=== PATIENT | male | born 1960 | race Caucasian/White ===

== ENCOUNTER → 2017-08-14 14:37 | Outpatient (CLI) | payer BC, SELFPAY ==
--- NOTE | 2017-08-14 14:42 | RAD_ITS ---
STUDY: X-RAY - LEFT SHOULDER REASON FOR EXAM: Male, 57 years old. Left shoulder pain TECHNIQUE: 4 view(s) of the shoulder. COMPARISON: None. FINDINGS: The glenohumeral joint is in normal alignment. There is mild nonuniform joint space narrowing and spur formation of the glenohumeral joint. The acromioclavicular joint is in normal alignment demonstrates moderate nonuniform joint space narrowing and spur formation. Normal acromion. Visualized clavicle and scapula are unremarkable. No humeral fracture. No lytic or blastic lesion. The soft tissue structures are unremarkable. Normal visualized left upper ribs and pulmonary apex. 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 Electronically Signed: Santana Asher MD at 3:57 EST Tel , Service support ,
== END ==
PROVIDERS: Family Provider Family Medicine; PCP Family Medicine; Visit Provider Family Medicine
DX: S46.012A Strain of muscle(s) and tendon(s) of the rotator cuff of left shoulder, initial encounter (principal); X58.XXXA Exposure to other specified factors, initial encounter; M19.012 Primary osteoarthritis, left shoulder
CPT/HCPCS: 73030

== ENCOUNTER → 2017-11-18 12:34 | Outpatient (CLI) | payer BC, SELFPAY ==
--- NOTE | 2017-11-18 12:34 | DT_ITS ---
This patient was seen during an EMR downtime November 11, 2017 - November 18, 2017. This patient may have a combination of paper and electronic documentation or all paper documentation. All documentation is viewable within the e-chart portion of [facility] for each patient visit.
[2017-11-18 14:23] LABS: ALB/GLOB Ratio 1.1 RATIO (0.9-2.4); AST(SGOT) 21 U/L (15-37); Alanine Aminotransfer ALT/SGPT 24 U/L (16-61); Albumin, Serum 3.8 g/dL (3.2-5.0); Alkaline Phosphatase 88 U/L (45-117); Anion Gap 9 (5-15); BUN 21 mg/dL (7-18); BUN/Creat Ratio 23.5 RATIO (10-20); Chloride 108 mmol/L (98-107); Cholesterol 132 mg/dL (200); Creatinine, Serum 0.89 mg/dL (0.70-1.30); EST Glomerular Filtration Rate 93 mL/min (>60); Est Glom Filt Rate - Afr Amer 112 mL/min (>60); Globulin 3.6 g/dL (2.2-4.2); Glucose 102 mg/dL (74-106); High Density Lipoprotein 52 mg/dL; Potassium 3.9 mmol/L (3.5-5.1); Protein, Total 7.4 g/dL (6.4-8.2); Sodium Level 142 mmol/L (136-145); Triglycerides 123 mg/dL; Very Low Density Lipoprotein 25 mg/dL (5-40)
== END ==
PROVIDERS: Family Provider Family Medicine; PCP Family Medicine; Visit Provider Family Medicine
DX: E11.65 Type 2 diabetes mellitus with hyperglycemia (principal)
CPT/HCPCS: 36415; 80053; 80061

== ENCOUNTER → 2017-11-21 12:05 | Outpatient (CLI) | payer BC, SELFPAY ==
--- NOTE | 2017-11-21 12:11 | RAD_ITS ---
STUDY: X-RAY - CERVICAL SPINE REASON FOR EXAM: Male, 57 years old. Muscle weakness of extremity. TECHNIQUE: 5 view(s) of the cervical spine were obtained. COMPARISON: None FINDINGS: There are degenerative changes of the anterior atlantoaxial articulation. Normal odontoid process. Normal lower cervical lordosis, there is a mild upper cervical kyphosis. There is multi-level endplate spondylosis. There is multi-level degenerative disc disease with multilevel disc space narrowing. There are multilevel degenerative arthroses of the facet articulations. There is borderline retrolisthesis of C4 on C5. There is multi-level mild to moderate osseous foraminal stenoses. The soft tissue structures are unremarkable. There is no demonstrated osseous destructive process or fracture of the cervical spine. RAD/Cerv Spine 4 or 5 Views IMPRESSION: Multilevel degenerative changes of the cervical spine, as described. Electronically Signed: Gerry Macdonald MD at 14:07 EDT , Service support ,
[2017-11-21 14:30] LABS: Erythrocyte Sedimentation Rate 34 mm/hr (0-20)
[2017-11-21 14:39] LABS: Absolute Lymphocyte Count 1.62 X10^3/ul (0.83-4.51); Basophil# 0.02 X10^3/uL; Basophil% 0.2 % (0-1); Eosinophil# 0.17 X10^3/uL; Hematocrit 46.8 % (40-54); Hemoglobin 14.9 g/dl (13.0-16.5); Lymphocyte # 1.62 X10^3/ul (4.0); Lymphocyte % 18.6 % (19-41); Mean Corp Hgb Conc 31.8 g/gl (32-36); Mean Corpuscular Hgb 30.3 pg (27.0-32.0); Mean Corpuscular Volume 95.3 fL (80-94); Mean Platelet Vol. 9.7 fl (6.2-12.0); Monocyte# 0.87 X10^3/uL; Neutrophil % 69.1 % (47-70); Platelet Count 211 K/mm3 (150-450); RBC Distribution Width CV 14.3 % (11.6-14.6); RBC Distribution Width SD 50.1 fl (35.1-43.9); Red Blood Count 4.91 M/mm3 (4.6-6.2); White Blood Count 8.7 K/mm3 (4.4-11.0)
[2017-11-21 14:42] LABS: POSITIVE COUNT NO; POSITIVE DIFFERENTIAL NO; POSITIVE MORPHOLOGY NO
[2017-11-21 14:57] LABS: CRP < 2.90 mg/L (0.0-3.0); Ferritin 88 ng/mL (26-388); Iron 78 ug/dL (65-175); Magnesium 2.1 mg/dL (1.6-2.6); Thyroid Stim Hormone (TSH) 0.83 uIU/mL (0.358-3.74)
[2017-11-22 08:19] LABS: Vitamin B12 296 pg/mL (211-911); Vitamin D,25 Hydroxy 16.4 ng/mL (29.95-100.01)
[2017-11-22 17:54] LABS: ANTINUCLEAR ANTIBODIES DIRECT Negative (Negative)
== END ==
PROVIDERS: Family Provider Family Medicine; PCP Family Medicine; Visit Provider Family Medicine
DX: M62.81 Muscle weakness (generalized) (principal); G62.9 Polyneuropathy, unspecified
CPT/HCPCS: 36415; 72050; 82306; 82607; 82728; 83540; 83735; 84403; 84443; 85025; 85652; 86038; 86140

== ENCOUNTER → 2017-12-20 07:03 | Outpatient (CLI) | payer BC, SELFPAY ==
--- NOTE | 2017-12-20 07:45 | MRI_ITS ---
STUDY: MRI CERVICAL SPINE WITHOUT CONTRAST REASON FOR EXAM: Male, 57 years old. Right hand weakness and neck and shoulder pain TECHNIQUE: Standardized fat and water weighted pulse sequences were obtained in the sagittal and axial planes. COMPARISON: November 21, 2017 FINDINGS: The effusion C1-2 joint on the right. Normal foramen magnum and brainstem-cervical cord junction. Normal craniovertebral junction. Normal anterior atlantoaxial articulation. Normal odontoid process. There is reversal of the normal cervical lordosis. Normal vertebral bodies and posterior osseous elements. C2-3: Normal endplates. Normal disc height, signal and morphology. Normal central canal and intervertebral neural foramina. C3-4: Normal endplates. Normal disc height, signal and morphology. Normal central canal and severe narrowing left intervertebral neural foramina. C4-5: Normal endplates. Normal disc height, signal and morphology. Normal central canal and moderately severe bilateral intervertebral neural foramina. C5-6: Normal endplates. Normal disc height, signal and morphology. Normal central canal and severe narrowing right intervertebral neural foramina. C6-7: Normal endplates. Normal disc height, signal and morphology. Normal central canal and moderate bilateral narrowing intervertebral neural foramina. C7-T1: Normal endplates. Normal disc height, signal and morphology. Normal central canal and intervertebral neural foramina. Normal cervical cord. Normal visualized soft tissue structures. MRI/Spine Cervical (Routine) IMPRESSION: Bilateral neural foraminal narrowing as noted above at multiple levels Electronically Signed: Oli Eduardo MD at 23:49 EDT , Service support ,
== END ==
PROVIDERS: Family Provider Family Medicine; PCP Family Medicine; Visit Provider Family Medicine
DX: M48.02 Spinal stenosis, cervical region (principal); M62.81 Muscle weakness (generalized)
CPT/HCPCS: 72141

== ENCOUNTER 2018-06-27 10:00 | Outpatient (RCR) | payer BC, SELFPAY ==
--- NOTE | 2018-05-28 14:47 | HP.PTEVAL_ITS ---
Patient's Visit Information THAO MOLINA is a 57 year old M referred to Physical Therapy by Andrew Teran MD with a diagnosis of cervical stenosis. Date of Evaluation: 05/28/18 Physical Therapist: Yair Quinn, GRACIET, OCS, CSCS - Visit Plan Frequency: 2-3x /Week Duration: 4-6 Weeks Plan: 2-3x/week for 4-6 weeks for : 1. c/s rotation ROM. 2. UE ROM into air without making R shoulder pain worse...posture and body mechanics. 3. Strength of posture and shoulders and grippers adn isometric strength c/s. 4. sTM to c/s and upper thoracic paraspinals and scar as needed. 5. Mh/ice if needed. - Subjective Findings: Neck pain and arm weakness and been going on for several years. Sent to Dr. Teran for surgery on May 13 2018. Fusion performed. Doing OK with pain pills. tolerable pain. Doctor not happy with healing so he is starting an antibiotic. Feels like weakness is better. Tingling in B upper legs since surgery laterally. 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 He is off for twelve weeks until Mid July. Sleep is interrupted possibly due to pain. Basic ADLs are getting done but very slow, sometimes increase pain if he does too much.. Sitting down to take break helps. Hobbies: work in garden and yard work. Uses snowblower in winter. Watches tV. No regular exercises. - Pain Neck pain Pain Intensity (Out of 10): 5 Pain Intensity Range: 5, 8 Comment: feels tight - Objective Walks normally and safely. Trasnfers I. Posture is forward head and shoulders. Incisions is large and posterior from about c2 to the upper thoracic spine. No excessive redness heat or swelling but two dry scabbed areas amid otherwise healed incision. c/s AROM B rot 25 degrees, ext 12, minor discomfort with retraction. 45 # L jig and fixture maker and 50# R. UE ROMK shoulder flexion is 13 and then stiff and crepitus L. shoulder rotation WNL EXt but IR limited to belt line and stiff. reeflexes 0/3 B biceps adn triceps. sensation UE WNL to gross light touch. Strength UE 4+ elbow flexion 4/5 ext B, wrist flex adn ext 4+ shoudler flex abd 4 and pain L with crepitus. - Goals Goal 1:: c/s rotation ROM 50 to see when driving better. Goal Time Frame: 4-6 Weeks Goal 2:: 4+/5 UE srength adn 75 jig and fixture maker to facilitate RTW Goal Time Frame: 4-6 Weeks Goal 3:: Pain 0-2/10 at worst and 90% better overall. Goal Time Frame: 4-6 Weeks Goal 4:: Plan to return to work. Goal Time Frame: 4-6 Weeks - Rehabilitation Potential Physical Therapy Diagnosis: c/s stenosis s/p fusion. Rehabilitation Potential: Fair - Anticipated Interventions Patient/Client Instruction: Educate patient on: Condition, Plan of Care For the Purpose of:: To decrease pain, To increase ROM, To improve muscle performance and motor function, To improve ability of physical actions for home/community/work/leisure Therapeutic Exercise to Include: Strength training, Flexibilty training, Passive ROM, Active ROM For the Purpose of:: To decrease pain, To increase ROM, To improve muscle performance and motor function, To improve ability of physical actions for home/community/work/leisure Manual Therapy Techniques to Include: Soft tissue mobilization For the Purpose of:: To decrease pain, To improve nutrient delivery to tissue, To improve ability of physical actions for home/community/work/leisure Cryotherapy (ice pack, ice massage): Yes Thermo therapy (hot pack): Yes For the Purpose of:: To decrease pain, To decrease swelling/inflammation, To improve nutrient delivery to tissue Thank you for the opportunity to evaluate your patient. For Medicare and Medicare HMO plans, please review the plan of care and approve it. It will need to be FAXED BACK to us at [phone] for Medicare purposes. For Medicare only, by signing this I certify the plan of care. Please let me know if there are questions or concerns regarding this plan of care. Physician Signature: Date:
--- NOTE | 2018-06-27 10:55 | HP.PTEVAL_ITS ---
Patient's Visit Information THAO MOLINA is a 57 year old M referred to Physical Therapy by Andrew Teran MD with a diagnosis of cervical stenosis. 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 Pt may benefit form further work simulation strength for eventual RTW. - Subjective Findings: Neck pain and arm weakness and been going on for several years. Sent to Dr. Teran for surgery on May 13 2018. Fusion performed. Doing OK with pain pills. tolerable pain. Doctor not happy with healing so he is starting an antibiotic. Feels like weakness is better. Tingling in B upper legs since surgery laterally. 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 He is off for twelve weeks until Mid July. Sleep is interrupted possibly due to pain. Basic ADLs are getting done but very slow, sometimes increase pain if he does too much.. Sitting down to take break helps. Hobbies: work in garden and yard work. Uses snowblower in winter. Watches tV. No regular exercises. - Pain Neck pain Pain Intensity (Out of 10): 1 Pain Intensity Range: 5, 8 Comment: nothing major - Objective Walks normally and safely. Trasnfers I. Posture is forward head and shoulders. Incisions is large and posterior from about c2 to the upper thoracic spine. No excessive redness heat or swelling but two dry scabbed areas amid otherwise healed incision. c/s AROM B rot 25 degrees, ext 12, minor discomfort with retraction. 45 # L inspector heating and refrigeration and 50# R. UE ROMK shoulder flexion is 13 and then stiff and crepitus L. shoulder rotation WNL EXt but IR limited to belt line and stiff. reeflexes 0/3 B biceps adn triceps. sensation UE WNL to gross light touch. Strength UE 4+ elbow flexion 4/5 ext B, wrist flex adn ext 4+ shoudler flex abd 4 and pain L with crepitus. - Goals Goal 1:: c/s rotation ROM 50 to see when driving better. Goal Time Frame: 4-6 Weeks Goal 2:: 4+/5 UE srength adn 75 inspector heating and refrigeration to facilitate RTW Goal Time Frame: 4-6 Weeks Goal 3:: Pain 0-2/10 at worst and 90% better overall. Goal Time Frame: 4-6 Weeks Goal 4:: Plan to return to work. Goal Time Frame: 4-6 Weeks - Rehabilitation Potential Physical Therapy Diagnosis: c/s stenosis s/p fusion. Rehabilitation Potential: Fair - Anticipated Interventions Patient/Client Instruction: Educate patient on: Condition, Plan of Care For the Purpose of:: To decrease pain, To increase ROM, To improve muscle performance and motor function, To improve ability of physical actions for home/community/work/leisure Therapeutic Exercise to Include: Strength training, Flexibilty training, Passive ROM, Active ROM For the Purpose of:: To decrease pain, To increase ROM, To improve muscle performance and motor function, To improve ability of physical actions for home/community/work/leisure Manual Therapy Techniques to Include: Soft tissue mobilization For the Purpose of:: To decrease pain, To improve nutrient delivery to tissue, To improve ability of physical actions for home/community/work/leisure Cryotherapy (ice pack, ice massage): Yes Thermo therapy (hot pack): Yes For the Purpose of:: To decrease pain, To decrease swelling/inflammation, To improve nutrient delivery to tissue Thank you for the opportunity to evaluate your patient. For Medicare and Medicare HMO plans, please review the plan of care and approve it. It will need to be FAXED BACK to us at [phone] for Medicare purposes. For Medicare only, by signing this I certify the plan of care. Please let me know if there are questions or concerns regarding this plan of care. Physician Signature: Date:
--- NOTE | 2018-06-27 10:55 | HP.PTREVAL ---
Andrew Teran MD, It has been my pleasure to treat THAO Peña KIDNEY over the last 12 visits for cervical stenosis. Please see the progress note below for an update on the physical therapy plan of care! Subjective: Overall feeling better but still tightness in neck. Crying pain is gone. Mostly now tight in base of neck. Sleeping and waking next morning and muscles feel tight but he can move around and loosen them tolerably. Sleep like a baby, up every 2-3 hours but has to pee. Activities avoiding shovelling snow whcih is fine with him. otherwise doing everything. No Doctor visit until 07/10/18. HEP: strengthening isometric necka nd postural pulls, started using free weights for LE. Has to pull alot at work and crawl on ground adn reach, moves alot of weight. No return to wrok date given. Overall expected about 12 weeks off. Objective/Function: R 55 L rot 40 adn extension is 40 in c/s Not painful, just wont go any further. 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 Walks well. 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 I would be concerned if he does not get considerably stronger before return to work as he has lots of travelling and a heavy workload. Recommend that work simulation might be helpful over the next month. 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 Pt may benefit form further work simulation strength for eventual RTW. Goals Goal 1:: c/s rotation ROM 50 to see when driving better. 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 Goal Time Frame: 4-6 Weeks Goal Progress: Progressing Goal 4:: Plan to return to work. Goal Time Frame: 4-6 Weeks Goal Progress: Progressing Anticipated Interventions Patient/Client Instruction: Educate patient on: Condition, Plan of Care For the Purpose of:: To decrease pain, To increase ROM, To improve muscle performance and motor function, To improve ability of physical actions for home/community/work/leisure Therapeutic Exercise to Include: Strength training, Flexibilty training, Passive ROM, Active ROM For the Purpose of:: To decrease pain, To increase ROM, To improve muscle performance and motor function, To improve ability of physical actions for home/community/work/leisure Manual Therapy Techniques to Include: Soft tissue mobilization For the Purpose of:: To decrease pain, To improve nutrient delivery to tissue, To improve ability of physical actions for home/community/work/leisure Cryotherapy (ice pack, ice massage): Yes Thermo therapy (hot pack): Yes For the Purpose of:: To decrease pain, To decrease swelling/inflammation, To improve nutrient delivery to tissue Please do not hesitate to contact me at [phone] by phone or if you have questions or concerns regarding this new plan of care! Sincerely, Yair Quinn, DPT, OCS, CSCS
--- NOTE | 2018-07-11 08:47 | HP.PTDCSUM ---
HP - PT D/C Summary It has been my pleasure to treat THAO Peña KIDNEY under orders from Andrew Teran MD, for the diagnosis of cervical stenosis for a total of 12 visit(s). Discharge Date: 07/11/18 Please see the following information for a summary of their discharge status. - Subjective Subjective: Overall feeling better but still tightness in neck. Crying pain is gone. Mostly now tight in base of neck. Sleeping and waking next morning and muscles feel tight but he can move around and loosen them tolerably. Sleep like a baby, up every 2-3 hours but has to pee. Activities avoiding shovelling snow whcih is fine with him. otherwise doing everything. No Doctor visit until 07/10/18. HEP: strengthening isometric necka nd postural pulls, started using free weights for LE. Has to pull alot at work and crawl on ground adn reach, moves alot of weight. No return to wrok date given. Overall expected about 12 weeks off. - Pain Neck pain Pain Intensity (Out of 10): 1 - Overall Improvement % Improvement: 75 - Objective Objective/Function: Pt called and saw doctor ronny is cancelling last recheck as doctor told him he did not need more therapy. - Goals Goal 1:: c/s rotation ROM 50 to see when driving better. 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 Goal Progress: Progressing Goal 4:: Plan to return to work. Goal Progress: Progressing - Plan Plan: D/C at patient's request. - D/C Information Discharge Comments: D/C as patient cancelled last visit and stating he is doing well. If there are questions or concerns regarding this patient's physical therapy, please feel free to call me at [phone]. Thank you for the referral of this patient. Sincerely, Yair Quinn, DPT, OCS, CSCS
--- OUTSIDE RECORDS SUMMARY | 2018-08-29 19:24 | XMS RPT_ITS ---
:1960 Author Organization OHIP Care Team Providers Name Role Phone Teodora Jacobsen Attending Unavailable Teodora Jacobsen Referring Unavailable Torsten Sawyer Primary Care Unavailable Torsten Sawyer Attending Unavailable Torsten Sawyer Primary Care Unavailable Torsten Sawyer Attending Unavailable Torsten Sawyer Referring Unavailable Torsten Sawyer Primary Care Unavailable Torsten Sawyer Attending Unavailable Torsten Sawyer Referring Unavailable Torsten Sawyer Primary Care Unavailable Ranney, Christopher Attending Unavailable Ranjen, Christopher Referring Unavailable Ranney, Christopher Primary Care Unavailable VALERIO, TEODORA ZOHRAB Referring Unavailable VALERIO, TEODORA ZOHRAB Referring Unavailable VALERIO, TEODORA ZOHRAB Referring Unavailable VALERIO, TEODORA ZOHRAB Admitting Unavailable VALERIO, TEODORA ZOHRAB Attending Unavailable VALERIO, TEODORA ZOHRAB Referring Unavailable LOIS CRAVEN Consulting Unavailable VALERIO, TEODORA Z Referring Unavailable VALERIO, TEODORA Z Referring Unavailable RANJEN, CHRISTOPHER B Primary Care Unavailable VALERIO, TEODORA Z Admitting Unavailable VALERIO, TEODORA Z Attending Unavailable VALERIO, TEODORA Z Referring Unavailable Sunny KATZ Consulting Unavailable UNKNOWN, PROVIDER Consulting Unavailable VALERIO, TEODORA Z Referring Unavailable LUCIEN, CHRISTOPHER B Primary Care Unavailable VALERIO, TEODORA Z Referring Unavailable LUCIEN CHRISTOPHER B Primary Care Unavailable PROBLEMS PROBLEMS DATE TYPE CONDITION / CODE ATTENDING STATUS SOURCE 04/28/2018 Active Encounter for NA Active [facility] Other preprocedural [place] examination / Repository Z01.818(ICD-10) 04/02/2018 Active Spinal stenosis, NA Active [facility] cervical region / Clinic Other M48.02(ICD-10) [place] Repository 04/02/2018 Admitting Unknown / NA Active [facility] General diagnosis [facility](Unknown) [facility] System Repository 12/20/2017 Unknown M62.81 - Muscle Ranney, Active [place] weakness [facility] (generalized) / Hospital M62.81(ICD-10) Repository 11/21/2017 Unknown G62.9 - Ranney, Active [place] Polyneuropathy, [facility] unspecified / Hospital G62.9(ICD-10) Repository 12/05/2017 Unknown E11.65 - Type 2 Ranney, Active [place] diabetes mellitus [facility] with hyperglycemia Hospital / E11.65(ICD-10) Repository PROCEDURES PROCEDURES No Procedure Records FoundRESULTS RESULTS RE-EVALUATION - PT (1) Observed: 06/30/2018 Status: F Source: [place] 6:47 AM [facility] [place] REPOSITORY [facility] Physical Therapy Health[address] [place] [address] / REEVALUATION / MEDICARE RECERTIFICATION PHYSICAL THERAPY MR#: [id number] Acct: [id number] Name: MARTIN MOLINA Rep #: [id number] : 1960 57 From: Yair Quinn DPT, OCS, CSCS Referring Dr.: Teodora Jacobsen MD Status: REG RCR Insurance: [employer] SELF PAY INSURANCE Teodora Jacobsen MD, It has been my pleasure to treat MARTIN Peña KIDNEY over the last 12 visits for cervical stenosis. Please see the progress note below for an update on the physical therapy plan of care! Subjective: Overall feeling better but still tightness in neck. Crying pain is gone. Mostly now tight in base of neck. Sleeping and waking next morning and muscles feel tight but he can move around and loosen them tolerably. Sleep like a baby, up every 2-3 hours but has to pee. Activities avoiding shovelling snow whcih is fine with him. otherwise doing everything. No Doctor visit until 07/10/18. HEP: strengthening isometric necka nd postural pulls, started using free weights for LE. Has to pull alot at work and crawl on ground adn reach, moves alot of weight. No return to wrok date given. Overall expected about 12 weeks off. Objective/Function: R 55 L rot 40 adn extension is 40 in c/s Not painful, just wont go any further. 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 Walks well. 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 I would be concerned if he does not get considerably stronger before return to work as he has lots of travelling and a heavy workload. Recommend that work simulation might be helpful over the next month. 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 Pt may benefit form further work simulation strength for eventual RTW. Goals Goal 1:: c/s rotation ROM 50 to see when driving better. 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 Goal Time Frame: 4-6 Weeks Goal Progress: Progressing Goal 4:: Plan to return to work. Goal Time Frame: 4-6 Weeks Goal Progress: Progressing Anticipated Interventions Patient/Client Instruction: Educate patient on: Condition, Plan of Care For the Purpose of:: To decrease pain, To increase ROM, To improve muscle performance and motor function, To improve ability of physical actions for home/community/work/leisure Therapeutic Exercise to Include: Strength training, Flexibilty training, Passive ROM, Active ROM For the Purpose of:: To decrease pain, To increase ROM, To improve muscle performance and motor function, To improve ability of physical actions for home/community/work/leisure Manual Therapy Techniques to Include: Soft tissue mobilization For the Purpose of:: To decrease pain, To improve nutrient delivery to tissue, To improve ability of physical actions for home/community/work/leisure Cryotherapy (ice pack, ice massage): Yes Thermo therapy (hot pack): Yes For the Purpose of:: To decrease pain, To decrease swelling/inflammation, To improve nutrient delivery to tissue Please do not hesitate to contact me at [phone] by phone or if you have questions or concerns regarding this new plan of care! Sincerely, Yair Quinn, DPT, OCS, CSCS <Electronically signed by Yair BOWMANT, OCS, CSCS> 06/30/18 0647 CC: Torsten Sawyer MD; Teodora Jacobsen MD EBG Signed For Medicare only, by signing this I certify the plan of care. Physicians Signature Date INITAL EVALUATION (1) Observed: 05/30/2018 Status: F Source: [place] Garcia PT 6:45 AM [facility] REPOSITORY [facility] Physical Therapy Health[address] [place] [address] Fax REHABILITATION SERVICES INITIAL EVALUATION MR#: [id number] Acct: [id number] Name: MARTIN MOLINA Rep #: [id number] : 1960 57 From: Yair Quinn DPT, OCS, CSCS Referring Dr.: Teodora Jacobsen MD Status: REG RCR Insurance: [facility] SELF PAY INSURANCE Patient's Visit Information MARTIN MOLINA is a 57 year old M referred to Physical Therapy by Teodora Jacobsen MD with a diagnosis of cervical stenosis. Date of Evaluation: 05/28/18 Physical Therapist: Yair Quinn DPT, OCS, CSCS - Visit Plan Frequency: 2-3x /Week Duration: 4-6 Weeks Plan: 2-3x/week for 4-6 weeks for : 1. c/s rotation ROM. 2. UE ROM into air without making R shoulder pain worse...posture and body mechanics. 3. Strength of posture and shoulders and grippers adn isometric strength c/s. 4. sTM to c/s and upper thoracic paraspinals and scar as needed. 5. Mh/ice if needed. - Subjective Findings: Neck pain and arm weakness and been going on for several years. Sent to Dr. Jacobsen for surgery on May 13 2018. Fusion performed. Doing OK with pain pills. tolerable pain. Doctor not happy with healing so he is starting an antibiotic. Feels like weakness is better. Tingling in B upper legs since surgery laterally. 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 Using big wrenches was a problem. He is off for twelve weeks until Mid July. Sleep is interrupted possibly due to pain. Basic ADLs are getting done but very slow, sometimes increase pain if he does too much.. Sitting down to take break helps. Hobbies: work in garden and yard work. Uses snowblower in winter. Watches tV. No regular exercises. - Pain Neck pain Pain Intensity (Out of 10): 5 Pain Intensity Range: 5, 8 Comment: feels tight - Objective Walks normally and safely. Trasnfers I. Posture is forward head and shoulders. Incisions is large and posterior from about c2 to the upper thoracic spine. No excessive redness heat or swelling but two dry scabbed areas amid otherwise healed incision. c/s AROM B rot 25 degrees, ext 12, minor discomfort with retraction. 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 UE ROMK shoulder flexion is 13 and then stiff and crepitus L. shoulder rotation WNL EXt but IR limited to belt line and stiff. reeflexes 0/3 B biceps adn triceps. sensation UE WNL to gross light touch. Strength UE 4+ elbow flexion 4/5 ext B, wrist flex adn ext 4+ shoudler flex abd 4 and pain L with crepitus. - Goals Goal 1:: c/s rotation ROM 50 to see when driving better. 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 Goal Time Frame: 4-6 Weeks Goal 4:: Plan to return to work. Goal Time Frame: 4-6 Weeks - Rehabilitation Potential Physical Therapy Diagnosis: c/s stenosis s/p fusion. Rehabilitation Potential: Fair - Anticipated Interventions Patient/Client Instruction: Educate patient on: Condition, Plan of Care For the Purpose of:: To decrease pain, To increase ROM, To improve muscle performance and motor function, To improve ability of physical actions for home/community/work/leisure Therapeutic Exercise to Include: Strength training, Flexibilty training, Passive ROM, Active ROM For the Purpose of:: To decrease pain, To increase ROM, To improve muscle performance and motor function, To improve ability of physical actions for home/community/work/leisure Manual Therapy Techniques to Include: Soft tissue mobilization For the Purpose of:: To decrease pain, To improve nutrient delivery to tissue, To improve ability of physical actions for home/community/work/leisure Cryotherapy (ice pack, ice massage): Yes Thermo therapy (hot pack): Yes For the Purpose of:: To decrease pain, To decrease swelling/inflammation, To improve nutrient delivery to tissue Thank you for the opportunity to evaluate your patient. For Medicare and Medicare HMO plans, please review the plan of care and approve it. It will need to be FAXED BACK to us at [phone] for Medicare purposes. For Medicare only, by signing this I certify the plan of care. Please let me know if there are questions or concerns regarding this plan of care. Physician Signature: Date: <Electronically signed by Yair Quinn DPT, OCS, CSCS> 05/30/18 0645 CC: Torsten Sawyer MD; Teodora Jacobsen MD EBG Signed GLUCOSE METER Collected: 05/16/2018 Status: F Source: [facility] 5:02 PM HEALTH SYSTEM REPOSITORY TYPE CODE TESTS RESULT OUT OF REFERENCE UNITS RANGE LAB GLUBL(LOINC 70-99 mg/dL ) High Glucose Meter 151 Result Comment: RN NOTIFIED Performed By: #### GLMET #### [place] [address] ALLIED HEALTH Observed: 05/16/2018 Status: COMPLETED Source: [place] 2:23 PM CLINIC OTHER CAMPUS REPOSITORY HNO ID: [id number] Author: Gustabo Nicholas (Chaplain) Service: Spiritual Care Author Type: Senior Java J2Ee Developer Type: Allied Health Filed: 05/16/2018 2:23 PM Note Text: SPIRITUALCARE Spiritual Care Visit- Brief Note Name: Martin Peña Kidney Date: May 16, 2018 Notes: I stopped into visit with Pt and there were doctor's in with Pt at the time. Senior Java J2Ee Developer Signature: Chaplain Yu Scholastic Aptitude Test Grader To contact the Spiritual Care Department: Please call [phone] or Page the On-Call Senior Java J2Ee Developer at pager [phone] Thank you for the opportunity to be of service. This is an electronically created document. IF PRINTED, PLEASE DO NOT REMOVE FROM THE CHART OR MODIFY PRINTED COPY. PROGRESS Observed: 05/16/2018 Status: COMPLETED Source: [place] 1:58 PM CLINIC OTHER CAMPUS REPOSITORY HNO ID: [id number] Author: Dada Mata Service: Hospital Medicine Author Type: Physician Type: Progress Notes Filed: 05/16/2018 2:07 PM Note Text: DEPARTMENT OF HOSPITAL MEDICINE PROGRESS NOTE SERVICE DATE: 05/16/2018 SERVICE TIME: 1:58 PM Hospital Medicine/Primary Attending: Dada Mata MD NIGHT AND WEEKEND COVERAGE: After 7pm please page [phone] CHIEF COMPLAINT: chest pain. CAD SUBJECTIVE: No chest pain. No dyspnea. OBJECTIVE: PHYSICAL EXAM: BP 112/60 Pulse 79 Temp (Src) 98.2 (Oral) Resp 18 Ht 5' 7 (1.70m) Wt 280 lb (127.0kg) SpO2 100% BMI 43.84 kg/(m2). GENERAL: Alert, no distress, cooperative, SKIN: Skin color, texture, turgor normal. No rashes or lesions. NECK: dressing present. Drain present OROPHARYNX: Lips, mucosa, and tongue normal. Teeth and gums normal. Oropharynx normal. LUNGS: Lungs clear to auscultation, Air entry good, Unlabored breathing. CARDIAC: Normal S1 and S2; no rubs, murmurs, or gallops ABDOMEN: Abdomen soft, non-tender, non-distended, BS normal EXTREMITIES: Normal, no deformities, edema, clubbing or skin discoloration. NEURO: Grossly normal cognition, motor function, and cranial nerves III-XII MEDICATIONS: Current hospital medications: [MAR Hold due to Transfer] albuterol 2.5 mg /3 mL (0.083 %) 2.5 mg (PROVENTIL) 2.5 mg INHALATION q 4 H PRN metFORMIN 1,000 mg tab(s) (GLUCOPHAGE) 1,000 mg ORAL DAILY WITH BREAKFAST atorvastatin 80 mg tab(s) (LIPITOR) 80 mg ORAL DAILY lisinopril 10 mg tab(s) (ZESTRIL, PRINIVIL) 10 mg ORAL DAILY metoprolol tartrate (short acting) 25 mg tab(s) (LOPRESSOR) 25 mg ORAL DAILY pioglitazone 45 mg tab(s) (ACTOS) 45 mg ORAL DAILY NaCl 0.45% iv infusion 100 mL/hr INTRAVENOUS CONTINUOUS HYDROmorphone HCl 0.5-1 mg injection (DILAUDID) 0.5-1 mg INTRAVENOUS q 2 H PRN oxyCODONE-acetaminophen 5-325 mg 1-2 tablet (PERCOCET) 1-2 tablet ORAL q 4 H PRN ondansetron 4 mg tab(s) (ZOFRAN) 4 mg ORAL q 6 H PRN ondansetron (PF) 4 mg injection (ZOFRAN) 4 mg INTRAVENOUS q 6 H PRN docusate sodium 100 mg cap(s) (COLACE) 100 mg ORAL BID polyethylene glycol 3350 17 g packet (MIRALAX, GLYCOLAX) 17 g ORAL DAILY PRN bisacodyl 10 mg suppository (DULCOLAX) 10 mg RECTAL DAILY PRN tiZANidine 4 mg tab(s) (ZANAFLEX) 4 mg ORAL TID [MAR Hold due to Transfer] empagliflozin 25 mg tab(s) (JARDIANCE) 25 mg ORAL DAILY WITH BREAKFAST [MAR Hold due to Transfer] sitaGLIPtin 100 mg tab(s) (JANUVIA) 100 mg ORAL DAILY DATA: Diagnostic tests reviewed for today's visit: CBC, Coags, BMP, Mg, Phos Recent Labs 05/14/18 1000 WBC 13.51* HB 13.0* HCT 41.6 PLT 204 NA 135* K 4.0 CHLOR 104 CO2 24 BUN 21* CREAT 1.06 GLUC 181* CA 8.3* Liver Function, Amylase, AND Lipase Cardiac Enzymes Recent Labs 05/14/18 1000 CK 513* CKMB 4.8 Heme: No results for input(s): RETICP, ABSRETIC, LD, ARNALDO, FE, TIBC, TRANSFERSAT in the last 24 hours. No results found for: UALBCR Assessment/Plan Patient Active Hospital Problem List: Obesity, Class III, BMI >= 40 (05/13/2018) Cervical stenosis of spine (05/13/2018) HTN (hypertension) () Dyslipidemia () Diabetes (HCC) () CAD (coronary artery disease) () ASSESSMENT: 1. S/p cervical surgery C3-T1 posterior decompression, fixation, and fusion: POd #2. ? 2. Chest pain: described as 'heartburn, not pressure like'. resolved. EKG st elevation in lead II and ? I. But troponin three times negative. Discussed with seed laboratory assistant- reviewed EKG from past and from 10/2017 and 11/2017. New Accounts Banking Representative recommended outpatient stress test once better from neck surgery standpoint. Recommended to continue BB, statin and Imdur. D/w patient, he was not interested in adding and wanted to defer it at this time. Before surgery, he has been fairly active and does not chest pain or dyspnea with activities. ? 3. Hx CAD s/p stent: last one was 15 years ago. on statin, metoprolol. ASA on hold for surgery. Nuclear stress test early this year at [place] early this year, reports negative. ? 4. HTN: BP okay ? 5. HPL ? 6. DM2: BG in 100s. On Metformin, januvia, Jardiance, actos. ? PLAN: Continue BB,statin. Restart AsA as soon as okay from surgical standpoint. Follow up with seed laboratory assistant for outpatient stress test. Should consider imdur if chest pain recurs. This was discussed with patient in detail and he seems to understand. VTE Prophylaxis: Pneumatic Compression Device Disposition: per primary Plan of care discussed with: Patient SIGNATURE: Dada Mata MD PATIENT NAME: Martin Molina DATE: May 16, 2018 TIME: 1:58 PM PAGER/CONTACT #: [phone] CASE MGT INIT Observed: 05/16/2018 Status: COMPLETED Source: [facility] 12:52 PM CLINIC OTHER CAMPUS REPOSITORY HNO ID: [id number] Author: DENISHA Morrell (Lisw) Service: Social Work Author Type: Commercial Sales Representative Type: Care Mgt Initial Assessment Filed: 05/16/2018 1:00 PM Note Text: CARE MANAGEMENT: ASSESSMENT AND DISCHARGE PLAN SERVICE DATE: 05/16/2018 SERVICE TIME: 12:53 PM PRIMARY CARE PHYSICIAN: Torsten Sawyer MD ADMISSION STATUS: Inpatient Needs Prior to Discharge: To Be Determined;Patient/Family MEDICAL: Patient/[place] Opener Stated Goals: To return home to life as it was Health Insurance: [employer] CARD PPO [place] Health Issues Impacting Discharge Plan: Chronic obesity,DM II,HTN Last Admission Date: none Is this Within the Past 30 days? No Advance Directive: Current Advance Directive: Health Care Power of Mortgage Loan Specialist In Chart: Yes Up To Date and Valid: Yes Health Literacy: 1. How often do you need to have someone help you when you read instructions, pamphlets, or other written material from your doctor or pharmacy? Never - 1 2. How confident are you filling out medical forms by yourself? Extremely - 1 If Patient scores > 3 on either question, the following interventions were put into place: Patient did not score > 3 FUNCTIONAL AND COGNITIVE/BEHAVIORAL PRIOR TO ADMISSION: Baseline Mental Status: Alert AND Oriented, Person, Place , Time and Situation Functional Status: Independent Does Patient Currently Receive Any Community Services or Home Care? None Equipment Prior to Admission: None Has the Patient Been in a Detention Facility in the Past 30 days? No SOCIAL: Living Arrangement: Home Lives With: Spouse Financial Resources: Employed: at [employer] Primary Contact: Extended Emergency Contact Information Primary Emergency Contact: Zhane Molina Address: [address] [place] [address] [facility] Mobile Relation: Spouse Supportive: Yes Other Important Patient Contacts: none Caregiver Assessment: Caregiver is ready, willing and able to meet the patient's needs as recommended by the inter-professional team? No Caregiver Needed Patient's transition needs and plan for meeting these needs: Plan is to go home and have some assistance from with cooking laundry etc.No other needs Does the patient have an acute stroke diagnosis, or has the patient had a stroke during this admission? No Medication Adherence: I am convinced of the importance of my prescription medication: Agree completely - 0 I worry that my prescription medication will do more harm than good to me Disagree completely - 0 I feel financially burdened by my [id number] expenses for my prescription medication: Disagree completely - 0 Patient is categorized as low risk < 2 Are you interested in bedside delivery of your medications? No Food Concerns: In the Last Month, Have You had Trouble Getting Food? No trouble getting food During the Last Month, Have You Worried Whether Your Food Would Run Out Before You Had Enough Money to Buy More? No Is the Patient Psychosocially Complex? No ASSESSMENT AND PLAN: Medical Needs: 2 or more chronic diseases Psychosocial Needs: None FREEDOM OF CHOICE EXPLAINED: N/A POTENTIAL TRANSITION PLANS Home Patient was seen by P.T. With reccs. For home with assist.. on her way here now. The couple live in [place] with stairs to the entrance. Patient pharmacis at [facility] in [place]. He last saw his PCP Dr. Sawyer in May 03.Patient Independent and driving. SIGNATURE: DENISHA Morrell PATIENT NAME: Martin Molina DATE: May 16, 2018 TIME: 12:52 PM PAGER/CONTACT #: [phone] CNDS Observed: 05/16/2018 Status: COMPLETED Source: [place] 11:26 AM CLINIC OTHER CAMPUS REPOSITORY HNO ID: [id number] Author: LAMINE Napoles (Pa) Service: Neurosurgery Author Type: Physician Armhole Baster Hand Type: Discharge Summaries Filed: 05/16/2018 11:31 AM Note Text: Attestation signed by Teodora Jacobsen at 05/16/2018 12:07 PM Teodora Jacobsen MD DISCHARGE SUMMARY PATIENT NAME: Martin Molina ADMISSION DATE: 05/13/2018 DISCHARGE DATE: 05/16/2018 ATTENDING PHYSICIAN: Teodora Jacobsen Code Status: Not on file Highest Readmission Risk Score: 10 The 30 day readmissions risk score is derived from an internally validated risk model which evaluates patient level characteristics, utilization history, medication orders and lab results up until the day of discharge. Patients with a score of 40 or above are considered highest risk for readmission. Specific patient level drivers will be listed at the bottom of the summary. REASON FOR HOSPITALIZATION: elective spine surgery DIAGNOSIS: Active Problems: Obesity, Class III, BMI >= 40 Cervical stenosis of spine HTN (hypertension) Dyslipidemia Diabetes (HCC) CAD (coronary artery disease) Resolved Problems: * No resolved hospital problems. * Ruled Out OPERATIONS DURING HOSPITALIZATION: C3-T1 posterior fixation and fusion PROCEDURES DURING HOSPITALIZATION: No procedures performed HOSPITAL COURSE: No notes on file Transitions of Care Critical Issues: NEW BASELINE FOR PATIENT: surgical pain temporarily LABS AND PROCEDURES PENDING AT DISCHARGE: No pending results. CONSULTING TEAMS DURING HOSPITALIZATION: [facility] Medicine: izaiah PATIENT CONDITION AT DISCHARGE: Stable DISCHARGE DISPOSITION: Home/Self Care Discharge Physical Exam: VITAL SIGNS: BP 139/60 Pulse 81 Temp 36.7 ?C (98.1 ?F) (Oral) Resp 18 Ht 170.2 cm (5' 7) Wt 127 kg (280 lb) SpO2 100% BMI 43.85 kg/m? GENERAL: Alert, no distress, cooperative, Obese NECK: No jugulovenous distention, Supple, stiff but acceptable rom, spasms bilaterally BACK: Back symmetric, Normal curvature, ROM normal, No CVAT. NEURO: Gait normal. Reflexes normal and symmetric. Strength and sensation grossly intact, Cranial nerves II-XII intact INFORMATION PROVIDED TO PATIENT: (To pull info documented from the DC Instruct Orderset Complete O/S First): none DIET: Resume pre-hospital diet ACTIVITY: see d/c instructions WOUND/SURGICAL SITE CARE: ALLERGIES No Known Allergies DISCHARGE MEDICATION: Current Discharge Medication List START taking these medications oxyCODONE-acetaminophen (PERCOCET) 1-2 tablets Take 1-2 tablets by mouth every 6 hours as needed. Earliest Fill Date: 05/16/18 Qty: 56 tablet Refills: 0 Associated Diagnoses:Cervical stenosis of spine tiZANidine (ZANAFLEX) 4 mg Take 4 mg by mouth three times daily. Qty: 60 tablet Refills: 0 Associated Diagnoses:Cervical stenosis of spine CONTINUE these medications which have NOT CHANGED atorvastatin (LIPITOR) 80 mg Take 80 mg by mouth once daily. linagliptin (TRADJENTA) 5 mg tab Take by mouth once daily. LISINOPRIL ORAL 10 mg Take 10 mg by mouth once daily. metFORMIN (GLUCOPHAGE) 1,000 mg Take 1,000 mg by mouth daily with breakfast. dapagliflozin 10 mg Take 10 mg by mouth daily with breakfast. METOPROLOL TARTRATE ORAL 25 mg Take 25 mg by mouth once daily. pioglitazone HCl (PIOGLITAZONE ORAL) 45 mg Take 45 mg by mouth once daily. STOP taking these medications meloxicam (MOBIC) 15 mg Comments: Reason for Stopping: aspirin, enteric coated (ASPIRIN, ENTERIC COATED) 81 mg Comments: Reason for Stopping: FUTURE APPOINTMENTS: Follow Up with valerio as scheduled The patient's risk for 30-day readmission is determined using the following contributing factors: Pt variables contributing to increased readmission risk: 21 Most Recent BUN Result 17 Active Medication Orders 8.3 First Resulted Calcium During Admission 1 Insurance - Private Coverage TIME OF CARE: Discharge Management: I personally spent greater than 30 minutes involved in the discharge management of this patient. SIGNATURE: LAMINE Napoles PAGER/CONTACT #: [phone] DATE: May 16, 2018 TIME: 11:28 AM PROGRESS Observed: 05/16/2018 Status: COMPLETED Source: [place] 11:19 AM [facility]IN[facility] OTHER CAMPUS REPOSITORY HNO ID: [id number] Author: Temo Puente (Lamine) LAMINE Jin Service: Neurosurgery Author Type: Physician Armhole Baster Hand Type: Progress Notes Filed: 05/16/2018 11:23 AM Note Text: Neurosurgery Progress Note SERVICE DATE: 05/16/2018 SUBJECTIVE: naeon - pt states pain essentially controlled with oral narc. C/o muscle spasms to shoulders and irritation from the collar. Eating, voiding and ambulating. Denies any recurrence of cp/sob. OBJECTIVE: Vitals: Temp (24hrs), Av.7 ?C (98.1 ?F), Min:36.5 ?C (97.7 ?F), Max:36.9 ?C (98.4 ?F) BP 139/60 Pulse 81 Temp 36.7 ?C (98.1 ?F) (Oral) Resp 18 Ht 170.2 cm (5' 7) Wt 127 kg (280 lb) SpO2 100% BMI 43.85 kg/m? O2 Therapy: Room Air IANDO: Date 05/15/18699 - 05/16/18 0659 05/16/18 07 - 05/17/18 0659 Shift 8931-3908 2318-2744 7587-3568 24 Hour Total 8135-5832 4749-0803 2976-3934 24 Hour Total I N T A K E PO 200 200 PO 200 200 IV 800 800 NS .45% 800 800 Shift Total 1000 1000 O U T P U T Urine 1350 1350 Void (ml) 1350 1350 Tubes 90 20 110 Drain/Tube Output (Drain/Tube 05/13/18 1553 Hemovac Midline Posterior Neck Drain #1) 90 20 110 Shift Total 1440 20 1460 Weight (kg) 127 127 127 127 127 127 127 127 MEDICATIONS Current Facility-Administered Medications: [MAR Hold due to Transfer] albuterol 2.5 mg /3 mL (0.083 %) 2.5 mg (PROVENTIL) 2.5 mg INHALATION q 4 H PRN metFORMIN 1,000 mg tab(s) (GLUCOPHAGE) 1,000 mg ORAL DAILY WITH BREAKFAST atorvastatin 80 mg tab(s) (LIPITOR) 80 mg ORAL DAILY lisinopril 10 mg tab(s) (ZESTRIL, PRINIVIL) 10 mg ORAL DAILY metoprolol tartrate (short acting) 25 mg tab(s) (LOPRESSOR) 25 mg ORAL DAILY pioglitazone 45 mg tab(s) (ACTOS) 45 mg ORAL DAILY NaCl 0.45% iv infusion 100 mL/hr INTRAVENOUS CONTINUOUS HYDROmorphone HCl 0.5-1 mg injection (DILAUDID) 0.5-1 mg INTRAVENOUS q 2 H PRN oxyCODONE-acetaminophen 5-325 mg 1-2 tablet (PERCOCET) 1-2 tablet ORAL q 4 H PRN ondansetron 4 mg tab(s) (ZOFRAN) 4 mg ORAL q 6 H PRN Or ondansetron (PF) 4 mg injection (ZOFRAN) 4 mg INTRAVENOUS q 6 H PRN docusate sodium 100 mg cap(s) (COLACE) 100 mg ORAL BID polyethylene glycol 3350 17 g packet (MIRALAX, GLYCOLAX) 17 g ORAL DAILY PRN bisacodyl 10 mg suppository (DULCOLAX) 10 mg RECTAL DAILY PRN tiZANidine 4 mg tab(s) (ZANAFLEX) 4 mg ORAL TID [MAR Hold due to Transfer] empagliflozin 25 mg tab(s) (JARDIANCE) 25 mg ORAL DAILY WITH BREAKFAST [MAR Hold due to Transfer] sitaGLIPtin 100 mg tab(s) (JANUVIA) 100 mg ORAL DAILY Labs: Recent Labs 05/14/18 1000 NA 135* K 4.0 CHLOR 104 CO2 24 BUN 21* CREAT 1.06 GLUC 181* ANION 11 CA 8.3* WBC 13.51* HB 13.0* HCT 41.6 PLT 204 Exam: GENERAL: No distress, Alert, up in a chair NEURO: orientedx3, msp grossly intact and equal HEENT: normocephalic, incision c/d/i - hemovac d/c'd gush of serous fluid after drain pulled, now nearly stopped LUNGS: Unlabored breathing CARDIAC: Regular rate and rhythm as above ASSESSMENT AND PLAN: Active Hospital Problems Diagnosis Date Noted - HTN (hypertension) - Dyslipidemia - Diabetes (HCC) - CAD (coronary artery disease) Overview Note: No seed laboratory assistant. follows up with PCP - Obesity, Class III, BMI >= 40 05/13/2018 - Cervical stenosis of spine 05/13/2018 57 year old male s/p C3-T1 posterior cervical fusion and fixation POD#3 - neuro stable - pain controlled - ok to d/c home. Instructions reviewed SIGNATURE: LAMINE Napoles PATIENT NAME: Martin Molina DATE: May 16, 2018 TIME: 11:19 AM Pager: [phone] THERAPY NT Observed: 05/16/2018 Status: COMPLETED Source: [place] 10:38 AM CLINIC OTHER CAMPUS REPOSITORY HNO ID: [id number] Author: Umm Glez Service: Physical Therapy Author Type: Sticker Operator Type: Therapy (PT/OT/Speech/Resp) Filed: 05/16/2018 10:43 AM Note Text: Attestation signed by Mari Mascorro at 05/16/2018 11:39 AM I reviewed and agree with the documentation corresponding to this therapy visit. SIGNATURE: Mari Mascorro, PT DATE: May 16, 2018 TIME: 11:39 AM Physical Therapy Treatment SERVICE DATE: 05/16/2018 SERVICE TIME: 1003 to 1027 ROOM: [id number] Recommended Discharge Disposition: Home Anticipated Discharge Needs: Physical Assist at Home Physical Assist at Home for: Cleaning;Laundry;Shopping;Transportation PT Recommendations to Nursing: Ambulate with device;To bathroom;In halls;With assist of 1 person Device: (IV pole) PT 6 Clicks Score: 23 Precautions/Activity Restrictions: Spine Precaution/Activity Restriction Comments: c-collar when OOB ASSESSMENT : Patient Disposition at Start of Session: OOB in Chair;Call Cash in Reach Patient Disposition at End of Session: OOB in Chair;Call Cash in Reach Tolerated Full Session Physical Therapy Problem List: Education Deficit;Pain;Decreased Range Of Motion;Decreased Strength;Functional Mobility Impairment Patient /Caregiver Goals: Walk;Go Home Goals for Plan of Care: Transfer supine to/from sit with: Contact Guard Assistance Transfer sit to/from stand with: Contact Guard Assistance Ambulate with: Contact Guard Assistance Distance: 100 Device: No Device (c-collar on) Ambulate up and down steps with: Contact Guard Assistance Number of steps: 4 Device: Rail Progress Toward Goals: Progressing as expected Rehab Potential: Good PLAN: Treatment Frequency (times per week): 7 Current admission Treatment Interventions: Education;Strengthening;Functional Mobility Training Plan of Care developed with: Patient TREATMENT INTERVENTIONS: Therapy Diagnosis: Reduced mobility-other;Abnormalities of gait and mobility-other;General symptoms and signs-other Interventions Provided: Therapeutic Exercise (11748);Therapeutic Activity (62429);Gait Training (80866) Therapeutic Exercise (61758) Treatment Minutes: 10 1 unit Skilled Intervention(s): Instruction in therapeutic exercise for ROM and strengthening Patient completed general strengthening exercises in supine, at edge of bed or chair (ankle pump, gluteal set, long arc quad, x 12 reps B lower extremity, with Min assist. 3 Therapeutic Activity (48015) Treatment Minutes: 5 0 units Skilled Intervention(s): Instruction in sit to and from stand technique with proper hand placement and body positioning at edge of bed/chair with verbal cues for safety. Gait Training (03880) Treatment Minutes: 9 1 unit Skilled Intervention(s): Instruction in stair negotiation Up/down 4 steps with bilat rails , SB assist with vebral cues for sequence , and Instruction in use of equipment, cues for sequence and pattern with ambulation without AD With SB assist. Educated patient on home safety and removing all loose rugs . Patient educated in spine precautions NO BLT (No bending, lifting (more than 10 lbs or gallon of milk), or twisting--able to recall 3/3 Instruct in log roll technique Educate on kimberly/doff C-collar and when to wear Encouraged ambulation every hour when awake Instruct in safe functional mobility including stair negotiation Total Timed Code Treatment Minutes: 24 Total Treatment Time (minutes): 24 SUBJECTIVE: Current Hospital Course: Chart reviewed and no significant medical updates relevant to therapy were noted Reason for Physical Therapy Consult : eval Patient Report: Pt was up in chair and agreeable to PT session. C/o pain 10/17 . Home Environment Patient Lives With: Spouse Assistance Available: 24 Hour Entry To Home: Stairs;With Rail Number Of Stairs Into Home: 3 Number Of Stairs To Bed/Bath: 0 Tub/Shower Type: Tub shower Laundry: Pt's can do Prior Functional Level: Within Functional Limits OBJECTIVE: CURRENT FUNCTIONAL STATUS: Current Functional Mobility Assist Level Additional Information Rolling Supine to Sit Sit to Supine Scooting Sit to Stand Stand By Assistance Stand to Sit Stand By Assistance Bed to Chair Toilet/Commode Gait Stand By Assistance Gait Device: None Gait Distance (feet): 75 x 2 Stairs Stand By Assistance Stairs Device: Rail (2) Number of Stairs: 4 Curb Step Car Transfer General Gait Deviations: Diane decreased;Lateral sway increased;Step length decreased;Difficulty changing direction/turning -M: 7: Walk 25 feet or more Please see discipline specific clinical documentation flowsheet for complete details for this therapy evaluation/treatment. SIGNATURE: Umm Glez PTA PATIENT NAME: Martin Molina DATE: May 16, 2018 TIME: 10:38 AM EKG Observed: 05/15/2018 Status: F Source: [place] 7:21 PM [facility]IN[facility] OTHER CAMPUS REPOSITORY NAME : MARTIN MOLINA PID : [id number] : 1960 Gender : Male Race : ORD : Procedure Date : May 15 2018 19:21 Edit Date : May 16 2018 15:59 Diagnosis:NORMAL SINUS RHYTHM INFERIOR INFARCT (CITED ON OR BEFORE 28-APR-2018) ABNORMAL ECG WHEN COMPARED WITH ECG OF 14-MAY-2018 16:57, NO SIGNIFICANT CHANGE WAS FOUND Confirmed by Arias Gutiérrez M.D. (74) on 05/16/2018 3:59:15 PM Ventricular Rate : 72 BPM Atrial Rate : 72 BPM P-R Interval : 200 ms QRS Duration : 90 ms Q-T Interval : 376 ms QTC Calculation(Bezet) : 411 ms P Converse : 46 degrees R Converse : 3 degrees T Converse : 6 degrees Test Reason : Location : 91 : 9100 9119 Overread By : Arias Gutiérrez M.D. Editted By : Arias Gutiérrez M.D. Referred By : , Acquired by : Marcy Ross PROGRESS Observed: 05/15/2018 Status: COMPLETED Source: [place] 2:58 PM CLIN[facility] OTHER CAMPUS REPOSITORY HNO ID: [id number] Author: Dada Mata Service: Hospital Medicine Author Type: Physician Type: Progress Notes Filed: 05/15/2018 3:04 PM Note Text: DEPARTMENT OF HOSPITAL MEDICINE PROGRESS NOTE SERVICE DATE: 05/15/2018 SERVICE TIME: 2:58 PM Hospital Medicine/Primary Attending: Dada aMta MD NIGHT AND WEEKEND COVERAGE: After 7pm please page [phone] CHIEF COMPLAINT: chest pain SUBJECTIVE: Chest pain resolved. No dyspnea. No fever or cough OBJECTIVE: PHYSICAL EXAM: BP 114/95 Pulse 66 Temp (Src) 98.4 (Oral) Resp 18 Ht 5' 7 (1.70m) Wt 280 lb (127.0kg) SpO2 98% BMI 43.84 kg/(m2). GENERAL: Alert, no distress, cooperative, SKIN: Skin color, texture, turgor normal. No rashes or lesions. NECK: drain in place OROPHARYNX: Lips, mucosa, and tongue normal. Teeth and gums normal. Oropharynx normal. LUNGS: Lungs clear to auscultation, Air entry good, Unlabored breathing. CARDIAC: Normal S1 and S2; no rubs, murmurs, or gallops ABDOMEN: Abdomen soft, non-tender, non-distended, BS normal EXTREMITIES: Normal, no deformities, edema, clubbing or skin discoloration. NEURO: Grossly normal cognition, motor function, and cranial nerves III-XII MEDICATIONS: Current hospital medications: [MAR Hold due to Transfer] albuterol 2.5 mg /3 mL (0.083 %) 2.5 mg (PROVENTIL) 2.5 mg INHALATION q 4 H PRN metFORMIN 1,000 mg tab(s) (GLUCOPHAGE) 1,000 mg ORAL DAILY WITH BREAKFAST atorvastatin 80 mg tab(s) (LIPITOR) 80 mg ORAL DAILY lisinopril 10 mg tab(s) (ZESTRIL, PRINIVIL) 10 mg ORAL DAILY metoprolol tartrate (short acting) 25 mg tab(s) (LOPRESSOR) 25 mg ORAL DAILY pioglitazone 45 mg tab(s) (ACTOS) 45 mg ORAL DAILY NaCl 0.45% iv infusion 100 mL/hr INTRAVENOUS CONTINUOUS HYDROmorphone HCl 0.5-1 mg injection (DILAUDID) 0.5-1 mg INTRAVENOUS q 2 H PRN oxyCODONE-acetaminophen 5-325 mg 1-2 tablet (PERCOCET) 1-2 tablet ORAL q 4 H PRN ondansetron 4 mg tab(s) (ZOFRAN) 4 mg ORAL q 6 H PRN ondansetron (PF) 4 mg injection (ZOFRAN) 4 mg INTRAVENOUS q 6 H PRN docusate sodium 100 mg cap(s) (COLACE) 100 mg ORAL BID polyethylene glycol 3350 17 g packet (MIRALAX, GLYCOLAX) 17 g ORAL DAILY PRN bisacodyl 10 mg suppository (DULCOLAX) 10 mg RECTAL DAILY PRN tiZANidine 4 mg tab(s) (ZANAFLEX) 4 mg ORAL TID [MAR Hold due to Transfer] empagliflozin 25 mg tab(s) (JARDIANCE) 25 mg ORAL DAILY WITH BREAKFAST [MAR Hold due to Transfer] sitaGLIPtin 100 mg tab(s) (JANUVIA) 100 mg ORAL DAILY DATA: Diagnostic tests reviewed for today's visit: CBC, Coags, BMP, Mg, Phos Recent Labs 05/14/18 1000 WBC 13.51* HB 13.0* HCT 41.6 PLT 204 NA 135* K 4.0 CHLOR 104 CO2 24 BUN 21* CREAT 1.06 GLUC 181* CA 8.3* Liver Function, Amylase, AND Lipase Cardiac Enzymes Recent Labs 05/14/18 1000 CK 513* CKMB 4.8 Heme: No results for input(s): RETICP, ABSRETIC, LD, ARNALDO, FE, TIBC, TRANSFERSAT in the last 24 hours. No results found for: UALBCR Assessment/Plan Patient Active Hospital Problem List: Obesity, Class III, BMI >= 40 (05/13/2018) Cervical stenosis of spine (05/13/2018) HTN (hypertension) () Dyslipidemia () Diabetes (HCC) () CAD (coronary artery disease) () ASSESSMENT: 1. S/p cervical surgery C3-T1 posterior decompression, fixation, and fusion: POd #2. 2. Chest pain: resolved. EKG st elevation in lead II and ? I. But troponin three times negative. 3. Hx CAD s/p stent: on statin, metoprolol. ASA on hold for surgery. 4. HTN: BP okay 5. HPL 6. DM2: BG in 100s. On Metformin, januvia, Jardiance, actos. PLAN: Repeat EKG. Continue other meds. Resume ASA when okay from surgical standpoint. VTE Prophylaxis: Pneumatic Compression Device Disposition: per primary Plan of care discussed with: Patient SIGNATURE: Dada Mata MD PATIENT NAME: Martin Molina DATE: May 15, 2018 TIME: 2:58 PM PAGER/CONTACT #: [phone] THERAPY NT Observed: 05/15/2018 Status: COMPLETED Source: [place] 11:24 AM [facility]IN[facility] OTHER CAMPUS REPOSITORY HNO ID: [id number] Author: Umm Glez Service: Physical Therapy Author Type: Sticker Operator Type: Therapy (PT/OT/Speech/Resp) Filed: 05/15/2018 11:32 AM Note Text: Attestation signed by Mari Mascorro at 05/15/2018 1:06 PM I reviewed and agree with the documentation corresponding to this therapy visit. SIGNATURE: Mari Mascorro PT DATE: May 15, 2018 TIME: 1:06 PM Physical Therapy Treatment SERVICE DATE: 05/15/2018 SERVICE TIME: 1044 to 1112 ROOM: [id number] Recommended Discharge Disposition: Home Anticipated Discharge Needs: Physical Assist at Home Physical Assist at Home for: Cleaning;Laundry;Shopping;Transportation PT Recommendations to Nursing: Ambulate with device;To bathroom;In halls;With assist of 1 person Device: (IV pole) PT 6 Clicks Score: 19 Precautions/Activity Restrictions: Spine Precaution/Activity Restriction Comments: c-collar when OOB ASSESSMENT : Pt progressing towards goals for home going , min A to recall and verbal cues to maintain spine precautions. Stair trg. Next session . Patient Disposition at Start of Session: Supine in Bed;Call Cash in Reach Patient Disposition at End of Session: OOB in Chair;Call Cash in Reach Tolerated Full Session Physical Therapy Problem List: Education Deficit;Pain;Decreased Range Of Motion;Decreased Strength;Functional Mobility Impairment Patient /Caregiver Goals: Walk;Go Home Goals for Plan of Care: Transfer supine to/from sit with: Contact Guard Assistance Transfer sit to/from stand with: Contact Guard Assistance Ambulate with: Contact Guard Assistance Distance: 100 Device: No Device (c-collar on) Ambulate up and down steps with: Contact Guard Assistance Number of steps: 4 Device: Rail Progress Toward Goals: Progressing as expected Rehab Potential: Good PLAN: Treatment Frequency (times per week): 7 Current admission Treatment Interventions: Education;Strengthening;Functional Mobility Training Plan of Care developed with: Patient TREATMENT INTERVENTIONS: Therapy Diagnosis: Reduced mobility-other;Abnormalities of gait and mobility-other;General symptoms and signs-other Interventions Provided: Therapeutic Exercise (67153);Therapeutic Activity (82516);Gait Training (01408) Therapeutic Exercise (55250) Treatment Minutes: 10 1 unit Skilled Intervention(s): Instruction in therapeutic exercise for ROM and strenghtening Patient completed general strengthening exercises in supine, at edge of bed or chair (ankle pump, quad set, gluteal set, short arc quad, hip adductor squeeze) x 12 reps B lower extremity, with min assist. Patient educated in spine precautions NO BLT (No bending, lifting (more than 10 lbs or gallon of milk), or twisting--able to recall 2/3 Instruct in log roll technique Educate on kimberly/doff C-collarwhen to wear , with max A to kimberly . Therapeutic Activity (87725) Treatment Minutes: 5 0 units Skilled Intervention(s): Instructed patient in log roll technique Instructed patient in supine to sit pushing with upper extremities to sit up with min A bed flat via log roll , verbal cues to maintain spine precautions. Instruction in sit to and from stand technique with proper hand placement and body positioning at edge of bed/chair with verbal cue For safety. Gait Training (08739) Treatment Minutes: 10 1 unit Skilled Intervention(s): Instruction in use of equipment, cues for sequence and pattern With ambulation with pushing IV pole , tolerated increased ambulation distance without difficulty, without LOB. Total Timed Code Treatment Minutes: 25 Total Treatment Time (minutes): 25 SUBJECTIVE: Current Hospital Course: Chart reviewed and no significant medical updates relevant to therapy were noted Reason for Physical Therapy Consult : eval Patient Report: Pt In bed and agreeable to PT session. C/o pain 3-09/17 . Home Environment Patient Lives With: Spouse Assistance Available: 24 Hour Entry To Home: Stairs;With Rail Number Of Stairs Into Home: 3 Number Of Stairs To Bed/Bath: 0 Tub/Shower Type: Tub shower Laundry: Pt's can do Prior Functional Level: Within Functional Limits OBJECTIVE: CURRENT FUNCTIONAL STATUS: Current Functional Mobility Assist Level Additional Information Rolling Stand By Assistance Supine to Sit Stand By Assistance Sit to Supine Scooting Sit to Stand Contact Guard Assistance Stand to Sit Contact Guard Assistance Bed to Chair Toilet/Commode Gait Contact Guard Assistance Gait Device: IV Pole Gait Distance (feet): 45 x 2 Stairs Curb Step Car Transfer General Gait Deviations: Diane decreased;Step length decreased;Non-functional gait speed Please see discipline specific clinical documentation flowsheet for complete details for this therapy evaluation/treatment. SIGNATURE: Umm Glez PTA PATIENT NAME: Martin Molina DATE: May 15, 2018 TIME: 11:24 AM PROGRESS Observed: 05/15/2018 Status: COMPLETED Source: [place] 7:38 AM CLIN[facility] OTHER CAMPUS REPOSITORY HNO ID: [id number] Author: Teodora Jacobsen Service: Neurosurgery Author Type: Physician Type: Progress Notes Filed: 05/15/2018 7:40 AM Note Text: Neurosurgery Progress Note SERVICE DATE: 05/15/2018 SUBJECTIVE: Stable overnight. States his neck is sore. OBJECTIVE: Vitals: Temp (24hrs), Av.1 ?C (98.7 ?F), Min:36.7 ?C (98.1 ?F), Max:37.8 ?C (100 ?F) BP (!) 96/35 Pulse 89 Temp 36.9 ?C (98.4 ?F) (Oral) Resp 19 Ht 170.2 cm (5' 7) Wt 127 kg (280 lb) SpO2 96% BMI 43.85 kg/m? O2 Therapy: Room Air IANDO: Date 05/14/18699 - 05/15/18 0659 05/15/18699 - 05/16/18 0659 Shift 8959-3884 6532-4929 3145-9870 24 Hour Total 9368-3012 6085-5762 5394-9195 24 Hour Total I N T A K E PO 340 340 PO 340 340 IV 700 700 NS .45% 700 700 Shift Total 1040 1040 O U T P U T Urine 400 207 669 1103 Void (ml) 400 808 398 7693 Tubes 90 30 120 Drain/Tube Output (Drain/Tube 05/13/18 1553 Hemovac Midline Posterior Neck Drain #1) 90 30 120 Shift Total 490 279 445 7248 Weight (kg) 127 127 127 127 127 127 127 127 MEDICATIONS Current Facility-Administered Medications: [MAR Hold due to Transfer] albuterol 2.5 mg /3 mL (0.083 %) 2.5 mg (PROVENTIL) 2.5 mg INHALATION q 4 H PRN metFORMIN 1,000 mg tab(s) (GLUCOPHAGE) 1,000 mg ORAL DAILY WITH BREAKFAST atorvastatin 80 mg tab(s) (LIPITOR) 80 mg ORAL DAILY lisinopril 10 mg tab(s) (ZESTRIL, PRINIVIL) 10 mg ORAL DAILY metoprolol tartrate (short acting) 25 mg tab(s) (LOPRESSOR) 25 mg ORAL DAILY pioglitazone 45 mg tab(s) (ACTOS) 45 mg ORAL DAILY NaCl 0.45% iv infusion 100 mL/hr INTRAVENOUS CONTINUOUS HYDROmorphone HCl 0.5-1 mg injection (DILAUDID) 0.5-1 mg INTRAVENOUS q 2 H PRN oxyCODONE-acetaminophen 5-325 mg 1-2 tablet (PERCOCET) 1-2 tablet ORAL q 4 H PRN ondansetron 4 mg tab(s) (ZOFRAN) 4 mg ORAL q 6 H PRN Or ondansetron (PF) 4 mg injection (ZOFRAN) 4 mg INTRAVENOUS q 6 H PRN docusate sodium 100 mg cap(s) (COLACE) 100 mg ORAL BID polyethylene glycol 3350 17 g packet (MIRALAX, GLYCOLAX) 17 g ORAL DAILY PRN bisacodyl 10 mg suppository (DULCOLAX) 10 mg RECTAL DAILY PRN tiZANidine 4 mg tab(s) (ZANAFLEX) 4 mg ORAL TID [MAR Hold due to Transfer] empagliflozin 25 mg tab(s) (JARDIANCE) 25 mg ORAL DAILY WITH BREAKFAST [MAR Hold due to Transfer] sitaGLIPtin 100 mg tab(s) (JANUVIA) 100 mg ORAL DAILY Labs: Recent Labs 05/14/18 1000 NA 135* K 4.0 CHLOR 104 CO2 24 BUN 21* CREAT 1.06 GLUC 181* ANION 11 CA 8.3* WBC 13.51* HB 13.0* HCT 41.6 PLT 204 Exam: GENERAL: No distress, Alert NEURO: Alert, oriented, Lisa strongly HEENT: normocephalic, atraumatic LUNGS: Unlabored breathing CARDIAC: Regular rate and rhythm as above ABDOMEN: Soft, non-tender, non-distended EXTREMITIES: [place], No deformities, No edema SKIN: Skin color, texture, turgor normal, No rashes or lesions ASSESSMENT AND PLAN: Active Hospital Problems Diagnosis Date Noted - HTN (hypertension) - Dyslipidemia - Diabetes (HCC) - CAD (coronary artery disease) Overview Note: No seed laboratory assistant. follows up with PCP - Obesity, Class III, BMI >= 40 05/13/2018 - Cervical stenosis of spine 05/13/2018 57 year old male s/p posterior cervical decompression, fixation and fusion. Will d/c drain when output slows down and anticipate discharge once he is ready in next 24-48 hours. SIGNATURE: Teodora Jacobsen MD PATIENT NAME: Martin Peña Kidney DATE: May 15, 2018 TIME: 7:39 AM Pager: [phone] TROPONIN I Collected: 05/14/2018 Status: F Source: [facility] 5:00 PM [facility]ALTH SYSTEM REPOSITORY TYPE CODE TESTS RESULT OUT OF REFERENCE UNITS RANGE LAB TROP(LOINC) 0.015-0.045 ng/ml Troponin I 0.015 Performed By: #### TROP #### [place] [address] EKG (AK,AV,EU,FV,HL,ARAM,MM,SP) Observed: Status: F Source: [place] 05/14/2018 4:57 PM [facility] [place] REPOSITORY NAME : MARTIN MOLINA PID : [id number] : 1960 Gender : Male Race : ORD : [id number] Procedure Date : May 14 2018 16:57 Edit Date : May 15 2018 16:13 Diagnosis:NORMAL SINUS RHYTHM LOW VOLTAGE QRS INFERIOR INFARCT (CITED ON OR BEFORE 28-APR-2018) ST ELEVATION CONSIDER INFERIOR INJURY OR ACUTE INFARCT ABNORMAL ECG WHEN COMPARED WITH ECG OF 14-MAY-2018 10:01, NO SIGNIFICANT CHANGE WAS FOUND Confirmed by Arias Gutiérrez M.D. (74) on 05/15/2018 4:13:18 PM Ventricular Rate : 82 BPM Atrial Rate : 82 BPM P-R Interval : 192 ms QRS Duration : 80 ms Q-T Interval : 358 ms QTC Calculation(Bezet) : 418 ms P Converse : 40 degrees R Converse : 4 degrees T Converse : 17 degrees Test Reason : Chest Pain Location : 91 : 9100 9119 Overread By : Arias Gutiérrez M.D. Editted By : Arias Gutiérrez M.D. Referred By : TEMO JIN Acquired by : [facility] Observed: 05/14/2018 Status: COMPLETED Source: [place] 2:19 PM [facility] REPOSITORY HNO ID: [id number] Author: Ana (Rn) MARK Miller Service: (none) Author Type: Registered Nurse Type: Nursing Progress Note Filed: 05/14/2018 2:21 PM Note Text: Report to 9100 RN. Patient transported via wheelchair, nurse tech in attendance NURSING PROG Observed: 05/14/2018 Status: COMPLETED Source: [place] 2:10 PM [facility] REPOSITORY HNO ID: [id number] Author: nAa GarrisonRn) MARK Miller Service: (none) Author Type: Registered Nurse Type: Nursing Progress Note Filed: 05/14/2018 2:28 PM Note Text: Blood drawn and sent to lab as ordered TROPONIN I Collected: 05/14/2018 Status: F Source: [facility] 2:10 PM HEALTH SYSTEM REPOSITORY TYPE CODE TESTS RESULT OUT OF REFERENCE UNITS RANGE LAB TROP(LOINC) 0.015-0.045 ng/ml Troponin I < 0.015 Performed By: #### TROP #### [address] [address] CONSULT Observed: 05/14/2018 Status: COMPLETED Source: [place] 1:40 PM [facility]IN[facility] OTHER CAMPUS REPOSITORY HNO ID: [id number] Author: Lois Craven Service: Hospital Medicine Author Type: Physician Type: Consults Filed: 05/14/2018 1:46 PM Note Text: DEPARTMENT OF HOSPITAL MEDICINE INITIAL CONSULT SERVICE DATE: 05/14/2018 SERVICE TIME: 1:40 PM Primary Care Physician: Torsten Sawyer MD NIGHT AND WEEKEND COVERAGE: From 7am - 7pm, please call [phone] After 7pm, please call cross cover pager #[phone] REASON FOR CONSULT: post op med management. REQUESTING PHYSICIAN: Teodora Jacobsen MD Subjective CHIEF COMPLAINT: Neck and chest pain HPI: This is a 57 year old male who presents with neck pain and underwent a C3-T1 posterior decompression, fixation, and fusion yesterday. This am he developed sternal chest pain that he likens to heart burn. States that it lasted 20 minutes and was resolved with a breathing treatment. Worse with deep inspiration. Hasn't returned. No radiation, sob, nausea or diaphoresis. Never had before. Is the Patient Experiencing Pain: Yes: PAIN CHARACTER: aching and sharp PAST MEDICAL HISTORY Diagnosis Date - CAD (coronary artery disease) No seed laboratory assistant. follows up with PCP - Cervical spinal stenosis - Diabetes (HCC) - Dyslipidemia - HTN (hypertension) - Hx of heart artery stent PAST SURGICAL HISTORY Procedure Laterality Date - CARDIAC CATH 2007 8 STENTS - CATARACT EXTRACTION HX Bilateral 20 YEARS - TONSILLECTOMY HX A CHILD FAMILY HISTORY Problem Relation Age of Onset - Dementia Mother - Kidney Disease Father - other (smoke inhalation from fire) Brother - Cancer Maternal Grandfather skin - other (hepatitis c) Brother Social History Substance Use Topics - Smoking status: Former Smoker Packs/day: 1.00 Years: 40.00 Types: Cigarettes - Smokeless tobacco: Never Used Comment: stopped 2 months ago. - Alcohol use Yes Comment: social MEDICATIONS: Reviewed Prescriptions Prior to Admission: atorvastatin (LIPITOR) 80 mg tablet Take 80 mg by mouth once daily. Disp: Rfl: 05/12/2018 at Unknown time linagliptin (TRADJENTA) 5 mg tab Take by mouth once daily. Disp: Rfl: 05/12/2018 at Unknown time LISINOPRIL ORAL Take 10 mg by mouth once daily. Disp: Rfl: 05/12/2018 at Unknown time metFORMIN (GLUCOPHAGE) 500 mg tablet Take 1,000 mg by mouth daily with breakfast. Disp: Rfl: 05/12/2018 at Unknown time meloxicam (MOBIC) 15 mg tablet Take 15 mg by mouth once daily. Disp: Rfl: 05/12/2018 at Unknown time dapagliflozin 10 mg tab Take 10 mg by mouth daily with breakfast. Disp: Rfl: 05/12/2018 at Unknown time METOPROLOL TARTRATE ORAL Take 25 mg by mouth once daily. Disp: Rfl: 05/12/2018 at Unknown time pioglitazone HCl (PIOGLITAZONE ORAL) Take 45 mg by mouth once daily. Disp: Rfl: 05/12/2018 at Unknown time aspirin, enteric coated (ASPIRIN, ENTERIC COATED) 81 mg EC tablet Take 81 mg by mouth once daily. Disp: Rfl: Past Week at Unknown time Current hospital medications: albuterol 2.5 mg /3 mL (0.083 %) 2.5 mg (PROVENTIL) 2.5 mg INHALATION q 4 H PRN metFORMIN 1,000 mg tab(s) (GLUCOPHAGE) 1,000 mg ORAL DAILY WITH BREAKFAST atorvastatin 80 mg tab(s) (LIPITOR) 80 mg ORAL DAILY lisinopril 10 mg tab(s) (ZESTRIL, PRINIVIL) 10 mg ORAL DAILY metoprolol tartrate (short acting) 25 mg tab(s) (LOPRESSOR) 25 mg ORAL DAILY pioglitazone 45 mg tab(s) (ACTOS) 45 mg ORAL DAILY NaCl 0.45% iv infusion 100 mL/hr INTRAVENOUS CONTINUOUS HYDROmorphone HCl 0.5-1 mg injection (DILAUDID) 0.5-1 mg INTRAVENOUS q 2 H PRN oxyCODONE-acetaminophen 5-325 mg 1-2 tablet (PERCOCET) 1-2 tablet ORAL q 4 H PRN ondansetron 4 mg tab(s) (ZOFRAN) 4 mg ORAL q 6 H PRN ondansetron (PF) 4 mg injection (ZOFRAN) 4 mg INTRAVENOUS q 6 H PRN docusate sodium 100 mg cap(s) (COLACE) 100 mg ORAL BID polyethylene glycol 3350 17 g packet (MIRALAX, GLYCOLAX) 17 g ORAL DAILY PRN bisacodyl 10 mg suppository (DULCOLAX) 10 mg RECTAL DAILY PRN tiZANidine 4 mg tab(s) (ZANAFLEX) 4 mg ORAL TID empagliflozin 25 mg tab(s) (JARDIANCE) 25 mg ORAL DAILY WITH BREAKFAST sitaGLIPtin 100 mg tab(s) (JANUVIA) 100 mg ORAL DAILY . ALLERGIES No Known Allergies REVIEW OF SYSTEMS: IRRIGATION SYSTEM OPERATOR: no history of IRRIGATION SYSTEM OPERATOR disease RESP: ex-smoker, quit 2 months CARD: history of HTN and history of past NM - greater than 1 year ago GI: no history of GI disease RENAL: no history of renal disease ENDO: history of diabetes without secondary complications HEME: no history of hematologic disease RHEUM: no history of rheumatologic disease PSYCHIATRIC: no history of psychiatric disease Objective PHYSICAL EXAM: BP 109/57 Pulse 76 Temp (Src) 99 (Temporal Artery) Resp 26 Ht 5' 7 (1.70m) Wt 280 lb (127.0kg) SpO2 93% BMI 43.84 kg/(m2). Physical Exam Performed: GENERAL: Alert, no distress, cooperative, Morbidly Obese HEAD/SINUSES: No significant findings EYES: PERRLA, EOMI OROPHARYNX: Lips, mucosa, and tongue normal. Teeth and gums normal. Oropharynx normal. NECK: No jugulovenous distention, Supple LUNGS: lungs clear but diminished throughout CARDIAC: Normal S1 and S2; no rubs, murmurs, or gallops ABDOMEN: Abdomen soft, non-tender, BS normal, No masses or organomegaly EXTREMITIES: Extremities normal, no deformities, edema, clubbing or skin discoloration. Good capillary refill. NEURO: Grossly normal cognition, motor function, and cranial nerves III-XII PULSES: 2+ radial, 2+ posterial tibial, 2+ dorsalis pedis Lines, Drains, and Airways Line Peripheral 05/13/18 Right Arm 18 Gauge 1 day Drain Drain/Tube 05/13/18 1553 Hemova Midline Posterior Neck Drain #1 less than 1 day Reviewed lines, drains, AND airways. Need to be continued DATA: Diagnostic tests reviewed for today's visit: Most recent labs and imaging results. Most recent EKG Impression/Recommendations 1. S/P C3-T1 posterior decompression, fixation, and fusion POD1: per primary service. Pain control. 2. CP: atypical in nature. Some elevation of CK which can be due to surgery. Will keep on tele and cycle cardiac markers. ASA on hold due to surgery. Resume when ok with ns service. 3. HO CAD with LHC and stent in the past: on statin, acei, bb. 4. HTN: cont with home meds. 5. NIDDM type 2: cont with meds and accuchecks. 6. HPL: cont with statin. VTE PROPHYLAXIS: Pneumatic Compression Device Disposition: Home Plan of care discussed with: Patient and Family/Significant Other: SIGNATURE: Lois Craven DO PATIENT NAME: Martin Molina DATE: May 14, 2018 TIME: 1:40 PM PAGER/CONTACT #: [phone] NURSING PROG Observed: 05/14/2018 Status: COMPLETED Source: [place] 12:59 PM [facility] REPOSITORY HNO ID: [id number] Author: Saima GarrisonRn) MARK Lim Service: Critical Care Author Type: Registered Nurse Type: Nursing Progress Note Filed: 05/14/2018 12:59 PM Note Text: Nursing Progress Note Patient Name: Martin Molina Patient Location: [place] [address] [address] Daily Note:patient report attempt call to 9100, quetions about orders. This note was completed by: Saima Lim RN NURSING PROG Observed: 05/14/2018 Status: COMPLETED Source: [place] 11:01 AM [facility] REPOSITORY HNO ID: [id number] Author: Ana GarrisonRn) MARK Miller Service: (none) Author Type: Registered Nurse Type: Nursing Progress Note Filed: 05/14/2018 11:02 AM Note Text: Amita MURPHY notified of consult NURSING PROG Observed: 05/14/2018 Status: COMPLETED Source: [place] 10:20 AM [facility] REPOSITORY HNO ID: [id number] Author: Ana GarrisonRn) Paul, RN Service: (none) Author Type: Registered Nurse Type: Nursing Progress Note Filed: 05/14/2018 10:24 AM Note Text: EKG, PCXR, done, labs sent as ordered, resp treatment done. Patient states chest pain gone Now. [place] resp treatment was helpful. Patient states he does not wish me to call his at this time. Temo Jin at bedside. CHEST 1 VIEW Observed: 05/14/2018 Status: F Source: [facility] 10:08 AM HEALTH SYSTEM REPOSITORY Performed at [facility] APPROVED BY: DEDE BLANCO MD EXAMINATION: CHEST RADIOGRAPH (SINGLE VIEW AP OR PA) Clinical History: Chest pain or SOB, pleurisy or effusion suspected , Wheezing M: XC1_4 Comparison: None RESULT: Lines, tubes, and devices: None. Lungs and pleura: No consolidation. No lung mass. No pleural effusion. Cardiomediastinal silhouette: Normal cardiomediastinal silhouette. Other: Surgical fixation hardware is present at multiple levels in the cervical spine. IMPRESSION: No acute radiographic abnormality. EKG Observed: 05/14/2018 Status: F Source: [place] 10:01 AM [facility] REPOSITORY NAME : MARTIN MOLINA PID : [id number] : 1960 Gender : Male Race : ORD : Procedure Date : May 14 2018 10:01 Edit Date : May 15 2018 16:08 Diagnosis:NORMAL SINUS RHYTHM INFERIOR INFARCT (CITED ON OR BEFORE 28-APR-2018) ABNORMAL ECG WHEN COMPARED WITH ECG OF 28-APR-2018 15:42, NO SIGNIFICANT CHANGE WAS FOUND Confirmed by Arias Gutiérrez M.D. ([id number]) on 05/15/2018 4:08:18 PM Ventricular Rate : 84 BPM Atrial Rate : 84 BPM P-R Interval : 192 ms QRS Duration : 90 ms Q-T Interval : 366 ms QTC Calculation(Bezet) : 432 ms P Converse : 39 degrees R Converse : 1 degrees T Converse : 22 degrees Test Reason : Location : 91 : [id number] Overread By : Arias Gutiérrez M.D. Editted By : Arias Gutiérrez M.D. Referred By : TEMO JIN Acquired by : Nakia LEMON HEMOGRAM/DIFF Collected: 05/14/2018 Status: F Source: [facility] 10:00 AM HEALTH SYSTEM REPOSITORY TYPE CODE TESTS RESULT OUT OF REFERENCE UNITS RANGE LAB WBC(LOINC) 4.23-9.07 thou/cmm WBC High 13.51 LAB RBC(LOINC) 4.63-6.08 mil/cmm Low RBC 4.19 LAB HGB(LOINC) 13.7-17.5 g/dL Low Hgb 13.0 LAB HCT(LOINC) 40.1-51.0 % Hct 41.6 LAB MCV(LOINC) 83.2-95.6 fl MCV High 99.3 LAB MCH(LOINC) 25.7-32.2 pg MCH 31.0 LAB MCHC(LOINC 32.3-36.5 % ) Low MCHC 31.3 LAB RDW(LOINC) 11.6-14.4 % RDW 13.4 LAB RDWSD(LOIN 36.1-45.8 fl C) RDW SD High 48.9 LAB PLT(LOINC) 141-365 thou/cmm Platelet 204 LAB MPV(LOINC) 8.7-12.0 fl MPV 9.3 LAB SEG(LOINC) % Seg Neutrophil 84.5 LAB IGRE(LOINC % ) Immature Grans 0.40 LAB LYMPH(LOIN % C) Lymphocyte 4.4 LAB MNO(LOINC) % Monocyte 10.4 LAB EOSIN(LOIN % C) Eosinophil 0.1 LAB BASO(LOINC % ) Basophil 0.2 LAB SEGN(LOINC 1.78-5.38 thou/cmm ) Abs. High Neut (ANC) 11.42 LAB IGAB(LOINC 0.00-0.05 thou/cmm ) Abs Immature Grans 0.05 LAB LYMN(LOINC 0.84-2.85 thou/cmm ) Low Abs. Lymph 0.59 LAB MONON(LOIN 0.30-0.82 thou/cmm C) Abs. High [place] 1.41 LAB EOSN(LOINC 0.04-0.54 thou/cmm ) Low Abs. Eosin 0.01 LAB BASON(LOIN 0.01-0.08 thou/cmm C) Abs. Baso 0.03 Performed By: #### CBCD1 #### [facility] [address] [place], [place] [address] BASIC PANEL Collected: 05/14/2018 Status: F Source: [facility] 10:00 AM HEALTH SYSTEM REPOSITORY TYPE CODE TESTS RESULT OUT OF REFERENCE UNITS RANGE LAB NA(LOINC) 136-145 mEq/L Low Sodium Blood 135 LAB K(LOINC) 3.5-5.1 mEq/L Potassium Blood 4.0 LAB CL(LOINC) 98-107 mEq/L Chloride Blood 104 LAB CO2(LOINC) 21-32 mEq/L CO2 Blood 24 LAB GLU(LOINC) 70-99 mg/dL Glucose High Blood 181 LAB BUN(LOINC) 7-18 mg/dL BUN High Blood 21 LAB CREA(LOINC 0.67-1.17 mg/dL ) Creatinine Blood 1.06 LAB CA(LOINC) 8.5-10.1 mg/dL Low Calcium Blood 8.3 LAB ANGAP(LOIN 8-16 C) Anion Gap 11 Performed By: #### P8 #### [place] [address] TROPONIN I Collected: 05/14/2018 Status: F Source: [facility] 10:00 [employer] [facility] REPOSITORY TYPE CODE TESTS RESULT OUT OF REFERENCE UNITS RANGE LAB TROP(LOINC) 0.015-0.045 ng/ml Troponin I < 0.015 Performed By: #### TROP #### [place] [address] CKMB% Collected: 05/14/2018 Status: F Source: [facility] 10:00 [employer] [facility] REPOSITORY TYPE CODE TESTS RESULT OUT OF RANGE REFERENCE UNITS LAB CK(LOINC) 39-308 U/L High CPK 513 LAB CKMBI(LOINC ng/mL ) CKMB 4.8 LAB %CKMB(LOINC ) % CKMB 0.9 Result Comment: CKMB normal range : Normal < or = 5. Adames zone >5 & relative index < or = 4. AMI > 5 & relative index >4. Performed By: #### CKMB% #### [place] [address] MDRD GFR Collected: 05/14/2018 Status: F Source: [facility] 10:[facility] [employer] [facility] REPOSITORY TYPE CODE TESTS RESULT OUT OF RANGE REFERENCE UNITS LAB GFRFN(LOINC >60mL/min/1.73m ) 2 eGFR >60 Result Comment: If the patient is , multiply the result by 1.210. Performed By: #### GFR #### [place] [address] PROGRESS Observed: 05/14/2018 Status: COMPLETED Source: [place] 9:58 AM [facility] REPOSITORY HNO ID: [id number] Author: Temo Puente (Lamine) LAMINE Jin Service: Neurosurgery Author Type: Physician Armhole Baster Hand Type: Progress Notes Filed: 05/14/2018 10:05 AM Note Text: Neurosurgery Progress Note SERVICE DATE: 05/14/2018 SUBJECTIVE: I was called by RN this am about pt reporting chest pressure. On assessment pt c/o midsternal, constant, nonradiating chest pressure. Denies sob. RN reports 2L nc O2 at 95%, and room air 89-90%. Neck pain present but controlled currently. OBJECTIVE: Vitals: Temp (24hrs), Av.9 ?C (98.5 ?F), Min:36.5 ?C (97.7 ?F), Max:37.5 ?C (99.5 ?F) BP 129/65 Pulse 80 Temp 37.1 ?C (98.8 ?F) Resp 26 Ht 170.2 cm (5' 7) Wt 127 kg (280 lb) SpO2 94% BMI 43.85 kg/m? O2 Therapy: Nasal Cannula IANDO: Date 05/13/18699 - 05/14/1865805/14/18699 - 05/15/18 0659 Shift 4341-8562 9069-1460 6470-8087 24 Hour Total 1567-0029 1127-7430 5850-9899 24 Hour Total I N T A K E PO 120 120 120 120 PO 120 120 120 120 IV 2350 700 3050 NS .45% 700 700 LR 1350 1350 OR Crystalloid intake (mL) 1000 1000 Shift Total 2350 820 3170 120 120 O U T P U T Urine 788 726 4655 150 150 Void (ml) 517 176 2973 150 150 Tubes 130 40 170 60 60 Drain/Tube Output (Drain/Tube 05/13/18 1553 Hemovac Midline Posterior Neck Drain #1) 130 40 170 60 60 Blood 100 100 Estimated Blood loss 100 100 Shift Total 244 816 3765 210 210 Weight (kg) 127 127 127 127 127 127 127 127 MEDICATIONS Current Facility-Administered Medications: albuterol 2.5 mg /3 mL (0.083 %) 2.5 mg (PROVENTIL) 2.5 mg INHALATION q 4 H PRN metFORMIN 1,000 mg tab(s) (GLUCOPHAGE) 1,000 mg ORAL DAILY WITH BREAKFAST atorvastatin 80 mg tab(s) (LIPITOR) 80 mg ORAL DAILY lisinopril 10 mg tab(s) (ZESTRIL, PRINIVIL) 10 mg ORAL DAILY metoprolol tartrate (short acting) 25 mg tab(s) (LOPRESSOR) 25 mg ORAL DAILY pioglitazone 45 mg tab(s) (ACTOS) 45 mg ORAL DAILY NaCl 0.45% iv infusion 100 mL/hr INTRAVENOUS CONTINUOUS HYDROmorphone HCl 0.5-1 mg injection (DILAUDID) 0.5-1 mg INTRAVENOUS q 2 H PRN oxyCODONE-acetaminophen 5-325 mg 1-2 tablet (PERCOCET) 1-2 tablet ORAL q 4 H PRN ondansetron 4 mg tab(s) (ZOFRAN) 4 mg ORAL q 6 H PRN Or ondansetron (PF) 4 mg injection (ZOFRAN) 4 mg INTRAVENOUS q 6 H PRN docusate sodium 100 mg cap(s) (COLACE) 100 mg ORAL BID polyethylene glycol 3350 17 g packet (MIRALAX, GLYCOLAX) 17 g ORAL DAILY PRN bisacodyl 10 mg suppository (DULCOLAX) 10 mg RECTAL DAILY PRN tiZANidine 4 mg tab(s) (ZANAFLEX) 4 mg ORAL TID empagliflozin 25 mg tab(s) (JARDIANCE) 25 mg ORAL DAILY WITH BREAKFAST sitaGLIPtin 100 mg tab(s) (JANUVIA) 100 mg ORAL DAILY Labs: No results for input(s): NA, K, CHLOR, CO2, BUN, CREAT, GLUC, ANION, CA, MG, P, ALB, AST, ALT, ALKPHOS, TBILI, DBILI, PHOSINTL, WBC, HB, HCT, PLT, LACT, INR, PH, PCO2, PO2, BE, HCO3 in the last 72 hours. Invalid input(s): LISDBC Exam: GENERAL: No distress, Alert NEURO: orientedx3, speaking full sentences, speech clear and appropriate, msp grossly intact HEENT: normocephalic, post neck incision c/d/i - hemovac intact and draining (about 200cc since surgery) LUNGS: Unlabored breathing CARDIAC: Regular rate and rhythm at 85 NSR ABDOMEN: Soft, non-tender, non-distended EXTREMITIES: [place], No deformities, No edema SKIN: Skin color, texture, turgor normal ASSESSMENT AND PLAN: Active Hospital Problems Diagnosis Date Noted - Obesity, Class III, BMI >= 40 05/13/2018 - Cervical stenosis of spine 05/13/2018 57 year old male s/p C3-T1 posterior decompression, fixation and fusion POD#1 - neuro stable - will address CP with stat CXR, EKG and blood work - medicine yet to see - no ASA SIGNATURE: LAMINE Napoles PATIENT NAME: Martin Molina DATE: May 14, 2018 TIME: 9:58 AM Pager: [phone] NURSING PROG Observed: 05/14/2018 Status: COMPLETED Source: [place] 9:33 AM [facility] REPOSITORY HNO ID: [id number] Author: Ana GarrisonRn) MARK Miller Service: (none) Author Type: Registered Nurse Type: Nursing Progress Note Filed: 05/14/2018 9:35 AM Note Text: Temo RAMAN notified that patient complains of chest pain rating a 10, worse on inspiration. VSS. States she will put in an EKG, PCXR and resp treatment. NURSING PROG Observed: 05/14/2018 Status: COMPLETED Source: [place] 9:17 AM [facility] REPOSITORY HNO ID: [id number] Author: Ana GarrisonRn) Paul, RN Service: (none) Author Type: Registered Nurse Type: Nursing Progress Note Filed: 05/14/2018 9:18 AM Note Text: Patient with C-collar on in chair as ordered. THERAPY NT Observed: 05/14/2018 Status: COMPLETED Source: [place] 9:13 AM [facility] REPOSITORY HNO ID: [id number] Author: Lydia GarrisonOt/Lauren Luevano Service: Occupational Therapy Author Type: Occupational Therapist Type: Therapy (PT/OT/Speech/Resp) Filed: 05/14/2018 9:26 AM Note Text: Occupational Therapy Evaluation SERVICE DATE: 05/14/2018 SERVICE TIME: 819 to 831 ROOM: [id number] Recommended Discharge Disposition: Home Recommended Discharge Disposition Comments: Recommend pt return to home with assist for IADLs that require excessive bending twisting and lifting. Pt with good recall of precautions and demonstrates safe functional mobility in session. Anticipated Discharge Needs: Physical Assist at Home Physical Assist at Home for: Cleaning;Laundry;Shopping;Transportation OT Recommendations to Nursing: To Bathroom for ADL?s /and or Toileting;OOB for meals;Transfer to Chair;With assist of 1 person OT 6 Clicks Score: 19 Precautions/Activity Restrictions: Spine Precaution/Activity Restriction Comments: c-collar when OOB ASSESSMENT: OT Evaluation Low Complexity: Occupational Profile - Brief review of patient's medical record completed (please see current hospital course of evaluation). Occupational Performance - Pt presents with deficits in grooming, UE bathing/dressing, LE bathing/dressing, functional transfers, functional mobility, decreased safety awareness, decreased insight into deficits Complexity in Clinical Decision Making - The extent of clinical reasoning was low, number of treatment options limited, no need for modifications during the evaluation process, no comorbidities present to affect patient's occupational performance. Patient Disposition at Start of Session: OOB in Chair Patient Disposition at End of Session: OOB in Chair;Call Cash in Reach Tolerated Full Session Occupational Therapy Problem List: Education Deficit;Pain;Safety Deficits;Impaired Self Care;Decreased Activity Tolerance;Functional Mobility Impairment Patient /Caregiver Goals: Go Home Goals for Plan of Care: Grooming with: Modified Independent Upper Body Bathing with: Modified Independent Upper Body Dressing with: Modified Independent Lower Body Bathing with: Modified Independent Lower Body Dressing with: Modified Independent Chair Transfer with: Stand By Assistance Toilet Transfer with: Stand By Assistance Tolerate (minutes of functional activity): 20 Functional Activity with: Contact Guard Assistance Additional Goal 1: Pt to tolerate sink ADls with min verbal cues for spinal precautions for greater than 10 minutes Additional Goal 2: Pt to don/doff aspen collar with verbal cues only Demonstrate Competence With Education with: Verbal Cues Only (spine precautions) Rehab Potential: Good PLAN: Treatment Frequency (times per week): 5 (3-5) Current admission Treatment Interventions: Education;Self Care / Home Management;Strengthening;Functional Mobility Training Plan of Care developed with: Patient TREATMENT INTERVENTIONS: Therapy Diagnosis: Reduced mobility-other;Decreased activities of daily living (ADL) Interventions Provided: Evaluation $ Evaluation-Low (64339) Billed Units: 1 unit Educated patient on BLT precautions to protect spine with ADLs / IADLs. Discussed how techniques apply to pt's individual situation/needs and provided handout. Edu pt on donning/doffing neck brace and wear schedule. Edu pt on grooming and dressing techniques with collar. Total Treatment Time (minutes): 12 FUNCTIONAL G CODE: OT 6 Clicks Score: 19 (05/14/18799) Self Care Current Status (G8987): CK (05/14/18799) Self Care Goal Status (G8988): CJ (05/14/18799) Based on clinical assessment and the score on the 6 Clicks Functional Assessment Tool, the G code and corresponding severity modifiers are documented above. SUBJECTIVE: Current Hospital Course: Chart reviewed; CERVICAL 3-THORACIC 1 LAMINECTOMY WITH LATERAL MASS FIXATION AND FUSION (N/A) DECOMPRESSION LAMINECTOMY 3RD ADD?L CERVICAL SEGMENT (N/A) 05/14 Active Hospital Problems Diagnosis - Obesity, Class III, BMI >= 40 - Cervical stenosis of spine PAST MEDICAL HISTORY Diagnosis Date - CAD (coronary artery disease) No seed laboratory assistant. follows up with PCP - Cervical spinal stenosis - Diabetes (HCC) - Dyslipidemia - HTN (hypertension) - Hx of heart artery stent PAST SURGICAL HISTORY Procedure Laterality Date - CARDIAC CATH 2008 01 STENTS - CATARACT EXTRACTION HX Bilateral 20 YEARS - TONSILLECTOMY HX A CHILD Reason for Occupational Therapy Consult: Progressive mobility protocol Patient Report: Arrived with pt seated in chair and agreeable to therapy. Per pt I could tell you how bad this hurts but it wouldn't be politically correct. Pain: 5/10 neck posterior verbal Home Environment Patient Lives With: Spouse Assistance Available: 24 Hour Entry To Home: Stairs;With Rail Number Of Stairs Into Home: 3 Number Of Stairs To Bed/Bath: 0 Tub/Shower Type: Tub shower Laundry: Pt's can do Prior Functional Level: Within Functional Limits OBJECTIVE: Cognition/Communication Deficits Responsiveness: Alert;Awake Follows Commands: 2-step Commands CURRENT FUNCTIONAL STATUS: Current Activities of Daily Living Assist Level Feeding Set Up Grooming Minimal Assistance Bathing Upper Body Minimal Assistance Bathing Lower Body Minimal Assistance Dressing Upper Body Minimal Assistance Dressing Lower Body Minimal Assistance Toileting Minimal Assistance Functional Mobility Assist Level Rolling Supine to Sit Sit to Supine Scooting Contact Guard Assistance Sit to Stand Minimal Assistance Stand to Sit Contact Guard Assistance Bed to Chair Toilet/Commode Functional Mobility Contact Guard Assistance Hand Held Assist Activity Tolerance: Standing Activity Standing Activity: Standing at chair Standing Activity Tolerance (in minutes): 2 Hand Dominance: Right Range of Motion: WFL Strength: Strength Limitation Comments Strength Limitation Comments: Not formally assessed due to spinal precautions Edu pt on fall prevention / up with assistance. Pt left in room in chair with calllight within reach. Please see discipline specific clinical documentation flowsheet for complete details for this therapy evaluation/treatment. SIGNATURE: Lydia Luevano OT/L PATIENT NAME: Martin Molina DATE: May 14, 2018 TIME: 9:13 AM NURSING PROG Observed: 05/14/2018 Status: COMPLETED Source: [place] 9:05 AM [facility] REPOSITORY HNO ID: [id number] Author: Ana (Rn) MARK Miller Service: (none) Author Type: Registered Nurse Type: Nursing Progress Note Filed: 05/14/2018 9:05 AM Note Text: Patients updated via phone NURSING PROG Observed: 05/14/2018 Status: COMPLETED Source: [place] 9:03 AM [facility] REPOSITORY HNO ID: [id number] Author: Ana GarrisonRn) MARK Miller Service: (none) Author Type: Registered Nurse Type: Nursing Progress Note Filed: 05/14/2018 9:04 AM Note Text: PT and OT here to see patient. Patient assisted to chair by PT. THERAPY NT Observed: 05/14/2018 Status: COMPLETED Source: [place] 8:23 AM [facility] REPOSITORY HNO ID: [id number] Author: Torsten (Pt) Lyndsey Service: Physical Therapy Author Type: Physical Therapist Type: Therapy (PT/OT/Speech/Resp) Filed: 05/14/2018 8:41 AM Note Text: Physical Therapy Evaluation SERVICE DATE: 05/14/2018 SERVICE TIME: 0750 to 0820 ROOM: [place] [address] Recommended Discharge Disposition: Home PT Recommendations to Nursing: Ambulate with device;To bathroom;In halls;With assist of 1 person Device: (IV pole) PT 6 Clicks Score: 20 Precautions/Activity Restrictions: Spine Precaution/Activity Restriction Comments: c-collar when OOB ASSESSMENT : Good mobility for the initial session. Anticipate return home with family assist at the time of medical d.c. Patient presents with personal factors, comorbidities and results of the PT examination that require moderate complexity decision making. The patient requires skilled physical therapy to address multiple PT problems in order for the patient to return to a baseline functional level. . Requires skilled PT forPost op spine protocol with precaution education and functional mobility training . Patient Disposition at Start of Session: Supine in Bed;Call Csah in Reach Patient Disposition at End of Session: OOB in Chair;Call Cash in Reach Tolerated Full Session Physical Therapy Problem List: Education Deficit;Pain;Decreased Range Of Motion;Decreased Strength;Functional Mobility Impairment Patient /Caregiver Goals: Walk;Go Home Goals for Plan of Care: Transfer supine to/from sit with: Contact Guard Assistance Transfer sit to/from stand with: Contact Guard Assistance Ambulate with: Contact Guard Assistance Distance: 100 Device: No Device (c-collar on) Ambulate up and down steps with: Contact Guard Assistance Number of steps: 4 Device: Rail Rehab Potential: Good PLAN: Treatment Frequency (times per week): 7 Current admission Treatment Interventions: Education;Strengthening;Functional Mobility Training Plan of Care developed with: Patient TREATMENT INTERVENTIONS: Therapy Diagnosis: Reduced mobility-other;Abnormalities of gait and mobility-other;General symptoms and signs-other Interventions Provided: Evaluation;Therapeutic Activity (91248) $ Evaluation-Moderate (09105) Billed Units: 1 unit Therapeutic Activity (05061) Treatment Minutes: 8 1 unit Skilled Intervention(s): Instructed patient in supine to sit pushing with upper extremities to sit up Instruction in stand to sit technique with lower extremities touching chair/bed and reaching back for surface Instruction in sit to and from stand technique with proper hand placement and body positioning at edge of bed/chair Education with c-collar fit and wear schedule. Total Timed Code Treatment Minutes: 8 Total Treatment Time (minutes): 30 FUNCTIONAL G CODE: PT 6 Clicks Score: 20 (05/14/18 0750) Mobility: Walking and Moving Around Current Status (G8978): CJ (05/14/18 0750) Mobility: Walking and Moving Around Goal Status (G8979): CI (05/14/18 0750) Based on clinical assessment and the score on the 6 Clicks Functional Assessment Tool, the G code and corresponding severity modifiers are documented above. SUBJECTIVE: Current Hospital Course: Chart reviewed; Cervical spine sx CERVICAL 3-THORACIC 1 LAMINECTOMY WITH LATERAL MASS FIXATION AND FUSION (N/A) DECOMPRESSION LAMINECTOMY 3RD ADD?L CERVICAL SEGMENT (N/A) FUSION CERVICAL, BELOW C2, SINGLE LEVEL (N/A) ARTHRODESIS CERVICAL BELOW C2, 3RD CERVICAL LEVEL (N/A) POSTERIOR SEGMENTAL INSTRUMENTATION FOLLOWING CERVICAL FUSION 3-6 LEVELS Active Hospital Problems Diagnosis - Obesity, Class III, BMI >= 40 - Cervical stenosis of spine PAST MEDICAL HISTORY Diagnosis Date - CAD (coronary artery disease) No seed laboratory assistant. follows up with PCP - Cervical spinal stenosis - Diabetes (HCC) - Dyslipidemia - HTN (hypertension) - Hx of heart artery stent PAST SURGICAL HISTORY Procedure Laterality Date - CARDIAC CATH 2008 01 STENTS - CATARACT EXTRACTION HX Bilateral 20 YEARS - TONSILLECTOMY HX A CHILD Reason for Physical Therapy Consult : eval Patient Report: Pt willing to participate. Home Environment Patient Lives With: Spouse Assistance Available: 24 Hour Entry To Home: Stairs;With Rail Number Of Stairs Into Home: 3 Number Of Stairs To Bed/Bath: 0 Prior Functional Level: Within Functional Limits OBJECTIVE: CURRENT FUNCTIONAL STATUS: Current Functional Mobility Assist Level Additional Information Rolling Stand By Assistance Supine to Sit Minimal Assistance Sit to Supine Scooting Supervision Sit to Stand Contact Guard Assistance Stand to Sit Contact Guard Assistance Bed to Chair Contact Guard Assistance Bed To Chair Transfer Type: Stand Pivot Bed To Chair Transfer Equipment: (IV pole) Toilet/Commode Gait Contact Guard Assistance Gait Device: IV Pole Gait Distance (feet): 30 Stairs Curb Step Car Transfer General Gait Deviations: Diane decreased;Step length decreased Range of Motion: Upper Extremity Comments Right Upper Extremity ROM Comments: slow mvmt of shld. 135 degrees FE Left Upper Extremity ROM Comments: same as R Strength: Upper Extremity Comments Right Upper Extremity Strength Comments: shld 4- Left Upper Extremity Strength Comments: shld 4- JH-HLM: 7: Walk 25 feet or more Please see discipline specific clinical documentation flowsheet for complete details for this therapy evaluation/treatment. SIGNATURE: Torsten Solorio PT PATIENT NAME: Martin Peña Kidney DATE: May 14, 2018 TIME: 8:23 AM NURSING PROG Observed: 05/13/2018 Status: COMPLETED Source: [place] 7:30 PM [facility] OTHER [facility] REPOSITORY HNO ID: [id number] Author: Sofiya GarrisonRn) MARK Aguayo Service: Nursing Author Type: Registered Nurse Type: Nursing Progress Note Filed: 05/13/2018 7:32 PM Note Text: Pt remaining in PACU overnight. ANES POST Observed: 05/13/2018 Status: COMPLETED Source: [place] 7:17 PM [facility] OTHER [facility]AMP[facility] REPOSITORY HNO ID: [id number] Author: Lorraine De Anda Service: Anesthesiology Author Type: Physician Type: Anesthesia PostOp Filed: 05/13/2018 7:18 PM Note Text: POST ANESTHESIA EVALUATION NOTE SERVICE DATE: 05/13/2018 SERVICE TIME: 7:17 PM : 1960 Vitals: 05/13/18 1145 05/13/18 1635 Temp: 36.5 ?C (97.7 ?F) 36.5 ?C (97.7 ?F) 05/13/18 18105/13/18 1830 05/13/18 1845 05/13/18 1900 BP: 164/76 165/64 155/76 151/72 05/13/18 18105/13/18 18305/13/18 18405/13/18 1900 Pulse: 88 88 90 89 05/13/18181405/13/18 1830 05/13/18 18405/13/18 1900 Resp: 19 20 17 20 05/13/18181405/13/18 18305/13/18 18405/13/18 1900 SpO2: 99% 97% 98% 94% Validated Vital Signs: Yes POST ANES STATUS: No apparent anesthetic complications. The patient is appropriately hydrated with stable respiratory and cardiovascular status. Patient has safe and adequate airway control. The patient has appropriate pain relief and no significant post operative nausea or vomiting. The patient has achieved baseline mental status. Intra-Operative Events: No Significant Anesthesia Events Further assessment by Anesthesia Service: None Other Remarks: SIGNATURE: Lorraine De Anda MD PATIENT NAME: aMrtin Molina DATE: May 13, 2018 TIME: 7:17 PM PAGER/CONTACT #: [phone] CT CERVICAL SPINE W/O Observed: 05/13/2018 Status: F Source: [place] [facility] 3:53 PM HEALTH SYSTEM REPOSITORY Performed at [facility] APPROVED BY: Giorgi Enciso MD EXAMINATION: CT CERVICAL SPINE W/O CONTRAST CLINICAL HISTORY: Intraoperative CT imaging, lumbar spine surgery TECHNIQUE: CT of the cervical spine without IV contrast. Spiral, high resolution axial images were obtained from the skull base to the cervicothoracic junction with sagittal and coronal planar reconstructions. MQ: [id number] CT Dose-Length Product (DLP): 656 mGy*cm CT Dose Reduction Employed: 1-automated exposure control was used COMPARISON: None. RESULT: Counting reference: Craniocervical junction. Anatomic Variants: None. Alignment: Alignment is anatomic. Craniocervical junction: Craniocervical junction is normal. Osseous structures/fracture: No evidence of a lytic or blastic process in the visualized spine. No evidence of acute or chronic fracture. Cervical soft tissues: Intraoperative changes following resection of the dorsal soft tissues from C2-3 to T1 level. Evidence of a surgical retractor device at the T1 level. Intubated Degenerative changes: Redemonstration multilevel degenerative central and foraminal stenosis due to uncovertebral spurs. At C2-3 level, left facet arthropathy. IMPRESSION: Intraoperative CT imaging of the cervical spine provided by radiology. No evidence of fracture or subluxation ANES PREOP Observed: 05/13/2018 Status: COMPLETED Source: [place] 12:[address] [facility] REPOSITORY HNO ID: [id number] Author: Emery Dupree Service: Anesthesiology Author Type: Physician Type: Anesthesia PreOp Filed: 05/13/2018 12:52 PM Note Text: ANESTHESIOLOGY DAY OF SURGERY NOTE SERVICE DATE: 05/13/2018 SERVICE TIME: 12:50 PM : 1960 Procedure(s) (LRB): CERVICAL 3-THORACIC 1 LAMINECTOMY WITH LATERAL MASS FIXATION AND FUSION (N/A) DECOMPRESSION LAMINECTOMY 3RD ADD?L CERVICAL SEGMENT (N/A) FUSION CERVICAL, BELOW C2, SINGLE LEVEL (N/A) ARTHRODESIS CERVICAL BELOW C2, 3RD CERVICAL LEVEL (N/A) POSTERIOR SEGMENTAL INSTRUMENTATION FOLLOWING CERVICAL FUSION 3-6 LEVELS (N/A) ALLOGRAFT FOR SPINE SURGERY MORSELIZED (N/A) AUTOGRAFT FOR SPINE SURGERY ONLY, OBTAINED FROM SAME INCISION (N/A) DIAGNOSTIC BONE MARROW ASPIRATION(S) (N/A) STEREOTACTIC COMPUTER-ASSISTED NAVIGATIONAL PROCEDURE SPINAL (N/A) Surgeon(s): Teodora Jacobsen Estimated body mass index is 43.85 kg/m? as calculated from the following: Height as of this encounter: 170.2 cm (5' 7). Weight as of this encounter: 127 kg (280 lb). Most recent hematocrit and potassium results: Hematocrit 43.0 04/28/2018 Potassium 4.4 04/28/2018 ANES DOS/PREOP NOTE: Vitals: 05/12/18 1800 05/13/18 1145 BP: 153/64 Pulse: 65 Resp: 18 Temp: 36.5 ?C (97.7 ?F) TempSrc: Tympanic Weight: 127 kg (280 lb) Height: 170.2 cm (5' 7) There is no problem list on file for this patient. PAST MEDICAL HISTORY Diagnosis Date - CAD (coronary artery disease) No seed laboratory assistant. follows up with PCP - Cervical spinal stenosis - Diabetes (HCC) - Dyslipidemia - HTN (hypertension) - Hx of heart artery stent PAST SURGICAL HISTORY Procedure Laterality Date - CARDIAC CATH 2007 8 STENTS - CATARACT EXTRACTION HX Bilateral 20 YEARS - TONSILLECTOMY HX A CHILD No family history on file. Social History: Social History Substance Use Topics - Smoking status: Former Smoker Packs/day: 1.00 Years: 40.00 Types: Cigarettes - Smokeless tobacco: Never Used Comment: stopped 2 months ago. - Alcohol use Yes Comment: social No current facility-administered medications on file prior to encounter. No current outpatient prescriptions on file prior to encounter. Current Facility-Administered Medications: remifentanil 1,000 mcg in NaCl 0.9% 40 mL (ULTIVA) 0.05-0.2 mcg/kg/min INTRAVENOUS ONCE Emery Dupree ceFAZolin 3 g in D5W 100 mL (ANCEF) 3 g INTRAVENOUS ONCE Teodora Jacobsen Allergies: ALLERGIES No Known Allergies DOS EXAM: Adequate NPO status: Yes Anesthetic risks, benefits, alternatives, personnel and consent discussed: Yes Patient agrees to proceed: Yes Previous Anesthesia: No history of adverse event. Airway Assessment: MP 2; Neck ROM: Full ROM without neurologic symptoms; Airway Evaluation: Short Neck, Thick neck and Whitney Present Symptoms of Sleep Apnea: Hypertension, BMI > 35, Age over 50 (57 year old), Neck circumference > 15.75 inches and Male gender Dentition: Edentulous Additional Physical Exam: Lungs: Patient health status unchanged since recent history and physical. See history and physical for exam findings. Cardiac: Patient health status unchanged since recent history and physical. See history and physical for exam findings. Additional Pertinent Findings: INR 0.95 Blood Products: Not anticipated for this procedure. Anesthetic Plan: General, Standard ASA Monitors Pain Management Plan: Parenteral or Oral ASA Class: 3 Other Medical Problems: None Chronic Beta Adali medication administered within 24 hours: Yes I have interviewed and examined the patient. I have reviewed the medical record and/or the pre-anesthesia evaluation, pertinent labs, and test results. Significant changes in the patient's condition since the History and Physical, not otherwise documented in primary service progress notes: No This contains updated information obtained within 48 hours of Surgery/Procedure. SIGNATURE: Emery Dupree MD PATIENT NAME: Martin Molina DATE: May 13, 2018 TIME: 12:50 PM CSN: [id number] OPERATIVE NO Observed: 05/13/2018 Status: COMPLETED Source: [place] 12:00 AM CLINIC OTHER CAMPUS REPOSITORY HNO ID: [id number] Author: Teodora Jacobsen Service: Neurosurgery Author Type: Physician Type: Operative Report Filed: 05/14/2018 10:43 AM Note Text: [facility] - Operative Report MARTIN MOLINA : 1960 AGE: 57. SEX: M PATIENT TYPE: I HOSP [facility]: [facility] LOCATION: [facility] ATTENDING PHYSICIAN: TEODORA JACOBSEN CSN NUMBER: [id number] DATE OF SURGERY/PROCEDURE: 05/13/2018 PREOPERATIVE DIAGNOSIS: Cervical spondylosis with radiculopathy and myelopathy. POSTOPERATIVE DIAGNOSIS: Cervical spondylosis with radiculopathy and myelopathy. SURGEON: Teodora Jacobsen MD CUTLERY GRINDER: Jaya Spicer. SURGERY/PROCEDURE: Cervical laminectomy C3, C4, C5, C6; bilateral foraminotomy C3, C4, C5, C6; arthrodesis C3-T1 bilaterally; lateral mass fixation C3-C7 bilaterally; pedicle fixation T1 bilaterally. ANESTHESIA: General endotracheal. INDICATIONS: This is a 57-year-old gentleman, who presents with neck pain and evidence of radiculopathy and myelopathy. He was evaluated with a variety of radiographic studies and demonstrated to have the above-mentioned findings for which he was felt to be a good candidate for this procedure. DESCRIPTION OF PROCEDURE: Following the obtaining a full informed consent, the patient was brought to the operating room and underwent induction of general endotracheal anesthesia. He was then placed in a Real head porter baggage, flipped on the prone position, and given IV antibiotics as well as connected to the internal electrodiagnostic monitoring system. Following this, he was prepped and draped in usual sterile manner. Following a surgical time-out, a small stab incision was made overlying the iliac crest. A 13-gauge Jamshidi needle was advanced into the crest following which bone marrow was aspirated and mixed with prefabricated Mastergraft sponge consisting of collagen and calcium triphosphate, which was laid aside for later use in the arthrodesis portion of the procedure. Following this, a midline incision was made overlying the spinous processes of the posterior cervical region. Dissection was carried down through the subcutaneous tissues to expose the cervical dorsal fascia, which was split in the midline and carried over the spinous processes and lamina bilaterally to expose the lateral masses of C3, 4, 5, 6, and 7 as well as the transverse process of T1 bilaterally. Once the exposure was complete and deemed satisfactory, a dynamic reference frame clamp was attached to the spinous process of T1 and then the patient was redraped and underwent an intraoperative CT scan the images of which were uploaded into the [employer] neuronavigation system. Following this, the patient was pulled out of the CT scanner and the excess draping was removed. At this point, a stereotactic navigational wand was used to localize the levels in question. Using the navigated drill guide, pedicle pilot can router holes were created at T1 and then lateral mass pilot can router holes were created at C3, C4, C5, C6, and C7 bilaterally. Once each of the left pilot can router holes were created, they were probed with a ball-tip Feeler and then 3.5 mm x 16 mm screws were placed at each of the lateral masses of C3 to C7 bilaterally following which 3.5 mm x 24 mm screws were placed at T1 within the pedicles with a medial bias screw head. Once the screws were placed, they were aligned with the appropriate length rods and secured with set screws that were torqued to the final break-off point. Following the fixation, cervical laminectomy was performed from C3 to C6 by resecting the spinous processes at C3, C4, C5, and C6. A median laminotomy was then performed with a high-speed pneumatic june following which a full laminectomy was performed from right to left using a 3-mm Kerrison punch with resultant decompression centrally. Bilateral foraminotomies were then performed using a 2-mm Kerrison punch. Once the decompression was complete and deemed satisfactory, a posterolateral arthrodesis was performed from C3 to T1 using a mixture of bone marrow aspirate, Mastergraft sponge, and locally harvested autologous laminectomy bone which was cleaned and morselized and layered over the decorticated surfaces of the posterolateral aspects of C3 to T1 bilaterally. Following this, the wound was copiously irrigated with antibiotic saline. Pneumatic hemostasis was achieved in usual manner following which the wound was closed in standard fashion after an 8-inch Hemovac drain was left in place, tunneled out through the skin, and secured with a drain stitch. The wound was closed in standard fashion using 0 Nurolon on the fascia, 2-0 Vicryl on subcutaneous tissues with running 4-0 V-Loc in subcuticular manner on the skin. All counts were correct at the end of the case. No complications were encountered. Teodora Jacobsen MD GM:[id number] /[id number] PROGRESS Observed: 05/07/2018 Status: COMPLETED Source: [place] 2:21 PM CLIN[facility] OTHER CAMPUS REPOSITORY HNO ID: [id number] Author: Mayda Valles Service: Anesthesiology Author Type: Nurse Practitioner Type: Progress Notes Filed: 05/07/2018 3:28 PM Note Text: Spoke to Gifty Baires's office regarding a copy of the medical optimization form, she stated she will fax it over as soon as she receives it from patients PCP. She faxed over the labs and EKG this am to the PCP. Mayda Valles APRN.CNP May 07, 2018 2:22 PM Reviewed chart with , METS >5, denies SOB or CP with activity. Medical optimization form sufficient to proceed with planned procedure. Mayda Valles APRN.CNP May 07, 2018 3:28 PM PROTIME Collected: 04/28/2018 Status: F Source: [facility] 4:54 PM HEALTH SYSTEM REPOSITORY TYPE CODE TESTS RESULT OUT OF REFERENCE UNITS RANGE LAB MPTI(LOINC 9.7-13.0 sec ) Low Prothrombin Time 9.6 LAB MINR(LOINC 0.90-1.30 ) INR 0.95 Result Comment: Note: Reference Range Change Vitamin K Antagonist (VKA) Therapeutic Range: INR 2 to 3 (Target INR of 2.5) Note: For patients treated with VKA drugs, such as warfarin, the [employer] 2012 Guideline recommends a therapeutic INR range of 2 to 3 (target INR of 2.5). This recommendation includes high-risk patients with antiphospholipid syndrome with previous arterial or venous thromboembolism, current-generation mechanical or bioprosthetic aortic heart valve replacement. VKA Therapeutic Range for some Mechanical Valve Replacement: INR 2.5 to 3.5 (Target INR of 3) Note: Patients with mechanical aortic valve replacement and additional risk factors for thromboembolic events (atrial fibrillation, previous thromboembolism, LV dysfunction, hypercoagulable conditions) or an older generation mechanical AVR (i.e., ball in-Cage) or any mechanical MVR should have a INR therapeutic range of 2.5 to 3.5 target INR of 3). Lukas GH, et al. Chest 2012; 141:7S-47S Manda RA, et al. [facility] 2017; 70: 252-289 Performed By: #### MPT #### [place] [address] ACTIVATED PTT Collected: 04/28/2018 Status: F Source: [facility] 4:[facility] REPOSITORY TYPE CODE TESTS RESULT OUT OF REFERENCE UNITS RANGE LAB MAPTT(LOIN 23.0-32.4 sec C) Activated PTT 29.5 Result Comment: Note: New Reference Range Unfractionated Heparin Therapeutic Ranges: Standard Heparin Nomogram: 53 to 78 seconds (anti-Xa level of 0.3 to 0.7 U/mL) Low Dose/ACS Nomogram: 49 to 67 seconds (anti-Xa level of 0.2 to 0.5 U/mL) Stroke Treatment Nomogram: 49 to 67 seconds (anti-Xa level of 0.2 to 0.5 U/mL) Note: The APTT therapeutic range has been determined for the current lot of laboratory APTT reagent in use throughout the [facility]. Performed By: #### MAPTT #### [place] [address] HEMOGRAM Collected: 04/28/2018 Status: F Source: [facility] 4:[address] [facility] REPOSITORY TYPE CODE TESTS RESULT OUT OF REFERENCE UNITS RANGE LAB WBC(LOINC) 4.23-9.07 thou/cmm WBC 7.67 LAB RBC(LOINC) 4.63-6.08 mil/cmm Low RBC 4.42 LAB HGB(LOINC) 13.7-17.5 g/dL Low Hgb 13.5 LAB HCT(LOINC) 40.1-51.0 % Hct 43.0 LAB MCV(LOINC) 83.2-95.6 fl High MCV 97.3 LAB MCH(LOINC) 25.7-32.2 pg MCH 30.5 LAB MCHC(LOINC) 32.3-36.5 % Low MCHC 31.4 LAB RDW(LOINC) 11.6-14.4 % RDW 13.7 LAB RDWSD(LOINC 36.1-45.8 fl ) High RDW SD 49.5 LAB PLT(LOINC) 141-365 thou/cmm Platelet 214 LAB MPV(LOINC) 8.7-12.0 fl MPV 9.8 Performed By: #### CBC1 #### [facility] [address] [place] [address] BASIC PANEL Collected: 04/28/2018 Status: F Source: [place] [address]:[facility] REPOSITORY TYPE CODE TESTS RESULT OUT OF REFERENCE UNITS RANGE LAB NA(LOINC) 136-145 mEq/L Sodium Blood 144 LAB K(LOINC) 3.5-5.1 mEq/L Potassium Blood 4.4 LAB CL(LOINC) 98-107 mEq/L Chloride High Blood 108 LAB CO2(LOINC) 21-32 mEq/L CO2 Blood 30 LAB GLU(LOINC) 70-99 mg/dL Glucose High Blood 140 LAB BUN(LOINC) 7-18 mg/dL BUN High Blood 26 LAB CREA(LOINC 0.67-1.17 mg/dL ) High Creatinine Blood 1.22 LAB CA(LOINC) 8.5-10.1 mg/dL Calcium Blood 9.0 LAB ANGAP(LOIN 8-16 C) Anion Gap 10 Performed By: #### P8 #### [facility] [address] [place] [address] MDRD GFR Collected: 04/28/2018 Status: F Source: [address] [facility] REPOSITORY TYPE CODE TESTS RESULT OUT OF RANGE REFERENCE UNITS LAB GFRFN(LOINC >60mL/min/1.73m ) 2 eGFR >60 Result Comment: If the patient is , multiply the result by 1.210. Performed By: #### GFR #### [facility] [address] [place] [address] TYPE AND SCREEN Collected: 04/28/2018 Status: F Source: [facility] 4:54 PM HEALTH SYSTEM REPOSITORY TYPE CODE TESTS RESULT OUT OF REFERENCE UNITS RANGE LAB ABO(LOINC) B ABO Group LAB PHP WEBSITE DEVELOPER(LOINC ) RH Type Negative LAB ABSCR(LOIN C) Antibody NEGATIVE Screen LAB BBCMT(LOIN C) Comment PAT specimen Performed By: #### T&S #### [facility] [address] [place] [address] RBC PRODUCTS Collected: 04/28/2018 Status: F Source: [facility] 4:54 PM HEALTH SYSTEM REPOSITORY TYPE CODE TESTS RESULT OUT OF REFERENCE UNITS RANGE LAB UNIT1(LOINC ) Xmatch Unit 1 see below Result Comment: Compatible LAB UNIT2(LOINC) Xmatch Unit 2 see below Result Comment: Compatible Performed By: #### RBCPS #### [facility] [address] [place] [address] PROGRESS Observed: 04/28/2018 Status: COMPLETED Source: [place] 4:03 PM [facility] REPOSITORY HNO ID: [id number] Author: Rebekah (Dell) Wade Service: (none) Author Type: Nurse Practitioner Type: Progress Notes Filed: 04/28/2018 4:05 PM Note Text: RED DOT: Abnormal EKG. Mets<4. History of CAD - With previous stent placement - The patient is currently on antiplatelet therapy. Takes 81 mg ASA daily. No seed laboratory assistant. Appointment with PCP for medical clearance 05/06/18. EKG Observed: 04/28/2018 Status: F Source: [place] 3:42 PM [facility] OTHER [place] REPOSITORY NAME : MARTIN MOLINA PID : [id number] : 1960 Gender : Male Race : ORD : Procedure Date : Apr 28 2018 15:42 Edit Date : Apr 29 2018 14:41 Diagnosis:NORMAL SINUS RHYTHM LEFT ATRIAL ENLARGEMENT LOW VOLTAGE QRS INFERIOR INFARCT , AGE UNDETERMINED ABNORMAL ECG WHEN COMPARED WITH ECG OF 02-JAN-1997 05:24, INFERIOR INFARCT IS NOW PRESENT Confirmed by MD Meghann, Balwinder Wilkerson ([id number]) on 04/29/2018 2:41:38 PM Ventricular Rate : 76 BPM Atrial Rate : 76 BPM P-R Interval : 194 ms QRS Duration : 76 ms Q-T Interval : 384 ms QTC Calculation(Bezet) : 432 ms P Converse : 43 degrees R Converse : -3 degrees T Converse : 10 degrees Test Reason : Location : 25 : [facility] Overread By : MD Zavaleta Vinayak A. Editted By : MD Zavaleta Vinayak A. Referred By : TEODORA JACOBSEN Acquired by : JESSICA OLVERA PHYSICAL Observed: 04/28/2018 Status: COMPLETED Source: [place] 3:32 PM CLINIC OTHER CAMPUS REPOSITORY HNO ID: [id number] Author: Rebekah Olvera Service: (none) Author Type: Nurse Practitioner Type: HANDP Filed: 04/28/2018 4:05 PM Note Text: HISTORY AND PHYSICAL EXAMINATION SERVICE DATE: 04/28/2018 SERVICE TIME: 3:32 PM PRIMARY CARE PHYSICIAN: Torsten Sawyer MD REASON FOR VISIT: Martin Molina is a 57 year old male who is scheduled for presurgical testing at the request of Dr. Teodora Jacobsen for routine HANDP. The patient has the following: There is no problem list on file for this patient. Subjective CHIEF COMPLAINT: Neck pain HPI: Devonte Molina is a 57 year old male that presents for presurgical testing. He states he has a history of neck pain for 5-6 months. He complains of neck pain getting progressively worse. He complains of constant aching neck pain that radiates to both shoulders and arms. He complains of intermittent stabbing pain that shoots down the arms. He states the last injection to the shoulder gave him no relief. He uses ibuprofen PRN for pain with some relief. He c/o numbness/tingling in both arms with weakness. He has discussed surgery risks and benefits with the surgeon and agreed. PAST MEDICAL HISTORY Diagnosis Date - CAD (coronary artery disease) No seed laboratory assistant. follows up with PCP - Cervical spinal stenosis - Diabetes (HCC) - Dyslipidemia - HTN (hypertension) - Hx of heart artery stent PAST SURGICAL HISTORY Procedure Laterality Date - CARDIAC CATH 2007 8 STENTS - CATARACT EXTRACTION HX Bilateral 20 YEARS - TONSILLECTOMY HX A CHILD No family history on file. SOCIAL HISTORY: Social History Marital status: Spouse name: Years of education: Number of children: Social History Main Topics Smoking status: Former Smoker Packs/day: 1.00 Years: 40.00 Types: Cigarettes Smokeless tobacco: Never Used Comment: stopped 2 months ago. Alcohol use: Yes Comment: social Drug use: No Prior to Admission medications as of 04/28/18 1526 Medication Sig Last Dose Taking atorvastatin (LIPITOR) 80 mg tablet Take 80 mg by mouth once daily. Taking Yes linagliptin (TRADJENTA) 5 mg tab Take by mouth once daily. Taking Yes LISINOPRIL ORAL Take 10 mg by mouth once daily. Taking Yes metFORMIN (GLUCOPHAGE) 500 mg tablet Take 1,000 mg by mouth daily with breakfast. Taking Yes meloxicam (MOBIC) 15 mg tablet Take 15 mg by mouth once daily. Taking Yes dapagliflozin 10 mg tab Take 10 mg by mouth daily with breakfast. Taking Yes METOPROLOL TARTRATE ORAL Take 25 mg by mouth once daily. Taking Yes pioglitazone HCl (PIOGLITAZONE ORAL) Take 45 mg by mouth once daily. Taking Yes aspirin, enteric coated (ASPIRIN, ENTERIC COATED) 81 mg EC tablet Take 81 mg by mouth once daily. Taking Yes No medication comments found. ALLERGIES Not on File REVIEW OF SYSTEMS: PAIN ASSESSMENT: Pain Pain Score: 4/10 Pain Location: (NECK, SHOULDERS AND ARMS ) Duration Amount of Time: 5 Duration Units: Months General: Denies fever, chills, and unexpected weight change. Neuro: Denies dizziness and headaches. Respiratory: No history of current cough or dyspnea, or pneumonia in the past 6 weeks. No history of respiratory/pulmonary symptoms or problems. Cardiovascular: Positive for: CAD; Stents: no seed laboratory assistant. GI: Denies abd pain and N/V/D. : Denies dysuria. Endocrine: + diabetes , denies thyroid disease Hematology: Denies history of bleeding or clotting disorder. Psych: Denies anxiety/depression. Musculoskeletal: SEE HPI Skin: Denies open sores and rashes. Objective PHYSICAL EXAM: VITALS: BP 129/65 Pulse 75 Temp (Src) 97.2 (Temporal Artery) Resp 18 Ht 5' 7 (1.70m) Wt 280 lb (127.0kg) SpO2 95% BMI 43.84 kg/(m2). General: NAD. Cooperative. Skin: Skin is warm, no rashes, and no open sores. HEENT: Normocephalic. Cardiovascular: Normal S1 AND S2, no rubs, murmurs or gallops. No JVD. Pulse regular. Lungs: Normal breath sounds, no wheezes or crackles. Extremities: SEE HPI Neurological: Alert and oriented to person, place, and time. Diagnostic tests reviewed for today's visit: Lab Value Units Date High Low HB No results within date range. HCT No results within date range. WBC No results within date range. PLT No results within date range. NA No results within date range. K No results within date range. GLUC No results within date range. BUN No results within date range. CREAT No results within date range. PTSEC No results within date range. INR No results within date range. APTT No results within date range. ALT No results within date range. AST No results within date range. TBILI No results within date range. TSH No results within date range. Lab Value Units Date High Low HCGQT No results within date range. UHCG No results within date range. HCG, BODY* No results within date range. Lab Value Units Date High Low ABORHD No results within date range. ABSCREEN No results within date range. No results found for: HBA1C Most recent labs Most recent imaging METS: Walk a block or two on level ground (2.75 METs) Do yardwork, such as raking leaves, weeding,or pushing a power mower (4.50 METs) Patient denies any chest pain or undue shortness of breath with the above physical activity. ANESTHESIA FINDINGS: Intubation History: No history of difficult intubation Significant Anesthesia Considerations: None Patient has the following medical conditions which may affect rey-operative course CAD - With previous stent placement - The patient is currently on antiplatelet therapy. Takes 81 mg ASA daily. EKG done today abnormal. Will wait for cardiology to confirm. Diabetes - check glucose day of surgery. Takes metformin, pioglitazone and Tradjenta. HTN - Well controlled Hyperlipidemia Morbid Obesity Assessment/Plan Cervical spinal stenosis [M48.02] PLAN Planned Procedure: CERVICAL 3-THORACIC 1 LAMINECTOMY WITH LATERAL MASS FIXATION AND FUSION, DECOMPRESSION LAMINECTOMY 3RD ADD?L CERVICAL SEGMENT, FUSION CERVICAL, BELOW C2, SINGLE LEVEL, ARTHRODESIS CERVICAL BELOW C2, 3RD CERVICAL LEVEL, POSTERIOR SEGMENTAL INSTRUMENTATION FOLLOWING CERVICAL FUSION 3-6 LEVELS, ALLOGRAFT FOR SPINE SURGERY MORSELIZED, AUTOGRAFT FOR SPINE SURGERY ONLY, OBTAINED FROM SAME INCISION, DIAGNOSTIC BONE MARROW ASPIRATION(S), STEREOTACTIC COMPUTER-ASSISTED NAVIGATIONAL PROCEDURE SPINAL CONSULTS: MEDICAL CLEARANCE appointment 05/06/18. The Following Tests/Procedures Have Been Initiated: EKG, TANDC2 UNITS, CBC, BMP, PT/INR/PTT ORDERED BY SURGEON ON WRITTEN ORDERS. Planned Anesthetic: General Instructions Given to Patient: Patient given verbal and written preop instructions and voices comprehension and compliance. SIGNATURE: Rebekah Olvera APRN.CNP PATIENT NAME: Martin Molina DATE: April 28, 2018 TIME: 3:32 PM PAGER/CONTACT #: [id number] Observed: 04/14/2018 Status: COMPLETED Source: [place] 12:00 AM CLINIC OTHER CAMPUS REPOSITORY Patient:Pool,Martin Peña MRN: <[id number]> Height:5' 7(1.702 m) Weight:280 lb (127.007 kg) Outpatient Medications as of 05/13/18: atorvastatin (LIPITOR) 80 mg tablet linagliptin (TRADJENTA) 5 mg tab LISINOPRIL ORAL metFORMIN (GLUCOPHAGE) 500 mg tablet meloxicam (MOBIC) 15 mg tablet dapagliflozin 10 mg tab METOPROLOL TARTRATE ORAL pioglitazone HCl (PIOGLITAZONE ORAL) aspirin, enteric coated (ASPIRIN, ENTERIC COATED) 81 mg EC tablet Admission/Clinic Administered Medications as of 05/13/18: remifentanil 1,000 mcg in NaCl 0.9% 40 mL (ULTIVA) lactated ringers infusion meperidine (PF) 12.5 mg injection (DEMEROL) fentaNYL 50 mcg/mL 50 mcg injection (SUBLIMAZE) HYDROmorphone HCl 0.5 mg injection (DILAUDID) ondansetron (PF) 4 mg injection (ZOFRAN) ceFAZolin 3 g in D5W 100 mL (ANCEF) Problem List: Obesity, Class III, BMI >= 40 [E66.01] Allergies: No Known Allergies Date Verified:05/13/18 Lab Values Lab Value Units Date High Low POTA* 4.4 mEq/L 04/28/2018 5.1 3.5 TANO* 43.0 % 04/28/2018 51.0 40.1 Progress Notes (PRE SURG TESTING [facility]): Rebekah Olvera APRN.CNP 04/28/2018 3:20 PM Signed PATIENT PREOPERATIVE INSTRUCTIONS Teodora Jacobsen* has scheduled you for your procedure at this surgery center: [facility]: [phone], [address] [phone] Please read below carefully for your personalized instructions. Arrival Time for Surgery: 05/13/18 SURGERY TIME 12:30PM ARRIVE AT 10:30AM Please be aware that emergency situations arise, which may delay or change your surgical time. If this happens, we will notify you as soon as possible and regret any inconvenience. Blood Thinning Medications: - Stop NSAIDS (Ibuprofen, Advil, Aleve, Motrin, Celebrex, Mobic, etc.) 7 days before surgery, as directed by your surgeon. - You may take Tylenol (Acetaminophen) or any of your pain medications that do not contain aspirin or NSAIDS as needed. - Do NOT stop Aspirin or other anticoagulants (Coumadin, Plavix, Eliquis, Xarelto, etc.) without consulting with your seed laboratory assistant or prescribing physician as well as your surgeon. - Stop Vitamin E, ALL multi-vitamins, fish oil, herbals and dietary supplements 7 days before surgery. Dietary Restrictions: - Nothing to eat or drink after midnight except for a sip of water with approved medications. Pain Medications: Medications: Approved medications to take the morning of surgery with a sip of water: BP, Heart, thyroid, psych, seizure, and pain medications excluding NSAIDS. Use inhalers as prescribed. Please bring inhalers. If you take any medications for erectile dysfunction-Cialis (Tadalafil), Levitra, Staxyn (Vardenafil) Viagra (Sildenenafil please do not take these for 48 hours before surgery. If you start any new medications after today's visit, please contact the surgeon's office. Important Reminders: - If you use CPAP/BIPAP, bring the machine with you to the surgery center. - If you are prescribed inhalers for breathing, continue using them AND bring them to the surgery center. - Candy, mints, gum and tobacco products are NOT permitted the morning of surgery. - Hearing aids, dentures and glasses may be worn the morning of surgery. - NO jewelry, body piercings, makeup, hairpins or contacts are to be worn the day of surgery. If you develop symptoms such as a fever, cold, or flu, or have other changes to your health within TWO DAYS of scheduled surgery or the morning of surgery, please contact the surgery center above. Personal Belongings: - Leave ALL valuables and money at home or with family members. - You will need to have someone else (Family or friend) drive you home once discharged from the hospital. You cannot take a cab or Uber. You are not allowed to drive yourself home after surgery. ? Anesthesia Suggests Reading : Anais Ruiz, Prepare for Surgery, Heal Faster: A Guide of Mind-Body Techniques ([place], [place]; [employer]; Fourth Edition , 2012. Rebekah Olvera APRN.TERESA Olvera APRN.CNP 04/28/2018 4:05 PM Signed HISTORY AND PHYSICAL EXAMINATION SERVICE DATE: 04/28/2018 SERVICE TIME: 3:32 PM PRIMARY CARE PHYSICIAN: Torsten Sawyer MD REASON FOR VISIT: Martin Molina is a 57 year old male who is scheduled for presurgical testing at the request of Dr. Teodora Jacobsen for routine HANDP. The patient has the following: There is no problem list on file for this patient. Subjective CHIEF COMPLAINT: Neck pain HPI: Devonte Molina is a 57 year old male that presents for presurgical testing. He states he has a history of neck pain for 5-6 months. He complains of neck pain getting progressively worse. He complains of constant aching neck pain that radiates to both shoulders and arms. He complains of intermittent stabbing pain that shoots down the arms. He states the last injection to the shoulder gave him no relief. He uses ibuprofen PRN for pain with some relief. He c/o numbness/tingling in both arms with weakness. He has discussed surgery risks and benefits with the surgeon and agreed. PAST MEDICAL HISTORY Diagnosis Date - CAD (coronary artery disease) No seed laboratory assistant. follows up with PCP - Cervical spinal stenosis - Diabetes (HCC) - Dyslipidemia - HTN (hypertension) - Hx of heart artery stent PAST SURGICAL HISTORY Procedure Laterality Date - CARDIAC CATH 2007 8 STENTS - CATARACT EXTRACTION HX Bilateral 20 YEARS - TONSILLECTOMY HX A CHILD No family history on file. SOCIAL HISTORY: Social History Marital status: Spouse name: Years of education: Number of children: Social History Main Topics Smoking status: Former Smoker Packs/day: 1.00 Years: 40.00 Types: Cigarettes Smokeless tobacco: Never Used Comment: stopped 2 months ago. Alcohol use: Yes Comment: social Drug use: No Prior to Admission medications as of 04/28/18 1526 Medication Sig Last Dose Taking atorvastatin (LIPITOR) 80 mg tablet Take 80 mg by mouth once daily. Taking Yes linagliptin (TRADJENTA) 5 mg tab Take by mouth once daily. Taking Yes LISINOPRIL ORAL Take 10 mg by mouth once daily. Taking Yes metFORMIN (GLUCOPHAGE) 500 mg tablet Take 1,000 mg by mouth daily with breakfast. Taking Yes meloxicam (MOBIC) 15 mg tablet Take 15 mg by mouth once daily. Taking Yes dapagliflozin 10 mg tab Take 10 mg by mouth daily with breakfast. Taking Yes METOPROLOL TARTRATE ORAL Take 25 mg by mouth once daily. Taking Yes pioglitazone HCl (PIOGLITAZONE ORAL) Take 45 mg by mouth once daily. Taking Yes aspirin, enteric coated (ASPIRIN, ENTERIC COATED) 81 mg EC tablet Take 81 mg by mouth once daily. Taking Yes No medication comments found. ALLERGIES Not on File REVIEW OF SYSTEMS: PAIN ASSESSMENT: Pain Pain Score: 4/10 Pain Location: (NECK, SHOULDERS AND ARMS ) Duration Amount of Time: 5 Duration Units: Months General: Denies fever, chills, and unexpected weight change. Neuro: Denies dizziness and headaches. Respiratory: No history of current cough or dyspnea, or pneumonia in the past 6 weeks. No history of respiratory/pulmonary symptoms or problems. Cardiovascular: Positive for: CAD; Stents: no seed laboratory assistant. GI: Denies abd pain and N/V/D. : Denies dysuria. Endocrine: + diabetes , denies thyroid disease Hematology: Denies history of bleeding or clotting disorder. Psych: Denies anxiety/depression. Musculoskeletal: SEE HPI Skin: Denies open sores and rashes. Objective PHYSICAL EXAM: VITALS: BP 129/65 Pulse 75 Temp (Src) 97.2 (Temporal Artery) Resp 18 Ht 5' 7 (1.70m) Wt 280 lb (127.0kg) SpO2 95% BMI 43.84 kg/(m2). General: NAD. Cooperative. Skin: Skin is warm, no rashes, and no open sores. HEENT: Normocephalic. Cardiovascular: Normal S1 AND S2, no rubs, murmurs or gallops. No JVD. Pulse regular. Lungs: Normal breath sounds, no wheezes or crackles. Extremities: SEE HPI Neurological: Alert and oriented to person, place, and time. Diagnostic tests reviewed for today's visit: Lab Value Units Date High Low HB No results within date range. HCT No results within date range. WBC No results within date range. PLT No results within date range. NA No results within date range. K No results within date range. GLUC No results within date range. BUN No results within date range. CREAT No results within date range. PTSEC No results within date range. INR No results within date range. APTT No results within date range. ALT No results within date range. AST No results within date range. TBILI No results within date range. TSH No results within date range. Lab Value Units Date High Low HCGQT No results within date range. UHCG No results within date range. HCG, BODY* No results within date range. Lab Value Units Date High Low ABORHD No results within date range. ABSCREEN No results within date range. No results found for: HBA1C Most recent labs Most recent imaging METS: Walk a block or two on level ground (2.75 METs) Do yardwork, such as raking leaves, weeding,or pushing a power mower (4.50 METs) Patient denies any chest pain or undue shortness of breath with the above physical activity. ANESTHESIA FINDINGS: Intubation History: No history of difficult intubation Significant Anesthesia Considerations: None Patient has the following medical conditions which may affect rey-operative course CAD - With previous stent placement - The patient is currently on antiplatelet therapy. Takes 81 mg ASA daily. EKG done today abnormal. Will wait for cardiology to confirm. Diabetes - check glucose day of surgery. Takes metformin, pioglitazone and Tradjenta. HTN - Well controlled Hyperlipidemia Morbid Obesity Assessment/Plan Cervical spinal stenosis [M48.02] PLAN Planned Procedure: CERVICAL 3-THORACIC 1 LAMINECTOMY WITH LATERAL MASS FIXATION AND FUSION, DECOMPRESSION LAMINECTOMY 3RD ADD?L CERVICAL SEGMENT, FUSION CERVICAL, BELOW C2, SINGLE LEVEL, ARTHRODESIS CERVICAL BELOW C2, 3RD CERVICAL LEVEL, POSTERIOR SEGMENTAL INSTRUMENTATION FOLLOWING CERVICAL FUSION 3-6 LEVELS, ALLOGRAFT FOR SPINE SURGERY MORSELIZED, AUTOGRAFT FOR SPINE SURGERY ONLY, OBTAINED FROM SAME INCISION, DIAGNOSTIC BONE MARROW ASPIRATION(S), STEREOTACTIC COMPUTER-ASSISTED NAVIGATIONAL PROCEDURE SPINAL CONSULTS: MEDICAL CLEARANCE appointment 05/06/18. The Following Tests/Procedures Have Been Initiated: EKG, TANDC2 UNITS, CBC, BMP, PT/INR/PTT ORDERED BY SURGEON ON WRITTEN ORDERS. Planned Anesthetic: General Instructions Given to Patient: Patient given verbal and written preop instructions and voices comprehension and compliance. SIGNATURE: Rebekah Olvera APRN.CNP PATIENT NAME: Martin Peña Kidney DATE: April 28, 2018 TIME: 3:32 PM PAGER/CONTACT #: Rebekah Olvera APRN.CNP 04/28/2018 4:05 PM Signed RED DOT: Abnormal EKG. Mets<4. History of CAD - With previous stent placement - The patient is currently on antiplatelet therapy. Takes 81 mg ASA daily. No seed laboratory assistant. Appointment with PCP for medical clearance 05/06/18. Progress Notes (): Mayda Valles APRN.CNP 05/07/2018 3:28 PM Addendum Spoke to Gifty Baires's office regarding a copy of the medical optimization form, she stated she will fax it over as soon as she receives it from patients PCP. She faxed over the labs and EKG this am to the PCP. Mayda Valles APRN.CNP May 07, 2018 2:22 PM Reviewed chart with , METS >5, denies SOB or CP with activity. Medical optimization form sufficient to proceed with planned procedure. Mayda Valles APRN.CNP May 07, 2018 3:28 PM Previous Version Emery Dupree MD 05/13/2018 12:52 PM Signed ANESTHESIOLOGY DAY OF SURGERY NOTE SERVICE DATE: 05/13/2018 SERVICE TIME: 12:50 PM : 1960 Procedure(s) (LRB): CERVICAL 3-THORACIC 1 LAMINECTOMY WITH LATERAL MASS FIXATION AND FUSION (N/A) DECOMPRESSION LAMINECTOMY 3RD ADD?L CERVICAL SEGMENT (N/A) FUSION CERVICAL, BELOW C2, SINGLE LEVEL (N/A) ARTHRODESIS CERVICAL BELOW C2, 3RD CERVICAL LEVEL (N/A) POSTERIOR SEGMENTAL INSTRUMENTATION FOLLOWING CERVICAL FUSION 3-6 LEVELS (N/A) ALLOGRAFT FOR SPINE SURGERY MORSELIZED (N/A) AUTOGRAFT FOR SPINE SURGERY ONLY, OBTAINED FROM SAME INCISION (N/A) DIAGNOSTIC BONE MARROW ASPIRATION(S) (N/A) STEREOTACTIC COMPUTER-ASSISTED NAVIGATIONAL PROCEDURE SPINAL (N/A) Surgeon(s): Teodora Jacobsen Estimated body mass index is 43.85 kg/m? as calculated from the following: Height as of this encounter: 170.2 cm (5' 7). Weight as of this encounter: 127 kg (280 lb). Most recent hematocrit and potassium results: Hematocrit 43.0 04/28/2018 Potassium 4.4 04/28/2018 ANES DOS/PREOP NOTE: Vitals: 05/12/18 1800 05/13/18 1145 BP: 153/64 Pulse: 65 Resp: 18 Temp: 36.5 ?C (97.7 ?F) TempSrc: Tympanic Weight: 127 kg (280 lb) Height: 170.2 cm (5' 7) There is no problem list on file for this patient. PAST MEDICAL HISTORY Diagnosis Date - CAD (coronary artery disease) No seed laboratory assistant. follows up with PCP - Cervical spinal stenosis - Diabetes (HCC) - Dyslipidemia - HTN (hypertension) - Hx of heart artery stent PAST SURGICAL HISTORY Procedure Laterality Date - CARDIAC CATH 2007 8 STENTS - CATARACT EXTRACTION HX Bilateral 20 YEARS - TONSILLECTOMY HX A CHILD No family history on file. Social History: Social History Substance Use Topics - Smoking status: Former Smoker Packs/day: 1.00 Years: 40.00 Types: Cigarettes - Smokeless tobacco: Never Used Comment: stopped 2 months ago. - Alcohol use Yes Comment: social No current facility-administered medications on file prior to encounter. No current outpatient prescriptions on file prior to encounter. Current Facility-Administered Medications: remifentanil 1,000 mcg in NaCl 0.9% 40 mL (ULTIVA) 0.05-0.2 mcg/kg/min INTRAVENOUS ONCE Emery Dupree ceFAZolin 3 g in D5W 100 mL (ANCEF) 3 g INTRAVENOUS ONCE Teodora Jacobsen Allergies: ALLERGIES No Known Allergies DOS EXAM: Adequate NPO status: Yes Anesthetic risks, benefits, alternatives, personnel and consent discussed: Yes Patient agrees to proceed: Yes Previous Anesthesia: No history of adverse event. Airway Assessment: MP 2; Neck ROM: Full ROM without neurologic symptoms; Airway Evaluation: Short Neck, Thick neck and Whitney Present Symptoms of Sleep Apnea: Hypertension, BMI > 35, Age over 50 (57 year old), Neck circumference > 15.75 inches and Male gender Dentition: Edentulous Additional Physical Exam: Lungs: Patient health status unchanged since recent history and physical. See history and physical for exam findings. Cardiac: Patient health status unchanged since recent history and physical. See history and physical for exam findings. Additional Pertinent Findings: INR 0.95 Blood Products: Not anticipated for this procedure. Anesthetic Plan: General, Standard ASA Monitors Pain Management Plan: Parenteral or Oral ASA Class: 3 Other Medical Problems: None Chronic Beta Adali medication administered within 24 hours: Yes I have interviewed and examined the patient. I have reviewed the medical record and/or the pre-anesthesia evaluation, pertinent labs, and test results. Significant changes in the patient's condition since the History and Physical, not otherwise documented in primary service progress notes: No This contains updated information obtained within 48 hours of Surgery/Procedure. SIGNATURE: Emery Dupree MD PATIENT NAME: Martin Molina DATE: May 13, 2018 TIME: 12:50 PM CSN: [id number] DX CERVICAL SPINE 2 Observed: 04/02/2018 Status: F Source: [facility] 3 VIEWS 9:35 AM [facility]ALTH SYSTEM REPOSITORY Performed at [facility] APPROVED BY: Ronak Daley MD EXAM TITLE: DX CERVICAL SPINE 2 OR 3 VIEWS DATE: 04/02/2018 09:30 INDICATION: Neck pain and paresthesias in the upper extremities. COMPARISON: None. Lateral projection extension and flexion views of the cervical spine show no abnormal subluxation. Vertebral body heights are maintained. Moderate intervertebral disc space narrowing is noted at C3- 4, C4-5, C5-6, and C6-7 with prominent anterior marginal osteophytes at C4-5, C5-6, and to a lesser extent C6-7. Prevertebral soft tissues are normal. IMPRESSION: No instability noted in the cervical spine. Multilevel degenerative disc changes. SPINE CERVICAL Observed: 12/20/2017 Status: F Source: [place] (ROUTINE) 7:13 AM [facility] [place] REPOSITORY [facility] Imaging Services [address] [place] [id number] Spine Cervical (Routine) MR#: [id number] Acct: [id number] Name: BLANQUITA MOLINA Rep #: [id number] : 1960 M 57 From: Oli Eduardo MD PCP: Torsten Sawyer MD Status: REG CLI Study: Spine Cervical (Routine) Date of Exam: 12/20/17 Exam# [id number] Ordering Dr: Senthil Sawyer MD STUDY: MRI CERVICAL SPINE WITHOUT CONTRAST REASON FOR EXAM: Male, 57 years old. Right hand weakness and neck and shoulder pain TECHNIQUE: Standardized fat and water weighted pulse sequences were obtained in the sagittal and axial planes. COMPARISON: November 21, 2017 FINDINGS: The effusion C1-2 joint on the right. Normal foramen magnum and brainstem-cervical cord junction. Normal craniovertebral junction. Normal anterior atlantoaxial articulation. Normal odontoid process. There is reversal of the normal cervical lordosis. Normal vertebral bodies and posterior osseous elements. C2-3: Normal endplates. Normal disc height, signal and morphology. Normal central canal and intervertebral neural foramina. C3-4: Normal endplates. Normal disc height, signal and morphology. Normal central canal and severe narrowing left intervertebral neural foramina. C4-5: Normal endplates. Normal disc height, signal and morphology. Normal central canal and moderately severe bilateral intervertebral neural foramina. C5-6: Normal endplates. Normal disc height, signal and morphology. Normal central canal and severe narrowing right intervertebral neural foramina. C6-7: Normal endplates. Normal disc height, signal and morphology. Normal central canal and moderate bilateral narrowing intervertebral neural foramina. C7-T1: Normal endplates. Normal disc height, signal and morphology. Normal central canal and intervertebral neural foramina. Normal cervical cord. Normal visualized soft tissue structures. MRI/Spine Cervical (Routine) IMPRESSION: Bilateral neural foraminal narrowing as noted above at multiple levels Electronically Signed: Oli Eduardo MD at 23:49 EDT , Service support , CC: Torsten Sawyer MD Wrapper Sorter: Signed DOWNTIME REPORT Observed: 11/28/2017 Status: F Source: [place] 1:14 PM [facility] [place] REPOSITORY [facility] Medical Records Department [address] [place] [address] Downtime Report MR#: [id number] Acct: [id number] Name: BLANQUITA MOLINA Rep #: [id number] : 1960 57 From: Dimas Katz PCP: Torsten Sawyer MD Status: REG CLI This patient was seen during an EMR downtime November 11, 2017 - November 18, 2017. This patient may have a combination of paper and electronic documentation or all paper documentation. All documentation is viewable within the e-chart portion of [facility] for each patient visit. ERYTHROCYTE SED RATE Collected: 11/21/2017 Status: F Source: [place] 12:12 PM [facility] REPOSITORY TYPE CODE TESTS RESULT OUT OF RANGE REFERENCE UNITS LAB L102.0000 0-20 mm/hr High SED RATE 34 Performed By: #### L101.9900, L100.0100 #### [facility] [address] [place], [place], [address] CBC W/DIFF, AUTOMATED Collected: 11/21/2017 Status: F Source: [place] 12:12 PM [facility] REPOSITORY TYPE CODE TESTS RESULT OUT OF RANGE REFERENCE UNITS LAB L100.1000 4.4-11.0 K/mm3 Normal WBC 8.7 LAB L100.1200 4.6-6.2 M/mm3 Normal RBC 4.91 LAB L100.1300 13.0-16.5 g/dl Normal HGB 14.9 LAB L100.1400 40-54 % Normal HCT 46.8 LAB L100.1500 80-94 fL High MCV 95.3 LAB L100.1600 27.0-32.0 pg Normal MCH 30.3 LAB L100.1700 32-36 g/gl Low MCHC 31.8 LAB L100.1810 11.6-14.6 % Normal RDW CV 14.3 LAB L100.1820 35.1-43.9 fl High RDW SD 50.1 LAB L100.1900 150-450 K/mm3 Normal PLT 211 LAB L100.2000 6.2-12.0 fl Normal MPV 9.7 LAB L100.2100 47-70 % Normal NEUT% 69.1 LAB L100.2200 19-41 % Low LY% 18.6 LAB L100.2300 0-10 % Normal MONO% 10.0 LAB L100.2400 0-5 % Normal EO% 2.0 LAB L100.2500 0-1 % Normal BASO% 0.2 LAB L100.2550 0.0-0.9 % Normal IM GRAN % 0.100 Result Comment: IG% - Immature Granulocytes (promyelocytes, myelocytes and metamyelocytes) > 1% indicates that a LEFT SHIFT is Present. LAB L100.2620 2.0-7.7 X10 3/uL Normal Absolute Neut 6.0 LAB L100.2720 0.83-4.51 X10 3/ul Normal Absolute Lymph 1.62 Performed By: #### L101.9900, L100.0100 #### [facility] [address] [place], [place], [address] MAGNESIUM Collected: 11/21/2017 Status: F Source: [place] 12:12 PM [facility] REPOSITORY TYPE CODE TESTS RESULT OUT OF RANGE REFERENCE UNITS LAB L501.5200 1.6-2.6 mg/dL Normal MG 2.1 Performed By: #### L501.5200, L501.6710, L501.9520, L503.6150, L503.6550 #### [facility] [address] [place], [place], [address] CRP Collected: 11/21/2017 Status: F Source: [place] 12:12 PM [facility] REPOSITORY TYPE CODE TESTS RESULT OUT OF RANGE REFERENCE UNITS LAB L501.6710 0.0-3.0 mg/L Normal < 2.90 C-REACTIVE PROT Result Comment: C-Reactive Protein (CRP) provides useful information for the diagnosis, therapy and monitoring of inflammatory processes and associated diseases. For the evaluation of Relative Risk for Cardiovascular Disease, a High Sensitivity CRP (HSCRP) should be ordered. Performed By: #### L501.5200, L501.6710, L501.9520, L503.6150, L503.6550 #### [facility] [address] [place], [place], [address] THYROID STIM HORMONE Collected: 11/21/2017 Status: F Source: [place] (TSH) 12:12 PM [facility] REPOSITORY TYPE CODE TESTS RESULT OUT OF RANGE REFERENCE UNITS LAB L501.9520 0.358-3.74 uIU/mL Normal TSH 0.83 Performed By: #### L501.5200, L501.6710, L501.9520, L503.6150, L503.6550 #### [facility] [address] [place], [address] IRON Collected: 11/21/2017 Status: F Source: [place] 12:12 PM [facility] REPOSITORY TYPE CODE TESTS RESULT OUT OF RANGE REFERENCE UNITS LAB L503.6150 65-175 ug/dL Normal IRON 78 Performed By: #### L501.5200, L501.6710, L501.9520, L503.6150, L503.6550 #### [facility] [address] [place], [address] FERRITIN Collected: 11/21/2017 Status: F Source: [place] 12:12 PM [facility] REPOSITORY TYPE CODE TESTS RESULT OUT OF RANGE REFERENCE UNITS LAB L503.6550 26-388 ng/mL Normal FERRITIN 88 Performed By: #### L501.5200, L501.6710, L501.9520, L503.6150, L503.6550 #### [facility] [address] [place], [address] VITAMIN B12 Collected: 11/21/2017 Status: F Source: [place] 12:12 PM [facility] REPOSITORY TYPE CODE TESTS RESULT OUT OF RANGE REFERENCE UNITS LAB L503.0105 211-911 pg/mL Normal Vitamin B12 296 Performed By: #### L503.0105, L506.1000, L509.3000 #### [facility] [address] [place], [address] VITAMIN D,25 HYDROXY Collected: 11/21/2017 Status: F Source: [place] 12:12 PM [facility] REPOSITORY TYPE CODE TESTS RESULT OUT OF REFERENCE UNITS RANGE LAB L506.1000 29.95-100.01 ng/mL Low Vitamin D 16.4 25-OH Result Comment: Vitamin D 25(OH) Status Range Deficiency <20 ng/mL (50nmol/L) Insuffciency 20 - 30 ng/mL (50 - 75 nmol/L) Sufficiency 30 - 100 ng/mL (75 - 250 nmol/L) Toxicity >100 ng/mL (>250 nmol/L) Performed By: #### L503.0105, L506.1000, L509.3000 #### [facility] [address] [place], [address] TESTOSTERONE, SERUM TOTAL Collected: 11/21/2017 Status: F Source: [place] 12:12 PM [facility] REPOSITORY TYPE CODE TESTS RESULT OUT OF REFERENCE UNITS RANGE LAB L509.3000 ng/dL Testosterone Normal 284.45 Result Comment: NORMAL REFERENCE RANGES MALE AGE <50 123.06 - 813.86 ng/dL MALE AGE >50 89.98 - 780.10 ng/dL FEMALE PREMENOPAUSE AGE 21 - 60 9.01 - 47.94 ng/dL FEMALE POSTMENOPAUSE AGE 45 - 89 <7.00 - 45.62 ng/dL REFERENCE RANGE AND METHODOLOGY CHANGED 05/29/2017 Performed By: #### L503.0105, L506.1000, L509.3000 #### [facility] [address] [place], [address] ANTINUCLEAR ANTIBODIES Collected: 11/21/2017 Status: F Source: [place] DIRECT 12:12 PM [facility] REPOSITORY TYPE CODE TESTS RESULT OUT OF RANGE REFERENCE UNITS LAB L3100.5475 Negative Normal Negative SAVANNA-DIRECT Result Comment: Performed at: - [facility] [address] [id number] Director Of Application Development: Maikel Guzmán PhD, Phone: [phone] Performed By: #### L3100.5475 #### [facility] (refer to report for specific site) refer to report for address and phone number CERV SPINE 4 OR 5 Observed: 11/21/2017 Status: F Source: [place] VIEWS 12:11 PM [facility] REPOSITORY [facility] Imaging Services [address] [place] [address] Cerv Spine 4 or 5 Views MR#: [id number] Acct: [id number] Name: BLANQUITA MOLINA Rep #: [id number] : 1960 M 57 From: Omar Macdonald MD PCP: Torsten Sawyer MD Status: REG CLI Study: Cerv Spine 4 or 5 Views Date of Exam: 11/21/17 Exam# [id number] Ordering Dr: Senthil Sawyer MD STUDY: X-RAY - CERVICAL SPINE REASON FOR EXAM: Male, 57 years old. Muscle weakness of extremity. TECHNIQUE: 5 view(s) of the cervical spine were obtained. COMPARISON: None FINDINGS: There are degenerative changes of the anterior atlantoaxial articulation. Normal odontoid process. Normal lower cervical lordosis, there is a mild upper cervical kyphosis. There is multi-level endplate spondylosis. There is multi-level degenerative disc disease with multilevel disc space narrowing. There are multilevel degenerative arthroses of the facet articulations. There is borderline retrolisthesis of C4 on C5. There is multi-level mild to moderate osseous foraminal stenoses. The soft tissue structures are unremarkable. There is no demonstrated osseous destructive process or fracture of the cervical spine. RAD/Cerv Spine 4 or 5 Views IMPRESSION: Multilevel degenerative changes of the cervical spine, as described. Electronically Signed: Gerry Macdonald MD at 14:07 EDT , Service support , CC: Torsten Sawyer MD Wrapper Sorter: Signed COMPREHENSIVE METABOLIC Collected: 11/18/2017 Status: F Source: [place] 12:36 PM [facility] REPOSITORY Order Comment: Order Date: 08/14/17 Order Info: [id number] - CMP Order Info: [id number] - LIPID TYPE CODE TESTS RESULT OUT OF RANGE REFERENCE UNITS LAB L501.0100 74-106 mg/dL Normal GLU 102 Result Comment: Fasting Glucose result from 100 to 125 mg/dL suggests IMPAIRED HOMEOSTASIS per A.D.A. criteria. Please note revised GLUCOSE reference range effective 2017. LAB L501.1000 7-18 mg/dL High BUN 21 LAB L501.1100 0.70-1.30 mg/dL Normal CREAT,SERUM 0.89 Result Comment: The validity of the calculated GFR AND GFRAA in patients over 70 years has not been determined. Clinical correlation is essential. LAB L501.1110 >60 mL/min Normal EST GFR 93 Result Comment: Non- GFR Calc LAB L501.1115 >60 mL/min Normal EST GFR - AA 112 Result Comment: GFR Calc LAB L501.1300 10-20 RATIO High BUN/CRE 23.5 LAB L501.1500 6.4-8.2 g/dL T Normal PROT 7.4 LAB L501.1800 3.2-5.0 g/dL Normal ALB 3.8 LAB L501.1950 2.2-4.2 g/dL Normal GLOB 3.6 LAB L501.2000 0.9-2.4 RATIO Normal A/G 1.1 LAB L501.2200 8.5-10.1 mg/dL CA Normal 9.0 LAB L501.4100 15-37 U/L Normal AST 21 LAB L501.4305 45-117 U/L Normal ALK P 88 LAB L501.4405 16-61 U/L Normal ALT 24 LAB L501.4600 0.20-1.00 mg/dL T Normal BILI 0.70 LAB L501.5300 136-145 mmol/L NA Normal 142 LAB L501.5600 3.5-5.1 mmol/L K Normal 3.9 LAB L501.5900 98-107 mmol/L High CL 108 LAB L501.6100 21.0-32.0 mmol/L Normal CO2 25.0 LAB L501.6200 5-15 Normal GAP 9 Performed By: #### L500.4050, L500.4100 #### [facility] [address] [place], [place], [address] LIPID PROFILE Collected: 11/18/2017 Status: F Source: [place] 12:36 PM [facility] REPOSITORY Order Comment: Order Date: 08/14/17 Order Info: [id number] - CMP Order Info: 11038-2 - LIPID TYPE CODE TESTS RESULT OUT OF RANGE REFERENCE UNITS LAB L501.4900 200 mg/dL Normal CHOL 132 Result Comment: <200 mg/dL Desirable 200-240 mg/dL Borderline >240 mg/dL High Risk LAB L501.5000 mg/dL Normal TRIG 123 Result Comment: The drugs N-Acetylcysteine and Metamizole may falsely depress this assay. Serum Triglycerides Reference Interval Normal <150 mg/dL Borderline high 150 - 199 mg/dL High 200 - 499 mg/dL Very High > or = 500 mg/dL LAB L501.6400 mg/dL Normal HDL 52 Result Comment: The drugs N-Acetylcysteine and Metamizole may falsely depress this assay. Reference Range HDL <40 mg/dL Low HDL Cholesterol HDL >or= 60 mg/dL High HDL Cholesterol LAB L501.6500 0-130 mg/dL Normal LDL 55 LAB L501.6600 5-40 mg/dL Normal VLDL 25 Performed By: #### L500.4050, L500.4100 #### [facility] [address] [place], [address] SHOULDER MIN 2 VIEWS Observed: 08/14/2017 Status: F Source: [place] 2:43 PM [facility] REPOSITORY [facility] Imaging Services [address] [place] [address] Shoulder min 2 Views MR#: [id number] Acct: [id number] Name: BLANQUITA MOLINA Rep #: [id number] : 1960 M 57 From: Santana Asher MD PCP: Torsten Sawyer MD Status: REG CLI Study: Shoulder min 2 Views Date of Exam: 08/14/17 Exam# [id number] Ordering Dr: Senthil Sawyer MD STUDY: X-RAY - LEFT SHOULDER REASON FOR EXAM: Male, 57 years old. Left shoulder pain TECHNIQUE: 4 view(s) of the shoulder. COMPARISON: None. FINDINGS: The glenohumeral joint is in normal alignment. There is mild nonuniform joint space narrowing and spur formation of the glenohumeral joint. The acromioclavicular joint is in normal alignment demonstrates moderate nonuniform joint space narrowing and spur formation. Normal acromion. Visualized clavicle and scapula are unremarkable. No humeral fracture. No lytic or blastic lesion. The soft tissue structures are unremarkable. Normal visualized left upper ribs and pulmonary apex. 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 Electronically Signed: Santana Asher MD at 3:57 EST Tel , Service support , CC: Torsten Sawyer MD Wrapper Sorter: Signed ALLERGIES ALLERGIES DATE TYPE / CODE NAME / CODE REACTION SEVERITY SOURCE 04/12/2015 Drug No Known Unknown [facility] Allergy/416 Allergies/D12758 [facility] 721435(SNOM 0388(RXNORM) Repository ED CT) Drug NO KNOWN [facility] Class/77766 ALLERGIES Other [place] 1003(SNOMED Repository CT) NG/[id number] NO KNOWN [place] [address](SNOMED ALLERGIES [facility]) Repository ENCOUNTERS ENCOUNTERS ADMIT/DISCHARGE ACCOUNT NUMBER ADMITTING ENCOUNTER LOCATION SOURCE CLASS 06/27/2018 [id number] Ambulatory [facility] ding:PT Repository 05/13/2018/05/16/20 [id number] [facility], Inpatient [address] Repository 05/13/2018/05/16/20 [id number] [facility], Inpatient [address] MEDICAL Repository CENTERBuildi nRoom: 9119Bed: 04/28/2018 [id number] Ambulatory [facility] Repository 04/28/2018/04/28/20 [id number] Ambulatory [address] MEDICAL Repository CENTERBuildi ng:AKLBB 04/28/2018/04/28/20 [id number] Ambulatory [address] Repository 04/28/2018/04/28/20 [id number] Ambulatory [address] MEDICAL Repository CENTERBuildi ng:AKPATB 04/28/2018 [id number] Ambulatory [facility] MEDICAL Repository CENTERBudallini ng:AKLBB 04/02/2018/04/02/20 [id number] Ambulatory [address] Other [place] Repository 04/02/2018/04/02/20 [id number] Ambulatory [facility] [address] [place] [address] MEDICAL Repository CENTERBuildi ng:AKXRC 12/20/2017 [id number] [facility] ding:MRI Repository 11/21/2017 [id number] [facility] ding:MTLAB Repository 11/18/2017 [id number] [facility] ding:MTLAB Repository 08/14/2017 [id number] [facility] ding:MTRAD Repository PAYERS PAYERS ENCOUNTER GUARANTOR PAYER SUBSCRIBER SOURCE 06/27/2018 MARTIN Primary MARTIN Peña [place] [id number] Insurance:ANTHEMPolic KIDNEYDOB: [facility]ly [facility] felix ABDALLA Number: [id number] [address]Uud: [id number] Repository Date:2278-42-50QI [address]OX () [address] [place] [address]ZP: 06/27/2018 Secondary NOT GIVENUNK [place] Insurance:SELF PAY [facility] Number: Effective Repository Date:2018-05-22 05/13/2018 MARTIN A Primary MARTIN A [facility] KIDNEYDOB: Insurance:BLUE CARD KIDNEYDOB: [facility] S OPolicy Number: [id number] Repository NATALY POWELL, [id number] [place] [address]Yxp: Date: () 04/28/2018 MARTIN A Primary MARTIN A [facility] KIDNEYDOB: Insurance:BLUE CARD KIDNEYDOB: [facility] S OPolicy Number: [id number] Repository NATALY POWELL, [id number] [place] [address]Kwv: Date: () 04/28/2018 MARTIN A Primary MARTIN A [facility] KIDNEYDOB: Insurance:BLUE CARD KIDNEYDOB: [facility] S OPolicy Number: [id number] Repository NATALY POWELL, [id number] [place] [address]Sro: Date: () 04/02/2018 PATRICA Primary PATRICA [facility] KIDNEYDOB: Insurance:BLUE CARD KIDNEYDOB: [facility] S PPOPolicy Number: [id number] Repository NATALY POWELL, [id number] [place] [address]Hfy: Date: () 12/20/2017 Martin Primary BLANQUITA A [place] [id number] Insurance:ANTHEMPolic KIDNEYDOB: [facility] NATALY POWELL, y Number: [id number] Hospital [place] [address]Ndt: [id number] Repository Date:7710-35-56WS B[address] () [id number] [place] [address]: 12/20/2017 Secondary NOT GIVENUNK [place] Insurance:SELF PAY [facility] Number: Effective Repository Date:2017-11-29 11/21/2017 Martin Primary BLANQUITA A [place] [id number] Insurance:ANTHEMPolic KIDNEYDOB: [facility]ly [facility] Nataly Powell, y Number: [id number] Hospital [place] [address]Xuo: [id number] Repository [phone] Date:0431-90-95WE [address] () [id number] [place] [address]VS: 11/21/2017 Secondary NOT GIVENUNK [place] Insurance:SELF PAY [facility] Number: Effective Repository Date:2017-11-21 11/18/2017 Maritn Primary BLANQUITA A [place] [id number] Insurance:ANTHEMPolic KIDNEYDOB: [facility] Nataly Powell, y Number: [id number] Hospital [place] [address]Oog: [id number] Repository Date:4474-28-00XR BOX () [address]OAW[place]KR, [place] [address]HC: 11/18/2017 Secondary NOT GIVENUNK [place] Insurance:SELF PAY [facility] Number: Effective Repository Date:2017-11-18 08/14/2017 Martin Primary BLANQUITA A [place] [id number] Insurance:ANTHEMPolic KIDNEYDOB: Formerly [facility] [place] Sherry, y Number: [id number] [address]Zif: [id number] Repository [phone] Date:4942-80-32UT [address] () [address]UDMCELQ, [place] [address]WJ: 08/14/2017 Secondary NOT GIVENUNK [place] Insurance:SELF PAY [facility] Number: Effective Repository Date:2017-08-14
== END 2018-06-27 19:00 | disposition home or self-care (01) ==
LOC: PT 10:00
PROVIDERS: Family Provider Family Medicine; PCP Family Medicine; Referring Provider Neurological Surgery; Visit Provider Neurological Surgery
DX: M48.02 Spinal stenosis, cervical region (principal)
CPT/HCPCS: 97110; 97162; 97530

== ENCOUNTER → 2018-08-20 14:36 | Outpatient (CLI) | payer BC, SELFPAY ==
[2018-08-20 16:25] LABS: ALB/GLOB Ratio 0.9 RATIO (0.9-2.4); AST(SGOT) 17 U/L (15-37); Alanine Aminotransfer ALT/SGPT 27 U/L (16-61); Albumin, Serum 3.7 g/dL (3.2-5.0); Alkaline Phosphatase 96 U/L (45-117); Anion Gap 7 (5-15); BUN 23 mg/dL (7-18); BUN/Creat Ratio 20.4 RATIO (10-20); Calcium,Total 9.2 mg/dL (8.5-10.1); Chloride 108 mmol/L (98-107); Creatinine, Serum 1.13 mg/dL (0.70-1.30); EST Glomerular Filtration Rate 70 mL/min (>60); Est Glom Filt Rate - Afr Amer 85 mL/min (>60); Globulin 3.9 g/dL (2.2-4.2); Glucose 180 mg/dL (74-106); Potassium 4.3 mmol/L (3.5-5.1); Protein, Total 7.6 g/dL (6.4-8.2); Sodium Level 143 mmol/L (136-145)
== END ==
PROVIDERS: Family Provider Family Medicine; PCP Family Medicine; Referring Provider Family Medicine; Visit Provider Family Medicine
DX: E11.65 Type 2 diabetes mellitus with hyperglycemia (principal)
CPT/HCPCS: 36415; 80053; 84443

== ENCOUNTER → 2019-08-31 09:04 | Outpatient (CLI) | payer BC, SELFPAY ==
[2019-08-31 10:03] LABS: Erythrocyte Sedimentation Rate 33 mm/hr (0-20)
[2019-08-31 10:34] LABS: ALB/GLOB Ratio 0.9 RATIO (0.9-2.4); AST(SGOT) 20 U/L (15-37); Alanine Aminotransfer ALT/SGPT 33 U/L (16-61); Albumin, Serum 3.6 g/dL (3.2-5.0); Alkaline Phosphatase 103 U/L (45-117); Anion Gap 8 (5-15); BUN 25 mg/dL (7-18); BUN/Creat Ratio 26.5 RATIO (10-20); Chloride 105 mmol/L (98-107); Creatinine, Serum 0.94 mg/dL (0.70-1.30); EST Glomerular Filtration Rate 87 mL/min (>60); Est Glom Filt Rate - Afr Amer 105 mL/min (>60); Glucose 127 mg/dL (74-106); Iron 80 ug/dL (65-175); Potassium 4.3 mmol/L (3.5-5.1); Protein, Total 7.6 g/dL (6.4-8.2); Sodium Level 136 mmol/L (136-145); Thyroid Stim Hormone (TSH) 1.39 uIU/mL (0.358-3.74)
[2019-08-31 10:37] LABS: Vitamin B12 519 pg/mL (211-911); Vitamin D,25 Hydroxy 26.1 ng/mL
[2019-09-02 14:28] LABS: Zinc, Plasma or Serum 77 ug/dL (56-134)
== END ==
PROVIDERS: PCP Family Medicine; Referring Provider Family Medicine; Visit Provider Family Medicine
DX: L60.8 Other nail disorders (principal); E11.65 Type 2 diabetes mellitus with hyperglycemia; I10 Essential (primary) hypertension
CPT/HCPCS: 36415; 80053; 82306; 82607; 83540; 84443; 84630; 85652

== ENCOUNTER → 2020-12-13 07:29 | Outpatient (CLI) | payer BC, SELFPAY ==
[2020-12-13 10:02] LABS: Hematocrit 47.9 % (40-54); Hemoglobin 15.2 g/dL (13.0-16.5); Mean Corp Hgb Conc 31.7 g/dL (32-36); Mean Corpuscular Hgb 30.6 pg (27.0-32.0); Mean Corpuscular Volume 96.4 fL (80-94); Mean Platelet Vol. 9.5 fl (6.2-12.0); Platelet Count 232 K/mm3 (150-450); RBC Distribution Width CV 14.2 % (11.6-14.6); RBC Distribution Width SD 50.6 fl (35.1-43.9); Red Blood Count 4.97 M/mm3 (4.6-6.2); White Blood Count 11.4 K/mm3 (4.4-11.0)
[2020-12-13 10:38] LABS: Vitamin B12 434 pg/mL (211-911); Vitamin D,25 Hydroxy 29.6 ng/mL
[2020-12-13 10:52] LABS: ALB/GLOB Ratio 0.9 RATIO (0.9-2.4); AST(SGOT) 19 U/L (15-37); Alanine Aminotransfer ALT/SGPT 29 U/L (16-61); Albumin, Serum 3.6 g/dL (3.2-5.0); Alkaline Phosphatase 89 U/L (45-117); Anion Gap 6 (5-15); BUN 22 mg/dL (7-18); BUN/Creat Ratio 23.5 RATIO (10-20); Calcium,Total 9.1 mg/dL (8.5-10.1); Chloride 107 mmol/L (98-107); Cholesterol 184 mg/dL (200); Creatinine, Serum 0.94 mg/dL (0.70-1.30); EST Glomerular Filtration Rate 87 mL/min (>60); Est Glom Filt Rate - Afr Amer 105 mL/min (>60); Globulin 3.8 g/dL (2.2-4.2); Glucose 124 mg/dL (74-106); High Density Lipoprotein 55 mg/dL; Potassium 4.4 mmol/L (3.5-5.1); Protein, Total 7.4 g/dL (6.4-8.2); Sodium Level 140 mmol/L (136-145); Triglycerides 265 mg/dL; Very Low Density Lipoprotein 53 mg/dL (5-40)
== END ==
PROVIDERS: PCP Family Medicine; Referring Provider Family Medicine; Visit Provider Family Medicine
DX: F17.200 Nicotine dependence, unspecified, uncomplicated (principal); E11.65 Type 2 diabetes mellitus with hyperglycemia; E55.9 Vitamin D deficiency, unspecified
CPT/HCPCS: 36415; 80053; 80061; 82306; 82607; 84403; 84443; 85027

== ENCOUNTER → 2022-04-20 | Outpatient (CLI) | payer BC, SELFPAY ==
[2022-04-20 11:53] LABS: Hematocrit 48.9 % (40-54); Hemoglobin 15.8 g/dL (13.0-16.5); Mean Corp Hgb Conc 32.3 g/dL (32-36); Mean Corpuscular Hgb 31.7 pg (27.0-32.0); Mean Corpuscular Volume 98.2 fL (80-94); Mean Platelet Vol. 9.5 fl (6.2-12.0); Platelet Count 204 K/mm3 (150-450); RBC Distribution Width CV 13.8 % (11.6-14.6); RBC Distribution Width SD 50.3 fl (35.1-43.9); Red Blood Count 4.98 M/mm3 (4.6-6.2); White Blood Count 8.3 K/mm3 (4.4-11.0)
[2022-04-20 12:23] LABS: Vitamin B12 433 pg/mL (211-911); Vitamin D,25 Hydroxy 37.6 ng/mL
[2022-04-20 12:41] LABS: ALB/GLOB Ratio 0.8 RATIO (0.9-2.4); AST(SGOT) 31 U/L (15-37); Alanine Aminotransfer ALT/SGPT 38 U/L (16-61); Albumin, Serum 3.4 g/dL (3.2-5.0); Alkaline Phosphatase 88 U/L (45-117); Anion Gap 8 (5-15); BUN 23 mg/dL (7-18); BUN/Creat Ratio 28.3 RATIO (10-20); Calcium,Total 9.4 mg/dL (8.5-10.1); Chloride 105 mmol/L (98-107); Cholesterol 132 mg/dL (200); Creatinine, Serum 0.81 mg/dL (0.70-1.30); EST Glomerular Filtration Rate 102 mL/min (>60); Est Glom Filt Rate - Afr Amer 123 mL/min (>60); Globulin 4.2 g/dL (2.2-4.2); Glucose 143 mg/dL (74-106); High Density Lipoprotein 52 mg/dL; PSA,Total - Annual Screen 0.15 ng/mL (0.00-4.00); Potassium 4.3 mmol/L (3.5-5.1); Protein, Total 7.6 g/dL (6.4-8.2); Sodium Level 136 mmol/L (136-145); Thyroid Stim Hormone (TSH) 0.87 uIU/mL (0.358-3.74); Triglycerides 158 mg/dL; Very Low Density Lipoprotein 32 mg/dL (5-40)
== END | disposition home or self-care (01) ==
LOC: MFPLAB 09:36
PROVIDERS: PCP Family Medicine; Referring Provider Family Medicine; Visit Provider Family Medicine
DX: I25.10 Atherosclerotic heart disease of native coronary artery without angina pectoris (principal); E55.9 Vitamin D deficiency, unspecified; Z12.5 Encounter for screening for malignant neoplasm of prostate
CPT/HCPCS: 36415; 80053; 80061; 82306; 82607; 84153; 84443; 85027; G0103

== ENCOUNTER → 2022-12-31 | Outpatient (CLI) | payer BC, SELFPAY ==
[2022-12-31 12:57] LABS: Vitamin D,25 Hydroxy 40.9 ng/mL
[2022-12-31 13:03] LABS: ALB/GLOB Ratio 0.9 RATIO (0.9-2.4); AST(SGOT) 20 U/L (15-37); Alanine Aminotransfer ALT/SGPT 30 U/L (16-61); Albumin, Serum 3.6 g/dL (3.2-5.0); Alkaline Phosphatase 98 U/L (45-117); Anion Gap 5 (5-15); BUN 21 mg/dL (7-18); BUN/Creat Ratio 22.2 RATIO (10-20); Calcium,Total 9.4 mg/dL (8.5-10.1); Chloride 105 mmol/L (98-107); Cholesterol 178 mg/dL (200); Creatinine, Serum 0.94 mg/dL (0.70-1.30); EST Glomerular Filtration Rate 85 mL/min (>60); Est Glom Filt Rate - Afr Amer 103 mL/min (>60); Glucose 158 mg/dL (74-106); High Density Lipoprotein 53 mg/dL; Potassium 4.3 mmol/L (3.5-5.1); Protein, Total 7.6 g/dL (6.4-8.2); Sodium Level 136 mmol/L (136-145); Triglycerides 181 mg/dL; Very Low Density Lipoprotein 36 mg/dL (5-40)
== END | disposition home or self-care (01) ==
LOC: MTLAB 09:40
PROVIDERS: PCP Family Medicine; Referring Provider Family Medicine; Visit Provider Family Medicine
DX: E78.5 Hyperlipidemia, unspecified (principal); E55.9 Vitamin D deficiency, unspecified
CPT/HCPCS: 36415; 80053; 80061; 82306

== ENCOUNTER → 2023-07-04 | Outpatient (CLI) | payer BC, SELFPAY ==
--- OUTSIDE RECORDS SUMMARY | 2023-07-04 12:20 | XMS RPT_ITS | CCD ---
Author Name Unknown Address [address] [facility] [address] [place] [address] Organization [facility] Care Team Providers Care Mattress Inspector Name Role Phone TEODORA JACOBSEN Referring Unavailable DELMAR, TEODORA Solares Referring Unavailable JACINTO MCGRAW Primary Care Unavailabl e DELMAR, TEODORA Solares Admitting Unavailable DELMAR, TEODORA Solares Attending Unavailable TEODORA JACOBSEN Referring Unavailable MARY KATZ Consulting Unavailable UNKNOWN, PROVIDER Consulting Unavailable TEODORA JACOBSEN Referring Unavailable JACINTO MCGRAW Primary Care Unavailabl e DELMAR, TEODORA Solares Referring Unavailable JACINTO MCGRAW Primary Care Unavailabl e DELMAR, TEODORA Solares Referring Unavailable JACINTO MCGRAW Primary Care Unavailabl e DELMAR, TEODORA ZOHRAB Referring Unavai lable DELMAR, TEODORA ZOHRAB Referring Unavai lable DELMAR, TEODORA ZOHRAB Referring Unavai lable DELMAR, TEODORA DHILLONHR Admitting Unavai lable DELMAR, TEODORA OLIVAS Attending Unaangelai jun JACOBSEN, TEODORA OLIVAS Referring Unavai VALERIE West Consulting Unavailable DELMAR, TEODORA OLIVAS Referring Unavai lable Problems Problem Classification Problem Date Documented Da te Episodic/Chronic Spondylosis; intervertebral disc disorders; other back problems (2 sources) Spinal stenosis, cervical region; Translations: [Spinal stenosis, cervical region] Onset: 04-02-2018 Episodic Results Test Name Value Interpretation Reference Range Facil ity Encounters Encounter Date Encounter Type Care Provider Facility Start: 07-10-2018 End: 07-11-2018 Patient encounter procedure TEODORA JACOBSEN Facility:[facility] Start: 05-13-2018 End: 05-16-2018 Evaluation and management of inpatient TEODORA Sujatha JACOBSEN Facility:[facility] Start: 04-28-2018 End: 04-29-2018 Patient encounter procedure TEODORA JACOBSEN Facility:[facility] Start: 04-28-2018 Encounter for other preprocedural examination TEODORA JACOBSEN [facility] Start: 04-28-2018 End: 04-29-2018 Patient encounter procedure TEODORA JACOBSEN Facility:[facility] Start: 04-02-2018 End: 04-03-2018 Patient encounter procedure TEODORA JACOBSEN Facility:[facility] Procedures Date Procedure Procedure Detail Performing Clinician Start: 05-15-2018 Electrocardiogram VALERIE JACOBSEN Start: 05-14-2018 Electrocardiogram VALERIE JACOBSEN Start: 05-14-2018 Electrocardiogram VALERIE JACOBSEN Start: 04-28-2018 Antibody screen TEODORA JACOBSEN Payers Date Payer Category Payer Unknown [id number] [id number] 1960 Unknown [id number] 1960 Unknown [id number] 2.16.8 [id number] 1960 Unknown [id number] 2.16.8 [id number] 1960 Unknown [id number] 2.16.8 [id number] Unknown [id number] Summary Purpose Family History No Family History Records FoundNo Family History Records Found Advance Directives No Advanced Directives Records FoundNo Advanced Directives Records Found Additional Source Comments (unrecognized sect ion and content) No Status Records FoundNo Status Records Found INFORMATION SOURCE (unrecogn ized section and content) DATE CREATED AUTHOR AUTHOR'S ORGANIZ ATION 07/28/2018 [facility] FOR RECORDS PERTAINING TO PATIENTS WHO ARE OR HAVE BEEN ENROLLED IN A CHEMICAL DEPENDENCY/SUBSTANCEABUSE PROGRAM, SOME INFORMATION MAY BE OMITTED. This clinical summary was aggregated from multiple sources. Caution should be exercised in using it in the provision of clinical care. This summary normalizes information from multiple sources, and as a consequence, information in this document may materially change the coding, format and clinical context of patient data. In addition, data may be omitted in some cases. CLINICAL DECISIONS SHOULD BE BASED ON THE PRIMARY CLINICAL RECORDS. [facility] [employer] [facility]. provides no warranty or guarantee of the accuracy or completeness of information in this document.
[2023-07-04 15:27] LABS: Hematocrit 47.1 % (40-54); Hemoglobin 14.6 g/dL (13.0-16.5); Mean Corpuscular Hgb 29.9 pg (27.0-32.0); Mean Corpuscular Volume 96.5 fL (80-94); Mean Platelet Vol. 9.6 fl (6.2-12.0); Platelet Count 230 K/mm3 (150-450); RBC Distribution Width CV 14.3 % (11.6-14.6); RBC Distribution Width SD 50.6 fl (35.1-43.9); Red Blood Count 4.88 M/mm3 (4.6-6.2); White Blood Count 8.3 K/mm3 (4.4-11.0)
[2023-07-04 16:24] LABS: Vitamin D,25 Hydroxy 40.3 ng/mL
[2023-07-04 16:36] LABS: ALB/GLOB Ratio 0.8 RATIO (0.9-2.4); AST(SGOT) 22 U/L (15-37); Alanine Aminotransfer ALT/SGPT 27 U/L (16-61); Albumin, Serum 3.4 g/dL (3.2-5.0); Alkaline Phosphatase 115 U/L (45-117); Anion Gap 5 (5-15); BUN 21 mg/dL (7-18); BUN/Creat Ratio 29.3 RATIO (10-20); Calcium,Total 9.4 mg/dL (8.5-10.1); Chloride 106 mmol/L (98-107); Creatinine, Serum 0.72 mg/dL (0.70-1.30); EST Glomerular Filtration Rate 117 mL/min (>60); Est Glom Filt Rate - Afr Amer 142 mL/min (>60); Globulin 4.1 g/dL (2.2-4.2); Glucose 124 mg/dL (74-106); PSA,Total - Annual Screen 0.17 ng/mL (0.00-4.00); Potassium 4.3 mmol/L (3.5-5.1); Protein, Total 7.5 g/dL (6.4-8.2); Sodium Level 137 mmol/L (136-145); Thyroid Stim Hormone (TSH) 0.92 uIU/mL (0.358-3.74)
== END | disposition home or self-care (01) ==
LOC: MTLAB 11:56
PROVIDERS: PCP Family Medicine; Referring Provider Family Medicine; Visit Provider Family Medicine
DX: Z12.5 Encounter for screening for malignant neoplasm of prostate (principal); E55.9 Vitamin D deficiency, unspecified; F17.200 Nicotine dependence, unspecified, uncomplicated
CPT/HCPCS: 36415; 80053; 82306; 84153; 84403; 84443; 85027; G0103

== ENCOUNTER 2023-08-28 09:33 | Outpatient (RCR) | payer OTHER, SELFPAY ==
[2023-08-28 09:51] VITALS: BP 147/69; PULSE 71; RESP 18; TEMP 35.8; BMI 92.2
--- NOTE | 2023-08-28 12:18 | HP.PCM_ITS ---
History of Present Illness Date of Service: 08/28/23 Chief Complaint: Left lower extremity ankle fracture/pilon fracture History of Wound: History of full-thickness ulceration to left lower extremity after open duction internal fixation of left lower extremity fracture Progress of Wound: Mr. Walker is a 63-year-old diabetic type II male seen at the wound care center today for follow-up and evaluation secondary to a Workmen's Comp. injury. Patient states that he was in [place] where he fell and injured his left lower extremity having surgery by open reduction internal fixation by an outside provider. He was ultimately referred to Dr. Beyer for evaluation and follow- up however the patient has a full-thickness wound and is referred to the wound care center to follow-up with Dr. Caballero for evaluation and treatment. Patient does admit to smoking 1 full pack of cigarettes per day. He admits his blood sugars well-controlled. No treatment thus far. He denies any new onset of trauma except stated above. Denies constitutional symptoms. No other pedal complaints at this time. PFSH Home Medications hydrocodone-acetaminophen 5-325mg 5mg-325mg 1 - 2 tab (1 - 2 x 5-325 mg) PO Q4H PRN PRN Pain ##20 04/12/15 [Rx Last Taken Unknown] aspirin 81 mg chewable tablet 1 tab PO DAILY 08/28/23 [History Last Taken Unknown] atorvastatin 80 mg tablet (Lipitor) 80 mg PO DAILY 08/28/23 [History Last Taken Unknown] celecoxib 200 mg capsule (Celebrex) 200 mg PO DAILY 08/28/23 [History Last Taken Unknown] cholecalciferol (vitamin D3) 50 mcg (2,000 unit) capsule 50 mcg PO DAILY 08/28/23 [History Last Taken Unknown] dapagliflozin propanediol 10 mg tablet (Farxiga) 10 mg PO DAILY Diabetes 08/28/23 [History Last Taken Unknown] lisinopril 10 mg tablet 10 mg PO DAILY 08/28/23 [History Last Taken Unknown] metformin 500 mg tablet 1,000 mg PO BID 08/28/23 [History Last Taken Unknown] metoprolol succinate 25 mg tablet,extended release 24 hr 25 mg PO DAILY bp 08/28/23 [History Last Taken Unknown] dfjbzvlz-org-qudcn 120 mcg-lutein 150 mcg-herb 50 mg chewable tablet (Alive Men's 50 Plus Multivitamin) 1 tab PO DAILY Supplement 08/28/23 [History Last Taken Unknown] pioglitazone 15 mg tablet (Actos) 15 mg PO DAILY Diabetes 08/28/23 [History Last Taken Unknown] semaglutide 7 mg tablet (Rybelsus) 7 mg PO DAILY 08/28/23 [History Last Taken Unknown] Allergy/AdvReac Type Severity Reaction Status Date / Time No Known Allergies Allergy Verified 04/12/15 17:56 Social History Smoking Status: Current every day smoker Vital Signs Vital Signs Vital Signs: 08/28/23 09:51 Temperature 96.4 F L Temperature Source Temporal Pulse Rate 71 Respiratory Rate 18 Blood Pressure 147/69 H Blood Pressure Mean 95 Blood Pressure Source Monitor Blood Pressure Position Semi-Fowlers Blood Pressure Location Left Arm Oxygen Delivery Method Room Air Weight Weight: 275 kg Body Mass Index (BMI) 92.2 Physical Exam Narrative vascular: DP and PT pulses are palpable. CFT is brisk. Skin temperature gradient is warm to warm from proximal ankle to distal digits with no focal increase noted. Nonpitting edema appreciated to left lower extremity. Skin is well-hydrated and supple. Neurological: Light touch intact. Protective sensation is diminished. Dermatological: Full-thickness ulceration to the anterior aspect of the left lower extremity. Ulceration measures 1.0 x 0.8 x 1.0 cm. Evidence of blanchable erythema to periwound. There is no evidence of probe to bone or hardware. No active drainage is appreciated. No sign of infection. Excision debridement down to and including subcutaneous tissue, and fascia/muscle with a number 5 mm dermal curette of the left lower extremity anterior ulceration without incident. Predebridement measurement was callus, postdebridement measurement is 1.0 x 0.8 x 1.0 cm. Musculoskeletal: Strength 5 and 5 in all quadrants the left lower extremity. No pain on palpation to full-thickness ulceration of left leg. No pain with calf compression. Debridement Note Debridement Note Debridement Free Text: Excision debridement down to and including subcutaneous tissue, and fascia/muscle with a number 5 mm dermal curette of the left lower extremity anterior ulceration without incident. Predebridement measurement was callus, postdebridement measurement is 1.0 x 0.8 x 1.0 cm. Post-Debridement Measurements and Additional Note: Post-Debridement Measurements/Treatment WC - Nurse 1 - General Ulcer Assessment Start: 08/28/23 09:47 Freq: Status: Active Protocol: MAGI Activity Type Activity Date Activity User E-sign Co-sign Detail Recorded Client Recorded Date Recorded By Document 08/28/23 09:51 KW Desktop 08/28/23 10:01 KW 08/28/23 09:51 WC - Today's Visit Information Type of service Initial Visit Arrival Mode Ambulatory Accompanied by Eva- correctional case manager for workmans comp Patient Identification Verified (Name & Yes ) Finger Stick Blood Sugar(mg/dl) (if 122 indicated): Blood Sugar Stated by Patient Height and Weight Height 5 ft 8 in Weight 275 kg Weight in Pounds 606.3 lbs Body Mass Index (BMI) 92.2 BMI Classification Obese BSA - Virgilio 3.27 Vital Signs Temperature (97.8 F-99.1 F) 96.4 F L Temperature Source Temporal Pulse Rate (60-100) 71 Pulse Location Monitor Respiratory Rate (12-18) 18 Respiratory rate source Observation Oxygen Delivery Method Room Air Blood Pressure (90/60-120/80) 147/69 H Blood Pressure Mean 95 Source Monitor Position Semi-Fowlers Blood Pressure Location Left Arm History Since Last Visit- (Skip if this is Patient's initial visit) Left Footwear Regular Shoe Right Footwear Regular Shoe Pain Scale: 0-10 Numeric Is Patient Pain Free? Yes Lower Extremity Assessment/ Foot Assessment/ Toe Nail Assessment Left -Posterior Tibial Palpable No -Posterior Tibial Doppler Multiphasic -Dorsalis Pedis Palpable Yes -Dorsalis Pedis Doppler Monophasic -Hair Growth on Legs No -Hair Growth on Toes No -Temperature of Extremity Cool -Capillary Refill Less than 3 Seconds -Thick Yes -Discolored Yes -Deformed No -Improper Length & Hygeine No Neuropathy Assessment Feet - Top Side and Bottom <Entered> (a) Communication Assessment Preferred language [place] Able to Read Yes Able to Write Yes Caregiver Communication Skills No Impairment Impairment Right Hearing Abillity Normal Left Hearing Abillity Normal Visual Assistive Devices Glasses Teaching Assessment Preferences Verbal,Written, Demonstration Barriers to Learning None Readiness To Learn Excellent Willingness to Engage in Self Management High Activies Readiness to Engage in Self Management High Activities Anxiety Level Calm Cooperation Cooperative Perception Coherent Interest in Health Problem Asks Questions Education Importance Acknowledges Need Does Patient Smoke tobacco or other Yes substances Smoking Status Current every day smoker Is Patient Diabetic Yes Functional Assessment Recent Decline in Ability to Perform Denies Any Declines Assistive Device With Patient N/A 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 (a) 1 - ++++ WC - Nurse 1 - General Ulcer Measurement Start: 08/28/23 09:47 Freq: Status: Active Protocol: Activity Type Activity Date Activity User E-sign Co-sign Detail Recorded Client Recorded Date Recorded By Document 08/28/23 09:51 KW Desktop 08/28/23 10:01 KW 08/28/23 09:51 Wound Center Nurse 1 #1 LT ANT MED ANKLE -Current Size (cm) - Length 0.7 -Current Size (cm) - Width 0.5 -Current Size (cm) - Depth 0.1 -Total Square Cm 0.35 -Date of Last Picture (Recall this 08/28/23 field) -Photo Taken Yes -Exudate Amt None Present -Texture (Christa-wound Skin Appearance) Localized Edema -Moisture (Christa-wound Skin Appearance) Dry/Scaly -Color (Christa-wound Skin Appearance) Erythema -Temperature (Christa-wound Skin No Abnormality Appearance) (Pt Warm) -Ulcer Cleansing Rinsed/ Irrigated with Saline -Anesthetic Used 5% Lidocaine Gel Left Calf (cm) 39 Left Ankle (cm) 26.5 WC - Nurse 2 - General Ulcer CM Notes Start: 08/28/23 09:47 Freq: Status: Active Protocol: Activity Type Activity Date Activity User E-sign Co-sign Detail Recorded Client Recorded Date Recorded By Document 08/28/23 10:23 Laptop 08/28/23 10:25 08/28/23 10:23 Wound Center Nurse 2 #1 LT ANT MED ANKLE -Time 10:24 -Correct Patient Yes -Correct Side, Site, Position Yes -Correct Procedure Yes -Procedure Performed Yes -Type of Procedure Debridement -Clinical Debridement Muscle / Fascia -Tissue Removed Muscle,Fascia -Post Debridement (cm) - Length 1.0 -Post Debridement (cm) - Width 0.8 -Post Debridement (cm) - Depth 1.0 -Total Square (Post) (cm) 0.80 -Area of Debridement (cm) - Length 1.0 -Area of Debridement (cm) - Width 0.8 -Total Square (Area) (cm) 0.80 -Tunneling No -Circular Undermining No -Wound/Ulcer Outcome Not Healed -Ulcer Cleansing Rinsed/ Irrigated with Saline -Foul Odor after Cleansing No -Bioengineered Tissue No -Bleeding Controlled with Pressure -Treatment Response Procedure Tolerated Well -Offloading No -Debridement - Muscle / Fascia, 1st Yes 20sq cm Pain Scale: 0-10 Numeric Is Patient Pain Free? Yes WC - Nurse 3 - General Ulcer D/C NN Start: 08/28/23 09:47 Freq: Status: Active Protocol: Activity Type Activity Date Activity User E-sign Co-sign Detail Recorded Client Recorded Date Recorded By Document 08/28/23 10:29 KW Desktop 08/28/23 10:32 KW 08/28/23 10:29 Wound Care Center Nurse 3 #1 LT ANT MED ANKLE -Primary Dressing Applied Promogran Mary Kay Matter -Primary Dressing Covered/Secured with Dry Gauze -Promogran Mary Kay Matter 1 Left -Tubular Bandage Single Layer -Size of Tubigrip Used Size E -Size E ($) 1 Pain Scale: 0-10 Numeric Is Patient Pain Free? Yes WC - Visit Discharge Discharge Condition Stable Ambulatory Status Ambulatory Transportation Private Auto Accompanied by correctional case manager Medication Reconcilliation completed & No provided to patient/care provider Clinical Summary of Care Provided Yes Assessment/Plan Assessment/Plan (1) Non-pressure chronic ulcer of other part of left lower leg with necrosis of muscle: CODE(S): L97.823 - Non-pressure chronic ulcer of other part of left lower leg with necrosis of muscle PLAN: Patient was examined and evaluated. All findings were discussed with the patient. All questions were answered to the patient's satisfaction. Excision debridement down to and including subcutaneous tissue, and fascia/muscle with a number 5 mm dermal curette of the left lower extremity anterior ulceration without incident. Predebridement measurement was callus, postdebridement measurement is 1.0 x 0.8 x 1.0 cm. The ulceration was white clean and patted dry it was dressed with Mary Kay dry sterile dressing and single- layer Tubigrip. We begin a C9 authorization for arterial and venous studies, left lower extremity 3 view ankle films, culture of left leg, excisional debridements of the left leg as well as compression bandages. Follow-up at the wound care center with Dr. Caballero in 2 week. ,
--- NOTE | 2023-09-02 13:22 | WC ---
3.20.24 LT MED ANKLE
== END 2023-09-08 23:59 | disposition home or self-care (01) ==
LOC: WC 09:33
PROVIDERS: PCP Family Medicine; Referring Provider Student in an Organized Health Care Education/Training Program; Visit Provider Podiatrist Foot & Ankle Surgery
DX: T84.89XA Other specified complication of internal orthopedic prosthetic devices, implants and grafts, initial encounter (principal); L97.823 Non-pressure chronic ulcer of other part of left lower leg with necrosis of muscle; E11.9 Type 2 diabetes mellitus without complications; F17.210 Nicotine dependence, cigarettes, uncomplicated; S82.892S Other fracture of left lower leg, sequela; X58.XXXS Exposure to other specified factors, sequela; Y79.3 Surgical instruments, materials and orthopedic devices (including sutures) associated with adverse incidents; Z79.82 Long term (current) use of aspirin; Z79.899 Other long term (current) drug therapy; Z79.84 Long term (current) use of oral hypoglycemic drugs
CPT/HCPCS: 11042; 11043; 87070; 87075; 87077; 87205; 99214; G0463

== ENCOUNTER → 2023-08-28 | Outpatient (CLI) | payer BC, SELFPAY ==
--- NOTE | 2023-08-28 14:42 | CT_ITS ---
STUDY: LOW DOSE CT LUNG CANCER SCREENING REASON FOR EXAM: Male, 63 years old. TOBACCO USE DISORDER, 30+ PK YRS RADIATION DOSAGE (If Supplied By Facility): CTDIvol = ( 4.02 ) mGy, DLP = ( 138.93 ) mGycm TECHNIQUE: No contrast was administered. Low dose technique was utilized (average mAS-38 and kVp 120). 1.25 mm axial source images with a slice interval of 1.25-mm were reconstructed in lung windows. 2.5 mm axial source images with a slice interval of 2.5-mm were reconstructed in lung windows. 5.0 mm axial source images with a slice interval of 5.0-mm were reconstructed in soft tissue windows. COMPARISON: None. NODULES: No suspicious nodule is seen. Emphysema: Hyperinflation. Emphysematous changes. Focal scarring in the lateral aspect of the left lower lobe. Endobronchial lesion: None Aorta: Mild atherosclerotic plaque formation of the aortic arch. CORONARY ARTERIES: Coronary artery calcification is seen. Heart: Unremarkable Pulmonary artery: Unremarkable Mediastinal nodes: Small mediastinal lymph nodes. Other chest and abdominal findings: CT/Low Dose CT Lung Screening IMPRESSION: Lung-RADS category 2 - Continue annual screening with LDCT in 12 months. IMPORTANT NOTES FOR USE: ACR Lung-RADS Version 1.1 Assessment Categories Release Date: 2018 Category: Coded 0-4 bases on nodule(s) with highest degree of suspicion. Negative screen is defined as categories 1 and 2; a positive screen is defined as categories 3 and 4. Category 3 and 4A nodules that are unchanged on interval CT should be coded as category 2, and individuals returned to screening in 12 months. Category 4X: Category 3 or 4 nodules with additional imaging findings that increase the suspicion of lung cancer, such as spiculation, GGN that doubles in size in 1 year, enlarged lymph notes, etc. Category Modifiers: S (significant finding unrelated to lung cancer) Electronically Signed: Franco Romero MD at 15:36 EDT ,
== END | disposition home or self-care (01) ==
PROVIDERS: PCP Family Medicine; Referring Provider Family Medicine; Visit Provider Family Medicine
DX: Z12.2 Encounter for screening for malignant neoplasm of respiratory organs (principal); F17.200 Nicotine dependence, unspecified, uncomplicated
CPT/HCPCS: 71271

== ENCOUNTER → 2023-08-30 | Outpatient (CLI) | payer BC, SELFPAY ==
--- NOTE | 2023-08-30 12:04 | RAD_ITS ---
HISTORY: LEG PAIN LEFT. TECHNIQUE: XR Ankle Min 3 Views. COMPARISON: None. FINDINGS: BONES : Cortical plate and screw fixation of distal tibial and fibular fractures with bony bridging and sclerosis. Heterotopic ossification of the tibia. JOINTS: No dislocation. SOFT TISSUES: Moderate soft tissue swelling. RAD/Ankle min 3 Views IMPRESSION: ORIF nondisplaced, healing fractures of the [distal tibia and fibula. Electronically Signed: Alyce Yee MD at 10:46 EDT ,
== END | disposition home or self-care (01) ==
LOC: RAD 12:04
PROVIDERS: PCP Family Medicine; Referring Provider Podiatrist Foot & Ankle Surgery; Visit Provider Podiatrist Foot & Ankle Surgery
DX: M79.605 Pain in left leg (principal)
CPT/HCPCS: 73610

== ENCOUNTER 2023-10-02 10:45 | Outpatient (RCR) | payer OTHER, SELFPAY ==
[2023-09-09 00:30] VITALS: BP 147/69; PULSE 71; RESP 18; TEMP 35.8; BMI 92.2
[2023-09-11 09:49] VITALS: BP 142/51; PULSE 65; RESP 18; TEMP 35.4; BMI 92.2
--- NOTE | 2023-09-11 10:19 | PCM.WC.PN ---
History of Present Illness Date of Service: 09/11/23 Chief Complaint: Left lower extremity ankle fracture/pilon fracture History of Wound: History of full-thickness ulceration to left lower extremity after open duction internal fixation of left lower extremity fracture Subjective Subjective Mr. Galan is a 63-year-old diabetic male presenting to wound care center today to follow-up on evaluation of full-thickness ulceration secondary to a work-related injury to left lower extremity. Patient is doing well after his initial visit and has been following his wound care instructions as written. Patient presents today for evaluation and has showed great improvement with daily dressing changes. Patient denies any new injuries at this time. Denies trauma. Denies constitutional symptoms. He does admit to control blood sugar. He does admit to smoking but has reduced the amount of cigarettes he smokes in a day. No other pedal complaints at this time. Objective Data Objective Data Vital Signs: Vital Signs Temp Pulse Resp BP O2 Del Method 95.8 F L 65 18 142/51 H Room Air 09/11/23 09:49 09/11/23 09:49 09/11/23 09:49 09/11/23 09:49 09/11/23 09:49 Oxygen Delivery Method Room Air Weight: 275 kg Body Mass Index (BMI) 92.2 Physical Exam Narrative Vascular: DP and PT pulses are palpable. CFT is brisk. Skin temperature gradient is warm to warm from proximal ankle to distal digits with no focal increase noted. Nonpitting edema appreciated to left lower extremity. Skin is well-hydrated and supple. Neurological: Light touch intact. Protective sensation is diminished. Dermatological: Full-thickness ulceration to the anterior aspect of the left lower extremity. Ulceration measures 0.4 x 0.3 x 0.4 cm. Evidence of blanchable erythema to periwound. There is no evidence of probe to bone or hardware. No active drainage is appreciated. No sign of infection. Excision debridement down to and including subcutaneous tissue with a number 3 mm dermal curette of the left lower extremity anterior ulceration without incident. Predebridement measurement was callus, postdebridement measurement is 0.4 x 0.3 x 0.4 cm. Musculoskeletal: Strength 5 and 5 in all quadrants the left lower extremity. No pain on palpation to full-thickness ulceration of left leg. No pain with calf compression Debridement Note Debridement Note Debridement Free Text: Excision debridement down to and including subcutaneous tissue with a number 3 mm dermal curette of the left lower extremity anterior ulceration without incident. Predebridement measurement was callus, postdebridement measurement is 0.4 x 0.3 x 0.4 cm. Post-Debridement Measurements and Additional Note: Post-Debridement Measurements/Treatment ASHLEY - Nurse 1 - General Ulcer Assessment Start: 09/11/23 09:48 Freq: Status: Active Protocol: [email or web address] Activity Type Activity Date Activity User E-sign Co-sign Detail Recorded Client Recorded Date Recorded By Document 09/11/23 09:49 KW Photos to [employer] 09/11/23 09:55 KW 09/11/23 09:49 WC - Today's Visit Information Type of service Follow-up Visit (Physician/MANAGER WEALTH MANAGEMENT ) Arrival Mode Ambulatory Accompanied by correctional case manager Patient Identification Verified (Name & Yes ) Height and Weight Body Mass Index (BMI) 92.2 BMI Classification Obese Vital Signs Temperature (97.8 F-99.1 F) 95.8 F L Temperature Source Temporal Pulse Rate (60-100) 65 Pulse Location Monitor Respiratory Rate (12-18) 18 Respiratory rate source Observation Oxygen Delivery Method Room Air Blood Pressure (90/60-120/80) 142/51 H Blood Pressure Mean (mm Hg) 81 Source Monitor Position Semi-Fowlers Blood Pressure Location Left Arm History Since Last Visit- (Skip if this is Patient's initial visit) Have you changed medications since your No last visit? Any new allergies or adverse reactions No Had a fall/change in ADL's that may No increase risk of falls Signs or symptoms of abuse and/or No neglect since last visit Have you been in the hospital since your No last visit? Has dressing in place as prescribed Yes Has compression in place as prescribed Yes Has offloadiing in place as prescribed N/A Experienced any changes in pain level or No management Left Footwear Regular Shoe Right Footwear Regular Shoe Pain Scale: 0-10 Numeric Is Patient Pain Free? Yes - Nurse 1 - General Ulcer Measurement Start: 09/11/23 09:48 Freq: Status: Active Protocol: Activity Type Activity Date Activity User E-sign Co-sign Detail Recorded Client Recorded Date Recorded By Document 09/11/23 09:49 KW [employer] 09/11/23 09:55 KW 09/11/23 09:49 Wound Center Nurse 1 #1 LT ANT MED ANKLE -Current Size (cm) - Length 0.1 -Current Size (cm) - Width 0.1 -Current Size (cm) - Depth 0.1 -Total Square Cm 0.01 -Date of Last Picture (Recall this 09/11/23 field) -Photo Taken Yes -Texture (Christa-wound Skin Appearance) Assessed -Moisture (Christa-wound Skin Appearance) Assessed,Dry/ Scaly -Color (Christa-wound Skin Appearance) Assessed -Temperature (Christa-wound Skin No Abnormality Appearance) (Pt Warm) -Tenderness on Palpation (Christa-wound No Skin Appearance) -Ulcer Cleansing Rinsed/ Irrigated with Saline -Foul Odor after Cleansing No -Anesthetic Used 5% Lidocaine Gel -Wound Comment(s) scabbed Right Calf (cm) 38 Right Ankle (cm) 26 WC - Nurse 2 - General Ulcer CM Notes Start: 09/11/23 09:48 Freq: Status: Active Protocol: Activity Type Activity Date Activity User E-sign Co-sign Detail Recorded Client Recorded Date Recorded By Document 09/11/23 10:03 Laptop 09/11/23 10:04 09/11/23 10:03 Wound Center Nurse 2 #1 LT ANT MED ANKLE -Time 10:04 -Correct Patient Yes -Correct Side, Site, Position Yes -Correct Procedure Yes -Procedure Performed Yes -Type of Procedure Debridement -Clinical Debridement Subcutaneous -Tissue Removed Subcutaneous -Post Debridement (cm) - Length 0.4 -Post Debridement (cm) - Width 0.3 -Post Debridement (cm) - Depth 0.4 -Total Square (Post) (cm) 0.12 -Area of Debridement (cm) - Length 0.4 -Area of Debridement (cm) - Width 0.3 -Total Square (Area) (cm) 0.12 -Tunneling No -Undermining/Tunneling No -Circular Undermining No -Wound/Ulcer Outcome Not Healed -Ulcer Cleansing Rinsed/ Irrigated with Saline -Foul Odor after Cleansing No -Bioengineered Tissue No -Bleeding Controlled with Pressure -Treatment Response Procedure Tolerated Well -Offloading No -Debridement - Subq, 1st 20sq cm Yes Pain Scale: 0-10 Numeric Is Patient Pain Free? Yes WC - Nurse 3 - General Ulcer D/C NN Start: 09/11/23 09:48 Freq: Status: Active Protocol: Activity Type Activity Date Activity User E-sign Co-sign Detail Recorded Client Recorded Date Recorded By Document 09/11/23 10:09 [employer] Desktop 09/11/23 10:11 09/11/23 10:09 Wound Care Center Nurse 3 #1 LT ANT MED ANKLE -Ulcer Cleansing Not Cleansed -Foul Odor after Cleansing No -Primary Dressing Applied Promogran Mary Kay Matter -Primary Dressing Covered/Secured with Dry Gauze, Secured with Tape -Promogran Mary Kay Matter 1 Left -Lotion applied to leg before No compression wrap -Tubular Bandage Single Layer -Size of Tubigrip Used Size E -Size E ($) 1 Pain Scale: 0-10 Numeric Is Patient Pain Free? Yes Teaching: Wound Center Dressing and compression -Person Taught Patient -Teaching Method Discussion -Response to teaching Verbalize understanding WC - Visit Discharge Discharge Condition Stable Ambulatory Status Ambulatory Medication Reconcilliation completed & No provided to patient/care provider Clinical Summary of Care Provided Yes Assessment/Plan Assessment/Plan (1) Displaced transverse fracture of shaft of left fibula, initial encounter for open fracture type I or II: CODE(S): S82.422B - Displaced transverse fracture of shaft of left fibula, initial encounter for open fracture type I or II PLAN: Patient was examined and evaluated. All findings were discussed with the patient. All questions were answered to the patient's satisfaction. Excision debridement down to and including subcutaneous tissue with a number 3 mm dermal curette of the left lower extremity anterior ulceration without incident. Predebridement measurement was callus, postdebridement measurement is 0.4 x 0.3 x 0.4 cm. The patient's left lower extremity ulceration is white clean and patted dry. The area was dressed with moist Mary Kay and covered with a sterile Band-Aid followed by single-layer Tubigrip. Patient was instructed to continue daily or every other day dressing changes which he is understanding of. Radiographs were reviewed and evaluated today in office to show evidence of intact orthopedic hardware with no evidence of failure or backing out or radiolucency. There shows good reduction of the pilon fracture to the left lower extremity with adequate ankle anatomy which was viewed on radiographs and 3 views. The patient's wound culture shows evidence of lactobacillus and at this time will not treat due to possible contamination. The patient was improved for serial debridements and will continue debride the patient's ulceration until healed weekly at the wound care center. Follow-up at the wound care center with Dr. Caballero in 1 week. (2) Closed fracture of posterior malleolus of left tibia: CODE(S): S82.392A - Other fracture of lower end of left tibia, initial encounter for closed fracture
--- NOTE | 2023-09-13 08:45 | ART_ITS ---
Reason For Study: Wound Procedure A bilateral lower extremity continuous wave Doppler with analog waveform analysis,segmental pressures,and ankle brachial indexes without exercise. Left Segmental Pressures Left brachial= 150mmHg. Left posterior tibial artery = 144mmHg. Left dorsalis pedis artery = 162mmHg. Left digit = 102 mmHg. The left dorsalis pedis waveforms are biphasic. The left posterior tibial artery waveforms are biphasic. Right Segmental Pressures Right brachial= 144mmHg. Right posterior tibial artery = 164mmHg. Right dorsalis pedis artery = 160mmHg. Right digit = 140 mmHg. The right dorsalis pedis waveforms are triphasic. The right posterior tibial artery waveforms are triphasic. Indices The right ankle brachial index by the dorsalis pedis is 1.07. The right ankle brachial index by the posterior tibial artery is 1.09. The right digital-brachial index is 0.93. The left ankle brachial index by the dorsalis pedis is 1.08. The left ankle brachial index by the posterior tibial artery is 0.96. The left digital-brachial index is 0.68. VL/Lower Ext Art Exam w/o Exercis Interpretation Summary Triphasic Doppler waveforms are noted at ankle level on the right. Biphasic Dop pler waveforms are noted at ankle level on the left. Pulse-volume recordings appear satisfactory a t all levels bilaterally. Resting ankle-brachial indices are normal bilaterally. The right d igital-brachial index is normal. The left digital-brachial index is mildly diminished. Arterial flow appears normal at ankle level bilaterally, and at digital level o n the right. There is evidence of mild arterial occlusive disease at digital level on the left. Ordering Physician: Kurt Caballero Referring Physician: Torsten Sawyer MD Performed By: Pili Gonsalves RVT
--- NOTE | 2023-09-13 08:45 | VDLE_ITS ---
Reason For Study: Bilateral leg edema RIGHT LEFT CFV is compressible, spontaneous, phasic, CFV is compressible, spontaneous, phasic, competent and demonstrates normal competent, and demonstrates normal augmentation. augmentation. FV is compressible, spontaneous, phasic, FV is compressible, spontaneous, phasic, competent and demonstrates normal competent and demonstrates normal augmentation. augmentation. POP V is compressible, spontaneous, phasic, POP V is compressible, spontaneous, phasic, competent and demonstrates normal competent and demonstrates normal augmentation. augmentation. T/P Trunk is compressible. T/P Trunk is compressible. PTV is compressible. PTV is compressible. RT PerV is compressible. LT PerV is compressible. SFJ is competent and measures 0.67 x 0.81 cm. SFJ is competent and measures 0.77 x 0.80 cm. GSV proximal thigh measures 0.31 x 0.31 cm. GSV proximal thigh measures 0.35 x 0.39 cm. GSV at knee measures 0.10 x 0.13 cm. GSV above knee is competent. GSV is competent throughout. GSV at knee measures 0.35 x 0.34 cm. SSV proximal calf is competent and measures GSV below knee is INCOMPETENT for greater 0.25 x 0.26 cm. than 0.5 seconds. Procedure SSV at junction is competent and measures This is a venous duplex using B-mode, color 0.24 x 0.26 cm. flow and spectral Doppler. Exam performed in department. Patient was scanned in reverse Trendelenburg position during reflux assessment. A preliminary report was called and/or faxed to . VL/Venous Duplex US - Alejandro Extrem Interpretation Summary Deep veins of the lower extremities are bilaterally patent and compressible seg mentally. There is no evidence of deep vein thrombosis on either side. Valvular competence appears in tact within the proximal deep venous systems bilaterally. The great saphenous veins appear bila terally patent and compressible segmentally. Sapheno-femoral junctions are bilaterally competent . The right great saphenous vein appears segmentally competent. The left great saphenous vein robby ears competent above the knee. The left great saphenous vein appears incompetent below the knee. Sma ll saphenous veins are patent and competent bilaterally. Ordering Physician: Kurt Caballero Referring Physician: Torsten Sawyer MD Performed By: Pili Gonsalves RVT
--- NOTE | 2023-09-13 12:23 | WC ---
4.3.24 LT MED ANKLE
[2023-09-18 09:46] VITALS: BP 141/66; PULSE 63; RESP 18; TEMP 36.3; BMI 92.2
--- NOTE | 2023-09-18 10:19 | PCM.WC.PN ---
History of Present Illness Date of Service: 09/18/23 Chief Complaint: Left lower extremity ankle fracture/pilon fracture History of Wound: History of full-thickness ulceration to left lower extremity after open duction internal fixation of left lower extremity fracture Subjective Subjective Mr. Galan is a 63-year-old diabetic male presenting to wound care center today to follow-up on evaluation of full-thickness ulceration secondary to a work-related injury to left lower extremity. Patient has been doing well and has been doing home dressing changes to left lower extremity as instructed during his previous visits. Patient admits to smoking but is trying to cut back. He has gotten his lower extremity arterial and vascular studies done and is anticipating results. He denies any new onset of trauma. Denies constitutional symptoms. Other pedal complaints at this time. Objective Data Objective Data Vital Signs: Vital Signs Temp Pulse Resp BP O2 Del Method 97.3 F L 63 18 141/66 H Room Air 09/18/23 09:46 09/18/23 09:46 09/18/23 09:46 09/18/23 09:46 09/18/23 09:46 Oxygen Delivery Method Room Air Weight: 275 kg Body Mass Index (BMI) 92.2 Physical Exam Narrative Vascular: DP and PT pulses are palpable. CFT is brisk. Skin temperature gradient is warm to warm from proximal ankle to distal digits with no focal increase noted. Nonpitting edema appreciated to left lower extremity. Skin is well-hydrated and supple. Neurological: Light touch intact. Protective sensation is diminished. Dermatological: Full-thickness ulceration to the anterior aspect of the left lower extremity. Ulceration measures 0.3 x 0.3 x 0.3 cm. Evidence of blanchable erythema to periwound. There is no evidence of probe to bone or hardware. No active drainage is appreciated. No sign of infection. Excision debridement down to and including subcutaneous tissue with a number 3 mm dermal curette of the left lower extremity anterior ulceration without incident. Predebridement measurement was callus, postdebridement measurement is 0.3 x 0.3 x 0.3 cm. Musculoskeletal: Strength 5 and 5 in all quadrants the left lower extremity. No pain on palpation to full-thickness ulceration of left leg. No pain with calf compression Debridement Note Debridement Note Debridement Free Text: Excision debridement down to and including subcutaneous tissue with a number 3 mm dermal curette of the left lower extremity anterior ulceration without incident. Predebridement measurement was callus, postdebridement measurement is 0.3 x 0.3 x 0.3 cm. Post-Debridement Measurements and Additional Note: Post-Debridement Measurements/Treatment WC - Nurse 1 - General Ulcer Assessment Start: 09/11/23 09:48 Freq: Status: Active Protocol: [email or web address] Activity Type Activity Date Activity User E-sign Co-sign Detail Recorded Client Recorded Date Recorded By Document 09/11/23 09:49 KW Desktop 09/11/23 09:55 KW Document 09/18/23 09:46 KW Desktop 09/18/23 09:48 KW 09/11/23 09/18/23 09:49 09:46 WC - Today's Visit Information Type of service Follow-up Visit Follow-up Visit (Physician/CREDIT RISK ANALYTICS MANAGER (Physician/CREDIT RISK ANALYTICS MANAGER ) ) Arrival Mode Ambulatory Ambulatory Accompanied by director of casework director of casework Patient Identification Verified (Name & Yes Yes ) Height and Weight Body Mass Index (BMI) 92.2 92.2 BMI Classification Obese Obese Vital Signs Temperature (97.8 F-99.1 F) 95.8 F L 97.3 F L Temperature Source Temporal Temporal Pulse Rate (60-100) 65 63 Pulse Location Monitor Monitor Respiratory Rate (12-18) 18 18 Respiratory rate source Observation Observation Oxygen Delivery Method Room Air Room Air Blood Pressure (90/60-120/80) 142/51 H 141/66 H Blood Pressure Mean (mm Hg) 81 91 Source Monitor Monitor Position Semi-Fowlers Semi-Fowlers Blood Pressure Location Left Arm Left Arm History Since Last Visit- (Skip if this is Patient's initial visit) Have you changed medications since your No No last visit? Any new allergies or adverse reactions No No Had a fall/change in ADL's that may No No increase risk of falls Signs or symptoms of abuse and/or No No neglect since last visit Have you been in the hospital since your No No last visit? Has dressing in place as prescribed Yes Yes Has compression in place as prescribed Yes Yes Has offloadiing in place as prescribed N/A N/A Experienced any changes in pain level or No No management Left Footwear Regular Shoe Regular Shoe Right Footwear Regular Shoe Regular Shoe Pain Scale: 0-10 Numeric Is Patient Pain Free? Yes Yes - Nurse 1 - General Ulcer Measurement Start: 09/11/23 09:48 Freq: Status: Active Protocol: Activity Type Activity Date Activity User E-sign Co-sign Detail Recorded Client Recorded Date Recorded By Document 09/11/23 09:49 KW Desktop 09/11/23 09:55 KW Document 09/18/23 09:46 KW Desktop 09/18/23 09:48 KW 09/11/23 09/18/23 09:49 09:46 Wound Center Nurse 1 #1 LT ANT MED ANKLE -Current Size (cm) - Length 0.1 0.1 -Current Size (cm) - Width 0.1 0.1 -Current Size (cm) - Depth 0.1 0.1 -Total Square Cm 0.01 0.01 -Date of Last Picture (Recall this 09/11/23 field) -Photo Taken Yes -Wound Margin Distinct, Outline Attached -Texture (Christa-wound Skin Appearance) Assessed Assessed -Moisture (Christa-wound Skin Appearance) Assessed,Dry/ Assessed Scaly -Color (Christa-wound Skin Appearance) Assessed Assessed -Temperature (Christa-wound Skin No Abnormality No Abnormality Appearance) (Pt Warm) (Pt Warm) -Tenderness on Palpation (Christa-wound No No Skin Appearance) -Ulcer Cleansing Rinsed/ Rinsed/ Irrigated with Irrigated with Saline Saline -Foul Odor after Cleansing No No -Anesthetic Used 5% Lidocaine 5% Lidocaine Gel Gel -Wound Comment(s) scabbed scabbed Right Calf (cm) 38 Right Ankle (cm) 26 Left Calf (cm) 37.2 Left Ankle (cm) 25.8 WC - Nurse 2 - General Ulcer CM Notes Start: 09/11/23 09:48 Freq: Status: Active Protocol: Activity Type Activity Date Activity User E-sign Co-sign Detail Recorded Client Recorded Date Recorded By Document 09/11/23 10:03 JF Laptop 09/11/23 10:04 JF Document 09/18/23 09:57 Laptop 09/18/23 10:03 JF 09/11/23 09/18/23 10:03 09:57 Wound Center Nurse 2 #1 LT ANT MED ANKLE -Time 10:04 09:59 -Correct Patient Yes Yes -Correct Side, Site, Position Yes Yes -Correct Procedure Yes Yes -Procedure Performed Yes Yes -Type of Procedure Debridement Debridement -Clinical Debridement Subcutaneous Subcutaneous -Tissue Removed Subcutaneous Subcutaneous -Post Debridement (cm) - Length 0.4 0.3 -Post Debridement (cm) - Width 0.3 0.3 -Post Debridement (cm) - Depth 0.4 0.3 -Total Square (Post) (cm) 0.12 0.09 -Area of Debridement (cm) - Length 0.4 0.3 -Area of Debridement (cm) - Width 0.3 0.3 -Total Square (Area) (cm) 0.12 0.09 -Tunneling No No -Undermining/Tunneling No No -Circular Undermining No No -Wound/Ulcer Outcome Not Healed Not Healed -Ulcer Cleansing Rinsed/ Rinsed/ Irrigated with Irrigated with Saline Saline -Foul Odor after Cleansing No No -Bioengineered Tissue No No -Bleeding Controlled with Pressure Pressure -Treatment Response Procedure Procedure Tolerated Well Tolerated Well -Offloading No No -Debridement - Subq, 1st 20sq cm Yes Yes Pain Scale: 0-10 Numeric Is Patient Pain Free? Yes Yes - Nurse 3 - General Ulcer D/C NN Start: 09/11/23 09:48 Freq: Status: Active Protocol: Activity Type Activity Date Activity User E-sign Co-sign Detail Recorded Client Recorded Date Recorded By Document 09/11/23 10:09 Desktop 09/11/23 10:11 Document 09/18/23 10:18 Desktop 09/18/23 10:19 RB 09/11/23 09/18/23 10:09 10:18 Wound Care Center Nurse 3 #1 LT ANT MED ANKLE -Ulcer Cleansing Not Cleansed Rinsed/ Irrigated with Saline -Foul Odor after Cleansing No -Primary Dressing Applied Promogran Promogran Mary Kay Matter Mary Kay Matter -Primary Dressing Covered/Secured with Dry Gauze, Dry Gauze, Secured with Secured with Tape Tape -Promogran Mary Kay Matter 1 1 Left -Lotion applied to leg before No compression wrap -Tubular Bandage Single Layer Double Layer -Size of Tubigrip Used Size E Size E -Size E ($) 1 2 Treatment Response Procedure Tolerated Well Pain Scale: 0-10 Numeric Is Patient Pain Free? Yes Yes Teaching: Wound Center Dressing and compression -Person Taught Patient Patient -Teaching Method Discussion Discussion -Response to teaching Verbalize Verbalize understanding understanding WC - Visit Discharge Discharge Condition Stable Stable Ambulatory Status Ambulatory Ambulatory Transportation Private Auto Medication Reconcilliation completed & No No provided to patient/care provider Clinical Summary of Care Provided Yes Yes Assessment/Plan Assessment/Plan (1) Displaced transverse fracture of shaft of left fibula, initial encounter for open fracture type I or II: CODE(S): S82.422B - Displaced transverse fracture of shaft of left fibula, initial encounter for open fracture type I or II PLAN: Patient was examined and evaluated. All findings were discussed with the patient. All questions were answered to the patient's satisfaction. Excision debridement down to and including subcutaneous tissue with a number 3 mm dermal curette of the left lower extremity anterior ulceration without incident. Predebridement measurement was callus, postdebridement measurement is 0.3 x 0.3 x 0.3 cm. Left lower extremities were cleaned and patted dry. Scaling moist Mary Kay was applied to the full-thickness ulceration followed by dry sterile dressing and a double layer Tubigrip. There is instructed to the patient as well as educated that he will need to remove any loose Mary Kay in the ulcer when changing his dressing which she was understanding of. Educated the patient that if he is taking a shower and getting the left lower extremity wet he needs to thoroughly wash with antibacterial soap and dry and then apply clean moist Mary Kay to the area. He was understanding of this. Continue discuss smoking cessation with the patient which she was understanding of. Reviewing the patient's arterial studies show his ABIs to be within normal limits to the bilateral lower extremity with no concern of any occlusion disease at this time. Venous study show evidence of compromise vessels to the lateral saphenous vein to the left lower extremity. The right lower extremity was unremarkable at this time. 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 He was understanding of this. Follow-up at the wound care center with Dr. Caballero in 1 week. (2) Closed fracture of posterior malleolus of left tibia: CODE(S): S82.392A - Other fracture of lower end of left tibia, initial encounter for closed fracture
--- NOTE | 2023-09-20 12:23 | WC ---
4.10.24 LT MED ANKLE
[2023-09-25 10:49] VITALS: BP 151/65; PULSE 71; RESP 16; TEMP 36.3; BMI 92.2
--- NOTE | 2023-09-25 11:35 | PCM.WC.PN ---
History of Present Illness Date of Service: 09/25/23 Chief Complaint: Left lower extremity ankle fracture/pilon fracture History of Wound: History of full-thickness ulceration to left lower extremity after open duction internal fixation of left lower extremity fracture Subjective Subjective Mr. Galan is a 63-year-old diabetic male presenting to wound care center today to follow-up on evaluation of full-thickness ulceration secondary to a work-related injury to left lower extremity. Patient has been doing well and has been doing home dressing changes to left lower extremity as instructed during his previous visits. Patient states that he has cut back from 1 full pack of cigarettes per day to half a pack. He denies any new onset of trauma. Denies constitutional symptoms. Other pedal complaints at this time. Objective Data Objective Data Vital Signs: Vital Signs Temp Pulse Resp BP O2 Del Method 97.3 F L 71 16 151/65 H Room Air 09/25/23 10:49 09/25/23 10:49 09/25/23 10:49 09/25/23 10:49 09/25/23 10:49 Oxygen Delivery Method Room Air Weight: 275 kg Body Mass Index (BMI) 92.2 Physical Exam Narrative Vascular: DP and PT pulses are palpable. CFT is brisk. Skin temperature gradient is warm to warm from proximal ankle to distal digits with no focal increase noted. Nonpitting edema appreciated to left lower extremity. Skin is well-hydrated and supple. Neurological: Light touch intact. Protective sensation is diminished. Dermatological: Full-thickness ulceration to the anterior aspect of the left lower extremity. Ulceration measures 0.2 x 0.2 x 0.4 cm. Evidence of blanchable erythema to periwound. There is no evidence of probe to bone or hardware. No active drainage is appreciated. No sign of infection. Excision debridement down to and including subcutaneous tissue with a number 3 mm dermal curette of the left lower extremity anterior ulceration without incident. Predebridement measurement was callus, postdebridement measurement is 0.2 x 0.2 x 0.4 cm. Musculoskeletal: Strength 5 and 5 in all quadrants the left lower extremity. No pain on palpation to full-thickness ulceration of left leg. No pain with calf compression Debridement Note Debridement Note Debridement Free Text: Excision debridement down to and including subcutaneous tissue with a number 3 mm dermal curette of the left lower extremity anterior ulceration without incident. Predebridement measurement was callus, postdebridement measurement is 0.2 x 0.2 x 0.4 cm. Post-Debridement Measurements and Additional Note: Post-Debridement Measurements/Treatment WC - Nurse 1 - General Ulcer Assessment Start: 09/11/23 09:48 Freq: Status: Active Protocol: MAGI Activity Type Activity Date Activity User E-sign Co-sign Detail Recorded Client Recorded Date Recorded By Document 09/11/23 09:49 KW Desktop 09/11/23 09:55 KW Document 09/18/23 09:46 KW Desktop 09/18/23 09:48 KW Document 09/25/23 10:49 CP Desktop 09/25/23 10:54 CP 09/11/23 09/18/23 09/25/23 09:49 09:46 10:49 WC - Today's Visit Information Type of service Follow-up Visit Follow-up Visit Follow-up Visit (Physician/ENTERPRISE APPLICATION ANALYST (Physician/ENTERPRISE APPLICATION ANALYST (Physician/ENTERPRISE APPLICATION ANALYST ) ) ) Arrival Mode Ambulatory Ambulatory Ambulatory Accompanied by senior case manager senior case manager senior case manager [facility] Patient Identification Verified (Name & Yes Yes Yes ) Patient Requires Transmission-Based No Precautions Safety Precautions NA Finger Stick Blood Sugar(mg/dl) (if 117 indicated): Blood Sugar Stated by Patient Height and Weight Body Mass Index (BMI) 92.2 92.2 92.2 BMI Classification Obese Obese Obese Vital Signs Temperature (97.8 F-99.1 F) 95.8 F L 97.3 F L 97.3 F L Temperature Source Temporal Temporal Temporal Pulse Rate (60-100) 65 63 71 Pulse Location Monitor Monitor Monitor Respiratory Rate (12-18) 18 18 16 Respiratory rate source Observation Observation Observation Oxygen Delivery Method Room Air Room Air Room Air Blood Pressure (90/60-120/80) 142/51 H 141/66 H 151/65 H Blood Pressure Mean (mm Hg) 81 91 93 Source Monitor Monitor Monitor Position Semi-Fowlers Semi-Fowlers Semi-Fowlers Blood Pressure Location Left Arm Left Arm Right Arm History Since Last Visit- (Skip if this is Patient's initial visit) Have you changed medications since your No No No last visit? Any new allergies or adverse reactions No No No Had a fall/change in ADL's that may No No No increase risk of falls Signs or symptoms of abuse and/or No No No neglect since last visit Have you been in the hospital since your No No No last visit? Has dressing in place as prescribed Yes Yes Yes Has compression in place as prescribed Yes Yes Yes Has offloadiing in place as prescribed N/A N/A N/A Experienced any changes in pain level or No No No management Left Footwear Regular Shoe Regular Shoe Right Footwear Regular Shoe Regular Shoe Pain Scale: 0-10 Numeric Is Patient Pain Free? Yes Yes Yes WC - Nurse 1 - General Ulcer Measurement Start: 09/11/23 09:48 Freq: Status: Active Protocol: Activity Type Activity Date Activity User E-sign Co-sign Detail Recorded Client Recorded Date Recorded By Document 09/11/23 09:49 KW Desktop 09/11/23 09:55 KW Document 09/18/23 09:46 KW Desktop 09/18/23 09:48 KW Document 09/25/23 10:49 CP Desktop 09/25/23 10:54 CP 09/11/23 09/18/23 09/25/23 09:49 09:46 10:49 Wound Center Nurse 1 #1 LT ANT MED ANKLE -Current Size (cm) - Length 0.1 0.1 0.2 -Current Size (cm) - Width 0.1 0.1 0.2 -Current Size (cm) - Depth 0.1 0.1 0.2 -Total Square Cm 0.01 0.01 0.04 -Date of Last Picture (Recall this 09/11/23 09/25/23 field) -Photo Taken Yes Yes -Epithelialization Large 67-100% -Tunneling No -Undermining/Tunneling No -Circular Undermining No -Exudate Amt Small -Exudate Type Sanguineous -Wound Margin Distinct, Flat & Intact Outline Attached -Granulation Amt Large (67-100%) -Granulation Quality [place] -Slough/Fibrin No -Necrosis Amt None Present (0 %) -Structure Exposed N/A -Texture (Christa-wound Skin Appearance) Assessed Assessed No Abnormality -Moisture (Christa-wound Skin Appearance) Assessed,Dry/ Assessed No Abnormality Scaly -Color (Christa-wound Skin Appearance) Assessed Assessed No Abnormality -Temperature (Christa-wound Skin No Abnormality No Abnormality No Abnormality Appearance) (Pt Warm) (Pt Warm) (Pt Warm) -Tenderness on Palpation (Christa-wound No No No Skin Appearance) -Ulcer Cleansing Rinsed/ Rinsed/ Rinsed/ Irrigated with Irrigated with Irrigated with Saline Saline Saline -Foul Odor after Cleansing No No -Anesthetic Used 5% Lidocaine 5% Lidocaine Gel Gel -Wound Comment(s) scabbed scabbed Right Calf (cm) 38 Right Ankle (cm) 26 Left Calf (cm) 37.2 37.2 Left Ankle (cm) 25.8 26 WC - Nurse 2 - General Ulcer CM Notes Start: 09/11/23 09:48 Freq: Status: Active Protocol: Activity Type Activity Date Activity User E-sign Co-sign Detail Recorded Client Recorded Date Recorded By Document 09/11/23 10:03 Laptop 09/11/23 10:04 Document 09/18/23 09:57 Laptop 09/18/23 10:03 Document 09/25/23 11:06 Laptop 09/25/23 11:10 09/11/23 09/18/23 09/25/23 10:03 09:57 11:06 Wound Center Nurse 2 #1 LT ANT MED ANKLE -Time 10:04 09:59 11:06 -Correct Patient Yes Yes Yes -Correct Side, Site, Position Yes Yes Yes -Correct Procedure Yes Yes Yes -Procedure Performed Yes Yes Yes -Type of Procedure Debridement Debridement Debridement -Clinical Debridement Subcutaneous Subcutaneous Subcutaneous -Tissue Removed Subcutaneous Subcutaneous Subcutaneous -Post Debridement (cm) - Length 0.4 0.3 0.2 -Post Debridement (cm) - Width 0.3 0.3 0.2 -Post Debridement (cm) - Depth 0.4 0.3 0.4 -Total Square (Post) (cm) 0.12 0.09 0.04 -Area of Debridement (cm) - Length 0.4 0.3 0.2 -Area of Debridement (cm) - Width 0.3 0.3 0.2 -Total Square (Area) (cm) 0.12 0.09 0.04 -Tunneling No No No -Undermining/Tunneling No No No -Circular Undermining No No No -Wound/Ulcer Outcome Not Healed Not Healed Not Healed -Ulcer Cleansing Rinsed/ Rinsed/ Rinsed/ Irrigated with Irrigated with Irrigated with Saline Saline Saline -Foul Odor after Cleansing No No No -Bioengineered Tissue No No No -Bleeding Controlled with Pressure Pressure Pressure -Treatment Response Procedure Procedure Procedure Tolerated Well Tolerated Well Tolerated Well -Offloading No No No -Debridement - Subq, 1st 20sq cm Yes Yes Yes Pain Scale: 0-10 Numeric Is Patient Pain Free? Yes Yes Yes - Nurse 3 - General Ulcer D/C NN Start: 09/11/23 09:48 Freq: Status: Active Protocol: Activity Type Activity Date Activity User E-sign Co-sign Detail Recorded Client Recorded Date Recorded By Document 09/11/23 10:09 Desktop 09/11/23 10:11 GM Document 09/18/23 10:18 RB Desktop 09/18/23 10:19 RB Document 09/25/23 11:14 GM Desktop 09/25/23 11:15 GM 09/11/23 09/18/23 09/25/23 10:09 10:18 11:14 Wound Care Center Nurse 3 #1 LT ANT MED ANKLE -Ulcer Cleansing Not Cleansed Rinsed/ Not Cleansed Irrigated with Saline -Foul Odor after Cleansing No No -Primary Dressing Applied Promogran Promogran C Hydrogel ($), Mary Kay Matter Mary Kay Matter Mepilex Border -Primary Dressing Covered/Secured with Dry Gauze, Dry Gauze, Secured with Secured with Tape Tape -Mepilex Border 1 -Promogran Mary Kay Matter 1 1 Left -Lotion applied to leg before No No compression wrap -Tubular Bandage Single Layer Double Layer Double Layer -Size of Tubigrip Used Size E Size E Size E -Size E ($) 1 2 2 Treatment Response Procedure Tolerated Well Pain Scale: 0-10 Numeric Is Patient Pain Free? Yes Yes Yes Teaching: Wound Center Dressing and compression -Person Taught Patient Patient Patient -Teaching Method Discussion Discussion Discussion -Response to teaching Verbalize Verbalize Verbalize understanding understanding understanding WC - Visit Discharge Discharge Condition Stable Stable Stable Ambulatory Status Ambulatory Ambulatory Ambulatory Transportation Private Auto Private Auto Medication Reconcilliation completed & No No provided to patient/care provider Clinical Summary of Care Provided Yes Yes Yes Assessment/Plan Assessment/Plan (1) Displaced transverse fracture of shaft of left fibula, initial encounter for open fracture type I or II: CODE(S): S82.422B - Displaced transverse fracture of shaft of left fibula, initial encounter for open fracture type I or II PLAN: Patient was examined and evaluated. All findings were discussed with the patient. All questions were answered to the patient's satisfaction. Excision debridement down to and including subcutaneous tissue with a number 3 mm dermal curette of the left lower extremity anterior ulceration without incident. Predebridement measurement was callus, postdebridement measurement is 0.2 x 0.2 x 0.4 cm. Left lower extremities were cleaned and patted dry. Patient will be switched to hydrogel with collagen, followed by sterile Band-Aid. Follow-up at the wound care center with Dr. Caballero in 1 week. (2) Closed fracture of posterior malleolus of left tibia: CODE(S): S82.392A - Other fracture of lower end of left tibia, initial encounter for closed fracture
[2023-10-02 10:38] VITALS: BP 117/78; PULSE 67; RESP 18; TEMP 35.8; BMI 92.2
--- NOTE | 2023-10-02 11:12 | PN.PCM_ITS ---
History of Present Illness Date of Service: 10/02/23 Chief Complaint: Left lower extremity ankle fracture/pilon fracture History of Wound: History of full-thickness ulceration to left lower extremity after open duction internal fixation of left lower extremity fracture Subjective Subjective Mr. Galan is a 63-year-old diabetic male presenting to wound care center today to follow-up on evaluation of full-thickness ulceration secondary to a work- related injury to left lower extremity. Patient has been doing well and has been doing home dressing changes to left lower extremity as instructed during his previous visits. Patient states that he has cut back from 1 full pack of cigarettes per day to half a pack. He denies any new onset of trauma. Denies constitutional symptoms. Other pedal complaints at this time. Objective Data Objective Data Vital Signs: Vital Signs Temp Pulse Resp BP O2 Del Method 96.4 F L 67 18 117/78 Room Air 10/02/23 10:38 10/02/23 10:38 10/02/23 10:38 10/02/23 10:38 10/02/23 10:38 Oxygen Delivery Method Room Air Weight: 275 kg Body Mass Index (BMI) 92.2 Physical Exam Narrative Vascular: DP and PT pulses are palpable. CFT is brisk. Skin temperature gradient is warm to warm from proximal ankle to distal digits with no focal increase noted. Nonpitting edema appreciated to left lower extremity. Skin is well-hydrated and supple. Neurological: Light touch intact. Protective sensation is diminished. Dermatological: Full-thickness ulceration to the anterior aspect of the left lower extremity. Evidence of undermining approximately 4 mm. Ulceration measures after the richard is 1.5 x 0.7 x 0.6 cm. No evidence of blanchable erythema to periwound. There is no evidence of probe to bone or hardware. No active drainage is appreciated. No sign of infection. After seeing undermining during the physical exam and has deemed necessary at this time to D roof the patient's full-thickness ulceration to get the wound back to a healthy granular base. Patient was agreeable and verbal consent was obtained from the patient. A 3 cc injection of one-to-one mixture of 2% Xylocaine and 2% Xylocaine plain with epinephrine was administered in V-block fashion into the full-thickness wound. Using sterile pickups and a 15 blade an elliptical incision was performed D richard the excess skin. After removal of his skin use of a number 3 mm dermal curette was used to debride down to muscle to expose healthy granular tissue. Patient tolerated procedure well. Excision debridement down to and including subcutaneous tissue, fascia and muscle with a number 3 mm dermal curette of the left lower extremity anterior ulceration without incident. Predebridement measurement was 0.4 x 2.0 x 0.4 cm, postdebridement measurement is 1.5 x 0.7 x 0.6 cm. Musculoskeletal: Strength 5 and 5 in all quadrants the left lower extremity. No pain on palpation to full-thickness ulceration of left leg. No pain with calf compression Debridement Note Debridement Note Debridement Free Text: After seeing undermining during the physical exam and has deemed necessary at this time to D roof the patient's full-thickness ulceration to get the wound back to a healthy granular base. Patient was agreeable and verbal consent was obtained from the patient. A 3 cc injection of one-to-one mixture of 2% Xylocaine and 2% Xylocaine plain with epinephrine was administered in V-block fashion into the full-thickness wound. Using sterile pickups and a 15 blade an elliptical incision was performed D richard the excess skin. After removal of his skin use of a number 3 mm dermal curette was used to debride down to muscle to expose healthy granular tissue. Patient tolerated procedure well. Excision debridement down to and including subcutaneous tissue, fascia and muscle with a number 3 mm dermal curette of the left lower extremity anterior ulceration without incident. Predebridement measurement was 0.4 x 2.0 x 0.4 cm, postdebridement measurement is 1.5 x 0.7 x 0.6 cm. Post-Debridement Measurements and Additional Note: Post-Debridement Measurements/Treatment - Nurse 1 - General Ulcer Assessment Start: 09/11/23 09:48 Freq: Status: Active Protocol: [email or web address] Activity Type Activity Date Activity User E-sign Co-sign Detail Recorded Client Recorded Date Recorded By Document 09/11/23 09:49 KW Desktop 09/11/23 09:55 KW Document 09/18/23 09:46 KW Desktop 09/18/23 09:48 KW Document 09/25/23 10:49 CP Desktop 09/25/23 10:54 CP Document 10/02/23 10:38 KW Desktop 10/02/23 10:42 KW 09/11/23 09/18/23 09/25/23 09:49 09:46 10:49 - Today's Visit Information Type of service Follow-up Visit Follow-up Visit Follow-up Visit (Physician/WALNUT DEHYDRATOR OPERATOR (Physician/WALNUT DEHYDRATOR OPERATOR (Physician/WALNUT DEHYDRATOR OPERATOR ) ) ) Arrival Mode Ambulatory Ambulatory Ambulatory Accompanied by assistant case manager assistant case manager assistant case manager [facility] Patient Identification Verified (Name & Yes Yes Yes ) Patient Requires Transmission-Based No Precautions Safety Precautions NA Finger Stick Blood Sugar(mg/dl) (if 117 indicated): Blood Sugar Stated by Patient Height and Weight Body Mass Index (BMI) 92.2 92.2 92.2 BMI Classification Obese Obese Obese Vital Signs Temperature (97.8 F-99.1 F) 95.8 F L 97.3 F L 97.3 F L Temperature Source Temporal Temporal Temporal Pulse Rate (60-100) 65 63 71 Pulse Location Monitor Monitor Monitor Respiratory Rate (12-18) 18 18 16 Respiratory rate source Observation Observation Observation Oxygen Delivery Method Room Air Room Air Room Air Blood Pressure (90/60-120/80) 142/51 H 141/66 H 151/65 H Blood Pressure Mean (mm Hg) 81 91 93 Source Monitor Monitor Monitor Position Semi-Fowlers Semi-Fowlers Semi-Fowlers Blood Pressure Location Left Arm Left Arm Right Arm History Since Last Visit- (Skip if this is Patient's initial visit) Have you changed medications since your No No No last visit? Any new allergies or adverse reactions No No No Had a fall/change in ADL's that may No No No increase risk of falls Signs or symptoms of abuse and/or No No No neglect since last visit Have you been in the hospital since your No No No last visit? Has dressing in place as prescribed Yes Yes Yes Has compression in place as prescribed Yes Yes Yes Has offloadiing in place as prescribed N/A N/A N/A Experienced any changes in pain level or No No No management Left Footwear Regular Shoe Regular Shoe Right Footwear Regular Shoe Regular Shoe Pain Scale: 0-10 Numeric Is Patient Pain Free? Yes Yes Yes 10/02/23 10:38 - Today's Visit Information Type of service Follow-up Visit (Physician/WALNUT DEHYDRATOR OPERATOR ) Arrival Mode Ambulatory Accompanied by unit manager [employer] Patient Identification Verified (Name & Yes ) Patient Requires Transmission-Based Precautions Safety Precautions Finger Stick Blood Sugar(mg/dl) (if indicated): Blood Sugar Height and Weight Body Mass Index (BMI) 92.2 BMI Classification Obese Vital Signs Temperature (97.8 F-99.1 F) 96.4 F L Temperature Source Temporal Pulse Rate (60-100) 67 Pulse Location Monitor Respiratory Rate (12-18) 18 Respiratory rate source Observation Oxygen Delivery Method Room Air Blood Pressure (90/60-120/80) 117/78 Blood Pressure Mean (mm Hg) 91 Source Monitor Position Semi-Fowlers Blood Pressure Location Left Arm History Since Last Visit- (Skip if this is Patient's initial visit) Have you changed medications since your No last visit? Any new allergies or adverse reactions No Had a fall/change in ADL's that may No increase risk of falls Signs or symptoms of abuse and/or No neglect since last visit Have you been in the hospital since your No last visit? Has dressing in place as prescribed Yes Has compression in place as prescribed Yes Has offloadiing in place as prescribed N/A Experienced any changes in pain level or No management Left Footwear Regular Shoe Right Footwear Regular Shoe Pain Scale: 0-10 Numeric Is Patient Pain Free? Yes WC - Nurse 1 - General Ulcer Measurement Start: 09/11/23 09:48 Freq: Status: Active Protocol: Activity Type Activity Date Activity User E-sign Co-sign Detail Recorded Client Recorded Date Recorded By Document 09/11/23 09:49 KW Desktop 09/11/23 09:55 KW Document 09/18/23 09:46 KW Desktop 09/18/23 09:48 KW Document 09/25/23 10:49 CP Desktop 09/25/23 10:54 CP Document 10/02/23 10:38 KW Desktop 10/02/23 10:42 KW Edit Result 10/02/23 10:38 KW (1) Laptop 10/02/23 11:06 JF (1) #1 LT ANT MED ANKLE - Current Size (cm) - Length 0.1 => 0.4 - Current Size (cm) - Width 0.1 => 0.2 - Current Size (cm) - Depth 0.1 => 0.4 - Total Square Cm 0.01 => 0.08 09/11/23 09/18/23 09/25/23 09:49 09:46 10:49 Wound Center Nurse 1 #1 LT ANT MED ANKLE -Current Size (cm) - Length 0.1 0.1 0.2 -Current Size (cm) - Width 0.1 0.1 0.2 -Current Size (cm) - Depth 0.1 0.1 0.2 -Total Square Cm 0.01 0.01 0.04 -Date of Last Picture (Recall this 09/11/23 09/25/23 field) -Photo Taken Yes Yes -Epithelialization Large 67-100% -Tunneling No -Undermining/Tunneling No -Circular Undermining No -Exudate Amt Small -Exudate Type Sanguineous -Wound Margin Distinct, Flat & Intact Outline Attached -Granulation Amt Large (67-100%) -Granulation Quality Amory -Slough/Fibrin No -Necrosis Amt None Present (0 %) -Structure Exposed N/A -Texture (Christa-wound Skin Appearance) Assessed Assessed No Abnormality -Moisture (Christa-wound Skin Appearance) Assessed,Dry/ Assessed No Abnormality Scaly -Color (Christa-wound Skin Appearance) Assessed Assessed No Abnormality -Temperature (Christa-wound Skin No Abnormality No Abnormality No Abnormality Appearance) (Pt Warm) (Pt Warm) (Pt Warm) -Tenderness on Palpation (Christa-wound No No No Skin Appearance) -Ulcer Cleansing Rinsed/ Rinsed/ Rinsed/ Irrigated with Irrigated with Irrigated with Saline Saline Saline -Foul Odor after Cleansing No No -Anesthetic Used 5% Lidocaine 5% Lidocaine Gel Gel -Wound Comment(s) scabbed scabbed Right Calf (cm) 38 Right Ankle (cm) 26 Left Calf (cm) 37.2 37.2 Left Ankle (cm) 25.8 26 10/02/23 10:38 Wound Center Nurse 1 #1 LT ANT MED ANKLE -Current Size (cm) - Length 0.4 -Current Size (cm) - Width 0.2 -Current Size (cm) - Depth 0.4 -Total Square Cm 0.08 -Date of Last Picture (Recall this field) -Photo Taken -Epithelialization -Tunneling -Undermining/Tunneling -Circular Undermining -Exudate Amt None Present -Exudate Type -Wound Margin -Granulation Amt -Granulation Quality -Slough/Fibrin -Necrosis Amt -Structure Exposed -Texture (Christa-wound Skin Appearance) Assessed -Moisture (Christa-wound Skin Appearance) Assessed -Color (Christa-wound Skin Appearance) Assessed -Temperature (Christa-wound Skin No Abnormality Appearance) (Pt Warm) -Tenderness on Palpation (Christa-wound No Skin Appearance) -Ulcer Cleansing Rinsed/ Irrigated with Saline -Foul Odor after Cleansing No -Anesthetic Used 5% Lidocaine Gel -Wound Comment(s) scabbed over Right Calf (cm) Right Ankle (cm) Left Calf (cm) 36.4 Left Ankle (cm) 25 WC - Nurse 2 - General Ulcer CM Notes Start: 09/11/23 09:48 Freq: Status: Active Protocol: Activity Type Activity Date Activity User E-sign Co-sign Detail Recorded Client Recorded Date Recorded By Document 09/11/23 10:03 [employer] Laptop 09/11/23 10:04 [employer] Document 09/18/23 09:57 [employer] Laptop 09/18/23 10:03 Document 09/25/23 11:06 [employer] Laptop 09/25/23 11:10 Document 10/02/23 10:52 [employer] Laptop 10/02/23 11:05 09/11/23 09/18/23 09/25/23 10:03 09:57 11:06 Wound Center Nurse 2 #1 LT ANT MED ANKLE -Time 10:04 09:59 11:06 -Correct Patient Yes Yes Yes -Correct Side, Site, Position Yes Yes Yes -Correct Procedure Yes Yes Yes -Procedure Performed Yes Yes Yes -Type of Procedure Debridement Debridement Debridement -Clinical Debridement Subcutaneous Subcutaneous Subcutaneous -Tissue Removed Subcutaneous Subcutaneous Subcutaneous -Post Debridement (cm) - Length 0.4 0.3 0.2 -Post Debridement (cm) - Width 0.3 0.3 0.2 -Post Debridement (cm) - Depth 0.4 0.3 0.4 -Total Square (Post) (cm) 0.12 0.09 0.04 -Area of Debridement (cm) - Length 0.4 0.3 0.2 -Area of Debridement (cm) - Width 0.3 0.3 0.2 -Total Square (Area) (cm) 0.12 0.09 0.04 -Tunneling No No No -Undermining/Tunneling No No No -Circular Undermining No No No -Wound/Ulcer Outcome Not Healed Not Healed Not Healed -Ulcer Cleansing Rinsed/ Rinsed/ Rinsed/ Irrigated with Irrigated with Irrigated with Saline Saline Saline -Foul Odor after Cleansing No No No -Bioengineered Tissue No No No -Bleeding Controlled with Pressure Pressure Pressure -Treatment Response Procedure Procedure Procedure Tolerated Well Tolerated Well Tolerated Well -Offloading No No No -Debridement - Subq, 1st 20sq cm Yes Yes Yes -Debridement - Muscle / Fascia, 1st 20sq cm Pain Scale: 0-10 Numeric Is Patient Pain Free? Yes Yes Yes 10/02/23 10:52 Wound Center Nurse 2 #1 LT ANT MED ANKLE -Time 10:53 -Correct Patient Yes -Correct Side, Site, Position Yes -Correct Procedure Yes -Procedure Performed Yes -Type of Procedure Debridement -Clinical Debridement Muscle / Fascia -Tissue Removed Muscle,Fascia -Post Debridement (cm) - Length 1.5 -Post Debridement (cm) - Width 0.7 -Post Debridement (cm) - Depth 0.6 -Total Square (Post) (cm) 1.05 -Area of Debridement (cm) - Length 1.5 -Area of Debridement (cm) - Width 0.7 -Total Square (Area) (cm) 1.05 -Tunneling No -Undermining/Tunneling No -Circular Undermining No -Wound/Ulcer Outcome Not Healed -Ulcer Cleansing Rinsed/ Irrigated with Saline -Foul Odor after Cleansing No -Bioengineered Tissue No -Bleeding Controlled with Pressure -Treatment Response Procedure Tolerated Well -Offloading No -Debridement - Subq, 1st 20sq cm -Debridement - Muscle / Fascia, 1st Yes 20sq cm Pain Scale: 0-10 Numeric Is Patient Pain Free? Yes - Nurse 3 - General Ulcer D/C NN Start: 09/11/23 09:48 Freq: Status: Active Protocol: Activity Type Activity Date Activity User E-sign Co-sign Detail Recorded Client Recorded Date Recorded By Document 09/11/23 10:09 Desktop 09/11/23 10:11 Document 09/18/23 10:18 RB Desktop 09/18/23 10:19 RB Document 09/25/23 11:14 Desktop 09/25/23 11:15 09/11/23 09/18/23 09/25/23 10:09 10:18 11:14 Wound Care Center Nurse 3 #1 LT ANT MED ANKLE -Ulcer Cleansing Not Cleansed Rinsed/ Not Cleansed Irrigated with Saline -Foul Odor after Cleansing No No -Primary Dressing Applied Promogran Promogran C Hydrogel ($), Mary Kay Matter Mary Kay Matter Mepilex Border -Primary Dressing Covered/Secured with Dry Gauze, Dry Gauze, Secured with Secured with Tape Tape -Mepilex Border 1 -Promogran Mary Kay Matter 1 1 Left -Lotion applied to leg before No No compression wrap -Tubular Bandage Single Layer Double Layer Double Layer -Size of Tubigrip Used Size E Size E Size E -Size E ($) 1 2 2 Treatment Response Procedure Tolerated Well Pain Scale: 0-10 Numeric Is Patient Pain Free? Yes Yes Yes Teaching: Wound Center Dressing and compression -Person Taught Patient Patient Patient -Teaching Method Discussion Discussion Discussion -Response to teaching Verbalize Verbalize Verbalize understanding understanding understanding WC - Visit Discharge Discharge Condition Stable Stable Stable Ambulatory Status Ambulatory Ambulatory Ambulatory Transportation Private Auto Private Auto Medication Reconcilliation completed & No No provided to patient/care provider Clinical Summary of Care Provided Yes Yes Yes Assessment/Plan Assessment/Plan (1) Displaced transverse fracture of shaft of left fibula, initial encounter for open fracture type I or II: CODE(S): S82.422B - Displaced transverse fracture of shaft of left fibula, initial encounter for open fracture type I or II PLAN: Patient was examined and evaluated. All findings were discussed with the patient. All questions were answered to the patient's satisfaction. After seeing undermining during the physical exam and has deemed necessary at this time to D roof the patient's full-thickness ulceration to get the wound back to a healthy granular base. Patient was agreeable and verbal consent was obtained from the patient. A 3 cc injection of one-to-one mixture of 2% Xylocaine and 2% Xylocaine plain with epinephrine was administered in V-block fashion into the full-thickness wound. Using sterile pickups and a 15 blade an elliptical incision was performed D richard the excess skin. After removal of his skin use of a number 3 mm dermal curette was used to debride down to muscle to expose healthy granular tissue. Patient tolerated procedure well. Excision debridement down to and including subcutaneous tissue, fascia and muscle with a number 3 mm dermal curette of the left lower extremity anterior ulceration without incident. Predebridement measurement was 0.4 x 2.0 x 0.4 cm, postdebridement measurement is 1.5 x 0.7 x 0.6 cm. The left lower extremities were cleaned and patted dry. The ulceration was dressed with Mary Kay, dry sterile dressing of single-layer Tubigrip. Patient was instructed to leave dressing clean dry and intact and change daily. He is not to get the ulceration wet in shower. He is to only wash with warm water and antibacterial soap prior to dressing changes. He was understanding of this. Patient was educated on signs and symptoms of infection and to call the wound care center to be placed on oral antibiotics prior to next visit if he has concern for infection. He was understanding of this. Will begin authorization through [employer] for amniotic skin graft substitutes through [employer] [facility] to be applied to the left lower extremity full-thickness ulceration. Follow-up at the wound care center with Dr. Caballero in 1 week. (2) Closed fracture of posterior malleolus of left tibia: CODE(S): S82.392A - Other fracture of lower end of left tibia, initial encounter for closed fracture
== END 2023-10-08 23:59 | disposition home or self-care (01) ==
LOC: WC 10:45
PROVIDERS: PCP Family Medicine; Referring Provider Student in an Organized Health Care Education/Training Program; Visit Provider Podiatrist Foot & Ankle Surgery
DX: T84.89XA Other specified complication of internal orthopedic prosthetic devices, implants and grafts, initial encounter (principal); E11.622 Type 2 diabetes mellitus with other skin ulcer; L97.822 Non-pressure chronic ulcer of other part of left lower leg with fat layer exposed; E11.51 Type 2 diabetes mellitus with diabetic peripheral angiopathy without gangrene; S82.892S Other fracture of left lower leg, sequela; F17.210 Nicotine dependence, cigarettes, uncomplicated; X58.XXXS Exposure to other specified factors, sequela; Z79.899 Other long term (current) drug therapy; Z79.3 Long term (current) use of hormonal contraceptives; R60.0 Localized edema; I10 Essential (primary) hypertension; E78.5 Hyperlipidemia, unspecified; I77.9 Disorder of arteries and arterioles, unspecified
CPT/HCPCS: 11042; 11043; 93923; 93970

== ENCOUNTER 2023-11-06 10:45 | Outpatient (RCR) | payer OTHER, SELFPAY ==
[2023-10-09 00:43] VITALS: BP 117/78; PULSE 67; RESP 18; TEMP 35.8; BMI 92.2
[2023-10-09 10:51] VITALS: BP 112/50; PULSE 75; RESP 16; BMI 92.2
--- NOTE | 2023-10-09 12:33 | PCM.WC.PN ---
History of Present Illness Date of Service: 10/09/23 Chief Complaint: Left lower extremity ankle fracture/pilon fracture History of Wound: History of full-thickness ulceration to left lower extremity after open duction internal fixation of left lower extremity fracture Subjective Subjective Mr. Galan is a 63-year-old diabetic male presenting to clinic today for follow-up evaluation of full-thickness ulceration to left leg. Patient did have a debridement that made his wound larger during his last visit. He has been doing dressing changes and notices improvement with the depth and thickness of his wound . Patient does admit to smoking. His blood sugar has been well-controlled. Denies trauma. Denies constitutional symptoms. No other pedal complaints at this time. Objective Data Objective Data Vital Signs: Vital Signs Temp Pulse Resp BP 96.4 F L 75 16 112/50 L 10/09/23 00:43 10/09/23 10:51 10/09/23 10:51 10/09/23 10:51 Weight: 275 kg Body Mass Index (BMI) 92.2 Physical Exam Narrative Vascular: DP and PT pulses are palpable. CFT is brisk. Skin temperature gradient is warm to warm from proximal ankle to distal digits with no focal increase noted. Nonpitting edema appreciated to left lower extremity. Skin is well-hydrated and supple. Neurological: Light touch intact. Protective sensation is diminished. Dermatological: Full-thickness ulceration appreciated to the left anterior leg measuring 0.8 x 0.5 x 0.4 cm. Wound base is granular nature. No evidence of blanchable erythema to periwound. There is no evidence of probe to bone or hardware. No active drainage is appreciated. No sign of infection. Excision debridement down to and including subcutaneous tissue to the left anterior left leg with a number 3 mm dermal curette without incident. Predebridement measurement was 0.7 x 0.4 x 0.2 cm. Postdebridement measurement is 0.8 x 0.5 x 0.4 cm. EpiFix 18 mm disc was applied to the left full-thickness ulceration with 100% use. First application. The graft site was free and clear of any infection. The wound/skin graft substitute was dressed with nonadherent bandage secured in place with Steri-Strips followed by bolster dressing as well as a double layer Tubigrip. Musculoskeletal: Strength 5 and 5 in all quadrants the left lower extremity. No pain on palpation to full-thickness ulceration of left leg. No pain with calf compression Debridement Note Debridement Note Post-Debridement Measurements and Additional Note: Post-Debridement Measurements/Treatment - Nurse 1 - General Ulcer Assessment Start: 10/09/23 10:51 Freq: Status: Active Protocol: MAGI Activity Type Activity Date Activity User E-sign Co-sign Detail Recorded Client Recorded Date Recorded By Document 10/09/23 10:51 KADY Laptop 10/09/23 10:53 10/09/23 10:51 - Today's Visit Information Type of service Follow-up Visit (Physician/DEPUTY SHERIFF GENERALIST/BAILIFF ) Arrival Mode Ambulatory Patient Identification Verified (Name & Yes ) Patient Requires Transmission-Based No Precautions Finger Stick Blood Sugar(mg/dl) (if 123 indicated): Blood Sugar Stated by Patient Height and Weight Body Mass Index (BMI) 92.2 BMI Classification Obese Vital Signs Pulse Rate (60-100) 75 Pulse Location Monitor Respiratory Rate (12-18) 16 Respiratory rate source Observation Blood Pressure (90/60-120/80) 112/50 L Blood Pressure Mean (mm Hg) 70 Source Monitor Position Semi-Fowlers Blood Pressure Location Left Arm History Since Last Visit- (Skip if this is Patient's initial visit) Have you changed medications since your No last visit? Any new allergies or adverse reactions No Had a fall/change in ADL's that may No increase risk of falls Signs or symptoms of abuse and/or No neglect since last visit Have you been in the hospital since your No last visit? Has dressing in place as prescribed Yes Has compression in place as prescribed Yes Has offloadiing in place as prescribed N/A Experienced any changes in pain level or No management Left Footwear Regular Shoe Right Footwear Regular Shoe Pain Scale: 0-10 Numeric Is Patient Pain Free? Yes - Nurse 1 - General Ulcer Measurement Start: 10/09/23 10:51 Freq: Status: Active Protocol: Activity Type Activity Date Activity User E-sign Co-sign Detail Recorded Client Recorded Date Recorded By Document 10/09/23 10:51 KADY Laptop 10/09/23 10:53 KADY 10/09/23 10:51 Wound Center Nurse 1 #1 LT ANT MED ANKLE -Combined with other wound No -Current Size (cm) - Length 1.2 -Current Size (cm) - Width 0.6 -Current Size (cm) - Depth 0.5 -Total Square Cm 0.72 -Photo Taken No -Epithelialization Small 1-33% -Tunneling No -Undermining/Tunneling No -Circular Undermining No -Exudate Amt Small -Exudate Type Serosanguineous -Wound Margin Flat & Intact -Granulation Amt None Present (0 %) -Slough/Fibrin Yes -Necrosis Amt Large (67-100%) -Necrotic Tissue Type Adherent Slough -Structure Exposed N/A -Texture (Christa-wound Skin Appearance) Assessed -Moisture (Christa-wound Skin Appearance) Assessed,Dry/ Scaly -Color (Christa-wound Skin Appearance) Assessed -Temperature (Christa-wound Skin No Abnormality Appearance) (Pt Warm) -Tenderness on Palpation (Christa-wound No Skin Appearance) -Ulcer Cleansing Rinsed/ Irrigated with Saline -Foul Odor after Cleansing No -Anesthetic Used 5% Lidocaine Gel Lower Limb Edema Present Yes Left Calf (cm) 38.2 Left Ankle (cm) 27.2 WC - Nurse 2 - General Ulcer CM Notes Start: 10/09/23 10:51 Freq: Status: Active Protocol: Activity Type Activity Date Activity User E-sign Co-sign Detail Recorded Client Recorded Date Recorded By Document 10/09/23 11:11 Laptop 10/09/23 11:13 10/09/23 11:11 Wound Center Nurse 2 #1 LT ANT MED ANKLE -Time 11:11 -Correct Patient Yes -Correct Side, Site, Position Yes -Correct Procedure Yes -Procedure Performed Yes -Type of Procedure Debridement -Clinical Debridement Subcutaneous -Tissue Removed Subcutaneous -Post Debridement (cm) - Length 0.8 -Post Debridement (cm) - Width 0.5 -Post Debridement (cm) - Depth 0.4 -Total Square (Post) (cm) 0.40 -Area of Debridement (cm) - Length 0.8 -Area of Debridement (cm) - Width 0.5 -Total Square (Area) (cm) 0.40 -Tunneling No -Undermining/Tunneling No -Circular Undermining No -Wound/Ulcer Outcome Not Healed -Ulcer Cleansing Rinsed/ Irrigated with Saline -Foul Odor after Cleansing No -Bioengineered Tissue Yes -Type of Bioengineered Tissue Epifix 18mm Disc -Expiration Date 05/10/28 -Product Lot Number [id number] -Percent Used 100 -Lot number of Saline Used [id number] -Bleeding Controlled with Pressure -Treatment Response Procedure Tolerated Well -Offloading No -Debridement - Subq, 1st 20sq cm No -Apply Skin Sub - 1st 25 sq cm - Legs 1 -Epifix 18mm Disc 3 Pain Scale: 0-10 Numeric Is Patient Pain Free? Yes WC - Nurse 3 - General Ulcer D/C NN Start: 10/09/23 10:51 Freq: Status: Active Protocol: Activity Type Activity Date Activity User E-sign Co-sign Detail Recorded Client Recorded Date Recorded By Document 10/09/23 11:17 KW Desktop 10/09/23 11:18 KW 10/09/23 11:17 Wound Care Center Nurse 3 #1 LT ANT MED ANKLE -Primary Dressing Applied Mepilex Border -Mepilex Border 1 Left -Tubular Bandage Single Layer -Size of Tubigrip Used Size E -Size E ($) 1 Pain Scale: 0-10 Numeric Is Patient Pain Free? Yes WC - Visit Discharge Discharge Condition Stable Ambulatory Status Ambulatory Transportation Private Auto Medication Reconcilliation completed & No provided to patient/care provider Clinical Summary of Care Provided Yes Assessment/Plan Assessment/Plan (1) Closed fracture of posterior malleolus of left tibia: CODE(S): S82.392A - Other fracture of lower end of left tibia, initial encounter for closed fracture PLAN: Patient was examined and evaluated. All findings were discussed with the patient. All questions were answered to the patient's satisfaction. Excision debridement down to and including subcutaneous tissue to the left anterior left leg with a number 3 mm dermal curette without incident. Predebridement measurement was 0.7 x 0.4 x 0.2 cm. Postdebridement measurement is 0.8 x 0.5 x 0.4 cm. EpiFix 18 mm disc was applied to the left full-thickness ulceration with 100% use. First application. The graft site was free and clear of any infection. The wound/skin graft substitute was dressed with nonadherent bandage secured in place with Steri-Strips followed by bolster dressing as well as a double layer Tubigrip. Follow-up at the wound care center with Dr. Caballero in 1 week. (2) Displaced transverse fracture of shaft of left fibula, initial encounter for open fracture type I or II: CODE(S): S82.422B - Displaced transverse fracture of shaft of left fibula, initial encounter for open fracture type I or II
[2023-10-16 10:35] VITALS: BP 145/65; PULSE 18; RESP 18; TEMP 36.3; BMI 92.2
--- NOTE | 2023-10-16 11:43 | PN.PCM_ITS ---
History of Present Illness Date of Service: 10/16/23 Chief Complaint: Left lower extremity ankle fracture/pilon fracture History of Wound: History of full-thickness ulceration to left lower extremity after open duction internal fixation of left lower extremity fracture Subjective Subjective Mr. Lanza is a 63-year-old diabetic male present to wound care center today for follow-up evaluation of full-thickness ulceration graft application to left leg. He has kept his dressing clean dry and intact. His blood sugars under control. Patient admits to cutting back on smoking. Denies trauma. Denies constitutional symptoms. No other pedal complaints at this time. Objective Data Objective Data Vital Signs: Vital Signs Temp Pulse Resp BP O2 Del Method 97.4 F L 18 L 18 145/65 H Room Air 10/16/23 10:35 10/16/23 10:35 10/16/23 10:35 10/16/23 10:35 10/16/23 10:35 Oxygen Delivery Method Room Air Weight: 275 kg Body Mass Index (BMI) 92.2 Physical Exam Narrative Vascular: DP and PT pulses are palpable. CFT is brisk. Skin temperature gradient is warm to warm from proximal ankle to distal digits with no focal increase noted. Nonpitting edema appreciated to left lower extremity. Skin is well-hydrated and supple. Neurological: Light touch intact. Protective sensation is diminished. Dermatological: Full-thickness ulceration appreciated to the left anterior leg measuring 0.8 x 0.5 x 0.4 cm. Wound base is granular nature. No evidence of blanchable erythema to periwound. There is no evidence of probe to bone or hardware. No active drainage is appreciated. No sign of infection. Excision debridement down to and including subcutaneous tissue to the left anterior left leg with a number 3 mm dermal curette without incident. Predebridement measurement was 0.8 x 0.4 x 0.3 cm. Postdebridement measurement is 1.2 x 0.5 x 0.5 cm. EpiFix 18 mm disc was applied to the left full-thickness ulceration with 100% use. Second application. The graft site was free and clear of any infection. The wound/skin graft substitute was dressed with nonadherent bandage secured in place with Steri-Strips followed by bolster dressing as well as a double layer Tubigrip. Musculoskeletal: Strength 5 and 5 in all quadrants the left lower extremity. No pain on palpation to full-thickness ulceration of left leg. No pain with calf compression Debridement Note Debridement Note Debridement Free Text: Excision debridement down to and including subcutaneous tissue to the left anterior left leg with a number 3 mm dermal curette without incident. Predebridement measurement was 0.8 x 0.4 x 0.3 cm. Postdebridement measurement is 1.2 x 0.5 x 0.5 cm. EpiFix 18 mm disc was applied to the left full-thickness ulceration with 100% use. Second application. The graft site was free and clear of any infection. The wound/skin graft substitute was dressed with nonadherent bandage secured in place with Steri-Strips followed by bolster dressing as well as a double layer Tubigrip. Post-Debridement Measurements and Additional Note: Post-Debridement Measurements/Treatment - Nurse 1 - General Ulcer Assessment Start: 10/09/23 10:51 Freq: Status: Active Protocol: .LOWEXT Activity Type Activity Date Activity User E-sign Co-sign Detail Recorded Client Recorded Date Recorded By Document 10/09/23 10:51 Laptop 10/09/23 10:53 Document 10/16/23 10:35 KW Desktop 10/16/23 10:43 KW 10/09/23 10/16/23 10:51 10:35 - Today's Visit Information Type of service Follow-up Visit Follow-up Visit (Physician/ASPHALT MIXING MACHINE OPERATOR (Physician/ASPHALT MIXING MACHINE OPERATOR ) ) Arrival Mode Ambulatory Ambulatory Patient Identification Verified (Name & Yes Yes ) Patient Requires Transmission-Based No Precautions Finger Stick Blood Sugar(mg/dl) (if 123 indicated): Blood Sugar Stated by Patient Height and Weight Body Mass Index (BMI) 92.2 92.2 BMI Classification Obese Obese Vital Signs Temperature (97.8 F-99.1 F) 97.4 F L Temperature Source Temporal Pulse Rate (60-100) 75 18 L Pulse Location Monitor Monitor Respiratory Rate (12-18) 16 18 Respiratory rate source Observation Observation Oxygen Delivery Method Room Air Blood Pressure (90/60-120/80) 112/50 L 145/65 H Blood Pressure Mean (mm Hg) 70 91 Source Monitor Monitor Position Semi-Fowlers Semi-Fowlers Blood Pressure Location Left Arm Left Arm History Since Last Visit- (Skip if this is Patient's initial visit) Have you changed medications since your No No last visit? Any new allergies or adverse reactions No No Had a fall/change in ADL's that may No No increase risk of falls Signs or symptoms of abuse and/or No No neglect since last visit Have you been in the hospital since your No No last visit? Has dressing in place as prescribed Yes Yes Has compression in place as prescribed Yes Yes Has offloadiing in place as prescribed N/A N/A Experienced any changes in pain level or No No management Left Footwear Regular Shoe Regular Shoe Right Footwear Regular Shoe Regular Shoe Pain Scale: 0-10 Numeric Is Patient Pain Free? Yes Yes WC - Nurse 1 - General Ulcer Measurement Start: 10/09/23 10:51 Freq: Status: Active Protocol: Activity Type Activity Date Activity User E-sign Co-sign Detail Recorded Client Recorded Date Recorded By Document 10/09/23 10:51 Laptop 10/09/23 10:53 Document 10/16/23 10:35 KW Desktop 10/16/23 10:43 KW 10/09/23 10/16/23 10:51 10:35 Wound Center Nurse 1 #1 LT ANT MED ANKLE -Combined with other wound No -Current Size (cm) - Length 1.2 0.8 -Current Size (cm) - Width 0.6 0.6 -Current Size (cm) - Depth 0.5 0.3 -Total Square Cm 0.72 0.48 -Photo Taken No -Epithelialization Small 1-33% -Tunneling No -Undermining/Tunneling No -Circular Undermining No -Exudate Amt Small Small -Exudate Type Serosanguineous Serosanguineous -Wound Margin Flat & Intact Distinct, Outline Attached -Granulation Amt None Present (0 Small (1-33%) %) -Granulation Quality [place] -Slough/Fibrin Yes -Necrosis Amt Large (67-100%) Large (67-100%) -Necrotic Tissue Type Adherent Slough Adherent Slough -Structure Exposed N/A -Texture (Christa-wound Skin Appearance) Assessed Assessed -Moisture (Christa-wound Skin Appearance) Assessed,Dry/ Assessed Scaly -Color (Christa-wound Skin Appearance) Assessed Assessed -Temperature (Christa-wound Skin No Abnormality No Abnormality Appearance) (Pt Warm) (Pt Warm) -Tenderness on Palpation (Christa-wound No No Skin Appearance) -Ulcer Cleansing Rinsed/ Soap and Water Irrigated with Saline -Foul Odor after Cleansing No No -Anesthetic Used 5% Lidocaine 5% Lidocaine Gel Gel Lower Limb Edema Present Yes Left Calf (cm) 38.2 37.5 Left Ankle (cm) 27.2 27 - Nurse 2 - General Ulcer CM Notes Start: 10/09/23 10:51 Freq: Status: Active Protocol: Activity Type Activity Date Activity User E-sign Co-sign Detail Recorded Client Recorded Date Recorded By Document 10/09/23 11:11 Laptop 10/09/23 11:13 JF Document 10/16/23 10:57 DS Desktop 10/16/23 11:04 DS 10/09/23 10/16/23 11:11 10:57 Wound Center Nurse 2 #1 LT ANT MED ANKLE -Time 11:11 10:57 -Correct Patient Yes Yes -Correct Side, Site, Position Yes Yes -Correct Procedure Yes Yes -Procedure Performed Yes Yes -Type of Procedure Debridement Debridement -Clinical Debridement Subcutaneous Subcutaneous -Tissue Removed Subcutaneous Subcutaneous -Post Debridement (cm) - Length 0.8 1.2 -Post Debridement (cm) - Width 0.5 0.5 -Post Debridement (cm) - Depth 0.4 0.5 -Total Square (Post) (cm) 0.40 0.60 -Area of Debridement (cm) - Length 0.8 1.2 -Area of Debridement (cm) - Width 0.5 0.5 -Total Square (Area) (cm) 0.40 0.60 -Tunneling No No -Undermining/Tunneling No No -Circular Undermining No No -Wound/Ulcer Outcome Not Healed Not Healed -Ulcer Cleansing Rinsed/ Rinsed/ Irrigated with Irrigated with Saline Saline -Foul Odor after Cleansing No -Bioengineered Tissue Yes Yes -Type of Bioengineered Tissue Epifix 18mm Epifix 18mm Disc Disc -Expiration Date 05/10/28 05/10/28 -Product Lot Number [id number] -Percent Used 100 100 -Lot number of Saline Used [id number] -Bleeding Controlled with Pressure Pressure -Treatment Response Procedure Procedure Tolerated Well Tolerated Well -Offloading No No -Debridement - Subq, 1st 20sq cm No No -Apply Skin Sub - 1st 25 sq cm - Legs 1 1 -Epifix 18mm Disc 3 3 Pain Scale: 0-10 Numeric Is Patient Pain Free? Yes Yes - Nurse 3 - General Ulcer D/C NN Start: 10/09/23 10:51 Freq: Status: Active Protocol: Activity Type Activity Date Activity User E-sign Co-sign Detail Recorded Client Recorded Date Recorded By Document 10/09/23 11:17 KW Desktop 10/09/23 11:18 KW Document 10/16/23 11:10 Desktop 10/16/23 11:11 10/09/23 10/16/23 11:17 11:10 Wound Care Center Nurse 3 #1 LT ANT MED ANKLE -Ulcer Cleansing Not Cleansed -Foul Odor after Cleansing No -Primary Dressing Applied Mepilex Border Mepilex Border -Mepilex Border 1 1 Left -Tubular Bandage Single Layer Double Layer -Size of Tubigrip Used Size E Size E -Size E ($) 1 2 Pain Scale: 0-10 Numeric Is Patient Pain Free? Yes Yes Teaching: Wound Center Dressing and compression -Person Taught Patient -Teaching Method Discussion, Demonstration -Response to teaching Verbalize understanding WC - Visit Discharge Discharge Condition Stable Stable Ambulatory Status Ambulatory Ambulatory Transportation Private Auto Private Auto Medication Reconcilliation completed & No provided to patient/care provider Clinical Summary of Care Provided Yes Yes Assessment/Plan Assessment/Plan (1) Closed fracture of posterior malleolus of left tibia: CODE(S): S82.392A - Other fracture of lower end of left tibia, initial encounter for closed fracture PLAN: Patient was examined and evaluated. All findings were discussed with the patient. All questions were answered to the patient's satisfaction. Excision debridement down to and including subcutaneous tissue to the left anterior left leg with a number 3 mm dermal curette without incident. Predebridement measurement was 0.8 x 0.4 x 0.3 cm. Postdebridement measurement is 1.2 x 0.5 x 0.5 cm. EpiFix 18 mm disc was applied to the left full-thickness ulceration with 100% u se. Second application. The graft site was free and clear of any infection. The wound/skin graft substitute was dressed with nonadherent bandage secured in place with Steri-Strips followed by bolster dressing as well as a double layer Tubigrip. Follow-up at the wound care center with Dr. Caballero in 1 week. (2) Displaced transverse fracture of shaft of left fibula, initial encounter for open fracture type I or II: CODE(S): S82.422B - Displaced transverse fracture of shaft of left fibula, initial encounter for open fracture type I or II
[2023-10-23 10:36] VITALS: BP 128/56; PULSE 70; RESP 18; TEMP 36.6; BMI 92.2
--- NOTE | 2023-10-23 11:36 | PCM.WC.PN ---
History of Present Illness Date of Service: 10/23/23 Chief Complaint: Left lower extremity ankle fracture/pilon fracture History of Wound: History of full-thickness ulceration to left lower extremity after open duction internal fixation of left lower extremity fracture Subjective Subjective Mr. Lanza is a 63-year-old diabetic male present to wound care center today for follow-up evaluation of full-thickness ulceration graft application to left leg. He has kept his dressing clean dry and intact. His blood sugars under control. Patient admits to cutting back on smoking. Denies trauma. Denies constitutional symptoms. No other pedal complaints at this time Objective Data Objective Data Vital Signs: Vital Signs Temp Pulse Resp BP O2 Del Method 97.8 F 70 18 128/56 H Room Air 10/23/23 10:36 10/23/23 10:36 10/23/23 10:36 10/23/23 10:36 10/23/23 10:36 Oxygen Delivery Method Room Air Weight: 275 kg Body Mass Index (BMI) 92.2 Physical Exam Narrative Vascular: DP and PT pulses are palpable. CFT is brisk. Skin temperature gradient is warm to warm from proximal ankle to distal digits with no focal increase noted. Nonpitting edema appreciated to left lower extremity. Skin is well-hydrated and supple. Neurological: Light touch intact. Protective sensation is diminished. Dermatological: Full-thickness ulceration appreciated to the left anterior leg measuring 1.1 x 0.5 x 0.3 cm. Wound base is granular nature. No evidence of blanchable erythema to periwound. There is no evidence of probe to bone or hardware. No active drainage is appreciated. No sign of infection. Excision debridement down to and including subcutaneous tissue to the left anterior left leg with a number 3 mm dermal curette without incident. Predebridement measurement was 0.9 x 0.4 x 0.1 cm. Postdebridement measurement is 1.1 x 0.5 x 0.3 cm. EpiFix 18 mm disc was applied to the left full-thickness ulceration with 100% use. Third application. The graft site was free and clear of any infection. The wound/skin graft substitute was dressed with nonadherent bandage secured in place with Steri-Strips followed by bolster dressing as well as a double layer Tubigrip. Musculoskeletal: Strength 5 and 5 in all quadrants the left lower extremity. No pain on palpation to full-thickness ulceration of left leg. No pain with calf compression Debridement Note Debridement Note Debridement Free Text: Excision debridement down to and including subcutaneous tissue to the left anterior left leg with a number 3 mm dermal curette without incident. Predebridement measurement was 0.9 x 0.4 x 0.1 cm. Postdebridement measurement is 1.1 x 0.5 x 0.3 cm. EpiFix 18 mm disc was applied to the left full-thickness ulceration with 100% use. Third application. The graft site was free and clear of any infection. The wound/skin graft substitute was dressed with nonadherent bandage secured in place with Steri-Strips followed by bolster dressing as well as a double layer Tubigrip. Post-Debridement Measurements and Additional Note: Post-Debridement Measurements/Treatment - Nurse 1 - General Ulcer Assessment Start: 10/09/23 10:51 Freq: Status: Active Protocol: .LOWEXKyel Activity Type Activity Date Activity User E-sign Co-sign Detail Recorded Client Recorded Date Recorded By Document 10/09/23 10:51 Laptop 10/09/23 10:53 Document 10/16/23 10:35 Desktop 10/16/23 10:43 Document 10/23/23 10:36 [id number] 10/23/23 10:46 10/09/23 10/16/23 10/23/23 10:51 10:35 10:36 - Today's Visit Information Type of service Follow-up Visit Follow-up Visit Follow-up Visit (Physician/HORSERADISH GRINDER (Physician/HORSERADISH GRINDER (Physician/HORSERADISH GRINDER ) ) ) Arrival Mode Ambulatory Ambulatory Ambulatory Transfer Assistance Grace Lift,None Accompanied by [facility] Patient Identification Verified (Name & Yes Yes Yes ) Patient Requires Transmission-Based No Precautions Finger Stick Blood Sugar(mg/dl) (if 123 indicated): Blood Sugar Stated by Patient Height and Weight Body Mass Index (BMI) 92.2 92.2 92.2 BMI Classification Obese Obese Obese Vital Signs Temperature (97.8 F-99.1 F) 97.4 F L 97.8 F Temperature Source Temporal Temporal Pulse Rate (60-100) 75 18 L 70 Pulse Location Monitor Monitor Monitor Respiratory Rate (12-18) 16 18 18 Respiratory rate source Observation Observation Observation Oxygen Delivery Method Room Air Room Air Blood Pressure (90/60-120/80) 112/50 L 145/65 H 128/56 H Blood Pressure Mean (mm Hg) 70 91 80 Source Monitor Monitor Monitor Position Semi-Fowlers Semi-Fowlers Sitting Blood Pressure Location Left Arm Left Arm Left Arm History Since Last Visit- (Skip if this is Patient's initial visit) Have you changed medications since your No No No last visit? Any new allergies or adverse reactions No No No Had a fall/change in ADL's that may No No No increase risk of falls Signs or symptoms of abuse and/or No No neglect since last visit Have you been in the hospital since your No No No last visit? Has dressing in place as prescribed Yes Yes Yes Has compression in place as prescribed Yes Yes Yes Has offloadiing in place as prescribed N/A N/A No Experienced any changes in pain level or No No No management Left Footwear Regular Shoe Regular Shoe Regular Shoe Right Footwear Regular Shoe Regular Shoe Regular Shoe Pain Scale: 0-10 Numeric Is Patient Pain Free? Yes Yes Yes WC - Nurse 1 - General Ulcer Measurement Start: 10/09/23 10:51 Freq: Status: Active Protocol: Activity Type Activity Date Activity User E-sign Co-sign Detail Recorded Client Recorded Date Recorded By Document 10/09/23 10:51 Laptop 10/09/23 10:53 Document 10/16/23 10:35 Desktop 10/16/23 10:43 Document 10/23/23 10:36 [id number] 10/23/23 10:46 10/09/23 10/16/23 10/23/23 10:51 10:35 10:36 Wound Center Nurse 1 #1 LT ANT MED ANKLE -Combined with other wound No -Current Size (cm) - Length 1.2 0.8 0.9 -Current Size (cm) - Width 0.6 0.6 0.5 -Current Size (cm) - Depth 0.5 0.3 0.1 -Total Square Cm 0.72 0.48 0.45 -Photo Taken No No -Epithelialization Small 1-33% Small 1-33% -Tunneling No No -Undermining/Tunneling No No -Circular Undermining No No -Exudate Amt Small Small Medium -Exudate Type Serosanguineous Serosanguineous Yellow/Green -Wound Margin Flat & Intact Distinct, Outline Attached -Granulation Amt None Present (0 Small (1-33%) Small (1-33%) %) -Granulation Quality [place] -Slough/Fibrin Yes Yes -Necrosis Amt Large (67-100%) Large (67-100%) -Necrotic Tissue Type Adherent Slough Adherent Slough -Structure Exposed N/A -Texture (Christa-wound Skin Appearance) Assessed Assessed Assessed -Moisture (Christa-wound Skin Appearance) Assessed,Dry/ Assessed Assessed, Scaly Maceration -Color (Christa-wound Skin Appearance) Assessed Assessed Assessed -Temperature (Christa-wound Skin No Abnormality No Abnormality No Abnormality Appearance) (Pt Warm) (Pt Warm) (Pt Warm) -Tenderness on Palpation (Christa-wound No No Skin Appearance) -Ulcer Cleansing Rinsed/ Soap and Water Rinsed/ Irrigated with Irrigated with Saline Saline -Foul Odor after Cleansing No No No -Anesthetic Used 5% Lidocaine 5% Lidocaine 5% Lidocaine Gel Gel Gel Lower Limb Edema Present Yes Left Calf (cm) 38.2 37.5 38 Left Ankle (cm) 27.2 27 27 WC - Nurse 2 - General Ulcer CM Notes Start: 10/09/23 10:51 Freq: Status: Active Protocol: Activity Type Activity Date Activity User E-sign Co-sign Detail Recorded Client Recorded Date Recorded By Document 10/09/23 11:11 Laptop 10/09/23 11:13 Document 10/16/23 10:57 DS Desktop 10/16/23 11:04 DS Document 10/23/23 10:49 [place] [id number] 10/23/23 10:52 DS 10/09/23 10/16/23 10/23/23 11:11 10:57 10:49 Wound Center Nurse 2 #1 LT ANT MED ANKLE -Time 11:11 10:57 10:49 -Correct Patient Yes Yes Yes -Correct Side, Site, Position Yes Yes Yes -Correct Procedure Yes Yes Yes -Procedure Performed Yes Yes Yes -Type of Procedure Debridement Debridement Debridement -Clinical Debridement Subcutaneous Subcutaneous Subcutaneous -Tissue Removed Subcutaneous Subcutaneous Subcutaneous -Post Debridement (cm) - Length 0.8 1.2 1.1 -Post Debridement (cm) - Width 0.5 0.5 0.5 -Post Debridement (cm) - Depth 0.4 0.5 0.3 -Total Square (Post) (cm) 0.40 0.60 0.55 -Area of Debridement (cm) - Length 0.8 1.2 1.1 -Area of Debridement (cm) - Width 0.5 0.5 0.5 -Total Square (Area) (cm) 0.40 0.60 0.55 -Tunneling No No No -Undermining/Tunneling No No No -Circular Undermining No No No -Wound/Ulcer Outcome Not Healed Not Healed Not Healed -Ulcer Cleansing Rinsed/ Rinsed/ Rinsed/ Irrigated with Irrigated with Irrigated with Saline Saline Saline -Foul Odor after Cleansing No No -Bioengineered Tissue Yes Yes Yes -Type of Bioengineered Tissue Epifix 18mm Epifix 18mm Epifix 18mm Disc Disc Disc -Expiration Date 05/10/28 05/10/28 05/10/28 -Product Lot Number [id number] -Percent Used 100 100 100 -Lot number of Saline Used [id number] -Bleeding Controlled with Pressure Pressure Pressure -Treatment Response Procedure Procedure Procedure Tolerated Well Tolerated Well Tolerated Well -Offloading No No -Debridement - Subq, 1st 20sq cm No No No -Apply Skin Sub - 1st 25 sq cm - Legs 1 1 -Epifix 18mm Disc 3 3 3 Pain Scale: 0-10 Numeric Is Patient Pain Free? Yes Yes Yes - Nurse 3 - General Ulcer D/C NN Start: 10/09/23 10:51 Freq: Status: Active Protocol: Activity Type Activity Date Activity User E-sign Co-sign Detail Recorded Client Recorded Date Recorded By Document 10/09/23 11:17 KW Desktop 10/09/23 11:18 KW Document 10/16/23 11:10 Desktop 10/16/23 11:11 GM Document 10/23/23 11:11 DS [id number] 10/23/23 11:13 DS 10/09/23 10/16/23 10/23/23 11:17 11:10 11:11 Wound Care Center Nurse 3 #1 LT ANT MED ANKLE -Ulcer Cleansing Not Cleansed Rinsed/ Irrigated with Saline -Foul Odor after Cleansing No -Primary Dressing Applied Mepilex Border Mepilex Border Mepilex Border -Mepilex Border 1 1 1 Left -Multi-Layered Wrap Application Multi-Layer Comp - Left ($) -Tubular Bandage Single Layer Double Layer -Size of Tubigrip Used Size E Size E -Size E ($) 1 2 Pain Scale: 0-10 Numeric Is Patient Pain Free? Yes Yes Yes Teaching: Wound Center Dressing and compression -Person Taught Patient -Teaching Method Discussion, Demonstration -Response to teaching Verbalize understanding WC - Visit Discharge Discharge Condition Stable Stable Stable Ambulatory Status Ambulatory Ambulatory Ambulatory Transportation Private Auto Private Auto Private Auto Medication Reconcilliation completed & No Yes provided to patient/care provider Clinical Summary of Care Provided Yes Yes Yes Assessment/Plan Assessment/Plan (1) Closed fracture of posterior malleolus of left tibia: CODE(S): S82.392A - Other fracture of lower end of left tibia, initial encounter for closed fracture PLAN: Patient was examined and evaluated. All findings were discussed with the patient. All questions were answered to the patient's satisfaction. Excision debridement down to and including subcutaneous tissue to the left anterior left leg with a number 3 mm dermal curette without incident. Predebridement measurement was 0.9 x 0.4 x 0.1 cm. Postdebridement measurement is 1.1 x 0.5 x 0.3 cm. EpiFix 18 mm disc was applied to the left full-thickness ulceration with 100% use. Third application. The graft site was free and clear of any infection. The wound/skin graft substitute was dressed with nonadherent bandage secured in place with Steri-Strips followed by bolster dressing as well as a double layer Tubigrip. Also educated discussed with the patient on smoking cessation. Patient is understanding and will start to cut back smoking as he knows it is delaying his wound healing. Patient also confessed that his has COPD and needs to cut back as it may affect her breathing if he smokes around her. Follow-up at the wound care center with Dr. Caballero in 1 week. (2) Displaced transverse fracture of shaft of left fibula, initial encounter for open fracture type I or II: CODE(S): S82.422B - Displaced transverse fracture of shaft of left fibula, initial encounter for open fracture type I or II
[2023-10-30 10:08] VITALS: BP 144/114; PULSE 69; RESP 18; TEMP 35.6; BMI 92.2
--- NOTE | 2023-10-30 11:40 | PCM.WC.PN ---
History of Present Illness Date of Service: 10/30/23 Chief Complaint: Left lower extremity ankle fracture/pilon fracture History of Wound: History of full-thickness ulceration to left lower extremity after open duction internal fixation of left lower extremity fracture Subjective Subjective Mr. Lanza is a 63-year-old diabetic male present to wound care center today for follow-up evaluation of full-thickness ulceration graft application to left leg. He has kept his dressing clean dry and intact. His blood sugars under control. Patient admits to cutting back on smoking. Denies trauma. Denies constitutional symptoms. No other pedal complaints at this time Objective Data Objective Data Vital Signs: Vital Signs Temp Pulse Resp BP O2 Del Method 96.0 F L 69 18 144/114 H Room Air 10/30/23 10:08 10/30/23 10:08 10/30/23 10:08 10/30/23 10:08 10/30/23 10:08 Oxygen Delivery Method Room Air Weight: 275 kg Body Mass Index (BMI) 92.2 Physical Exam Narrative Vascular: DP and PT pulses are palpable. CFT is brisk. Skin temperature gradient is warm to warm from proximal ankle to distal digits with no focal increase noted. Nonpitting edema appreciated to left lower extremity. Skin is well-hydrated and supple. Neurological: Light touch intact. Protective sensation is diminished. Dermatological: Full-thickness ulceration appreciated to the left anterior leg measuring 1.0 x 0.4 x 0.3 cm. Wound base is granular nature. No evidence of blanchable erythema to periwound. There is no evidence of probe to bone or hardware. No active drainage is appreciated. No sign of infection. Excision debridement down to and including subcutaneous tissue to the left anterior left leg with a number 3 mm dermal curette without incident. Predebridement measurement was 0.9 x 0.3 x 0.1 cm. Postdebridement measurement is 1.0 x 0.4 x 0.3 cm. EpiFix 18 mm disc was applied to the left full-thickness ulceration with 100% use. Fourth application. The graft site was free and clear of any infection. The wound/skin graft substitute was dressed with nonadherent bandage secured in place with Steri-Strips followed by bolster dressing as well as a double layer Tubigrip. Musculoskeletal: Strength 5 and 5 in all quadrants the left lower extremity. No pain on palpation to full-thickness ulceration of left leg. No pain with calf compression Debridement Note Debridement Note Debridement Free Text: Excision debridement down to and including subcutaneous tissue to the left anterior left leg with a number 3 mm dermal curette without incident. Predebridement measurement was 0.9 x 0.3 x 0.1 cm. Postdebridement measurement is 1.0 x 0.4 x 0.3 cm. EpiFix 18 mm disc was applied to the left full-thickness ulceration with 100% use. Fourth application. The graft site was free and clear of any infection. The wound/skin graft substitute was dressed with nonadherent bandage secured in place with Steri-Strips followed by bolster dressing as well as a double layer Tubigrip. Post-Debridement Measurements and Additional Note: Post-Debridement Measurements/Treatment - Nurse 1 - General Ulcer Assessment Start: 10/09/23 10:51 Freq: Status: Active Protocol: .LOWEXKyle Activity Type Activity Date Activity User E-sign Co-sign Detail Recorded Client Recorded Date Recorded By Document 10/09/23 10:51 Laptop 10/09/23 10:53 Document 10/16/23 10:35 Desktop 10/16/23 10:43 Document 10/23/23 10:36 [id number] 10/23/23 10:46 Document 10/30/23 10:08 wound center 10/30/23 10:15 10/09/23 10/16/23 10/23/23 10:51 10:35 10:36 - Today's Visit Information Type of service Follow-up Visit Follow-up Visit Follow-up Visit (Physician/SENIOR TELECOMMUNICATIONS CONSULTANT (Physician/SENIOR TELECOMMUNICATIONS CONSULTANT (Physician/SENIOR TELECOMMUNICATIONS CONSULTANT ) ) ) Arrival Mode Ambulatory Ambulatory Ambulatory Transfer Assistance Grace Lift,None Accompanied by [facility] rep Patient Identification Verified (Name & Yes Yes Yes ) Patient Requires Transmission-Based No Precautions Finger Stick Blood Sugar(mg/dl) (if 123 indicated): Blood Sugar Stated by Patient Height and Weight Body Mass Index (BMI) 92.2 92.2 92.2 BMI Classification Obese Obese Obese Vital Signs Temperature (97.8 F-99.1 F) 97.4 F L 97.8 F Temperature Source Temporal Temporal Pulse Rate (60-100) 75 18 L 70 Pulse Location Monitor Monitor Monitor Respiratory Rate (12-18) 16 18 18 Respiratory rate source Observation Observation Observation Oxygen Delivery Method Room Air Room Air Blood Pressure (90/60-120/80) 112/50 L 145/65 H 128/56 H Blood Pressure Mean (mm Hg) 70 91 80 Source Monitor Monitor Monitor Position Semi-Fowlers Semi-Fowlers Sitting Blood Pressure Location Left Arm Left Arm Left Arm History Since Last Visit- (Skip if this is Patient's initial visit) Have you changed medications since your No No No last visit? Any new allergies or adverse reactions No No No Had a fall/change in ADL's that may No No No increase risk of falls Signs or symptoms of abuse and/or No No neglect since last visit Have you been in the hospital since your No No No last visit? Has dressing in place as prescribed Yes Yes Yes Has compression in place as prescribed Yes Yes Yes Has offloadiing in place as prescribed N/A N/A No Experienced any changes in pain level or No No No management Left Footwear Regular Shoe Regular Shoe Regular Shoe Right Footwear Regular Shoe Regular Shoe Regular Shoe Pain Scale: 0-10 Numeric Is Patient Pain Free? Yes Yes Yes 10/30/23 10:08 - Today's Visit Information Type of service Follow-up Visit (Physician/SENIOR TELECOMMUNICATIONS CONSULTANT ) Arrival Mode Ambulatory Transfer Assistance None Accompanied by Patient Identification Verified (Name & Yes ) Patient Requires Transmission-Based No Precautions Finger Stick Blood Sugar(mg/dl) (if indicated): Blood Sugar Height and Weight Body Mass Index (BMI) 92.2 BMI Classification Obese Vital Signs Temperature (97.8 F-99.1 F) 96.0 F L Temperature Source Temporal Pulse Rate (60-100) 69 Pulse Location Monitor Respiratory Rate (12-18) 18 Respiratory rate source Observation Oxygen Delivery Method Room Air Blood Pressure (90/60-120/80) 144/114 H Blood Pressure Mean (mm Hg) 124 Source Monitor Position Sitting Blood Pressure Location Left Arm History Since Last Visit- (Skip if this is Patient's initial visit) Have you changed medications since your No last visit? Any new allergies or adverse reactions No Had a fall/change in ADL's that may No increase risk of falls Signs or symptoms of abuse and/or No neglect since last visit Have you been in the hospital since your No last visit? Has dressing in place as prescribed Yes Has compression in place as prescribed No Has offloadiing in place as prescribed N/A Experienced any changes in pain level or No management Left Footwear Regular Shoe Right Footwear Regular Shoe Pain Scale: 0-10 Numeric Is Patient Pain Free? Yes WC - Nurse 1 - General Ulcer Measurement Start: 10/09/23 10:51 Freq: Status: Active Protocol: Activity Type Activity Date Activity User E-sign Co-sign Detail Recorded Client Recorded Date Recorded By Document 10/09/23 10:51 JF Laptop 10/09/23 10:53 JF Document 10/16/23 10:35 KW Desktop 10/16/23 10:43 KW Document 10/23/23 10:36 [id number] 10/23/23 10:46 GM Document 10/30/23 10:08 wound center 10/30/23 10:15 GM 10/09/23 10/16/23 10/23/23 10:51 10:35 10:36 Wound Center Nurse 1 #1 LT ANT MED ANKLE -Combined with other wound No -Current Size (cm) - Length 1.2 0.8 0.9 -Current Size (cm) - Width 0.6 0.6 0.5 -Current Size (cm) - Depth 0.5 0.3 0.1 -Total Square Cm 0.72 0.48 0.45 -Photo Taken No No -Epithelialization Small 1-33% Small 1-33% -Tunneling No No -Undermining/Tunneling No No -Circular Undermining No No -Exudate Amt Small Small Medium -Exudate Type Serosanguineous Serosanguineous Yellow/Green -Wound Margin Flat & Intact Distinct, Outline Attached -Granulation Amt None Present (0 Small (1-33%) Small (1-33%) %) -Granulation Quality [place] -Slough/Fibrin Yes Yes -Necrosis Amt Large (67-100%) Large (67-100%) -Necrotic Tissue Type Adherent Slough Adherent Slough -Structure Exposed N/A -Texture (Christa-wound Skin Appearance) Assessed Assessed Assessed -Moisture (Christa-wound Skin Appearance) Assessed,Dry/ Assessed Assessed, Scaly Maceration -Color (Christa-wound Skin Appearance) Assessed Assessed Assessed -Temperature (Christa-wound Skin No Abnormality No Abnormality No Abnormality Appearance) (Pt Warm) (Pt Warm) (Pt Warm) -Tenderness on Palpation (Christa-wound No No Skin Appearance) -Ulcer Cleansing Rinsed/ Soap and Water Rinsed/ Irrigated with Irrigated with Saline Saline -Foul Odor after Cleansing No No No -Anesthetic Used 5% Lidocaine 5% Lidocaine 5% Lidocaine Gel Gel Gel Lower Limb Edema Present Yes Left Calf (cm) 38.2 37.5 38 Left Ankle (cm) 27.2 27 27 10/30/23 10:08 Wound Center Nurse 1 #1 LT ANT MED ANKLE -Combined with other wound -Current Size (cm) - Length 0.9 -Current Size (cm) - Width 0.4 -Current Size (cm) - Depth 0.4 -Total Square Cm 0.36 -Photo Taken No -Epithelialization Medium 34-66% -Tunneling No -Undermining/Tunneling No -Circular Undermining No -Exudate Amt Small -Exudate Type Serosanguineous -Wound Margin -Granulation Amt Medium (34-66%) -Granulation Quality [place] -Slough/Fibrin Yes -Necrosis Amt Small (1-33%) -Necrotic Tissue Type Adherent Slough -Structure Exposed N/A -Texture (Chrsita-wound Skin Appearance) Assessed -Moisture (Christa-wound Skin Appearance) Assessed -Color (Christa-wound Skin Appearance) Assessed -Temperature (Christa-wound Skin No Abnormality Appearance) (Pt Warm) -Tenderness on Palpation (Christa-wound No Skin Appearance) -Ulcer Cleansing Rinsed/ Irrigated with Saline -Foul Odor after Cleansing No -Anesthetic Used 5% Lidocaine Gel Lower Limb Edema Present Left Calf (cm) 38.5 Left Ankle (cm) 28.6 WC - Nurse 2 - General Ulcer CM Notes Start: 10/09/23 10:51 Freq: Status: Active Protocol: Activity Type Activity Date Activity User E-sign Co-sign Detail Recorded Client Recorded Date Recorded By Document 10/09/23 11:11 JF Laptop 10/09/23 11:13 JF Document 10/16/23 10:57 DS Desktop 10/16/23 11:04 DS Document 10/23/23 10:49 DS [id number] 10/23/23 10:52 DS Document 10/30/23 10:53 JF [id number] 10/30/23 10:57 JF 10/09/23 10/16/23 10/23/23 11:11 10:57 10:49 Wound Center Nurse 2 #1 LT ANT MED ANKLE -Time 11:11 10:57 10:49 -Correct Patient Yes Yes Yes -Correct Side, Site, Position Yes Yes Yes -Correct Procedure Yes Yes Yes -Procedure Performed Yes Yes Yes -Type of Procedure Debridement Debridement Debridement -Clinical Debridement Subcutaneous Subcutaneous Subcutaneous -Tissue Removed Subcutaneous Subcutaneous Subcutaneous -Post Debridement (cm) - Length 0.8 1.2 1.1 -Post Debridement (cm) - Width 0.5 0.5 0.5 -Post Debridement (cm) - Depth 0.4 0.5 0.3 -Total Square (Post) (cm) 0.40 0.60 0.55 -Area of Debridement (cm) - Length 0.8 1.2 1.1 -Area of Debridement (cm) - Width 0.5 0.5 0.5 -Total Square (Area) (cm) 0.40 0.60 0.55 -Tunneling No No No -Undermining/Tunneling No No No -Circular Undermining No No No -Wound/Ulcer Outcome Not Healed Not Healed Not Healed -Ulcer Cleansing Rinsed/ Rinsed/ Rinsed/ Irrigated with Irrigated with Irrigated with Saline Saline Saline -Foul Odor after Cleansing No No -Bioengineered Tissue Yes Yes Yes -Type of Bioengineered Tissue Epifix 18mm Epifix 18mm Epifix 18mm Disc Disc Disc -Expiration Date 05/10/28 05/10/28 05/10/28 -Product Lot Number [id number] -Percent Used 100 100 100 -Lot number of Saline Used [id number] -Bleeding Controlled with Pressure Pressure Pressure -Treatment Response Procedure Procedure Procedure Tolerated Well Tolerated Well Tolerated Well -Offloading No No -Debridement - Subq, 1st 20sq cm No No No -Apply Skin Sub - 1st 25 sq cm - Legs 1 1 -Epifix 18mm Disc 3 3 3 Pain Scale: 0-10 Numeric Is Patient Pain Free? Yes Yes Yes 10/30/23 10:53 Wound Center Nurse 2 #1 LT ANT MED ANKLE -Time 10:54 -Correct Patient Yes -Correct Side, Site, Position Yes -Correct Procedure Yes -Procedure Performed Yes -Type of Procedure Debridement -Clinical Debridement Subcutaneous -Tissue Removed Subcutaneous -Post Debridement (cm) - Length 1.0 -Post Debridement (cm) - Width 0.4 -Post Debridement (cm) - Depth 0.3 -Total Square (Post) (cm) 0.40 -Area of Debridement (cm) - Length 1.0 -Area of Debridement (cm) - Width 0.4 -Total Square (Area) (cm) 0.40 -Tunneling No -Undermining/Tunneling No -Circular Undermining No -Wound/Ulcer Outcome Not Healed -Ulcer Cleansing Rinsed/ Irrigated with Saline -Foul Odor after Cleansing No -Bioengineered Tissue Yes -Type of Bioengineered Tissue Epifix 18mm Disc -Expiration Date 05/10/28 -Product Lot Number [id number] -Percent Used 100 -Lot number of Saline Used [id number] -Bleeding Controlled with Pressure -Treatment Response Procedure Tolerated Well -Offloading No -Debridement - Subq, 1st 20sq cm No -Apply Skin Sub - 1st 25 sq cm - Legs 1 -Epifix 18mm Disc 3 Pain Scale: 0-10 Numeric Is Patient Pain Free? Yes - Nurse 3 - General Ulcer D/C NN Start: 10/09/23 10:51 Freq: Status: Active Protocol: Activity Type Activity Date Activity User E-sign Co-sign Detail Recorded Client Recorded Date Recorded By Document 10/09/23 11:17 KW Desktop 10/09/23 11:18 KW Document 10/16/23 11:10 Desktop 10/16/23 11:11 Document 10/23/23 11:11 DS [id number] 10/23/23 11:13 DS Document 10/30/23 11:05 wound center 10/30/23 11:06 KW 10/09/23 10/16/23 10/23/23 11:17 11:10 11:11 Wound Care Center Nurse 3 #1 LT ANT MED ANKLE -Ulcer Cleansing Not Cleansed Rinsed/ Irrigated with Saline -Foul Odor after Cleansing No -Primary Dressing Applied Mepilex Border Mepilex Border Mepilex Border -Mepilex Border 1 1 1 Left -Multi-Layered Wrap Application Multi-Layer Comp - Left ($) -Tubular Bandage Single Layer Double Layer -Size of Tubigrip Used Size E Size E -Size E ($) 1 2 Pain Scale: 0-10 Numeric Is Patient Pain Free? Yes Yes Yes Teaching: Wound Center Dressing and compression -Person Taught Patient -Teaching Method Discussion, Demonstration -Response to teaching Verbalize understanding WC - Visit Discharge Discharge Condition Stable Stable Stable Ambulatory Status Ambulatory Ambulatory Ambulatory Transportation Private Auto Private Auto Private Auto Medication Reconcilliation completed & No Yes provided to patient/care provider Clinical Summary of Care Provided Yes Yes Yes 10/30/23 11:05 Wound Care Center Nurse 3 #1 LT ANT MED ANKLE -Ulcer Cleansing -Foul Odor after Cleansing -Primary Dressing Applied Mepilex Border -Mepilex Border 1 Left -Multi-Layered Wrap Application -Tubular Bandage Double Layer -Size of Tubigrip Used Size E -Size E ($) 2 Pain Scale: 0-10 Numeric Is Patient Pain Free? Yes Teaching: Wound Center Dressing and compression -Person Taught -Teaching Method -Response to teaching WC - Visit Discharge Discharge Condition Stable Ambulatory Status Ambulatory Transportation Private Auto Medication Reconcilliation completed & No provided to patient/care provider Clinical Summary of Care Provided Yes Assessment/Plan Assessment/Plan (1) Closed fracture of posterior malleolus of left tibia: CODE(S): S82.392A - Other fracture of lower end of left tibia, initial encounter for closed fracture PLAN: Patient was examined and evaluated. All findings were discussed with the patient. All questions were answered to the patient's satisfaction. Excision debridement down to and including subcutaneous tissue to the left anterior left leg with a number 3 mm dermal curette without incident. Predebridement measurement was 0.9 x 0.3 x 0.1 cm. Postdebridement measurement is 1.0 x 0.4 x 0.3 cm. EpiFix 18 mm disc was applied to the left full-thickness ulceration with 100% use. Fourth application. The graft site was free and clear of any infection. The wound/skin graft substitute was dressed with nonadherent bandage secured in place with Steri-Strips followed by bolster dressing as well as a double layer Tubigrip. Follow-up at the wound care center with Dr. Caballero in 1 week. (2) Displaced transverse fracture of shaft of left fibula, initial encounter for open fracture type I or II: CODE(S): S82.422B - Displaced transverse fracture of shaft of left fibula, initial encounter for open fracture type I or II
[2023-11-06 10:29] VITALS: BP 142/75; PULSE 80; RESP 18; TEMP 36; BMI 92.2
--- NOTE | 2023-11-06 12:50 | PCM.WC.PN ---
History of Present Illness Date of Service: 11/06/23 Chief Complaint: Left lower extremity ankle fracture/pilon fracture History of Wound: History of full-thickness ulceration to left lower extremity after open duction internal fixation of left lower extremity fracture Subjective Subjective Mr. Lanza is a 63-year-old diabetic male present to wound care center today for follow-up evaluation of full-thickness ulceration graft application to left leg. He has kept his dressing clean dry and intact. His blood sugars under control. Patient admits to cutting back on smoking but still smokes half a pack per day. Denies trauma. Denies constitutional symptoms. No other pedal complaints at this time Objective Data Objective Data Vital Signs: Vital Signs Temp Pulse Resp BP O2 Del Method 96.8 F L 80 18 142/75 H Room Air 11/06/23 10:11/06/23 10:11/06/23 10:11/06/23 10:11/06/23 10: Oxygen Delivery Method Room Air Weight: 275 kg Body Mass Index (BMI) 92.2 Physical Exam Narrative Vascular: DP and PT pulses are palpable. CFT is brisk. Skin temperature gradient is warm to warm from proximal ankle to distal digits with no focal increase noted. Nonpitting edema appreciated to left lower extremity. Skin is well-hydrated and supple. Neurological: Light touch intact. Protective sensation is diminished. Dermatological: Full-thickness ulceration appreciated to the left anterior leg measuring 0.8 x 0.4 x 0.2 cm. Wound base is granular nature. No evidence of blanchable erythema to periwound. There is no evidence of probe to bone or hardware. No active drainage is appreciated. No sign of infection. Excision debridement down to and including subcutaneous tissue to the left anterior left leg with a number 3 mm dermal curette without incident. Predebridement measurement was 0.7 x 0.3 x 0.1 cm. Postdebridement measurement is 0.8 x 0.4 x 0.2 cm. EpiFix 18 mm disc was applied to the left full-thickness ulceration with 100% use. Fifth application. The graft site was free and clear of any infection. The wound/skin graft substitute was dressed with nonadherent bandage secured in place with Steri-Strips followed by bolster dressing as well as a double layer Tubigrip. Musculoskeletal: Strength 5 and 5 in all quadrants the left lower extremity. No pain on palpation to full-thickness ulceration of left leg. No pain with calf compression Debridement Note Debridement Note Debridement Free Text: Excision debridement down to and including subcutaneous tissue to the left anterior left leg with a number 3 mm dermal curette without incident. Predebridement measurement was 0.7 x 0.3 x 0.1 cm. Postdebridement measurement is 0.8 x 0.4 x 0.2 cm. EpiFix 18 mm disc was applied to the left full-thickness ulceration with 100% use. Fifth application. The graft site was free and clear of any infection. The wound/skin graft substitute was dressed with nonadherent bandage secured in place with Steri-Strips followed by bolster dressing as well as a double layer Tubigrip. Post-Debridement Measurements and Additional Note: Post-Debridement Measurements/Treatment - Nurse 1 - General Ulcer Assessment Start: 10/09/23 10:51 Freq: Status: Active Protocol: .LOWEXT Activity Type Activity Date Activity User E-sign Co-sign Detail Recorded Client Recorded Date Recorded By Document 10/09/23 10:51 Laptop 10/09/23 10:53 Document 10/16/23 10:35 Desktop 10/16/23 10:43 Document 10/23/23 10:36 [id number] 10/23/23 10:46 Document 10/30/23 10:08 wound center 10/30/23 10:15 Document 11/06/23 10:29 KW wound center 11/06/23 10:37 KW 10/09/23 10/16/23 10/23/23 10:51 10:35 10:36 - Today's Visit Information Type of service Follow-up Visit Follow-up Visit Follow-up Visit (Physician/FLIGHT RESERVATIONS MANAGER (Physician/FLIGHT RESERVATIONS MANAGER (Physician/FLIGHT RESERVATIONS MANAGER ) ) ) Arrival Mode Ambulatory Ambulatory Ambulatory Transfer Assistance Grace Lift,None Accompanied by [facility] rep Patient Identification Verified (Name & Yes Yes Yes ) Patient Requires Transmission-Based No Precautions Finger Stick Blood Sugar(mg/dl) (if 123 indicated): Blood Sugar Stated by Patient Height and Weight Body Mass Index (BMI) 92.2 92.2 92.2 BMI Classification Obese Obese Obese Vital Signs Temperature (97.8 F-99.1 F) 97.4 F L 97.8 F Temperature Source Temporal Temporal Pulse Rate (60-100) 75 18 L 70 Pulse Location Monitor Monitor Monitor Respiratory Rate (12-18) 16 18 18 Respiratory rate source Observation Observation Observation Oxygen Delivery Method Room Air Room Air Blood Pressure (90/60-120/80) 112/50 L 145/65 H 128/56 H Blood Pressure Mean (mm Hg) 70 91 80 Source Monitor Monitor Monitor Position Semi-Fowlers Semi-Fowlers Sitting Blood Pressure Location Left Arm Left Arm Left Arm History Since Last Visit- (Skip if this is Patient's initial visit) Have you changed medications since your No No No last visit? Any new allergies or adverse reactions No No No Had a fall/change in ADL's that may No No No increase risk of falls Signs or symptoms of abuse and/or No No neglect since last visit Have you been in the hospital since your No No No last visit? Has dressing in place as prescribed Yes Yes Yes Has compression in place as prescribed Yes Yes Yes Has offloadiing in place as prescribed N/A N/A No Experienced any changes in pain level or No No No management Left Footwear Regular Shoe Regular Shoe Regular Shoe Right Footwear Regular Shoe Regular Shoe Regular Shoe Pain Scale: 0-10 Numeric Is Patient Pain Free? Yes Yes Yes 10/30/23 11/06/23 10:08 10:29 WC - Today's Visit Information Type of service Follow-up Visit Follow-up Visit (Physician/FLIGHT RESERVATIONS MANAGER (Physician/FLIGHT RESERVATIONS MANAGER ) ) Arrival Mode Ambulatory Ambulatory Transfer Assistance None Accompanied by TOBACCO STEMMER Patient Identification Verified (Name & Yes Yes ) Patient Requires Transmission-Based No Precautions Finger Stick Blood Sugar(mg/dl) (if indicated): Blood Sugar Height and Weight Body Mass Index (BMI) 92.2 92.2 BMI Classification Obese Obese Vital Signs Temperature (97.8 F-99.1 F) 96.0 F L 96.8 F L Temperature Source Temporal Temporal Pulse Rate (60-100) 69 80 Pulse Location Monitor Monitor Respiratory Rate (12-18) 18 18 Respiratory rate source Observation Observation Oxygen Delivery Method Room Air Room Air Blood Pressure (90/60-120/80) 144/114 H 142/75 H Blood Pressure Mean (mm Hg) 124 97 Source Monitor Monitor Position Sitting Semi-Fowlers Blood Pressure Location Left Arm Left Arm History Since Last Visit- (Skip if this is Patient's initial visit) Have you changed medications since your No No last visit? Any new allergies or adverse reactions No No Had a fall/change in ADL's that may No No increase risk of falls Signs or symptoms of abuse and/or No No neglect since last visit Have you been in the hospital since your No No last visit? Has dressing in place as prescribed Yes Yes Has compression in place as prescribed No Yes Has offloadiing in place as prescribed N/A N/A Experienced any changes in pain level or No No management Left Footwear Regular Shoe Regular Shoe Right Footwear Regular Shoe Regular Shoe Pain Scale: 0-10 Numeric Is Patient Pain Free? Yes Yes WC - Nurse 1 - General Ulcer Measurement Start: 10/09/23 10:51 Freq: Status: Active Protocol: Activity Type Activity Date Activity User E-sign Co-sign Detail Recorded Client Recorded Date Recorded By Document 10/09/23 10:51 Laptop 10/09/23 10:53 Document 10/16/23 10:35 KW Desktop 10/16/23 10:43 KW Document 10/23/23 10:36 [id number] 10/23/23 10:46 GM Document 10/30/23 10:08 GM wound center 10/30/23 10:15 GM Document 11/06/23 10:29 KW wound center 11/06/23 10:37 KW 10/09/23 10/16/23 10/23/23 10:51 10:35 10:36 Wound Center Nurse 1 #1 LT ANT MED ANKLE -Combined with other wound No -Current Size (cm) - Length 1.2 0.8 0.9 -Current Size (cm) - Width 0.6 0.6 0.5 -Current Size (cm) - Depth 0.5 0.3 0.1 -Total Square Cm 0.72 0.48 0.45 -Photo Taken No No -Epithelialization Small 1-33% Small 1-33% -Tunneling No No -Undermining/Tunneling No No -Circular Undermining No No -Exudate Amt Small Small Medium -Exudate Type Serosanguineous Serosanguineous Yellow/Green -Wound Margin Flat & Intact Distinct, Outline Attached -Granulation Amt None Present (0 Small (1-33%) Small (1-33%) %) -Granulation Quality [place] View [place] View -Slough/Fibrin Yes Yes -Necrosis Amt Large (67-100%) Large (67-100%) -Necrotic Tissue Type Adherent Slough Adherent Slough -Structure Exposed N/A -Texture (Christa-wound Skin Appearance) Assessed Assessed Assessed -Moisture (Christa-wound Skin Appearance) Assessed,Dry/ Assessed Assessed, Scaly Maceration -Color (Christa-wound Skin Appearance) Assessed Assessed Assessed -Temperature (Christa-wound Skin No Abnormality No Abnormality No Abnormality Appearance) (Pt Warm) (Pt Warm) (Pt Warm) -Tenderness on Palpation (Christa-wound No No Skin Appearance) -Ulcer Cleansing Rinsed/ Soap and Water Rinsed/ Irrigated with Irrigated with Saline Saline -Foul Odor after Cleansing No No No -Anesthetic Used 5% Lidocaine 5% Lidocaine 5% Lidocaine Gel Gel Gel Lower Limb Edema Present Yes Left Calf (cm) 38.2 37.5 38 Left Ankle (cm) 27.2 27 27 10/30/23 11/06/23 10:08 10:29 Wound Center Nurse 1 #1 LT ANT MED ANKLE -Combined with other wound -Current Size (cm) - Length 0.9 1 -Current Size (cm) - Width 0.4 0.3 -Current Size (cm) - Depth 0.4 0.3 -Total Square Cm 0.36 0.3 -Photo Taken No -Epithelialization Medium 34-66% -Tunneling No -Undermining/Tunneling No -Circular Undermining No -Exudate Amt Small Small -Exudate Type Serosanguineous Serosanguineous -Wound Margin Distinct, Outline Attached -Granulation Amt Medium (34-66%) Medium (34-66%) -Granulation Quality [place] View [place] View -Slough/Fibrin Yes -Necrosis Amt Small (1-33%) Large (67-100%) -Necrotic Tissue Type Adherent Slough Adherent Slough -Structure Exposed N/A -Texture (Christa-wound Skin Appearance) Assessed Assessed -Moisture (Christa-wound Skin Appearance) Assessed Assessed -Color (Christa-wound Skin Appearance) Assessed Assessed -Temperature (Christa-wound Skin No Abnormality No Abnormality Appearance) (Pt Warm) (Pt Warm) -Tenderness on Palpation (Christa-wound No No Skin Appearance) -Ulcer Cleansing Rinsed/ Soap and Water Irrigated with Saline -Foul Odor after Cleansing No -Anesthetic Used 5% Lidocaine 5% Lidocaine Gel Gel Lower Limb Edema Present Left Calf (cm) 38.5 37.1 Left Ankle (cm) 28.6 25 WC - Nurse 2 - General Ulcer CM Notes Start: 10/09/23 10:51 Freq: Status: Active Protocol: Activity Type Activity Date Activity User E-sign Co-sign Detail Recorded Client Recorded Date Recorded By Document 10/09/23 11:11 JF Laptop 10/09/23 11:13 JF Document 10/16/23 10:57 DS Desktop 10/16/23 11:04 DS Document 10/23/23 10:49 DS [id number] 10/23/23 10:52 DS Document 10/30/23 10:53 JF [id number] 10/30/23 10:57 JF Document 11/06/23 10:45 [id number] 11/06/23 10:49 JF 10/09/23 10/16/23 10/23/23 11:11 10:57 10:49 Wound Center Nurse 2 #1 LT ANT MED ANKLE -Time 11:11 10:57 10:49 -Correct Patient Yes Yes Yes -Correct Side, Site, Position Yes Yes Yes -Correct Procedure Yes Yes Yes -Procedure Performed Yes Yes Yes -Type of Procedure Debridement Debridement Debridement -Clinical Debridement Subcutaneous Subcutaneous Subcutaneous -Tissue Removed Subcutaneous Subcutaneous Subcutaneous -Post Debridement (cm) - Length 0.8 1.2 1.1 -Post Debridement (cm) - Width 0.5 0.5 0.5 -Post Debridement (cm) - Depth 0.4 0.5 0.3 -Total Square (Post) (cm) 0.40 0.60 0.55 -Area of Debridement (cm) - Length 0.8 1.2 1.1 -Area of Debridement (cm) - Width 0.5 0.5 0.5 -Total Square (Area) (cm) 0.40 0.60 0.55 -Tunneling No No No -Undermining/Tunneling No No No -Circular Undermining No No No -Wound/Ulcer Outcome Not Healed Not Healed Not Healed -Ulcer Cleansing Rinsed/ Rinsed/ Rinsed/ Irrigated with Irrigated with Irrigated with Saline Saline Saline -Foul Odor after Cleansing No No -Bioengineered Tissue Yes Yes Yes -Type of Bioengineered Tissue Epifix 18mm Epifix 18mm Epifix 18mm Disc Disc Disc -Expiration Date 1205/10/28 05/10/28 -Product Lot Number [id number] -Percent Used 100 100 100 -Lot number of Saline Used [id number] -Bleeding Controlled with Pressure Pressure Pressure -Treatment Response Procedure Procedure Procedure Tolerated Well Tolerated Well Tolerated Well -Offloading No No -Debridement - Subq, 1st 20sq cm No No No -Apply Skin Sub - 1st 25 sq cm - Legs 1 1 -Epifix 18mm Disc 3 3 3 Pain Scale: 0-10 Numeric Is Patient Pain Free? Yes Yes Yes 10/30/23 11/06/23 10:53 10:45 Wound Center Nurse 2 #1 LT ANT MED ANKLE -Time 10:54 10:45 -Correct Patient Yes Yes -Correct Side, Site, Position Yes Yes -Correct Procedure Yes Yes -Procedure Performed Yes Yes -Type of Procedure Debridement Debridement -Clinical Debridement Subcutaneous Subcutaneous -Tissue Removed Subcutaneous Subcutaneous -Post Debridement (cm) - Length 1.0 0.8 -Post Debridement (cm) - Width 0.4 0.4 -Post Debridement (cm) - Depth 0.3 0.2 -Total Square (Post) (cm) 0.40 0.32 -Area of Debridement (cm) - Length 1.0 0.8 -Area of Debridement (cm) - Width 0.4 0.4 -Total Square (Area) (cm) 0.40 0.32 -Tunneling No No -Undermining/Tunneling No No -Circular Undermining No No -Wound/Ulcer Outcome Not Healed Not Healed -Ulcer Cleansing Rinsed/ Irrigated with Saline -Foul Odor after Cleansing No No -Bioengineered Tissue Yes Yes -Type of Bioengineered Tissue Epifix 18mm Epifix 18mm Disc Disc -Expiration Date 05/10/28 05/10/28 -Product Lot Number [id number] -Percent Used 100 100 -Lot number of Saline Used [id number] -Bleeding Controlled with Pressure Pressure -Treatment Response Procedure Procedure Tolerated Well Tolerated Well -Offloading No No -Debridement - Subq, 1st 20sq cm No No -Apply Skin Sub - 1st 25 sq cm - Legs 1 1 -Epifix 18mm Disc 3 3 Pain Scale: 0-10 Numeric Is Patient Pain Free? Yes Yes - Nurse 3 - General Ulcer D/C NN Start: 10/09/23 10:51 Freq: Status: Active Protocol: Activity Type Activity Date Activity User E-sign Co-sign Detail Recorded Client Recorded Date Recorded By Document 10/09/23 11:17 KW Desktop 10/09/23 11:18 KW Document 10/16/23 11:10 GM Desktop 10/16/23 11:11 GM Document 10/23/23 11:11 DS [id number] 10/23/23 11:13 DS Document 10/30/23 11:05 KW wound center 10/30/23 11:06 KW 10/09/23 10/16/23 10/23/23 11:17 11:10 11:11 Wound Care Center Nurse 3 #1 LT ANT MED ANKLE -Ulcer Cleansing Not Cleansed Rinsed/ Irrigated with Saline -Foul Odor after Cleansing No -Primary Dressing Applied Mepilex Border Mepilex Border Mepilex Border -Mepilex Border 1 1 1 Left -Multi-Layered Wrap Application Multi-Layer Comp - Left ($) -Tubular Bandage Single Layer Double Layer -Size of Tubigrip Used Size E Size E -Size E ($) 1 2 Pain Scale: 0-10 Numeric Is Patient Pain Free? Yes Yes Yes Teaching: Wound Center Dressing and compression -Person Taught Patient -Teaching Method Discussion, Demonstration -Response to teaching Verbalize understanding WC - Visit Discharge Discharge Condition Stable Stable Stable Ambulatory Status Ambulatory Ambulatory Ambulatory Transportation Private Auto Private Auto Private Auto Medication Reconcilliation completed & No Yes provided to patient/care provider Clinical Summary of Care Provided Yes Yes Yes 10/30/23 11:05 Wound Care Center Nurse 3 #1 LT ANT MED ANKLE -Ulcer Cleansing -Foul Odor after Cleansing -Primary Dressing Applied Mepilex Border -Mepilex Border 1 Left -Multi-Layered Wrap Application -Tubular Bandage Double Layer -Size of Tubigrip Used Size E -Size E ($) 2 Pain Scale: 0-10 Numeric Is Patient Pain Free? Yes Teaching: Wound Center Dressing and compression -Person Taught -Teaching Method -Response to teaching WC - Visit Discharge Discharge Condition Stable Ambulatory Status Ambulatory Transportation Private Auto Medication Reconcilliation completed & No provided to patient/care provider Clinical Summary of Care Provided Yes Assessment/Plan Assessment/Plan (1) Closed fracture of posterior malleolus of left tibia: CODE(S): S82.392A - Other fracture of lower end of left tibia, initial encounter for closed fracture PLAN: Patient was examined and evaluated. All findings were discussed with the patient. All questions were answered to the patient's satisfaction. Excision debridement down to and including subcutaneous tissue to the left anterior left leg with a number 3 mm dermal curette without incident. Predebridement measurement was 0.7 x 0.3 x 0.1 cm. Postdebridement measurement is 0.8 x 0.4 x 0.2 cm. EpiFix 18 mm disc was applied to the left full-thickness ulceration with 100% use. Fifth application. The graft site was free and clear of any infection. The wound/skin graft substitute was dressed with nonadherent bandage secured in place with Steri-Strips followed by bolster dressing as well as a double layer Tubigrip. Follow-up at the wound care center with Dr. Caballero in 1 week. (2) Displaced transverse fracture of shaft of left fibula, initial encounter for open fracture type I or II: CODE(S): S82.422B - Displaced transverse fracture of shaft of left fibula, initial encounter for open fracture type I or II
== END 2023-11-08 23:59 | disposition home or self-care (01) ==
LOC: WC 10:45
PROVIDERS: PCP Family Medicine; Referring Provider Student in an Organized Health Care Education/Training Program; Visit Provider Podiatrist Foot & Ankle Surgery
DX: T84.89XS Other specified complication of internal orthopedic prosthetic devices, implants and grafts, sequela (principal); L97.822 Non-pressure chronic ulcer of other part of left lower leg with fat layer exposed; E11.9 Type 2 diabetes mellitus without complications; S82.892S Other fracture of left lower leg, sequela; F17.200 Nicotine dependence, unspecified, uncomplicated; X58.XXXS Exposure to other specified factors, sequela; R60.0 Localized edema; S82.422B Displaced transverse fracture of shaft of left fibula, initial encounter for open fracture type I or II
CPT/HCPCS: 15271; 29581; Q4186

== ENCOUNTER 2023-11-25 12:30 | Outpatient (RCR) | payer OTHER, BC, SELFPAY ==
--- NOTE | 2023-06-05 15:31 | HP.PTEVAL ---
Patient's Visit Information Visit Information Visit Information: THAO MOLINA is a 62 year old M referred to Physical Therapy by Dr. Hiro Sosa DO with a diagnosis of L TIB/FIB FX 03-11-23 WITH ORIF FOLLOWING. Date of Evaluation: 06/05/23 Physical Therapist: Ting [place] PT, Cert MDT Visit Plan Frequency: 2-3x /Week Duration: 4-6 Weeks Plan: START WITH 25% WEIGHTBEARING AND INCREASE WB TOLERATED. RESTORE ANKLE AND KNEE ROM ALL PLANES. EDEMA CONTROL. SCAR MOBILITY. IMPROVE LLE STRENGTH IN BOTH OPEN AND CLOSED CHAINS WB STATUS ALLOWS. RESTORE FUNCTIONAL MOBILITY WITH GAIT, STAIRS AND TRANSFERS. 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 Disability: NOT ON DISABILITY PRIOR TO ACCIDENT. Present symptoms: L ANKLE PAIN. NO NUMBNESS OR TINGLING THAT PATIENT IS AWARE OF. INTERMITTENT L KNEE PAIN AND LOCKING. (PATIENT ALSO REPORTS INTERMITTENT LOW BACK AND JESSICA HIP PAIN THAT HE WAS ALSO HAVING BEFORE THE ACCIDENT). Present since: 03/11/23 Pain Scale: L ANKLE: WORST 8/10, LEAST 3/10 Currently: 8/10 Is it getting better, worse or staying the same: GETTING BETTER - IMPROVING Commenced as a result of: STEPPED DOWN OUT OF TRUCK SLIPPED AND FELL Symptoms at onset: L ANKLE PAIN/BLEEDING Worse: THE MORE ACTIVE I AM Better: PROPING IT UP Disturbed sleep: YES - UP EVERY 2 HOURS Previous history/Previous treatment: NO PRIOR L ANKLE INJURY. NO PRIOR L KNEE INJURY. NO LOW BACK SURGERY. NO HIP SURGERY. HAS HAD HISTORY OF BACK AND HIP PAIN TREATED BY CHIROPRACTIC. Treatment this episode: ORIF 03/11/23 OR 03/12/23 FOR OPEN DISPLACED TRANSVERSE FRACTURE OF SHAFT OF L FIBULA AND FRACTURE OF LOWER END OF LEFT TIBIA. Gait: PATIENT REPORTS HE IS SUPPOSED TO BE IN THE BOOT WHEN OUT AND ABOUT AND HE CAN PUT HIS HEEL DOWN BUT HE IS NOT SUPPOSED TO PUT ANY MORE WEIGHT ON IT THAN HE HAS TO. Bowel or Bladder Dysfunction: NO Accidents: NO Unexplained weight loss: NO Imaging: PATIENT REPORTS HAVING X-RAYS AT THE SURGEONS OFFICE LAST WEEK AND THAT HE WAS TOLD IT IS HEALING WELL. PMH/Recent major surgery: NIDDM, HTN, HIGH CHOLESTEROL, ARTHRITIS. C1 TO C7 NECK FUSION ABOUT 3 YEARS AGO. LUMBAR DDD DX'D BY DR. MCGRAW. HEART STENTS ABOUT 10 YEARS AGO. Objective Objective: THIS PATIENT AMBULATES INDEP'LY INTO PT PWB ON L HEEL IN BOOT USING STANDARD WALKER X APPROX 300 FEET FROM LOBBY TO TREATMENT ROOM. PATIENT DEMO'S POOR POSTURE CONTROL IN SITTING AND STANDING. Active Correction of posture: ABLE TO PARTIALLY CORRECT BUT DOES NOT MAINTAIN. Other Observations: INDEP TRANSFERS. CIRCUMFERENCE MEASUREMENTS: MT HEADS: 27.5 CM, MALLEOLI: 33.5 CM, 3 PROX TO LAT MALL: 27 CM, 6 PROX TO LAT MALL: 32.5 CM. Sensory deficit: L LE LIGHT TOUCH SENSATION IS GROSSLY INTACT WITH TESTING TODAY. ROM deficit: FULL L KNEE EXTENSION. L KNEE FLEXION TO 95 DEG WITH C/O END RANGE PAIN. PATIENT REPORTS DR. SOSA IS AWARE OF HIS KNEE PAIN. L ANKLE AROM: DF: -20 DEG, PF: 27 DEG, IV: 8 DEG, EV: 4 DEG. Motor deficit: R LE - WFL. L HIP 4/5, L KNEE EXT 4/5, KNEE FLEX 3-/5, ANKLE - NT. ABLE TO ACTIVELY WIGGLE FIRST 3 TOES. Lumbar mvmt loss: NT POSTURAL STRENGTH: POOR. Core strength: POOR Palpation: INCISIONS LOOK WELL HEALED OVER-ALL BUT THERE IS A DIME SIZE AREA ON THE MEDIAL INCISION THAT HAS YELLOWISH SCARRING BUT IS NOT DRAINING - PATIENT REPORTS THE SURGEON SAW IT AND IS NOT CONCERNED. LATERAL INCISION IS WELL HEALED. DECREASED SCAR MOBILITY OF MEDIAL AND LATERAL INCISIONS. TREATMENT: THER ACT (12') - WALKER WAS ADJUSTED UP 2 NOTCHES TO DECREASE STRESS ON LOW BACK AND IMPROVE UE MECHANICAL ADVANTAGE FOR REDUCED WEIGHTBEARING STATUS. 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 HE DEMO'S ACTIVE CIRCULAR TYPE MVMTS THAT HE HAS BEEN DOING. THIS PT INSTRUCTED PATIENT IN ANKLE ALPHABET EX TOLERATED AND ENCOURAGED ELEVATION OF L LOWER LEG ABOVE HIS HEART TO HELP REDUCE EDEMA. ENCOURAGED PATIENT TO FOLLOW WEIGHTBEARING INSTRUCTIONS GIVEN TO HIM BY SURGEON LAST VISIT AND THIS PT WILL CALL TO CLARIFY. PATIENT DEMONSTRATED/COMMUNICATED A GOOD UNDERSTANDING OF INSTRUCTIONS AFTER GIVEN. *SPOKE WITH NOEL AT DR. SOSA'S OFFICE AFTER PT EVAL AND SHE STATES PATIENT WAS INSTRUCTED TO START WITH 25% WEIGHTBEARING THEN INCREASE WB TOLERATED ONCE STARTS PT. Balance/Special Test Scores Lower Extremity Functional Score: 24 Goals Goal 1:: PATIENT WILL BE INDEP WITH HEP Goal Time Frame: 12-16 Weeks Goal 2:: PATIENT WILL HAVE DECREASED EDEMA OF LLE TO WITHIN 25% OF R. Goal Time Frame: 4-6 Weeks Goal 3:: PATIENT WILL HAVE FULL PROM OF L KNEE AND ANKLE SYMMETRICAL WITH R LE. Goal Time Frame: 4-6 Weeks Goal 4:: PATIENT WILL HAVE INCREASED STRENGTH OF L KNEE, ANKLE AND FOOT TO 5/5 THROUGHOUT. Goal Time Frame: 8-12 Weeks Goal 5:: PATIENT WILL DEMONSTRATED NORMALIZED GAIT PATTERN ON LEVEL SURFACES WITHOUT AD. Goal Time Frame: 12-16 Weeks Goal 6:: PATIENT WILL DEMONSTRATE INDEP AND SAFE GAIT UP AND DOWN STEPS WITH ONE HR WITH RECIPROCAL WITHOUT LIMITATION Goal Time Frame: 12-16 Weeks Rehabilitation Potential Physical Therapy Diagnosis: PATIENT PRESENTS WITH HYPOMOBILITY, WEAKNESS, SWELLING, DIFFICULTY WALKING AND PAIN S/P ORIF L LE FOR TIB/FIB FX 03/11/23. HE WOULD BENEFIT FROM PT TO ADDRESS THESE LIMITATIONS TO TRY TO PROGRESS BACK TO ALL RECREATIONAL AND WORK ACTIVITIES WITHOUT LIMITATION. Rehabilitation Potential: Good Anticipated Interventions Patient/Client Instruction: Educate patient on: Condition, Plan of Care and Risk Factors For the Purpose of:: To improve self management Therapeutic Exercise to Include: Strength training, Balance training, Body mechanics, Postural training, Flexibilty training, Gait and locomotor training, Neuromotor development, Passive ROM and Active ROM For the Purpose of:: To decrease pain, To decrease swelling/inflammation, To increase ROM, To improve nutrient delivery to tissue, To improve muscle performance and motor function, To improve ability to perform ADL's, To increase tolerance to activity/condition/position, To improve ability of physical actions for home/community/work/leisure, To improve gait and locomotor functions, To improve health of tissue, To decrease soft tissue restriction and To increase flexibility/ROM Manual Therapy Techniques to Include: Scar massage For the Purpose of:: To decrease soft tissue restriction Cryotherapy (ice pack, ice massage): Yes Vasopneumatic device: Yes For the Purpose of:: To decrease swelling/inflammation Text: Thank you for the opportunity to evaluate your patient. For Medicare and Medicare HMO plans, please review the plan of care and approve it. It will need to be FAXED BACK to us at [phone] for Medicare purposes. For Medicare only, by signing this I certify the plan of care. Please let me know if there are questions or concerns regarding this plan of care. Physician Signature: Date:
--- NOTE | 2023-07-22 15:17 | HP.PTREVAL ---
Re-Evaluation Intro: Dr. Hiro Beyer, DO, It has been my pleasure to treat THAO MARI KIDNEY over the last 8 visits for L TIB/FIB FX 03-11-23 WITH ORIF FOLLOWING. Please see the progress note below for an update on the physical therapy plan of care! Subjective Subjective: PATIENT REPORTS HE IS ABLE TO GET AROUND BETTER. I GOT RID OF MY WALKER. I GOT RID OF MY W/C. I CAN GET AROUND THE HOUSE FINE. I CAN GET OUT JUST FINE AND I CAN GET OUT OF THE TRUCK FINE BUT I HAVE A LITTLE BIT OF TROUBLE GETTING IN. 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 PATIENT REPORTS HE CAN GET THE GROCERY SHOPPING DONE BY LEANING ON THE CART BUT IT TAKES LONGER THAN IT USE TO AND IT TAKES MORE TRIPS TO GET THEM IN THE HOUSE AND IT IS HURTING PRETTY BAD BY THE TIME HE IS DONE AND HE NEEDS TO REST AND ELEVATE HIS LEG. PATIENT REPORTS HE IS DOING THE STAIRS AT HOME NOW TOO. STILL STRUGGLING TO GET THE SWELLING DOWN BUT EVERYTHING IS DEFINATELY MAKING IMPROVEMENTS. OVER-ALL PATIENT REPORTS HIS LEFT KNEE IS DOING GOOD BUT IF HE LDBO-NFLU-OK HIS LOW BACK, JESSICA HIPS AND JESSICA KNEES HURT. STILL UNABLE TO GET SHOE ON DUE TO THE SWELLING. Objective Objective/Function: PATIENT WAS SEEN TODAY FOR RE-ASSESSMENT OF PROGRESS TOWARD THE SET PT GOALS AND THE NEED FOR FURTHER PHYSICAL THERAPY VS READINESS FOR DISCHARGE. PATIENT IS PROGRESSING WITH MOBILITY, STRENGTH AND ROM BUT SWELLING IS NOT IMPROVING. REINFORCEMENT TO PATIENT TODAY OF IMPROTANCE OF REST AND ELEVATION OF LLE TO HELP CONTROL EDEMA. PATIENT COMMUNICATED A GOOD UNDERSTANDING. UPON EXAM TODAY: THIS PATIENT AMBULATES INDEP'LY INTO PT WBAT ON LLE IN BOOT USING QUAD [facility]. HE IS INDEP WITH TRANSFERS. CIRCUMFERENCE MEASUREMENTS: MT HEADS: 26.5 CM, MALLEOLI: 34.1 CM, 3 PROX TO LAT MALL: 29.8 CM, 6 PROX TO LAT MALL: 32.5 CM. Sensory deficit: L LE LIGHT TOUCH SENSATION IS GROSSLY INTACT. ROM deficit: FULL L KNEE EXTENSION. L KNEE FLEXION TO 117 DEG WITH C/O END RANGE PAIN. L ANKLE AROM: DF: -5 DEG, PF: 33 DEG, IV: 14 DEG, EV: 8 DEG. Motor deficit: R LE - WFL. L HIP 4/5, L KNEE EXT 4/5, KNEE FLEX 4/5, ANKLE 3-/5 ALL PLANES. Core strength: FAIR Palpation: INCISIONS LOOK WELL HEALED OVER-ALL BUT THERE IS STILL A DIME SIZE AREA ON THE MEDIAL INCISION THAT HAS YELLOWISH SCARRING BUT IS NOT DRAINING - PATIENT REPORTS THE SURGEON SAW IT AGAIN AND IS NOT CONCERNED. LATERAL INCISION IS WELL HEALED. DECREASED SCAR MOBILITY OF MEDIAL AND LATERAL INCISIONS. Plan Plan Plan: CONT PER POC WBAT. MANUAL THERAPY. RESTORE ANKLE AND KNEE ROM ALL PLANES. EDEMA CONTROL. SCAR MOBILITY. IMPROVE LLE STRENGTH IN BOTH OPEN AND CLOSED CHAINS WB STATUS ALLOWS. RESTORE FUNCTIONAL MOBILITY WITH GAIT, STAIRS AND TRANSFERS. Balance/Gait/Functional tests Balance/Special Test Scores Lower Extremity Functional Score: 32 Goals Goals Goal 1:: PATIENT WILL BE INDEP WITH HEP Goal Time Frame: 12-16 Weeks Goal 2:: PATIENT WILL HAVE DECREASED EDEMA OF LLE TO WITHIN 25% OF R. Goal Time Frame: 4-6 Weeks Goal 3:: PATIENT WILL HAVE FULL PROM OF L KNEE AND ANKLE SYMMETRICAL WITH R LE. Goal Time Frame: 4-6 Weeks Goal 4:: PATIENT WILL HAVE INCREASED STRENGTH OF L KNEE, ANKLE AND FOOT TO 5/5 THROUGHOUT. Goal Time Frame: 8-12 Weeks Goal 5:: PATIENT WILL DEMONSTRATED NORMALIZED GAIT PATTERN ON LEVEL SURFACES WITHOUT AD. Goal Time Frame: 12-16 Weeks Goal 6:: PATIENT WILL DEMONSTRATE INDEP AND SAFE GAIT UP AND DOWN STEPS WITH ONE HR WITH RECIPROCAL WITHOUT LIMITATION Goal Time Frame: 12-16 Weeks Anticipated Interventions Anticipated Interventions Patient/Client Instruction: Educate patient on: Condition, Plan of Care and Risk Factors For the Purpose of:: To improve self management Therapeutic Exercise to Include: Strength training, Balance training, Body mechanics, Postural training, Flexibilty training, Gait and locomotor training, Neuromotor development, Passive ROM and Active ROM For the Purpose of:: To decrease pain, To decrease swelling/inflammation, To increase ROM, To improve nutrient delivery to tissue, To improve muscle performance and motor function, To improve ability to perform ADL's, To increase tolerance to activity/condition/position, To improve ability of physical actions for home/community/work/leisure, To improve gait and locomotor functions, To improve health of tissue, To decrease soft tissue restriction and To increase flexibility/ROM Manual Therapy Techniques to Include: Scar massage, Mobilization, Passive ROM and Soft tissue mobilization For the Purpose of:: To decrease swelling/inflammation, To improve nutrient delivery to tissue, To decrease soft tissue restriction and To increase flexibility/ROM Cryotherapy (ice pack, ice massage): Yes Vasopneumatic device: Yes For the Purpose of:: To decrease swelling/inflammation Re-Evaluation Ending Re-evaluation ending: Please do not hesitate to contact me at [phone] by phone or if you have questions or concerns regarding this new plan of care! Sincerely, Ting Martinez, PT, Cert MDT
--- NOTE | 2023-08-19 14:09 | HP.PTREVAL ---
Re-Evaluation Intro: Dr. Hiro Beyer, DO, It has been my pleasure to treat THAO MARI KIDNEY over the last 16 visits for L TIB/FIB FX 03-11-23 WITH ORIF FOLLOWING. Please see the progress note below for an update on the physical therapy plan of care! Subjective Subjective: PATIENT REPORTS HE IS SO HAPPY TO BE ABLE TO GET HIS REGULAR BOOT ON NOW. HE ALSO REPORTS HE IS TOLERATING SITTING AND DRIVING A LOT BETTER NOW WITH LESS L ANKLE PAIN (30 TO 45 MINUTES). PATIENT STATES THAT HE CAN DO MORE NOW BEFORE HE IS WHIPPED AND IN A LOT OF PAIN. L ANKLE PAIN IS RANGING 1/10 TO 6 OR 7/10 NOW. PATIENT REPORTS HE IS STILL WAITING TO HEAR FROM THE WOUND CENTER FOR AN APPOINTMENT. PATIENT REPORTS THE DOCTOR HAS RELEASED HIM TO GO BACK TO WORK 25% AND HE IS WAITING TO HEAR FROM HIS EMPLOYER. Objective Objective/Function: PATIENT WAS SEEN TODAY FOR RE-ASSESSMENT OF PROGRESS TOWARD THE SET PT GOALS AND THE NEED FOR FURTHER PHYSICAL THERAPY VS READINESS FOR DISCHARGE. PATIENT IS PROGRESSING WITH MOBILITY, STRENGTH AND SWELLING HOWEVER HE DOES NOT HAVE EXT AROM OF DIGITS 3,4 AND 5. UPON EXAM TODAY: THIS PATIENT AMBULATES INDEP'LY INTO PT WBAT ON LLE IN REGULAR BOOTS AND NO AD. HE IS ABLE TO ASCEND AND DESCEND STEPS RECIP. WITH ONE HR. HE NEEDS UE ASSIST WHEN LEADING UP WITH LLE AND ESPECIALLY WHEN COMING DOWN WITH R LE. LLE ER ESPECIALLY WITH DESCENDING STEPS. HE IS INDEP WITH TRANSFERS. CIRCUMFERENCE MEASUREMENTS: MT HEADS: 26.5 CM, MALLEOLI: 31.8 CM, 3 PROX TO LAT MALL: 28.6 CM, 6 PROX TO LAT MALL: 32.3 CM. Sensory deficit: L LE LIGHT TOUCH SENSATION IS GROSSLY INTACT INCLUDING TOES. ROM deficit: FULL L KNEE EXTENSION. L KNEE FLEXION TO 117 DEG WITH C/O END RANGE PAIN. L ANKLE AROM: DF: 0 DEG, PF: 33 DEG, IV: 21 DEG, EV: 11 DEG. MMT: L HIP 4/5, L KNEE EXT 4/5, KNEE FLEX 4/5, ANKLE 3+/5 IN AVAILABLE RANGE. Core strength: FAIR Palpation: INCISIONS LOOK WELL HEALED OVER-ALL BUT THERE IS STILL A DIME SIZE AREA ON THE MEDIAL INCISION THAT HAS YELLOWISH SCARRING BUT IS NOT DRAINING. WOUND CENTER CONSULT PENDING. Plan Plan Plan: CONT PER POC INCREASING TO 3X'S A WK X 6 WKS. ADD TOE EX'S TO FACILITATE MVMT AND STRENGTH. MANUAL THERAPY. RESTORE FOOT, ANKLE AND KNEE ROM ALL PLANES. EDEMA CONTROL. SCAR MOBILITY. IMPROVE LLE STRENGTH IN BOTH OPEN AND CLOSED CHAINS WB STATUS ALLOWS. RESTORE FUNCTIONAL MOBILITY WITH GAIT, STAIRS AND TRANSFERS. Balance/Gait/Functional tests Balance/Special Test Scores Lower Extremity Functional Score: 32 Goals Goals Goal 1:: PATIENT WILL BE INDEP WITH HEP Goal Time Frame: 12-16 Weeks Goal Progress: Progressing Goal 2:: PATIENT WILL HAVE DECREASED EDEMA OF LLE TO WITHIN 25% OF R. Goal Time Frame: 4-6 Weeks Goal Progress: Progressing Goal 3:: PATIENT WILL HAVE FULL PROM OF L KNEE AND ANKLE SYMMETRICAL WITH R LE. Goal Time Frame: 4-6 Weeks Goal Progress: Progressing Goal 4:: PATIENT WILL HAVE INCREASED STRENGTH OF L KNEE, ANKLE AND FOOT TO 5/5 THROUGHOUT. Goal Time Frame: 8-12 Weeks Goal Progress: Progressing Goal 5:: PATIENT WILL DEMONSTRATED NORMALIZED GAIT PATTERN ON LEVEL SURFACES WITHOUT AD. Goal Time Frame: 12-16 Weeks Goal Progress: Progressing Goal 6:: PATIENT WILL DEMONSTRATE INDEP AND SAFE GAIT UP AND DOWN STEPS WITH ONE HR WITH RECIPROCAL WITHOUT LIMITATION Goal Time Frame: 12-16 Weeks Goal Progress: Progressing Anticipated Interventions Anticipated Interventions Patient/Client Instruction: Educate patient on: Condition, Plan of Care and Risk Factors For the Purpose of:: To improve self management Therapeutic Exercise to Include: Strength training, Balance training, Body mechanics, Postural training, Flexibilty training, Gait and locomotor training, Neuromotor development, Passive ROM and Active ROM For the Purpose of:: To decrease pain, To decrease swelling/inflammation, To increase ROM, To improve nutrient delivery to tissue, To improve muscle performance and motor function, To improve ability to perform ADL's, To increase tolerance to activity/condition/position, To improve ability of physical actions for home/community/work/leisure, To improve gait and locomotor functions, To improve health of tissue, To decrease soft tissue restriction and To increase flexibility/ROM Manual Therapy Techniques to Include: Scar massage, Mobilization, Passive ROM and Soft tissue mobilization For the Purpose of:: To decrease swelling/inflammation, To improve nutrient delivery to tissue, To decrease soft tissue restriction and To increase flexibility/ROM Cryotherapy (ice pack, ice massage): Yes Vasopneumatic device: Yes For the Purpose of:: To decrease swelling/inflammation Re-Evaluation Ending Re-evaluation ending: Please do not hesitate to contact me at [phone] by phone or if you have questions or concerns regarding this new plan of care! Sincerely, Ting Martinez, PT, Cert MDT
--- NOTE | 2023-09-06 14:55 | HP.PTREVAL_ITS ---
Re-Evaluation Intro: Dr. Hiro Beyer, DO, It has been my pleasure to treat THAO MARI KIDNEY over the last 22 visits for L TIB/FIB FX 03-11-23 WITH ORIF FOLLOWING. Please see the progress note below for an update on the physical therapy plan of care! Subjective Subjective: PATIENT REPORTS THE PAIN HE FEELS IS PRIMARILY IN HIS ANKLE AND IT RANGES 0 TO 5/10 DEPENDING ON WHAT HE IS DOING AND WHAT POSITION IT IS IN. OVER- ALL HE REPORTS IS SLOWLY STEADLILY IMPROVING. HE STATES HE CAN GO LONGER PERIODS OF TIME ON HIS FEET MOVING AROUND. IT STILL HURTS BUT STATES HE CAN FIGHT THROUGH IT. HE REPORTS HE IS HAPPY WITH HIS PROGRESS. PATIENT REPORTS HE IS FOLLOWING THE WOUND CENTERS INSTRUCTIONS THE BEST HE CAN AND WILL FOLLOW UP WITH THEM AGAIN NEXT WEEK. Objective Objective/Function: PATIENT WAS SEEN TODAY FOR RE-ASSESSMENT OF PROGRESS TOWARD THE SET PT GOALS AND THE NEED FOR FURTHER PHYSICAL THERAPY VS READINESS FOR DISCHARGE. HE IS MAKING GOOD PROGESS WITH ROM, FUNCTION AND STRENGTH NOW AND EVEN PAIN AND SWELLING HOWEVER HE IS GETTING LITTLE TO NO EXTENSION ROM IN HIS 3RD, 4TH AND 5TH DIGITS. HE IS A GOOD CANDIDATE TO CONTINUE PT PER POC. PATIENT IS AGREEABLE. HE AMBULATES INDEP'LY INTO PT IN A REGULAR [place] SHOE WITHOUT ANY ASSISTIVE DEVICES OR LOSS OF BALANCE BUT HIS LIMITED L ANKLE DORSIFLEXION CAUSES DEVIATION. HE REPORTS HE KNOWS HE ISN'T SUPPOSED TO WEAR A REGULAR SHOE BUT IT IS TOO UNCOMFORTABLE IN HIS BOOT. HE IS INDEP WITH TRANSFERS. HE IS UNDER THE CARE OF THE WOUND CENTER AND HIS WOUND IS NOT VISIBLE TODAY DUE TO BANDAGING. HE IS ALSO WEARING COMPRSSION STOCKING. HIS SWELLING IS IMPROVING - CIRCUMFERENCE MEASUREMENTS: MT HEADS: 25.75 CM, MALLEOLI: 32.25 CM, 3 PROX TO LAT MALL: 27 CM, 6 PROX TO LAT MALL: 31.5 CM. Sensory deficit: L LE LIGHT TOUCH SENSATION IS GROSSLY INTACT. HIS LEFT KNEE FLEXION ROM IS IMPROVING - ROM deficit: FULL L KNEE EXTENSION. L KNEE FLEXION TO 122 DEG WITH C/O END RANGE PAIN. L ANKLE AROM: DF: TO NEUTRAL, PF: 33 DEG, IV: 21 DEG, EV: 12 DEG. Motor deficit: R LE - WFL. L HIP 5/5, L KNEE EXT 5/5, KNEE FLEX 5/5, ANKLE 3-/5 ALL PLANES. Core strength: FAIR Plan Plan Plan: CONT PER POC FOR TOE EX'S TO FACILITATE MVMT AND STRENGTH. MANUAL THERAPY. RESTORE FOOT, ANKLE AND KNEE ROM ALL PLANES. EDEMA CONTROL. SCAR MOBILITY. IMPROVE LLE STRENGTH IN BOTH OPEN AND CLOSED CHAINS WB STATUS ALLOWS. RESTORE FUNCTIONAL MOBILITY WITH GAIT, STAIRS AND TRANSFERS. Balance/Gait/Functional tests Balance/Special Test Scores Lower Extremity Functional Score: 32 Goals Goals Goal 1:: PATIENT WILL BE INDEP WITH HEP Goal Time Frame: 12-16 Weeks Goal Progress: Progressing Goal 2:: PATIENT WILL HAVE DECREASED EDEMA OF LLE TO WITHIN 25% OF R. Goal Time Frame: 4-6 Weeks Goal Progress: Progressing Goal 3:: PATIENT WILL HAVE FULL PROM OF L KNEE AND ANKLE SYMMETRICAL WITH R LE. Goal Time Frame: 4-6 Weeks Goal Progress: Progressing Goal 4:: PATIENT WILL HAVE INCREASED STRENGTH OF L KNEE, ANKLE AND FOOT TO 5/5 THROUGHOUT. Goal Time Frame: 8-12 Weeks Goal Progress: Progressing Goal 5:: PATIENT WILL DEMONSTRATED NORMALIZED GAIT PATTERN ON LEVEL SURFACES WITHOUT AD. Goal Time Frame: 12-16 Weeks Goal Progress: Progressing Goal 6:: PATIENT WILL DEMONSTRATE INDEP AND SAFE GAIT UP AND DOWN STEPS WITH ONE HR WITH RECIPROCAL WITHOUT LIMITATION Goal Time Frame: 12-16 Weeks Goal Progress: Progressing Anticipated Interventions Anticipated Interventions Patient/Client Instruction: Educate patient on: Condition, Plan of Care and Risk Factors For the Purpose of:: To improve self management Therapeutic Exercise to Include: Strength training, Balance training, Body mechanics, Postural training, Flexibilty training, Gait and locomotor training, Neuromotor development, Passive ROM and Active ROM For the Purpose of:: To decrease pain, To decrease swelling/inflammation, To increase ROM, To improve nutrient delivery to tissue, To improve muscle performance and motor function, To improve ability to perform ADL's, To increase tolerance to activity/condition/position, To improve ability of physical actions for home/community/work/leisure, To improve gait and locomotor functions, To improve health of tissue, To decrease soft tissue restriction and To increase flexibility/ROM Manual Therapy Techniques to Include: Scar massage, Mobilization, Passive ROM and Soft tissue mobilization For the Purpose of:: To decrease swelling/inflammation, To improve nutrient delivery to tissue, To decrease soft tissue restriction and To increase flexibility/ROM Cryotherapy (ice pack, ice massage): Yes Vasopneumatic device: Yes For the Purpose of:: To decrease swelling/inflammation Re-Evaluation Ending Re-evaluation ending: Please do not hesitate to contact me at [phone] by phone or if you have questions or concerns regarding this new plan of care! Sincerely, Ting Martinez, PT, Cert MDT
--- NOTE | 2023-09-30 14:27 | HP.PTREVAL ---
Re-Evaluation Intro: Dr. Hiro Beyer, DO, It has been my pleasure to treat THAO MARI KIDNEY over the last 32 visits for L TIB/FIB FX 03-11-23 WITH ORIF FOLLOWING. Please see the progress note below for an update on the physical therapy plan of care! Subjective Subjective: PATIENT REPORTS THE SURGEON TOLD HIM THE BONES ARE PRETTY MUCH HEALED. HE REPORTS THE WOUND CENTER SAID HIS WOUND IS GETTING BETTER AND HE STATES HE CAN TELL IT IS GETTING SMALLER AND SMALLER. HE STATES THE SURGEON SAID THERE ARE TIMES THAT THE METAL HAS TO COME OUT AND HE DOESN'T ANTICIPATE IT BUT WANTED TO MAKE HIM AWARE IT IS A POSSIBILITY. STATES HIS LEG WAS REALLY THROBBING AFTER MOWING ON RIDING MOWER 1.5 HOURS YESTERDAY. PATIENT REPORTS HIS LOWER LEG AND ANKLE PAIN IS CURRENTLY RANGING FROM 2/10 TO 6/10. PATIENT REPORTS HE HAS PRETTY MUCH STARTED TO ACCEPT THAT HIS ANKLE ISN'T GOING TO EVERY BE 100% AGAIN. PATIENT STATES HE IS WILLING TO CONTINUE THERAPY IF WE THINK IT COULD HELP. Objective Objective/Function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ensory deficit: L LE LIGHT TOUCH SENSATION IS GROSSLY INTACT. HIS LEFT KNEE FLEXION ROM IS STAYING THE SAME - ROM deficit: FULL L KNEE EXTENSION. L KNEE FLEXION TO 121 DEG WITH C/O END RANGE PAIN. L ANKLE AROM: DF: TO NEUTRAL, PF: 34 DEG, IV: 21 DEG, EV: 12 DEG. Motor deficit: R LE - WFL. L HIP 5/5, L KNEE EXT 5/5, KNEE FLEX 5/5, ANKLE 4-/5 ALL PLANES WITHIN AVAILABLE ROM. Core strength: FAIR Plan Plan Plan: CONTINUE PT 2-3 TIMES A WK X 18 VISITS FOR LLE ROM, STRETCHING AND STRENGTHENING IN BOTH OPEN AND CLOSED CHAINS. FUNCTIONAL MOBILITY TRAINING. HEP. Balance/Gait/Functional tests Balance/Special Test Scores Lower Extremity Functional Score: 31 Goals Goals Goal 1:: PATIENT WILL BE INDEP WITH HEP Goal Time Frame: 12-16 Weeks Goal Progress: Progressing Goal 2:: PATIENT WILL HAVE DECREASED EDEMA OF LLE TO WITHIN 25% OF R. Goal Time Frame: 4-6 Weeks Goal Progress: Progressing Goal 3:: PATIENT WILL HAVE FULL PROM OF L KNEE AND ANKLE SYMMETRICAL WITH R LE. Goal Time Frame: 4-6 Weeks Goal Progress: Not Progressing Goal 4:: PATIENT WILL HAVE INCREASED STRENGTH OF L KNEE, ANKLE AND FOOT TO 5/5 THROUGHOUT. Goal Time Frame: 8-12 Weeks Goal Progress: Progressing Goal 5:: PATIENT WILL DEMONSTRATED NORMALIZED GAIT PATTERN ON LEVEL SURFACES WITHOUT AD. Goal Time Frame: 12-16 Weeks Goal Progress: Progressing Goal 6:: PATIENT WILL DEMONSTRATE INDEP AND SAFE GAIT UP AND DOWN STEPS WITH ONE HR WITH RECIPROCAL WITHOUT LIMITATION Goal Time Frame: 12-16 Weeks Goal Progress: Progressing Anticipated Interventions Anticipated Interventions Patient/Client Instruction: Educate patient on: Condition, Plan of Care and Risk Factors For the Purpose of:: To improve self management Therapeutic Exercise to Include: Strength training, Balance training, Body mechanics, Postural training, Flexibilty training, Gait and locomotor training, Neuromotor development, Passive ROM and Active ROM For the Purpose of:: To decrease pain, To decrease swelling/inflammation, To increase ROM, To improve nutrient delivery to tissue, To improve muscle performance and motor function, To improve ability to perform ADL's, To increase tolerance to activity/condition/position, To improve ability of physical actions for home/community/work/leisure, To improve gait and locomotor functions, To improve health of tissue, To decrease soft tissue restriction and To increase flexibility/ROM Manual Therapy Techniques to Include: Scar massage, Mobilization, Passive ROM and Soft tissue mobilization For the Purpose of:: To decrease swelling/inflammation, To improve nutrient delivery to tissue, To decrease soft tissue restriction and To increase flexibility/ROM Cryotherapy (ice pack, ice massage): Yes Vasopneumatic device: Yes For the Purpose of:: To decrease swelling/inflammation Re-Evaluation Ending Re-evaluation ending: Please do not hesitate to contact me at [phone] by phone or if you have questions or concerns regarding this new plan of care! Sincerely, Ting Martinez, PT, Cert MDT
--- NOTE | 2023-11-18 15:34 | HP.PTREVAL ---
Re-Evaluation Intro: Dr. Hiro Beyer, DO, It has been my pleasure to treat THAO MARI KIDNEY over the last 49 visits for L TIB/FIB FX 03-11-23 WITH ORIF FOLLOWING. Please see the progress note below for an update on the physical therapy plan of care! Subjective Subjective: PATIENT REPORTS HE IS MAKING SMALL INCREMENTAL PROGRESS NOW INSTEAD OF BIG PROGRESS. PATIENT REPORTS HE CAN ACTUALLY MOW THE FRONT AND THE BACK OF HIS YARD NOW WITHOUT STOPPING. IT STILL HURTS BUT HE CAN DO IT. PATIENT REPORTS HIS LEFT LEG IS STILL WEAK BUT HE CAN DO MORE WITHOUT IT HURTING BADLY - MORE REPETITIONS OF THE EX'S, GARDENEING, AND STANDING TO DO THINGS LIKE PICKUBG RASPBERRIES. L ANKLE PAIN IS RANGING 2-7/10. STILL GOING TO THE WOUND CENTER. Objective Objective/Function: UPON EXAM TODAY: PATIENT IS CONTINUING TO GARTH SLOW PROGESS IN TERMS OF FUNCTIONAL STRENGTH. HIS ANKLE ROM IS STAYING THE SAME AND HE REALLY ISN'T GETTING ANY EXTENSION ROM IN HIS 3RD, 4TH AND 5TH DIGITS (OR EVEN MUCH IF ANY IN THE 2ND). HE IS A GOOD CANDIDATE TO CONTINUE PT PER POC. PATIENT IS AGREEABLE. HE AMBULATES INDEP'LY INTO PT IN A REGULAR [place] SHOE WITHOUT ANY ASSISTIVE DEVICES OR LOSS OF BALANCE BUT HIS LIMITED L ANKLE DORSIFLEXION CAUSES SOME DEVIATION AND HE COMPENSATES WITH LE EXTERNAL ROTATION. HE IS INDEP WITH TRANSFERS. HE IS UNDER THE CARE OF THE WOUND CENTER AND HIS WOUND IS NOT VISIBLE TODAY DUE TO BANDAGING. . Sensory deficit: L LE LIGHT TOUCH SENSATION IS GROSSLY INTACT. HIS LEFT KNEE FLEXION ROM IS IMPROVED BUT ANKLE ROM IS STAYING THE SAME - SEE BELOW. ROM deficit: FULL L KNEE EXTENSION. L KNEE FLEXION TO 121 DEG WITH C/O MILD END RANGE PAIN. L ANKLE AROM: DF: TO NEUTRAL, PF: 34 DEG, IV: 23 DEG, EV: 12 DEG. Motor deficit: L HIP 5/5, L KNEE EXT 5/5, KNEE FLEX 5/5, ANKLE 4/5 ALL PLANES WITHIN AVAILABLE ROM. PATIENT WITH C/O MILD INCREASED L ANKLE AND LOWER LEG PAIN WITH L ANKLE MMT'ING. Plan Plan Plan: LLE ROM, STRETCHING AND STRENGTHENING IN BOTH OPEN AND CLOSED CHAINS. FUNCTIONAL MOBILITY TRAINING. HEP. Balance/Gait/Functional tests Balance/Special Test Scores Lower Extremity Functional Score: 33 Goals Goals Goal 1:: PATIENT WILL BE INDEP WITH HEP Goal Time Frame: 12-16 Weeks Goal Progress: Progressing Goal 2:: PATIENT WILL HAVE DECREASED EDEMA OF LLE TO WITHIN 25% OF R. Goal Time Frame: 4-6 Weeks Goal Progress: Progressing Goal 3:: PATIENT WILL HAVE FULL PROM OF L KNEE AND ANKLE SYMMETRICAL WITH R LE. Goal Time Frame: 4-6 Weeks Goal Progress: Progressing Goal 4:: PATIENT WILL HAVE INCREASED STRENGTH OF L KNEE, ANKLE AND FOOT TO 5/5 THROUGHOUT. Goal Time Frame: 8-12 Weeks Goal Progress: Progressing Goal 5:: PATIENT WILL DEMONSTRATED NORMALIZED GAIT PATTERN ON LEVEL SURFACES WITHOUT AD. Goal Time Frame: 12-16 Weeks Goal Progress: Not Progressing Goal 6:: PATIENT WILL DEMONSTRATE INDEP AND SAFE GAIT UP AND DOWN STEPS WITH ONE HR WITH RECIPROCAL WITHOUT LIMITATION Goal Time Frame: 12-16 Weeks Goal Progress: Progressing Anticipated Interventions Anticipated Interventions Patient/Client Instruction: Educate patient on: Condition, Plan of Care and Risk Factors For the Purpose of:: To improve self management Therapeutic Exercise to Include: Strength training, Balance training, Body mechanics, Postural training, Flexibilty training, Gait and locomotor training, Neuromotor development, Passive ROM and Active ROM For the Purpose of:: To decrease pain, To decrease swelling/inflammation, To increase ROM, To improve nutrient delivery to tissue, To improve muscle performance and motor function, To improve ability to perform ADL's, To increase tolerance to activity/condition/position, To improve ability of physical actions for home/community/work/leisure, To improve gait and locomotor functions, To improve health of tissue, To decrease soft tissue restriction and To increase flexibility/ROM Manual Therapy Techniques to Include: Scar massage, Mobilization, Passive ROM and Soft tissue mobilization For the Purpose of:: To decrease swelling/inflammation, To improve nutrient delivery to tissue, To decrease soft tissue restriction and To increase flexibility/ROM Cryotherapy (ice pack, ice massage): Yes Vasopneumatic device: Yes For the Purpose of:: To decrease swelling/inflammation Re-Evaluation Ending Re-evaluation ending: Please do not hesitate to contact me at [phone] by phone or if you have questions or concerns regarding this new plan of care! Sincerely, Ting Martinez, PT, Cert MDT
== END 2023-11-25 19:00 | disposition home or self-care (01) ==
LOC: PT 12:30
PROVIDERS: PCP Family Medicine; Referring Provider Student in an Organized Health Care Education/Training Program; Visit Provider Student in an Organized Health Care Education/Training Program
DX: S82.422B Displaced transverse fracture of shaft of left fibula, initial encounter for open fracture type I or II (principal); S82.392D Other fracture of lower end of left tibia, subsequent encounter for closed fracture with routine healing
CPT/HCPCS: 97016; 97110; 97140; 97162; 97164; 97530

== ENCOUNTER 2023-11-27 10:45 | Outpatient (RCR) | payer OTHER, SELFPAY ==
[2023-11-09 02:14] VITALS: BP 117/78; PULSE 67; RESP 18; TEMP 35.8; BMI 92.2
[2023-11-13 10:43] VITALS: BP 123/64; PULSE 68; RESP 18; TEMP 35.9; BMI 92.2
--- NOTE | 2023-11-13 12:49 | PN.PCM_ITS ---
History of Present Illness Date of Service: 11/13/23 Chief Complaint: Left lower extremity ankle fracture/pilon fracture History of Wound: History of full-thickness ulceration to left lower extremity after open duction internal fixation of left lower extremity fracture Subjective Subjective Mr. Lanza is a 63-year-old diabetic male present to wound care center today for follow-up evaluation of full-thickness ulceration graft application to left leg. He has kept his dressing clean dry and intact. His blood sugars under control. Patient admits to cutting back on smoking but still smokes half a pack per day. Denies trauma. Denies constitutional symptoms. No other pedal complaints at this time Objective Data Objective Data Vital Signs: Vital Signs Temp Pulse Resp BP O2 Del Method 96.7 F L 68 18 123/64 H Room Air 11/13/23 10:43 11/13/23 10:43 11/13/23 10:43 11/13/23 10:43 11/13/23 10:43 Oxygen Delivery Method Room Air Weight: 275 kg Body Mass Index (BMI) 92.2 Physical Exam Narrative Vascular: DP and PT pulses are palpable. CFT is brisk. Skin temperature gradient is warm to warm from proximal ankle to distal digits with no focal increase noted. Nonpitting edema appreciated to left lower extremity. Skin is well-hydrated and supple. Neurological: Light touch intact. Protective sensation is diminished. Dermatological: Full-thickness ulceration appreciated to the left anterior leg measuring 0.5 x 0.3 x 0.2 cm. Wound base is granular nature. No evidence of blanchable erythema to periwound. There is no evidence of probe to bone or hardware. No active drainage is appreciated. No sign of infection. Excision debridement down to and including subcutaneous tissue to the left anterior left leg with a number 3 mm dermal curette without incident. Predebridement measurement was 0.4 x 0.2 x 0.1 cm. Postdebridement measurement is 0.5 x 0.3 x 0.2 cm. EpiFix 18 mm disc was applied to the left full-thickness ulceration with 100% use. Sixth application. The graft site was free and clear of any infection. The wound/skin graft substitute was dressed with nonadherent bandage secured in place with Steri-Strips followed by bolster dressing as well as a double layer Tubigrip. Musculoskeletal: Strength 5 and 5 in all quadrants the left lower extremity. No pain on palpation to full-thickness ulceration of left leg. No pain with calf compression Debridement Note Debridement Note Post-Debridement Measurements and Additional Note: Post-Debridement Measurements/Treatment - Nurse 1 - General Ulcer Assessment Start: 11/13/23 10:43 Freq: Status: Active Protocol: GÓMEZ Activity Type Activity Date Activity User E-sign Co-sign Detail Recorded Client Recorded Date Recorded By Document 11/13/23 10:43 [facility] 11/13/23 10:55 11/13/23 10:43 - Today's Visit Information Type of service Follow-up Visit (Physician/STAFFING CLERK ) Arrival Mode Ambulatory Patient Identification Verified (Name & Yes ) Height and Weight Body Mass Index (BMI) 92.2 BMI Classification Obese Vital Signs Temperature (97.8 F-99.1 F) 96.7 F L Temperature Source Temporal Pulse Rate (60-100) 68 Pulse Location Monitor Respiratory Rate (12-18) 18 Respiratory rate source Observation Oxygen Delivery Method Room Air Blood Pressure (90/60-120/80) 123/64 H Blood Pressure Mean (mm Hg) 83 Source Monitor Position Sitting Blood Pressure Location Left Arm History Since Last Visit- (Skip if this is Patient's initial visit) Have you changed medications since your No last visit? Any new allergies or adverse reactions No Had a fall/change in ADL's that may No increase risk of falls Signs or symptoms of abuse and/or No neglect since last visit Have you been in the hospital since your No last visit? Has dressing in place as prescribed Yes Has compression in place as prescribed Yes Has offloadiing in place as prescribed N/A Experienced any changes in pain level or No management Left Footwear Regular Shoe Right Footwear Regular Shoe Pain Scale: 0-10 Numeric Is Patient Pain Free? Yes - Nurse 1 - General Ulcer Measurement Start: 11/13/23 10:43 Freq: Status: Active Protocol: Activity Type Activity Date Activity User E-sign Co-sign Detail Recorded Client Recorded Date Recorded By Document 11/13/23 10:43 [facility] 11/13/23 10:55 11/13/23 10:43 Wound Center Nurse 1 #1 LT ANT MED ANKLE -Current Size (cm) - Length 0.5 -Current Size (cm) - Width 0.2 -Current Size (cm) - Depth 0.1 -Total Square Cm 0.10 -Date of Last Picture (Recall this 11/13/23 field) -Photo Taken Yes -Epithelialization Large 67-100% -Tunneling No -Undermining/Tunneling No -Circular Undermining No -Exudate Amt Small -Exudate Type Serosanguineous -Wound Margin Distinct, Outline Attached -Granulation Amt Large (67-100%) -Granulation Quality [place] -Slough/Fibrin No -Texture (Christa-wound Skin Appearance) Assessed -Moisture (Christa-wound Skin Appearance) Assessed -Color (Christa-wound Skin Appearance) Assessed -Temperature (Chrsita-wound Skin No Abnormality Appearance) (Pt Warm) -Ulcer Cleansing Soap and Water -Foul Odor after Cleansing No -Anesthetic Used 5% Lidocaine Gel Left Calf (cm) 38 Left Ankle (cm) 26 WC - Nurse 2 - General Ulcer CM Notes Start: 11/13/23 10:43 Freq: Status: Active Protocol: Activity Type Activity Date Activity User E-sign Co-sign Detail Recorded Client Recorded Date Recorded By Document 11/13/23 11:15 [id number] 11/13/23 11:22 11/13/23 11:15 Wound Center Nurse 2 #1 LT ANT MED ANKLE -Time 11:15 -Correct Patient Yes -Correct Side, Site, Position Yes -Correct Procedure Yes -Procedure Performed Yes -Type of Procedure Debridement -Clinical Debridement Subcutaneous -Tissue Removed Subcutaneous -Post Debridement (cm) - Length 0.5 -Post Debridement (cm) - Width 0.3 -Post Debridement (cm) - Depth 0.2 -Total Square (Post) (cm) 0.15 -Area of Debridement (cm) - Length 0.5 -Area of Debridement (cm) - Width 0.3 -Total Square (Area) (cm) 0.15 -Tunneling No -Undermining/Tunneling No -Circular Undermining No -Wound/Ulcer Outcome Not Healed -Ulcer Cleansing Rinsed/ Irrigated with Saline -Foul Odor after Cleansing No -Bioengineered Tissue Yes -Type of Bioengineered Tissue Epifix 18mm Disc -Expiration Date 06/10/28 -Product Lot Number [id number] -Percent Used 100 -Lot number of Saline Used [id number] -Bleeding Controlled with Pressure -Treatment Response Procedure Tolerated Well -Offloading No -Debridement - Subq, 1st 20sq cm No -Apply Skin Sub - 1st 25 sq cm - Legs 1 -Epifix 18mm Disc 3 Pain Scale: 0-10 Numeric Is Patient Pain Free? Yes WC - Nurse 3 - General Ulcer D/C NN Start: 11/13/23 10:43 Freq: Status: Active Protocol: Activity Type Activity Date Activity User E-sign Co-sign Detail Recorded Client Recorded Date Recorded By Document 11/13/23 11:30 [facility] Wound center 11/13/23 11:31 11/13/23 11:30 Wound Care Center Nurse 3 #1 LT ANT MED ANKLE -Primary Dressing Applied Mepilex Border -Primary Dressing Covered/Secured with Dry Gauze -Mepilex Border 2 Left -Tubular Bandage Double Layer -Size of Tubigrip Used Size E -Size E ($) 2 Pain Scale: 0-10 Numeric Is Patient Pain Free? Yes WC - Visit Discharge Discharge Condition Stable Ambulatory Status Ambulatory Transportation Private Auto Accompanied by DIRECTOR ENERGY Medication Reconcilliation completed & No provided to patient/care provider Clinical Summary of Care Provided Yes Assessment/Plan Assessment/Plan (1) Closed fracture of posterior malleolus of left tibia: CODE(S): S82.392A - Other fracture of lower end of left tibia, initial encounter for closed fracture PLAN: Patient was examined and evaluated. All findings were discussed with the patient. All questions were answered to the patient's satisfaction. Excision debridement down to and including subcutaneous tissue to the left anterior left leg with a number 3 mm dermal curette without incident. Predebridement measurement was 0.4 x 0.2 x 0.1 cm. Postdebridement measurement is 0.5 x 0.3 x 0.2 cm. EpiFix 18 mm disc was applied to the left full-thickness ulceration with 100% use. Sixth application. The graft site was free and clear of any infection. The wound/skin graft substitute was dressed with nonadherent bandage secured in place with Steri-Strips followed by bolster dressing as well as a double layer Tubigrip. Follow-up at the wound care center with Dr. Caballero in 2 week. (2) Displaced transverse fracture of shaft of left fibula, initial encounter for open fracture type I or II: CODE(S): S82.422B - Displaced transverse fracture of shaft of left fibula, initial encounter for open fracture type I or II
--- NOTE | 2023-11-15 09:12 | WC ---
11/13/2023 LEFT MED ANKLE
[2023-11-27 10:35] VITALS: BP 137/82; PULSE 73; RESP 18; TEMP 36.7; BMI 92.2
--- NOTE | 2023-11-27 16:25 | PN.PCM_ITS ---
History of Present Illness Date of Service: 11/27/23 Chief Complaint: Left lower extremity ankle fracture/pilon fracture History of Wound: History of full-thickness ulceration to left lower extremity after open duction internal fixation of left lower extremity fracture Subjective Subjective Mr. Lanza is a 63-year-old diabetic male present to wound care center today for follow-up evaluation of full-thickness ulceration graft application to left leg. He has kept his dressing clean dry and intact. His blood sugars under control. Patient admits to cutting back on smoking but still smokes half a pack per day. Denies trauma. Denies constitutional symptoms. No other pedal complaints at this time Objective Data Objective Data Vital Signs: Vital Signs Temp Pulse Resp BP O2 Del Method 98.1 F 73 18 137/82 H Room Air 11/27/23 10:35 11/27/23 10:35 11/27/23 10:35 11/27/23 10:35 11/27/23 10:35 Oxygen Delivery Method Room Air Weight: 275 kg Body Mass Index (BMI) 92.2 Physical Exam Narrative Vascular: DP and PT pulses are palpable. CFT is brisk. Skin temperature gradient is warm to warm from proximal ankle to distal digits with no focal increase noted. Nonpitting edema appreciated to left lower extremity. Skin is well-hydrated and supple. Neurological: Light touch intact. Protective sensation is diminished. Dermatological: Full-thickness ulceration appreciated to the left anterior, healed. No evidence of blanchable erythema to periwound. There is no evidence of probe to bone or hardware. No active drainage is appreciated. No sign of infection. Musculoskeletal: Strength 5 and 5 in all quadrants the left lower extremity. No pain on palpation to healed full-thickness ulceration of left leg. No pain with calf compression Debridement Note Debridement Note Post-Debridement Measurements and Additional Note: Post-Debridement Measurements/Treatment - Nurse 1 - General Ulcer Assessment Start: 11/13/23 10:43 Freq: Status: Active Protocol: MAGI Activity Type Activity Date Activity User E-sign Co-sign Detail Recorded Client Recorded Date Recorded By Document 11/13/23 10:43 GM wc 11/13/23 10:55 GM Document 11/27/23 10:35 MARIS lyon 11/27/23 10:43 MARIS 11/13/23 11/27/23 10:43 10:35 - Today's Visit Information Type of service Follow-up Visit Follow-up Visit (Physician/BORING MACHINE OPERATOR HELPER (Physician/BORING MACHINE OPERATOR HELPER ) ) Arrival Mode Ambulatory Ambulatory Accompanied by transplant case manager Patient Identification Verified (Name & Yes Yes ) Height and Weight Body Mass Index (BMI) 92.2 92.2 BMI Classification Obese Obese Vital Signs Temperature (97.8 F-99.1 F) 96.7 F L 98.1 F Temperature Source Temporal Temporal Pulse Rate (60-100) 68 73 Pulse Location Monitor Monitor Respiratory Rate (12-18) 18 18 Respiratory rate source Observation Observation Oxygen Delivery Method Room Air Room Air Blood Pressure (90/60-120/80) 123/64 H 137/82 H Blood Pressure Mean (mm Hg) 83 100 Source Monitor Monitor Position Sitting Sitting Blood Pressure Location Left Arm Left Arm History Since Last Visit- (Skip if this is Patient's initial visit) Have you changed medications since your No No last visit? Any new allergies or adverse reactions No No Had a fall/change in ADL's that may No No increase risk of falls Signs or symptoms of abuse and/or No No neglect since last visit Have you been in the hospital since your No No last visit? Has dressing in place as prescribed Yes Yes Has compression in place as prescribed Yes Yes Has offloadiing in place as prescribed N/A N/A Experienced any changes in pain level or No No management Left Footwear Regular Shoe Regular Shoe Right Footwear Regular Shoe Regular Shoe Pain Scale: 0-10 Numeric Is Patient Pain Free? Yes Yes - Nurse 1 - General Ulcer Measurement Start: 11/13/23 10:43 Freq: Status: Active Protocol: Activity Type Activity Date Activity User E-sign Co-sign Detail Recorded Client Recorded Date Recorded By Document 11/13/23 10:43 [facility] 11/13/23 10:55 Document 11/27/23 10:35 KW j 11/27/23 10:43 KW 11/13/23 11/27/23 10:43 10:35 Wound Center Nurse 1 #1 LT ANT MED ANKLE -Current Size (cm) - Length 0.5 0.6 -Current Size (cm) - Width 0.2 1 -Current Size (cm) - Depth 0.1 0 -Total Square Cm 0.10 0.6 -Date of Last Picture (Recall this 11/13/23 11/27/23 field) -Photo Taken Yes -Epithelialization Large 67-100% -Tunneling No -Undermining/Tunneling No -Circular Undermining No -Exudate Amt Small None Present -Exudate Type Serosanguineous -Wound Margin Distinct, Outline Attached -Granulation Amt Large (67-100%) -Granulation Quality [place] -Slough/Fibrin No -Necrosis Amt Large (67-100%) -Necrotic Tissue Type Adherent Slough -Texture (Christa-wound Skin Appearance) Assessed Assessed -Moisture (Christa-wound Skin Appearance) Assessed Assessed -Color (Christa-wound Skin Appearance) Assessed Assessed -Temperature (Christa-wound Skin No Abnormality No Abnormality Appearance) (Pt Warm) (Pt Warm) -Tenderness on Palpation (Christa-wound No Skin Appearance) -Ulcer Cleansing Soap and Water Soap and Water -Foul Odor after Cleansing No No -Anesthetic Used 5% Lidocaine 5% Lidocaine Gel Gel Left Calf (cm) 38 37.5 Left Ankle (cm) 26 24.5 WC - Nurse 2 - General Ulcer CM Notes Start: 11/13/23 10:43 Freq: Status: Active Protocol: Activity Type Activity Date Activity User E-sign Co-sign Detail Recorded Client Recorded Date Recorded By Document 11/13/23 11:15 [id number] 11/13/23 11:22 Document 11/27/23 10:58 [id number] 11/27/23 11:00 11/13/23 11/27/23 11:15 10:58 Wound Center Nurse 2 #1 LT ANT MED ANKLE -Time 11:15 10:59 -Correct Patient Yes Yes -Correct Side, Site, Position Yes Yes -Correct Procedure Yes Yes -Procedure Performed Yes Yes -Type of Procedure Debridement Debridement -Clinical Debridement Subcutaneous Epidermis / Dermis -Tissue Removed Subcutaneous Epidermis, Dermis -Post Debridement (cm) - Length 0.5 0.1 -Post Debridement (cm) - Width 0.3 0.1 -Post Debridement (cm) - Depth 0.2 0.1 -Total Square (Post) (cm) 0.15 0.01 -Area of Debridement (cm) - Length 0.5 0.1 -Area of Debridement (cm) - Width 0.3 0.1 -Total Square (Area) (cm) 0.15 0.01 -Tunneling No No -Undermining/Tunneling No No -Circular Undermining No No -Wound/Ulcer Outcome Not Healed Not Healed -Ulcer Cleansing Rinsed/ Rinsed/ Irrigated with Irrigated with Saline Saline -Foul Odor after Cleansing No No -Bioengineered Tissue Yes No -Type of Bioengineered Tissue Epifix 18mm Disc -Expiration Date 06/10/28 -Product Lot Number [id number] -Percent Used 100 -Lot number of Saline Used [id number] -Bleeding Controlled with Pressure Pressure -Treatment Response Procedure Procedure Tolerated Well Tolerated Well -Offloading No No -Debridement - Open, 1st 20sq cm Yes -Debridement - Subq, 1st 20sq cm No -Apply Skin Sub - 1st 25 sq cm - Legs 1 -Epifix 18mm Disc 3 Pain Scale: 0-10 Numeric Is Patient Pain Free? Yes Yes - Nurse 3 - General Ulcer D/C NN Start: 11/13/23 10:43 Freq: Status: Active Protocol: Activity Type Activity Date Activity User E-sign Co-sign Detail Recorded Client Recorded Date Recorded By Document 11/13/23 11:30 Wound center 11/13/23 11:31 Document 11/27/23 11:13 [id number] 11/27/23 11:13 11/13/23 11/27/23 11:30 11:13 Wound Care Center Nurse 3 #1 LT ANT MED ANKLE -Ulcer Cleansing Rinsed/ Irrigated with Saline -Foul Odor after Cleansing No -Primary Dressing Applied Mepilex Border C Hydrogel ($) -Primary Dressing Covered/Secured with Dry Gauze Dry Gauze, Secured with Tape -Mepilex Border 2 Left -Tubular Bandage Double Layer Single Layer -Size of Tubigrip Used Size E Size E -Size E ($) 2 2 Pain Scale: 0-10 Numeric Is Patient Pain Free? Yes Yes - Visit Discharge Discharge Condition Stable Stable Ambulatory Status Ambulatory Ambulatory Transportation Private Auto Private Auto Accompanied by CARDIOLOGY TECH Medication Reconcilliation completed & No Yes provided to patient/care provider Clinical Summary of Care Provided Yes Yes Assessment/Plan Assessment/Plan (1) Closed fracture of posterior malleolus of left tibia: CODE(S): S82.392A - Other fracture of lower end of left tibia, initial encounter for closed fracture PLAN: Patient was examined and evaluated. All findings were discussed with the patient. All questions were answered to the patient's satisfaction. The patient's full-thickness ulceration to the left lower extremity is now healed. The patient will be given a 2-week break from the wound care center he was given the okay to wash his left lower extremity with warm water and soap. He was given a vial of hydrogel and collagen to be applied then covered with a Band-Aid. Educated the patient that the new skin that has grown is very fragile and can tear easily which she was understanding of. Encourage smoking sensation. Follow-up at the wound care center with Dr. Caballero in 2 week. (2) Displaced transverse fracture of shaft of left fibula, initial encounter for open fracture type I or II: CODE(S): S82.422B - Displaced transverse fracture of shaft of left fibula, initial encounter for open fracture type I or II
--- NOTE | 2023-11-29 11:13 | WC ---
11/27/2023 LEFT MEDIAL ANKLE
== END 2023-12-08 23:59 | disposition home or self-care (01) ==
LOC: WC 10:45
PROVIDERS: PCP Family Medicine; Referring Provider Student in an Organized Health Care Education/Training Program; Visit Provider Podiatrist Foot & Ankle Surgery
DX: L97.822 Non-pressure chronic ulcer of other part of left lower leg with fat layer exposed (principal); F17.200 Nicotine dependence, unspecified, uncomplicated; S82.422B Displaced transverse fracture of shaft of left fibula, initial encounter for open fracture type I or II; S82.892S Other fracture of left lower leg, sequela; X58.XXXS Exposure to other specified factors, sequela
CPT/HCPCS: 15271; 97597; Q4186

== ENCOUNTER 2023-12-11 10:46 | Outpatient (RCR) | payer OTHER, SELFPAY ==
[2023-12-09 00:22] VITALS: BP 117/78; PULSE 67; RESP 18; TEMP 35.8; BMI 92.2
[2023-12-11 11:10] VITALS: BP 113/52; PULSE 73; RESP 16; TEMP 36.3; BMI 92.2
--- NOTE | 2023-12-11 11:16 | PCM.WC.PN ---
History of Present Illness Date of Service: 12/11/23 Chief Complaint: Left lower extremity ankle fracture/pilon fracture History of Wound: History of full-thickness ulceration to left lower extremity after open duction internal fixation of left lower extremity fracture Subjective Subjective Mr. Lanza is a 63-year-old diabetic male present to wound care center today for follow-up evaluation of full-thickness ulceration graft application to left leg. He has kept his dressing clean dry and intact. His blood sugars under control. Patient admits to cutting back on smoking but still smokes half a pack per day. Denies trauma. Denies constitutional symptoms. No other pedal complaints at this time Objective Data Objective Data Vital Signs: Vital Signs Temp Pulse Resp BP 97.4 F L 73 16 113/52 L 12/11/23 11:10 12/11/23 11:10 12/11/23 11:10 12/11/23 11:10 Weight: 275 kg Body Mass Index (BMI) 92.2 Physical Exam Narrative Vascular: DP and PT pulses are palpable. CFT is brisk. Skin temperature gradient is warm to warm from proximal ankle to distal digits with no focal increase noted. Nonpitting edema appreciated to left lower extremity. Skin is well-hydrated and supple. Neurological: Light touch intact. Protective sensation is diminished. Dermatological: Full-thickness ulceration appreciated to the left anterior, healed. No evidence of blanchable erythema to periwound. There is no evidence of probe to bone or hardware. No active drainage is appreciated. No sign of infection. Musculoskeletal: Strength 5 and 5 in all quadrants the left lower extremity. No pain on palpation to healed full-thickness ulceration of left leg. No pain with calf compression Debridement Note Debridement Note Post-Debridement Measurements and Additional Note: Post-Debridement Measurements/Treatment - Nurse 1 - General Ulcer Assessment Start: 12/11/23 11:10 Freq: Status: Active Protocol: [email or web address] Activity Type Activity Date Activity User E-sign Co-sign Detail Recorded Client Recorded Date Recorded By Document 12/11/23 11:10 JF 0000 12/11/23 11:12 12/11/23 11:10 - Today's Visit Information Arrival Mode Ambulatory Patient Identification Verified (Name & Yes ) Patient Requires Transmission-Based No Precautions Height and Weight Body Mass Index (BMI) 92.2 BMI Classification Obese Vital Signs Temperature (97.8 F-99.1 F) 97.4 F L Temperature Source Temporal Pulse Rate (60-100) 73 Pulse Location Monitor Respiratory Rate (12-18) 16 Respiratory rate source Observation Blood Pressure (90/60-120/80) 113/52 L Blood Pressure Mean (mm Hg) 72 Source Monitor Position Semi-Fowlers Blood Pressure Location Left Arm History Since Last Visit- (Skip if this is Patient's initial visit) Have you changed medications since your No last visit? Any new allergies or adverse reactions No Had a fall/change in ADL's that may No increase risk of falls Signs or symptoms of abuse and/or No neglect since last visit Have you been in the hospital since your No last visit? Has dressing in place as prescribed Yes Has compression in place as prescribed Yes Has offloadiing in place as prescribed N/A Experienced any changes in pain level or No management Left Footwear Regular Shoe Right Footwear Regular Shoe Pain Scale: 0-10 Numeric Is Patient Pain Free? Yes WC - Nurse 1 - General Ulcer Measurement Start: 12/11/23 11:10 Freq: Status: Active Protocol: Activity Type Activity Date Activity User E-sign Co-sign Detail Recorded Client Recorded Date Recorded By Document 12/11/23 11:10 0000 12/11/23 11:12 12/11/23 11:10 Wound Center Nurse 1 #1 LT ANT MED ANKLE -Combined with other wound No -Current Size (cm) - Length 0 -Current Size (cm) - Width 0 -Current Size (cm) - Depth 0 -Total Square Cm 0 -Date of Last Picture (Recall this 12/11/23 field) -Epithelialization Large 67-100% Lower Limb Edema Present No WC - Nurse 2 - General Ulcer CM Notes Start: 12/11/23 11:10 Freq: Status: Active Protocol: Activity Type Activity Date Activity User E-sign Co-sign Detail Recorded Client Recorded Date Recorded By Document 12/11/23 11:10 0000 12/11/23 11:12 12/11/23 11:10 Pain Scale: 0-10 Numeric Is Patient Pain Free? Yes WC - Nurse 3 - General Ulcer D/C NN Start: 12/11/23 11:10 Freq: Status: Active Protocol: Activity Type Activity Date Activity User E-sign Co-sign Detail Recorded Client Recorded Date Recorded By Document 12/11/23 11:12 0000 12/11/23 11:13 12/11/23 11:12 Wound Care Center Nurse 3 Left -Tubular Bandage Single Layer -Size of Tubigrip Used Size E -Size E ($) 1 Pain Scale: 0-10 Numeric Is Patient Pain Free? Yes WC - Visit Discharge Discharge Condition Stable Ambulatory Status Ambulatory Transportation Private Auto Medication Reconcilliation completed & Yes provided to patient/care provider Clinical Summary of Care Provided Yes Assessment/Plan Assessment/Plan (1) Closed fracture of posterior malleolus of left tibia: CODE(S): S82.392A - Other fracture of lower end of left tibia, initial encounter for closed fracture PLAN: Patient was examined and evaluated. All findings were discussed with the patient. All questions were answered to the patient's satisfaction. The patient's left lower extremity full-thickness ulceration is now healed. Continue to educate the patient on smoking sensation and controlling blood sugar which she is understanding of. We will be filling out a C9 for continued compression to the bilateral lower extremity pressure size 15 to 20 mmHg. Patient will follow-up as needed. (2) Displaced transverse fracture of shaft of left fibula, initial encounter for open fracture type I or II: CODE(S): S82.422B - Displaced transverse fracture of shaft of left fibula, initial encounter for open fracture type I or II
--- NOTE | 2023-12-19 09:08 | WC ---
PHOTO 12/11/2023 LEFT MED ANKLE (H)
== END 2023-12-13 08:49 | disposition home or self-care (01) ==
LOC: WC 10:46
PROVIDERS: PCP Family Medicine; Referring Provider Student in an Organized Health Care Education/Training Program; Visit Provider Podiatrist Foot & Ankle Surgery
DX: Z09 Encounter for follow-up examination after completed treatment for conditions other than malignant neoplasm (principal); E11.9 Type 2 diabetes mellitus without complications; S82.392A Other fracture of lower end of left tibia, initial encounter for closed fracture; F17.200 Nicotine dependence, unspecified, uncomplicated; S82.422B Displaced transverse fracture of shaft of left fibula, initial encounter for open fracture type I or II
CPT/HCPCS: 99213; G0463

== ENCOUNTER 2024-01-13 13:00 | Outpatient (RCR) | payer OTHER, SELFPAY ==
--- NOTE | 2024-01-15 14:44 | HP.PTDCSUM ---
Discharge Summary D/C summary: It has been my pleasure to treat THAO MARI KIDNEY referred by Dr. Hiro Beyer DO, with the diagnosis of for a total of 64 visit(s). Discharge Date: Please see the following information for a summary of their discharge status. Subjective Subjective: PATIENT REPORTS HE IS WAITING ON APPROVED FACILITY FOR FCE AND DETERMINATION FOR HOW TO PAY FOR COMPRESSION STOCKING. STATES HE HAD FOLLOW UP WITH DR. MCGRAW AND HE PRESCRIBED HIM SOMETHING NEEDED FOR PAIN NEEDED. REPORTS L ANKLE PAIN RANGES FROM 1- 5/10 UNLESS THERE IS A STORM THEN HIS WHOLE BODY HURTS ESPECIALLY HIS WHOLE LEFT LEG UP TO 9/10. HE REPORTS 95% IMPROVEMENT OVER-ALL. I'M DOING EVERYTHING I WANT TO DO RIGHT NOW WITHIN REASON. 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 GENERALLY SPEAKING IF I PROP MY LEG UP AND TAKE THE ASPIRINS AT THE END OF THE DAY I AM GOOD THE NEXT DAY. PATIENT STATES I'VE GOT EVERYTHING GOING PRETTY GOOD AND HE DENIES ANY QUESTIONS OR CONCERNS. HE STATES HE DOESN'T DO SQUATTNG. Pain Left Lower Leg: Pain Intensity (Out of 10): 2 Overall Improvement % Improvement: 95 Objective Objective/Function: This patient ambulates indep'ly without any AD's wearing regular tennis shoes. A/PROM L ankle: DF 90 deg, PF 34 deg, IV 24 deg, EV 11 deg. Patient reports mild increased pain with ankle ROM testing. He is indep with gait and transfers. He is indep with the following gym ex program: Warm-Up... Recumbent Bike: L6 x3 min to increase CV endurance capacity Gym Machines - (4) Seated Hip Abduction: 60# 2x15 - no settings. (15) Seated Hip Adduction: 60# 2x15 - thigh pads 6. (5) Seated Leg Press: 130# 2x15 - foot plate 4, back pad 3. (21) Seated Knee Extension: 45# 2x15 - back pad 2, evans pad rotation 10. (22) Seated Leg Curl: 55# 2x15 - back pad 3, calf pad 3. (20) Bilateral Heel Raise on edge of platform: 3x12. (16) Shuttle GH Press: 45# 2x15 ea side - chest pad 5. Functional Exercises and Stretching - Weighted Sit to Stands: 25# 3x12. Lateral Heel Taps: 6 box/ 1 rail 2x15 ea side. Calf Slant Stretch: 3x30 sec. Seated Hamstring Stretch: 3x30 sec Left. Plan Plan: D/C D/C Information d/c sentence: If there are questions or concerns regarding this patient's physical therapy, please feel free to call me at [phone]. Thank you for the referral of this patient. Sincerely, Ting Martinez, PT, Cert MDT Balance/Gait/Functional tests Balance/Special Test Scores Lower Extremity Functional Score: 17 Improvement % Improvement: 95
== END 2024-01-13 19:00 | disposition home or self-care (01) ==
LOC: PT 13:00
PROVIDERS: PCP Family Medicine; Referring Provider Student in an Organized Health Care Education/Training Program; Visit Provider Student in an Organized Health Care Education/Training Program
DX: S82.422D Displaced transverse fracture of shaft of left fibula, subsequent encounter for closed fracture with routine healing (principal)
CPT/HCPCS: 97110; 97530

== ENCOUNTER → 2024-08-17 | Outpatient (CLI) | payer MEDICARE, SELFPAY ==
[2024-08-17 14:30] LABS: ALB/GLOB Ratio 1.1 RATIO (0.9-2.4); AST(SGOT) 28 U/L (<=37); Alanine Aminotransfer ALT/SGPT 29 U/L (<=46); Alkaline Phosphatase 122 U/L (40-129); Anion Gap 14 (5-15); BUN 21 mg/dL (4-19); BUN/Creat Ratio 25.9 RATIO (10-20); Calcium,Total 9.6 mg/dL (7.6-11.0); Carbon Dioxide 21.9 mmol/L (21.0-32.0); Chloride 101 mmol/L (98-108); Cholesterol 170 mg/dL (<=200); Creatinine, Serum 0.82 mg/dL (0.70-1.20); EST Glomerular Filtration Rate 97 (>60); Globulin 3.5 g/dL (2.2-4.2); Glucose 248 mg/dL (70-99); High Density Lipoprotein 48 mg/dL; Low Density Lipoprotein Calc. 70 mg/dL; Potassium 4.5 mmol/L (3.3-5.1); Protein, Total 7.5 g/dL (5.9-8.4); Sodium Level 137 mmol/L (133-145); Total Bilirubin 0.46 mg/dL (0.00-1.30); Triglycerides 262 mg/dL; Very Low Density Lipoprotein 52 mg/dL (5-40); cholesterol:hdl ratio screen 3.58
[2024-08-17 18:15] LABS: Bilirubin, Direct 0.17 mg/dL (0.00-0.30)
== END | disposition home or self-care (01) ==
LOC: MTLAB 10:51
PROVIDERS: PCP Family Medicine; Referring Provider Family Medicine; Visit Provider Family Medicine
DX: Z13.6 Encounter for screening for cardiovascular disorders (principal)
CPT/HCPCS: 36415; 80053; 80061; 82248

== ENCOUNTER → 2024-08-29 | Outpatient (CLI) | payer MEDICARE, SELFPAY ==
--- NOTE | 2024-08-29 09:59 | CT_ITS ---
EXAM: CT Chest, Lung Cancer Screening Without Intravenous Contrast CLINICAL INDICATION: SMOKER TECHNIQUE: Axial computed tomography images of the chest without intravenous contrast using low dose (LDCT) lung cancer screening protocol. This CT exam was performed using one or more of the following dose reduction techniques: automated exposure control, adjustment of the mA and/or kV according to patient size, and/or use of iterative reconstruction technique. COMPARISON: No relevant prior studies available. FINDINGS: LUNGS AND PLEURAL SPACES: Bilateral apical scarring. Lung emphysema. 3 mm nodule of the anterior right upper lobe. 2 mm subpleural nodule of the anterior lateral lingula. Lingular atelectasis scarring. No pneumothorax. No significant effusion. HEART: Unremarkable. No cardiomegaly. No significant pericardial effusion. No significant coronary artery calcifications. BONES/JOINTS: Unremarkable. No acute fracture. No dislocation. SOFT TISSUES: Unremarkable. VASCULATURE: Unremarkable. No thoracic aortic aneurysm. LYMPH NODES: Unremarkable. No enlarged lymph nodes. OTHER FINDINGS: 3 mm nodule along the right minor fissure. CT/Low Dose CT Lung Screening IMPRESSION: 1. Pulmonary nodules both lungs, largest measuring up to 3 mm. 2. LUNG-RADS 2: Benign. Continue low-dose CT screening of the chest in 12 mon ths is recommended. Reading [facility]
== END | disposition home or self-care (01) ==
LOC: CT 09:58
PROVIDERS: PCP Family Medicine; Referring Provider Family Medicine; Visit Provider Family Medicine
DX: Z12.2 Encounter for screening for malignant neoplasm of respiratory organs (principal); Z87.891 Personal history of nicotine dependence
CPT/HCPCS: 71271